=== PATIENT | female | born 1940 | race Caucasian/White ===

== ENCOUNTER → 2023-11-17 10:14 | Outpatient (REF) | payer OTHER, SELFPAY | LOC: RCS 10:14 | PROVIDERS: ATTENDING PHYSICIAN Specialist; FAMILY PHYSICIAN Family Medicine; REFERRING PHYSICIAN Internal Medicine | DX: Z01.818 Encounter for other preprocedural examination (principal) | CPT/HCPCS: 93005 ==

== ENCOUNTER 2023-12-28 22:15 | Inpatient (IN) | payer OTHER, SELFPAY ==
[2023-12-28 18:45] VITALS: BP 117/53
[2023-12-28 19:34] LABS: ALT (SGPT) 22 U/L (0-35); AST (SGOT) 26 U/L (14-36); Albumin 4.4 g/dl (3.5-5.0); Alkaline Phosphatase 119 U/L (38-126); Blood Urea Nitrogen 39 mg/dl (7-17); Carbon Dioxide 36 mmol/L (22-30); Chloride 81 mmol/L (98-107); Glucose 145 mg/dl (70-99); Lipase 72 U/L (23-300); Potassium 2.8 mmol/L (3.5-5.1); Sodium 128 mmol/L (135-145); Total Bilirubin 0.9 mg/dl (0.2-1.3)
[2023-12-28 20:09] VITALS: BP 113/64
[2023-12-28 20:30] VITALS: BMI 26.1
[2023-12-28 20:33] LABS: % Basophils 0.4 % (0-2); % Eosinophils 1.1 % (0-6); % Immature Granulocytes 0.5 % (0-0.5); % Lymphocytes 13.1 % (20.5-51.1); % Monocytes 7.8 % (1.7-9.3); % Neutrophils 77.1 % (42.2-75.2); Absolute Basophils 0.1 10^3/uL (0-0.2); Absolute Eosinophils 0.2 10^3/uL (0-0.7); Absolute Immature Granulocytes 0.1 10^3/uL (0-0.05); Absolute Lymphocytes 2.2 10^3/uL (1.2-3.4); Absolute Monocytes 1.3 10^3/uL (0.1-0.6); Absolute Neutrophils 12.8 10^3/uL (1.4-6.5); Hematocrit 38.6 % (37.0-47.0); Hemoglobin 13.9 g/dL (12.0-16.0); Mean Corpuscular Hgb 33.4 pg (27.0-31.0); Mean Corpuscular Volume 92.8 fL (81.0-99.0); Mean Platelet Volume 9.4 fL (7.4-10.4); Nucleated Red Blood Cells % 0 %; Platelet Count 406 10^3/uL (130-400); Red Blood Cell Count 4.16 10^6/uL (4.20-5.40); Red Cell Dist. Width 12.6 % (11.5-14.5); White Blood Cell Count 16.6 10^3/uL (4.8-10.8)
[2023-12-28 20:42] LABS: Magnesium 2.3 mg/dl (1.6-2.3)
--- NOTE | 2023-12-28 20:43 | ED.GENMED ---
History of Present Illness
General
Chief Complaint: Abdominal Symptoms
Source: patient and family
Exam Limitations: none
Time Seen by Provider: 12/28/23 20:06
Nursing documentation reviewed up to this point in time: agreed with
Travel History
Have you had any contact with someone who has COVID-19?: No
Do you have any symptoms of coronavirus? Fever > 100 degrees, chills, cough, shortness of breath, sore throat, loss of taste or smell, muscle aches, or headache?: No
History of Present Illness
History of Present Illness:
83-year-old female presents with fatigue dizziness nausea subacute onset, seen by her PCP recently started on Macrobid for UTI
She has a known spot on her biliary tract based on a CAT scan or an MRI scheduled for an MRI next week no abdominal pain no jaundice
Symptoms worse in the past day or so, she is having trouble getting up out of bed as her symptoms are so severe did have some diarrhea yesterday,
Has chronic leg edema
Has had some burning in her upper chest--no history of CAD but does have A-fib on flecainide and potassium
For GI issues to be worked up by GI group at 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
Past History
Past History
ED Past Medical History: Arrthythmia, GERD (Hiatal hernia), HTN, Hypercholesterolemia, Valvular disease and Other (Kidney stones)
ED Past Surgical History: Gynecological (Tubal ligation), Tonsilectomy, Urological (Kidney stone removal) and Other (Hiatal hernia repair)
Social History
Tobacco: Non-smoker
Alcohol: None
Drug: None
Personal:
Living: with family
Employment: Retired
Family History
Family History: Other (Noncontributory)
Review of Systems
Review of Systems
All Other Systems: Not applicable
Constitutional: Reports fatigue; Denies chills
EENT: Reports no symptoms
Respiratory: Denies cough
Cardiac: Reports chest pain
ABD/GI: Reports nausea and diarrhea
: Reports no symptoms
Musculoskeletal: Reports no symptoms
Neurological: Reports dizzy, headache and weakness
Endocrine: Reports no symptoms
Hematologic/Lymphatic: Reports no symptoms
Psychiatric: Reports no symptoms
Phy Exam
Physical Exam
Physical Exam:
Physical Exam
General: 83-year-old female dry lips looks uncomfortable normal
Neck: Lips are dry no jaundice
Heart: Your
Lungs: no acute respiratory distress. clear bilaterally
Abdomen: Nontender
Neuro: alert and oriented. no focal neurological deficits
Skin: no rash
Psychiatric: cooperative
Extremities: Lymphedema lower
Course
Orders/Labs/Results
Orders:
Orders
12/28/23 Breakfast
Cholesterol Lowering
Cholesterol Lowering: Sodium, 2 Gram
12/28/23 18:49
IV Insert/Care/Rem.- Treatment PRN
12/28/23 18:57
Comprehensive Metabolic Panel Urgent
Cortisol, Random Urgent
Comment: ADD ON
Lipase Urgent
Magnesium Urgent
Comment: ADD ON
Serum Osmolality Urgent
Comment: AD ON
TSH Urgent
Comment: ADD ON
12/28/23 20:06
Add On- LAB Urgent
Tests Added?: Magnesium, serum osmolality, TSH, random cortisol
Electrocardiogram (*1) Urgent
Reason for Study: Vertigo / Dizzy
EKG- Treatment ONCE
12/28/23 20:23
Complete Blood Count/With Diff Urgent
12/28/23 20:27
Osmolality, Random Urine Urgent
Date Specimen was Collected: 12/28/23
Time Specimen was Collected: 20:26
Urinalysis Reflex To Culture Urgent
Date Specimen was Collected: 12/28/23
Time Specimen was Collected: 20:
Urine Microscopic Reflex Cult Urgent
Urine Sodium Urgent
Date Specimen was Collected: 12/28/23
Time Specimen was Collected: 20:
Urine Culture Urgent
GUNJAN Source: U
Specimen Description:
Date Specimen was Collected: 12/28/23
Time Specimen was Collected: 20:
12/28/23 20:40
Potassium Chloride [KCl] 20 meq PO NOW STA
12/28/23 20:46
CT Head W/o Iv Contrast Urgent
Comment:
Reason For Exam: Dizziness headache unable to ambulate
12/28/23 21:00
KCl 40 Meq/0.9%Sodchl 1000 ml [NSS with KCL 40 MEQ] 40 meq in 1,000 ml IV 125 mls/hr
12/28/23 21:52
Admit/Transfer Patient As Directed
Co-Sign Provider:
Level of Care: Inpatient admission
Assign to:: Telemetry
Physician / Group: Hospitalist
Diagnosis: Weakness and dizziness
Reason for Telemetry: Arrhythmia
Date to Stop Telemetry: 12/31/23
Time to Stop Telemetry: 11:00
Reason for Hospitalization: Weakness and dizziness
Expected length of stay greater than two midnights?: Yes
ELOS- Estimated Length of Stay in days: 3
I certify the patient meets the requirements for IP care: Yes
12/28/23 21:54
Code Status As Directed
Resuscitation Status: Full Code
12/28/23 22:40
Electrocardiogram (*1) Q6H
Reason for Study: Chest Pain
Comment: at admission and Q3H for total of 3, to be done with each troponin
0.9% Sodium Chloride 1000 ml [Nss] 1,000 ml IV 100 mls/hr
12/28/23 22:40
Activity As Directed
Activity Level: As Tolerated
INT (Intravenous Needle Therapy) As Directed
Comment: maintain peripheral IV access
Intake/ Output As Directed
Frequency: Per unit guidelines
Pneumatic Compression Sleeves As Directed
Type: Knee high
Vital Signs As Directed
Frequency: q4h
Weight As Directed
Frequency: Daily
DX Deep Vein Thrombosis Video Routine
12/28/23 23:00
CefTRIAXone [Rocephin] 1,000 mg IV Q24H
12/28/23 23:05
Free T4 Routine
Magnesium Routine
Troponin I Urgent
12/28/23 23:06
Glycohemoglobin (HgbA1c) Routine
12/29/23 01:40
Troponin I Q3H
Comment: at admit & Q3H for 3 total including ED draws, obtain ECG with each level
12/29/23 04:40
Electrocardiogram (*1) Q6H
Reason for Study: Chest Pain
Comment: at admission and Q3H for total of 3, to be done with each troponin
Troponin I Q3H
Comment: at admit & Q3H for 3 total including ED draws, obtain ECG with each level
12/29/23 06:00
Basic Metabolic Panel IN AM
Complete Blood Count/No Diff IN AM
Magnesium IN AM
12/29/23 08:00
Aspirin Low Dose EC [Aspir Low (Enteric Coated)] 81 mg PO DAILY
Diltiazem Extended Release [Cardizem Cd] 180 mg PO DAILY
Flecainide [Tambocor] 50 mg PO BID
Potassium Chloride Powder [Klor-Con] 20 meq PO DAILY
12/29/23 10:40
Electrocardiogram (*1) Q6H
Reason for Study: Chest Pain
Comment: at admission and Q3H for total of 3, to be done with each troponin
12/31/23 11:00
DC Protocol for Telemetry ONCE
Abnormal Lab Results
12/28/23 12/28/23 12/28/23
18:57 20:23 20:27
WBC 16.6 H 10^3/uL
(4.8-10.8)
RBC 4.16 L 10^6/uL
(4.20-5.40)
MCH 33.4 H pg
(27.0-31.0)
Plt Count 406 H 10^3/uL
(130-400)
Abs Immat Gran (auto) 0.1 H 10^3/uL
(0-0.05)
Absolute Neuts (auto) 12.8 H 10^3/uL
(1.4-6.5)
Absolute Monos (auto) 1.3 H 10^3/uL
(0.1-0.6)
Neutrophils % 77.1 H %
(42.2-75.2)
Lymphocytes % 13.1 L %
(20.5-51.1)
Sodium 128 L mmol/L
(135-145)
Potassium 2.8 L mmol/L
(3.5-5.1)
Chloride 81 L mmol/L
(98-107)
Carbon Dioxide 36 H mmol/L
(22-30)
BUN 39 H mg/dl
(7-17)
Glucose 145 H mg/dl
(70-99)
TSH 0.09 L uIU/ml
(0.47-4.68)
Urine Ketones 1+ A
(Negative)
Leukocyte Esterase Rfl 2+ A
(Negative)
Urine WBC (Reflex) 26-30 A /HPF
(0-5)
Urine Bacteria (Reflex) Few A
(Negative)
Urine Osmolality 284 L mOsm/kg
(300-900)
12/28/23 20:23
12/28/23 18:57
Vital Signs
Initial and Last Documented VS:
Initial Vital Signs
Temp Pulse Resp BP Pulse Ox
97.3 F 50 18 117/53 99
12/28/23 18:45 12/28/23 18:45 12/28/23 18:45 12/28/23 18:45 12/28/23 18:45
Last Documented Vital Signs
Temp Pulse Resp BP Pulse Ox
97.3 F 85 17 106/54 96
12/28/23 18:45 12/28/23 23:00 12/28/23 23:00 12/28/23 23:00 12/28/23 23:00
MDM/Problems Addressed
Differential Diagnosis Includes:
Electrolyte abnormality dehydration UTI malignancy brain tumor
MDM/Problems Addressed:
Dizziness nausea
Chronic conditions affecting care:
Lymphedema spot on biliary tract
Chronic conditions affecting care: Arrhythmia
Acute Exacerbation and/or Progression of Chronic Illness:
Lymphedema spot on biliary tract
Acute Exacerbation and/or Progression of Chronic Illness: Arrhythmia
*Critical Care Note
Total Time (30-74mins, 75-104mins- exclusive of procedures): Not Applicable
Update Note
Update Note:
Update labs are noted we will replete her electrolytes start on gentle hydration symptoms are acute on chronic, LFTs look normal will check CT of the head will require admission due to severity of illness potential for decompensation
ED Attending Note
-
Portions of this chart may have been created with voice recognition software.� Occasional wrong word or��sound alike� substitutions may have occurred due to the inherent limitations of voice recognition software.
Discharge Plan
Departure
Patient Disposition: Admit
Date of Disposition: 12/28/23
Time of Disposition: 20:58
Admit to: Telemetry
Presentation/result/management discussed w/ accepting MD/DO: Hospitalist
Patient with high blood pressure during this ER visit?: No
Condition: Fair
Discharge Problem:
Intractable dizziness, Dehydration with hyponatremia
Interventions
Interventions:
*Risk Screen - Suicide Last Done: 12/28/23 18:45
*General Assessment Last Done: 12/28/23 18:45
*Neglect/Abuse Screening Last Done: 12/28/23 18:45
ED- Fall Risk Assessment Last Done: 12/28/23 20:30
*ED COVID-19 Vaccine History Last Done: 12/28/23 20:30
SM-Qwfaft-Qpckuzggeg Assessment Last Done: 12/28/23 20:33
[2023-12-28] MEDS: KCL 20 MEQ PO (20:59)
[2023-12-28] MEDS: NSS with KCL 40 MEQ 1000 IV (20:59)
[2023-12-28 21:00] VITALS: BP 120/55
[2023-12-28 21:13] LABS: Cortisol, Random 44.1 ug/dl; TSH 0.09 uIU/ml (0.47-4.68)
--- NOTE | 2023-12-28 21:36 | HPS.HSE ---
Family Physician
-
Family Physician:
Chief Complaint
-
Weakness and dizziness
History of Present Illness
83-year-old woman comes in with fatigue, dizziness, nausea, which has been going on for about a month but is worse recently. She was seen by her PCP and was started onMacrobid for UTI. She has a known 'spot' on her biliary tract taht was seen on a
CT scan. She is scheduled for an MRI next week, but has no abdominal pain or jaundice. Her Symptoms have been particularly worse in the past day and she is now having trouble getting up out of bed. She had some diarrhea yesterday, she Has chronic
leg edema. She Has had some burning in her upper chest--no history of CAD but does have A-fib on flecainide and potassium. Not anticoagulated. She takes tramadol BID, as well as lasix. At the time of my exam, she was sleepy but was able to
answer questions.
Medical History
Past Medical History
Past Medical History: Reports Other
Additional Past Medical History:
Arrthythmia, paroxysmal afib
GERD (Hiatal hernia),
essential HTN,
Hypercholesterolemia,
Valvular disease
Kidney stones
Tubal ligation),
Tonsilectomy,
Kidney stone removal
Hiatal hernia repair
Past Surgical History: Reports Other
Additional Past Surgical History:
See above
Social History
Tobacco: Non-smoker
Alcohol: None
Drug: None
Personal:
Living: With Family
Family History
Family History: Not pertinent
Allergies / Home Medications
Allergies reflects when Allergies were last updated in [facility].
Home Medications with original date entered in [facility]
Allergy/Medication List:
Allergies
Allergy/AdvReac Type Severity Reaction Status Date / Time
No Known Allergies Allergy Verified 12/28/23 18:45
Home Medications
Ca 600 mg-D3 20 mcg-mag oxide 50 cj-Rv-gmkjnb-manganese-boron tablet (Calcium 600-D3 Plus (mag-zinc)) 1 ea PO DAILY 01/27/21
L.acidoph, paracasei,B. lactis 10 billion cell capsule 1 ea PO DAILY 01/27/21
ascorbic acid (vitamin C) 1,000 mg tablet (Vitamin C) 1,000 mg PO DAILY 01/27/21
aspirin 81 mg tablet,delayed release (Lo-Dose Aspirin) 81 mg PO DAILY 01/27/21
cetirizine 10 mg tablet (Zyrtec) 10 mg PO DAILY 01/27/21
diclofenac sodium 1 % topical gel 1 g topical DAILY 01/27/21
diltiazem HCl 180 mg capsule,extended release 24 hr 180 mg PO DAILY 01/27/21
famotidine 40 mg tablet (Pepcid) 40 mg PO PRN PRN indigestion 01/27/21
flecainide 50 mg tablet 50 mg PO BID 01/27/21
furosemide 40 mg tablet 40 mg PO DAILY 01/27/21
omeprazole 40 mg capsule,delayed release 40 mg PO DAILY 01/27/21
psyllium husk (bulk) 100 % powder 750 mg PO DAILY 01/27/21
sertraline 25 mg tablet 25 mg PO DAILY 01/27/21
sucralfate 100 mg/mL oral suspension (Carafate) 1 gm PO QIDPRN PRN Chest pain/acid reflux ##560 01/27/21
tramadol 50 mg tablet 50 mg PO BID 01/27/21
fukeywkt-eynser-zlz-pab-lfc-dsui-horse 100 mg-100 mg-100 mg-125 mg tab (Tumersaid) 1 ea PO BID 01/27/21
vitamin B complex (Ultra B-100 Complex tablet) 1 ea PO DAILY 01/27/21
amoxicillin 875 mg-potassium clavulanate 125 mg tablet 1 tab PO BID 7 days #14 tabs 04/25/23
Review of Systems
-
History Source: Patient
A 12 point ROS was completed and negative except as noted: Yes
Physical Exam
Vital Signs
Vital Signs
Temp Pulse Resp BP Pulse Ox
97.3 F 74 17 120/55 97
12/28/23 18:45 12/28/23 21:00 12/28/23 21:00 12/28/23 21:00 12/28/23 21:16
Physical Exam
General: Well Developed, Well Nourished, No Apparent Distress, Comfortable and Conversant
HEENT: NormoCephalic, No Ptosis, Nose Appears Normal and Ears Appear Normal
Respiratory: Clear
Cardiac: S1/S2 and Irregular Rhythm
GI: Soft, Non Tender and Non Distended
Musculoskeletal: No Clubbing, No Cyanosis, Edema, Left Lower Extremity and Edema, Right Lower Extremity
Skin: Warm and Dry; No Rash or Jaundice
Neuro: Awake and Alert
Psych: Calm
Laboratory Results
-
12/28/23 20:23
12/28/23 18:57
Laboratory Results
Total Bilirubin 0.9 mg/dl (0.2-1.3) 12/28/23 18:57
AST 26 U/L (14-36) 12/28/23 18:57
ALT 22 U/L (0-35) 12/28/23 18:57
Alkaline Phosphatase 119 U/L (38-126) 12/28/23 18:57
Lipase 72 U/L (23-300) 12/28/23 18:57
Data Reviewed
-
Lab Data: Labs Reviewed by me
Impression/Plan
-
IMPRESSION:
83 woman with dizziness and weakness, worsening over a month, diagnosed with outpt UTI. Significant findings:
WBC 16.6
Na 128
K 2.8
BUN 39
Creat 1.0
TSH 0.09
PLAN:
1. Dehydration with electrolyte abnormalities
Low K
Replete K
Recheck in am
Check mag
Low Na
Saline
Recheck in AM
2. WBC of 16, likely from UTI
IV abx - ceftriaxone
3. TSH of 0.09 - could also explain her weakness
Get thyroid labs in am
4. Daily tramadol - may cause weakness and sleepiness
Consider reducing this med
5. Afib, not on anticoagulation, rate wnet in 140s, with ECG changes when going fast
Outpatient review with her civil preparedness officer
MICHELLE
Telemetry
Full code
VCD for DVTp
[2023-12-28 22:00] VITALS: BP 107/62
[2023-12-28 22:27] LABS: Osmolality Serum 282 mOsm/kg (275-300)
[2023-12-28] MEDS: MELATONIN 3 MG PO (22:33)
[2023-12-28 23:00] VITALS: BP 106/54
[2023-12-28 23:14] VITALS: BP 117/54
[2023-12-28 23:36] LABS: Magnesium 2.2 mg/dl (1.6-2.3)
[2023-12-28 23:49] LABS: Troponin I < 0.012 ng/ml
[2023-12-29] VITALS (19 sets, daily range): BP systolic 99–140; BP diastolic 39–81; BMI 26.1
[2023-12-29 00:08] LABS: Free T4 1.82 ng/dl (0.78-2.19)
[2023-12-29 00:45] LABS: Urine Albumin Negative (Neg - Trace); Urine Bilirubin Negative (Negative); Urine Character Clear (Clear); Urine Color Yellow; Urine Glucose Negative (Negative); Urine Ketone 1+ (Negative); Urine Leukocyte 2+ (Negative); Urine Nitrite Negative (Negative); Urine Occult Blood Negative (Negative); Urine Specific Gravity 1.005 (<1.030); Urine Urobilinogen Negative (Neg - 1+)
[2023-12-29 01:02] LABS: Osmolality Urine 284 mOsm/kg (300-900); Urine Squamous Cell >30 /LPF (Few)
[2023-12-29 01:03] LABS: Urine Bacteria Few (Negative); Urine Red Blood Cell None Seen /HPF (0-2); Urine White Cell 26-30 /HPF (0-5)
[2023-12-29 01:07] LABS: Urine Sodium 80 mmol/L (30-90)
[2023-12-29 02:18] LABS: Troponin I < 0.012 ng/ml
[2023-12-29] MEDS: NSS 1000 IV (03:41)
[2023-12-29] MEDS: ROCEPHIN 1000 MG IV ×2 (03:49→22:13)
[2023-12-29] MEDS: STERILE WATER FOR INJECTION 10 ML IV ×2 (03:49→22:13)
[2023-12-29] MEDS: NSS with KCL 40 MEQ 1000 IV ×3 (04:17→22:13)
[2023-12-29 06:52] LABS: Hematocrit 33.9 % (37.0-47.0); Hemoglobin 11.5 g/dL (12.0-16.0); Mean Corp Hgb Conc. 33.9 g/dL (33.0-37.0); Mean Corpuscular Hgb 33.2 pg (27.0-31.0); Red Blood Cell Count 3.46 10^6/uL (4.20-5.40); Red Cell Dist. Width 12.8 % (11.5-14.5); White Blood Cell Count 11.8 10^3/uL (4.8-10.8)
[2023-12-29 07:30] LABS: Blood Urea Nitrogen 35 mg/dl (7-17); Calcium 8.9 mg/dl (8.4-10.2); Carbon Dioxide 30 mmol/L (22-30); Chloride 93 mmol/L (98-107); Estimated Creatinine Clearance 45 ml/min; Glucose 85 mg/dl (70-99); Magnesium 2.2 mg/dl (1.6-2.3); Potassium 3.1 mmol/L (3.5-5.1); Sodium 132 mmol/L (135-145); eGFR > 60.00
[2023-12-29 08:12] LABS: Platelet Count 281 10^3/uL (130-400)
[2023-12-29 08:13] LABS: Mean Platelet Volume 11.1 fL (7.4-10.4)
[2023-12-29 08:46] LABS: Glycohemoglobin (HgbA1c) 5.8 % (4.0-5.6)
[2023-12-29 09:10] LABS: Troponin I < 0.012 ng/ml
[2023-12-29] MEDS: TAMBOCOR 50 MG PO ×2 (09:12→21:23)
[2023-12-29] MEDS: ASPIR LOW (ENTERIC COATED) 81 MG PO (09:12)
[2023-12-29] MEDS: CARDIZEM CD 180 MG PO (09:13)
[2023-12-29] MEDS: KLOR-CON 40 MEQ PO ×2 (09:18→20:09)
--- NOTE | 2023-12-29 10:34 | W.PN.HOSP.TC ---
Today's Communication/Plan
-
see plan
Assessment / Plan
Assessment / Plan
IMPRESSION:
83 woman with dizziness and weakness, worsening over a month, diagnosed with outpt UTI.
PLAN:
1. Dehydration with electrolyte abnormalities
replete hypokalemia
Replete K
Recheck in am
mag normal
hyponatremia
Saline-> improving with IVF
Recheck in AM
2. WBC of 16, likely from UTI
IV abx - ceftriaxone
await urine cultures
3. TSH of 0.09 - could also explain her weakness
Get thyroid labs in am
4. Daily tramadol - may cause weakness and sleepiness
Consider reducing this med
5. Afib, not on anticoagulation, rate wnet in 140s, with ECG changes when going fast
Outpatient review with her box toe stitcher
MICHELLE
Telemetry
Full code
VCD for DVTp
Anticipated Discharge: 24 - 48 hours
Subjective/Interval History
-
Date of Service: December 29, 2023
pt still not at baseline
endorses generalized weakness
Objective Data
-
Labs:
Laboratory Results
12/29/23
05:59
WBC 11.8 H
Hgb 11.5 L
Hct 33.9 L
Plt Count 281 D
Sodium 132 L
Potassium 3.1 L
Chloride 93 L
Carbon Dioxide 30
BUN 35 H
Creatinine 0.8
Glucose 85
Calcium 8.9
Vital Signs:
Vital Signs
Temp Pulse Resp BP Pulse Ox
98.0 F 61 14 115/63 95
12/29/23 07:00 12/29/23 09:13 12/29/23 06:45 12/29/23 09:13 04/01/24 06:45
I&O
12/28/23 12/29/23 12/30/23
06:59 06:59 06:59
Output Total 300 / 300
Balance -300 / -300
Review of Systems
-
History Source: Patient
All other systems: Reviewed and negative
Constitutional: Reports Weakness (generalized)
Physical Exam
-
General: Well Developed and No Apparent Distress
HEENT: Normocephalic, Atraumatic and Moist Mucous Membranes
Respiratory: Clear to Auscultation
Cardiac: S1/S2 and Tachycardic; Negative Murmur, Rub or Gallop
GI: Soft, Nontender, Nondistended and Normal Bowel Sounds; Negative Organomegaly
Rectal: Deferred by Provider
Musculoskeletal: No Clubbing, No Cyanosis and No Edema
Skin: Negative Rash
Neuro: Nonfocal/Grossly Intact
Data Reviewed
-
Diagnostic Radiology: Report Reviewed by me
[2023-12-29] MEDS: TYLENOL 1000 MG PO (20:08)
[2023-12-30] VITALS (9 sets, daily range): BP systolic 108–165; BP diastolic 46–73
[2023-12-30] MEDS: MELATONIN 3 MG PO ×2 (00:28→20:12)
[2023-12-30] MEDS: NSS with KCL 40 MEQ 1000 IV (06:30)
[2023-12-30 07:40] LABS: % Basophils 0.7 % (0-2); % Eosinophils 4.1 % (0-6); % Immature Granulocytes 0.5 % (0-0.5); % Lymphocytes 19.1 % (20.5-51.1); % Monocytes 10.9 % (1.7-9.3); % Neutrophils 64.7 % (42.2-75.2); Absolute Basophils 0.1 10^3/uL (0-0.2); Absolute Eosinophils 0.4 10^3/uL (0-0.7); Absolute Immature Granulocytes 0.1 10^3/uL (0-0.05); Absolute Lymphocytes 1.9 10^3/uL (1.2-3.4); Absolute Monocytes 1.1 10^3/uL (0.1-0.6); Absolute Neutrophils 6.3 10^3/uL (1.4-6.5); Hematocrit 34.6 % (37.0-47.0); Hemoglobin 11.4 g/dL (12.0-16.0); Mean Corp Hgb Conc. 32.9 g/dL (33.0-37.0); Mean Corpuscular Hgb 33.4 pg (27.0-31.0); Mean Corpuscular Volume 101.5 fL (81.0-99.0); Nucleated Red Blood Cells % 0 %; Platelet Count 324 10^3/uL (130-400); Red Blood Cell Count 3.41 10^6/uL (4.20-5.40); Red Cell Dist. Width 13.2 % (11.5-14.5); White Blood Cell Count 9.8 10^3/uL (4.8-10.8)
[2023-12-30 07:56] LABS: ALT (SGPT) 17 U/L (0-35); AST (SGOT) 25 U/L (14-36); Albumin 3.3 g/dl (3.5-5.0); Alkaline Phosphatase 86 U/L (38-126); Blood Urea Nitrogen 18 mg/dl (7-17); Calcium 8.9 mg/dl (8.4-10.2); Carbon Dioxide 25 mmol/L (22-30); Chloride 105 mmol/L (98-107); Estimated Creatinine Clearance 59 ml/min; Glucose 81 mg/dl (70-99); Potassium 4.7 mmol/L (3.5-5.1); Sodium 133 mmol/L (135-145); Total Bilirubin 0.6 mg/dl (0.2-1.3); Total Protein 5.6 g/dl (6.3-8.2); eGFR > 60.00
--- NOTE | 2023-12-30 09:26 | CM ---
CM reviewed medical records. CM met with patient in room. Patient's in room. Patient confirmed demographics. [place] home is [place] level. Patient denies history of VN, SNF. Patient uses a case for
ambulation. Patient is active with her PCP. Patient uses [facility] for medication services.
Patient is agreeable to [facility] and is looking forward to home discharge. [facility] access liaison made aware of new referral.
PLAN: Home with VN
[2023-12-30] MEDS: TAMBOCOR 50 MG PO ×2 (09:42→20:10)
[2023-12-30] MEDS: CARDIZEM CD 120 MG PO (09:42)
--- NOTE | 2023-12-30 09:56 | PN.CDI ---
CDI
- -
CDI:
Physician Documentation Request
Admit Date: 12/28/23 22:15
Dear Doctor Darwin,
Clinical Indicators:
Patient admitted with dizziness and weakness; diagnosed with outpatient UTI.
12/27 H & P, -'At the time of my exam, she was sleepy but was able to answer questions.'
- 'Daily tramadol - may cause weakness and sleepiness...'
12/[address]: No evidence of acute intracranial abnormality.
12/28 PN, 'pt still not at baseline...endorses generalized weakness'
Sodium levels:
12/28/23 12/29/23
18:57 05:59
Sodium 128 L 132 L
Based on the above, could you clarify in the progress notes, the appropriate diagnosis, if significant, that supports the above abnormalities and additional evaluation, monitoring and/or treatment rendered:
Acute Metabolic Encephalopathy
Toxic Metabolic Encephalopathy
Weakness only
Other, please specify
Use of terms such as suspected, likely, concern for, or probable (associated with a specific diagnosis that is being evaluated, monitored, or treated as if it exists) are acceptable and can be coded in the inpatient setting, when documented at the
time of discharge.
Thank you,
SALAS Campoverde RN
CDI Specialist
available via tiger text
Please use your independent medical judgment in providing your response.
[2023-12-30] MEDS: KLOR-CON PO (10:31)
--- NOTE | 2023-12-30 10:55 | W.PN.HOSP.TC ---
Addendum entered and electronically signed by Marleny Granados MD 12/30/23 12:19:
Acute Metabolic Encephalopathy in setting of hyponatremia, possible UTI
Original Note:
Today's Communication/Plan
-
orthopedics cs
pt/ot
meclizine
mri brain.
Assessment / Plan
Assessment / Plan
IMPRESSION:
83 woman with dizziness and weakness, worsening over a month, diagnosed with outpt UTI.
PLAN:
1. Dehydration with electrolyte abnormalities
replete hypokalemia
Replete as required
IMPROVING.
mag normal
hyponatremia
hold torsemide.
Saline-> improving with IVF
Cap IVF. Consider resume torsemide 12/30
Status post L shoulder replacement
Pt now with increasing swelling in the L shoulder
Ortho consult
Pt had recent aspiration of joint due to similar swelling recently.
Dizziness
Was initially presumed to dehydration, hyponatremia but persists
Pt with hx of vertigo
Check MRI brain
standing meclizine
PT/OT
Biliary duct abnormality
MRI repeated here: Stable MRI appearance of a small periampullary projection that again could reflect papillary hypertrophy or a small neoplasm. No significant change compared to the MRI abdomen from 07/15/2023. No increased bile duct dilatation. No
MRCP evidence for choledocholithiasis or bile duct stricture.
Recommend pt to follow up with Dr. Wilson at [facility]. No acute intervention.
2. WBC of 16, likely from UTI
IV abx - ceftriaxone
ucx with contaminant but cont rocephin for now due to leukocytosis that improved with IV abx.
3. TSH of 0.09 - could also explain her weakness
free t4 normal. recommend close outpt follow up
4. Daily tramadol - may cause weakness and sleepiness
Consider reducing this med
5. Afib, not on anticoagulation, rate wnet in 140s, with ECG changes when going fast
Outpatient review with her airplane mechanic
cont flecanide.
Telemetry
Full code
VCD for DVTp
relayed plan at length with .
Anticipated Discharge: 24 - 48 hours
Subjective/Interval History
-
Date of Service: December 30, 2023
pt reports ongoing dizziness but does feel a bit better
L shoulder painful
Objective Data
-
Labs:
Laboratory Results
12/30/23
06:32
WBC 9.8
Hgb 11.4 L
Hct 34.6 L
Plt Count 324
Sodium 133 L
Potassium 4.7 D
Chloride 105
Carbon Dioxide 25
BUN 18 H
Creatinine 0.6
Glucose 81
Calcium 8.9
Total Bilirubin 0.6
AST 25
ALT 17
Alkaline Phosphatase 86
Vital Signs:
Vital Signs
Temp Pulse Resp BP Pulse Ox
98.2 F 69 15 165/54 98
12/30/23 09:41 12/30/23 09:38 12/30/23 09:38 12/30/23 09:38 12/30/23 09:38
I&O
12/29/23 12/30/23 12/31/23
06:59 06:59 06:59
Output Total 300 / 300
Balance -300 / -300
Review of Systems
-
History Source: Patient
All other systems: Reviewed and negative
Musculoskeletal: Reports Joint Pain
Neuro: Reports Dizzy
Physical Exam
-
General: Well Developed and No Apparent Distress
HEENT: Normocephalic, Atraumatic and Moist Mucous Membranes
Respiratory: Clear to Auscultation
Cardiac: Regular Rhythm and S1/S2; Negative Murmur, Rub or Gallop
GI: Soft, Nontender, Nondistended and Normal Bowel Sounds; Negative Organomegaly
Rectal: Deferred by Provider
Musculoskeletal: No Clubbing, No Cyanosis and Other (L shoulder edema)
Skin: Negative Rash
Neuro: Nonfocal/Grossly Intact
Data Reviewed
-
Diagnostic Radiology: Report Reviewed by me and Discussed with Family
Labs: Labs Reviewed by me and Discussed with Patient
[2023-12-30] MEDS: TYLENOL #3 1 TABLET PO ×2 (12:40→20:10)
[2023-12-30] MEDS: ANTIVERT 25 MG PO ×2 (12:41→20:12)
--- NOTE | 2023-12-30 12:54 | VNURNOTE ---
Home Health Liaison spoke with patient's spouse by phone at 1030 to discuss [facility] nurse/therapy, visits, schedule and homebound status. Patient was on speaker and is agreeable and understands that visits at home will be 2-3 x per week to assess and
teach medical management.
Patient is aware that [facility] will contact them for start of care in 1-2 days after discharge from .
[facility] referral completed in [facility].
--- NOTE | 2023-12-30 12:56 | CON.ORTHO ---
Consultation
-
Date/Time Consultation Requested: January 20/1029
Date/Time Consultation Performed: January 20/1230
Requesting Provider: Darwin
Performing Provider: Amarilis for [place]
Reason for Consultation: Right shoulder swelling
Consultation - Orthopedics
History
Dictation#[id number]
Was asked to see this very pleasant 83-year-old white female with PMH of Arrthythmia, GERD (Hiatal hernia), HTN, Hypercholesterolemia, Valvular disease and Kidney stones, well-known to our orthopedic practice, specifically Dr. Jones for arthroscopic
balloon spacer placement and extensive debridement of the shoulder back on 10 December 2023. Postoperatively she presented to our office on 23 December 2023 with increased swelling. Aspiration and steroid injection was provided and fluid was sent to the
lab. Analysis was negative. she has now been readmitted due to dehydration and hyponatremia. Consult was requested for increased swelling of the right shoulder.
Allergies / Home Medications
Allergy/AdvReac Type Severity Reaction Status Date / Time
No Known Allergies Allergy Verified 12/28/23 18:45
�Medication �Instructions �Recorded
Ca 600 mg-D3 20 mcg-mag oxide 50 1 tab PO BID Supplement 01/27/21
lg-Ph-vwwwlc-manganese-boron
tablet (Calcium 600-D3 Plus
(mag-zinc))
ascorbic acid (vitamin C) 1,000 mg 1,000 mg PO DAILY Supplement 01/27/21
tablet (Vitamin C)
flecainide 50 mg tablet 50 mg PO BID Arrhythmia 01/27/21
omeprazole 40 mg capsule,delayed 40 mg PO BID Gastrointestinal Issue 01/27/21
release
tramadol 50 mg tablet 50 mg PO BID PRN severe pain 01/27/21
lbmpsmsk-ajpfaq-bjt-det-imq-nczd-horse 1 tab PO BID Supplement 01/27/21
100 mg-100 mg-100 mg-125 mg tab
(Tumersaid)
atorvastatin 10 mg tablet 10 mg PO HS High Cholesterol 12/28/23
cyanocobalamin (vitamin B-12) 500 500 mcg PO DAILY Supplement 12/28/23
mcg tablet (Vitamin B-12)
diltiazem HCl 120 mg capsule,24 120 mg PO HS Arrhythmia 12/28/23
hr,extended release
multivitamin 1 tab PO NOON Supplement 12/28/23
polyethylene glycol 3350 17 gram 17 g PO DAILY Constipation 12/28/23
oral powder packet (Miralax)
potassium chloride 20 mEq 20 meq PO NOON Electrolyte 12/28/23
tablet,extended Repletion
release(part/cryst) (Klor-Con M)
torsemide 20 mg tablet 40 mg PO BID Fluid 12/28/23
Retention/Swelling
vitamin A-vitamin C-vit E-min 1 tab PO HS Supplement 12/28/23
tablet
zinc 50 mg tablet 50 mg PO DAILY Supplement 12/28/23
acetaminophen 300 mg-codeine 15 mg 1 tab PO Q6H PRN severe pain 12/29/23
tablet
acetaminophen 500 mg tablet 1,000 mg PO BIDPRN PRN mild pain 12/29/23
(Tylenol Extra Strength)
biotin 1 tab PO DAILY Supplement 12/29/23
carboxymethylcellulose sodium 1 % 1 drp BOTH EYES BID Eye Condition 12/29/23
eye liquid gel drops
metolazone 2.5 mg tablet 2.5 mg PO DAILY PRN edema 12/29/23
ondansetron 8 mg disintegrating 8 mg PO Q8H PRN nausea/vomiting 12/29/23
tablet
oxycodone 5 mg tablet 5 mg PO Q6H PRN severe pain 12/29/23
sertraline 50 mg tablet 50 mg PO HS Mental Health 12/29/23
vitamin B complex 1 tab PO NOON Supplement 12/29/23
melatonin 10 mg tablet 10 mg PO HS PRN sleep 12/30/23
Vital Signs / Lab Results
Temp Pulse Resp BP Pulse Ox
98.2 F 80 20 128/56 98
12/30/23 09:41 12/30/23 11:00 12/30/23 11:00 12/30/23 10:42 12/30/23 09:38
12/30/23 06:32
12/30/23 06:32
Assessment / Plan
PE: Afeb. ED18. 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 large effusion of the shoulder without erythema and mild warmth. Some generalized discomfort to palpation. Range of motion limited
secondary to swelling and discomfort. Neurovascularly intact in her right upper extremity
Diagnostics: no radiographs of the shoulder available for my review during this admission, and I do not feel as though they are necessary
Impression: right shoulder effusion s/p shoulder arthroscopy with balloon spacer placement and extensive debridement on 10 December 2023
Plan: Zoraida does have a recurrent effusion of her right shoulder. Based on how swollen she is I do feel a shoulder aspiration during this admission would be therapeutic. I discussed with attending hospitalist, Dr. Granados. After obtaining her verbal
consent to 115 cc of blood-tinged fluid was sterilely aspirated from the right shoulder without complication. based on the appearance of the fluid and recent negative lab and since I did not feel it necessary to send to the lab. ice to the
shoulder. oral steroids could be beneficial if not contraindicated. Inpatient PT could be beneficial, but not absolutely necessary. When medically optimized and discharged we will follow-up as scheduled outpatient. orthopedics to sign off for
now. please reengage with any pertinent related issues to the right shoulder if necessary.
[2023-12-30] MEDS: LIPITOR 10 MG PO (20:11)
[2023-12-30] MEDS: PROTONIX 40 MG PO (20:12)
[2023-12-30] MEDS: ROCEPHIN 1000 MG IV (23:29)
[2023-12-30] MEDS: STERILE WATER FOR INJECTION 10 ML IV (23:29)
[2023-12-31] VITALS (7 sets, daily range): BP systolic 139–163; BP diastolic 63–74; PULSE 60; O2SAT 99; BMI 25.4
[2023-12-31] MEDS: ANTIVERT PO (03:19)
[2023-12-31 05:35] LABS: % Basophils 0.6 % (0-2); % Eosinophils 4.6 % (0-6); % Immature Granulocytes 0.6 % (0-0.5); % Lymphocytes 20.2 % (20.5-51.1); % Monocytes 9.8 % (1.7-9.3); % Neutrophils 64.2 % (42.2-75.2); Absolute Basophils 0.1 10^3/uL (0-0.2); Absolute Eosinophils 0.5 10^3/uL (0-0.7); Absolute Immature Granulocytes 0.1 10^3/uL (0-0.05); Absolute Lymphocytes 2.2 10^3/uL (1.2-3.4); Absolute Monocytes 1.1 10^3/uL (0.1-0.6); Absolute Neutrophils 6.9 10^3/uL (1.4-6.5); Hemoglobin 10.5 g/dL (12.0-16.0); Mean Corp Hgb Conc. 32.8 g/dL (33.0-37.0); Mean Corpuscular Hgb 33.3 pg (27.0-31.0); Mean Corpuscular Volume 101.6 fL (81.0-99.0); Mean Platelet Volume 9.6 fL (7.4-10.4); Nucleated Red Blood Cells % 0 %; Platelet Count 282 10^3/uL (130-400); Red Blood Cell Count 3.15 10^6/uL (4.20-5.40); Red Cell Dist. Width 13.1 % (11.5-14.5); White Blood Cell Count 10.8 10^3/uL (4.8-10.8)
[2023-12-31 05:58] LABS: ALT (SGPT) 17 U/L (0-35); AST (SGOT) 23 U/L (14-36); Alkaline Phosphatase 77 U/L (38-126); Blood Urea Nitrogen 12 mg/dl (7-17); Carbon Dioxide 22 mmol/L (22-30); Chloride 108 mmol/L (98-107); Estimated Creatinine Clearance 59 ml/min; Glucose 85 mg/dl (70-99); Sodium 133 mmol/L (135-145); Total Bilirubin 0.3 mg/dl (0.2-1.3); Total Protein 5.3 g/dl (6.3-8.2); eGFR > 60.00
[2023-12-31] MEDS: TYLENOL #3 1 TABLET PO ×2 (09:05→18:43)
[2023-12-31] MEDS: TAMBOCOR 50 MG PO ×2 (09:06→21:05)
[2023-12-31] MEDS: PROTONIX 40 MG PO ×2 (09:07→21:05)
[2023-12-31] MEDS: VITAMIN B-12 500 MCG PO (09:07)
[2023-12-31] MEDS: CARDIZEM CD 120 MG PO (09:08)
[2023-12-31] MEDS: KLOR-CON 20 MEQ PO (09:08)
[2023-12-31] MEDS: MIRALAX 17 GRAMS PO (09:09)
[2023-12-31] MEDS: ANTIVERT 25 MG PO ×2 (11:54→21:05)
--- NOTE | 2023-12-31 14:14 | W.PN.HOSP.TC ---
Today's Communication/Plan
-
See plan
Assessment / Plan
Assessment / Plan
Impression:
Right shoulder arthritis with recurrent effusion.
� Status post arthroscopic balloon spacer placement and extensive debridement of the shoulder 12/10/2023.
Hyponatremia secondary to hypovolemia
Hypokalemia
Dizziness
Bacteriuria without evidence of UTI
Conditions prior to admission:
Paroxysmal atrial fibrillation
Essential hypertension
Chronic biliary duct abnormality.
Plan:
Right shoulder arthritis with recurrent effusion.
� Status post arthroscopic balloon spacer placement and extensive debridement of the shoulder 12/10/2023.
Status post arthrocentesis as outpatient with fluid tested negative for infection. 12/23/2023. Steroid injection was provided after aspiration.
Status post arthrocentesis on 215 cc blood-tinged fluid aspirated. Based on appearance of the fluid and recent negative lab results for infection fluid felt not to be necessary to test.
Today on 12/30 with rapidly reaccumulating fluid and worsening of right shoulder pain and inability to use right upper extremity.
Will ask orthopedic to reevaluate.
Check inflammatory markers: Sed rate/CRP.
Patient has been on antibiotics for presumed UTI/ceftriaxone, will observe off antibiotics for now.
Presumed UTI
Patient presents with generalized fatigue and weakness, although with no urinary symptoms
Noted elevated white count at 16,000 on admission.
Urine culture with contaminants only.
Hold further antibiotics and monitor closely.
Hypovolemic hyponatremia.
Improving with IV fluids and while off torsemide and metolazone.
Follow BMP.
Dizziness without vertigo.
Exam with no focal findings.
CT scan of the head and MRI with no acute abnormalities.
Paroxysmal atrial fibrillation.
Rate control with diltiazem and flecainide
Patient is not on anticoagulation prior to admission.
Chronic lower extremity edema
Patient reports no history of heart failure
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
Monitor volume status closely
Chronic biliary lesion
Unchanged on repeated MRI.
Deconditioning with generalized weakness and fatigue likely old due to above.
Continue physical/Occupational Therapy assessment.
Anticipated Discharge: 24 - 48 hours
Subjective/Interval History
-
Date of Service: December 31, 2023
Objective Data
-
Labs:
Laboratory Results
12/31/23
05:23
WBC 10.8
Hgb 10.5 L
Hct 32.0 L
Plt Count 282
Sodium 133 L
Potassium 4.0
Chloride 108 H
Carbon Dioxide 22
BUN 12
Creatinine 0.5 L
Glucose 85
Calcium 9.0
Total Bilirubin 0.3
AST 23
ALT 17
Alkaline Phosphatase 77
Vital Signs:
Vital Signs
Temp Pulse Resp BP Pulse Ox
97.8 F 57 16 158/68 99
12/31/23 11:00 12/31/23 11:00 12/31/23 11:00 12/31/23 11:00 12/31/23 11:00
I&O
12/30/23 12/31/23 01/01/24
06:59 06:59 06:59
Intake Total 180 / 180
Output Total 300 / 300
Balance -300 / -300 180 / 180
Physical Exam
-
General: Well Developed and No Apparent Distress
HEENT: Normocephalic, Atraumatic and Moist Mucous Membranes
Respiratory: Clear to Auscultation
Cardiac: Regular Rhythm and S1/S2; Negative Murmur, Rub or Gallop
GI: Soft, Nontender, Nondistended and Normal Bowel Sounds; Negative Organomegaly
Rectal: Deferred by Provider
Musculoskeletal: No Clubbing, No Cyanosis and No Edema
Skin: Negative Rash
Neuro: Awake, Alert, Oriented, AO x 3 and Nonfocal/Grossly Intact
[2023-12-31 15:03] LABS: Erythrocyte Sed Rate 23 mm/hour (0-20)
--- NOTE | 2023-12-31 15:13 | W.PN.UPDATE ---
Update Note
Progress Note Update
Zoraida well known to me. Has right shoulder has diagnosis of arthritis and massive rotator cuff tear. Has had an aspiration and cultures sent last week that was negative. She reports feeling much better since yesterday's aspiration.
Right shoulder with visible and palpable effusion. Minimal tenderness. limited ROM and strength at baseline.
Procedure: Aspirated 85ml slightly cloudy synovial fluid. Sent for cultures and cell count, crystals.
Will Follow.
[2023-12-31 16:00] LABS: Body Fluid Mononuclear 47.2 %; Body Fluid Polymorphonuclear 52.8 %; Body Fluid WBC 313 /CUMM
[2023-12-31 16:19] LABS: Body Fluid Second Tech EYM
[2023-12-31] MEDS: MELATONIN 3 MG PO (21:05)
[2023-12-31] MEDS: ZOLOFT 50 MG PO (21:05)
[2023-12-31] MEDS: LIPITOR 10 MG PO (21:05)
[2024-01-01 03:26] VITALS: BP 140/56
[2024-01-01] MEDS: ANTIVERT PO (03:41)
[2024-01-01 05:46] LABS: % Basophils 0.7 % (0-2); % Eosinophils 3.5 % (0-6); % Immature Granulocytes 0.5 % (0-0.5); % Lymphocytes 19.6 % (20.5-51.1); % Monocytes 9.9 % (1.7-9.3); % Neutrophils 65.8 % (42.2-75.2); Absolute Basophils 0.1 10^3/uL (0-0.2); Absolute Eosinophils 0.4 10^3/uL (0-0.7); Absolute Immature Granulocytes 0.1 10^3/uL (0-0.05); Absolute Lymphocytes 1.9 10^3/uL (1.2-3.4); Absolute Neutrophils 6.5 10^3/uL (1.4-6.5); Hematocrit 31.8 % (37.0-47.0); Hemoglobin 10.7 g/dL (12.0-16.0); Mean Corp Hgb Conc. 33.6 g/dL (33.0-37.0); Mean Corpuscular Hgb 33.1 pg (27.0-31.0); Mean Corpuscular Volume 98.5 fL (81.0-99.0); Mean Platelet Volume 9.6 fL (7.4-10.4); Nucleated Red Blood Cells % 0 %; Platelet Count 294 10^3/uL (130-400); Red Blood Cell Count 3.23 10^6/uL (4.20-5.40); Red Cell Dist. Width 12.7 % (11.5-14.5); White Blood Cell Count 9.9 10^3/uL (4.8-10.8)
[2024-01-01 06:00] VITALS: BMI 25.2
[2024-01-01 06:20] LABS: ALT (SGPT) 17 U/L (0-35); AST (SGOT) 21 U/L (14-36); Albumin 3.1 g/dl (3.5-5.0); Alkaline Phosphatase 77 U/L (38-126); Blood Urea Nitrogen 13 mg/dl (7-17); Calcium 9.3 mg/dl (8.4-10.2); Carbon Dioxide 24 mmol/L (22-30); Chloride 102 mmol/L (98-107); Estimated Creatinine Clearance 59 ml/min; Glucose 90 mg/dl (70-99); Potassium 4.3 mmol/L (3.5-5.1); Sodium 133 mmol/L (135-145); Total Bilirubin 0.5 mg/dl (0.2-1.3); Total Protein 5.3 g/dl (6.3-8.2); eGFR > 60.00
[2024-01-01 07:00] VITALS: BP 154/68
--- NOTE | 2024-01-01 07:48 | W.PN.UPDATE ---
Update Note
Progress Note Update
Patient seems to be doing better this morning. She still has swelling in her shoulder joint with some discomfort. She has been afebrile overnight and cultures have been negative thus far. Moderate effusion right shoulder with minimal warmth and
no erythema. Band-Aid in place over anterior aspect of the shoulder. Passive range of motion minimally discomfort. Distal neurovascular was intact. Suggest observation for now along with conservative treatment modalities for pain. Follow-up with
Dr. Jones next week to check her progress.
[2024-01-01] MEDS: PROTONIX 40 MG PO ×2 (07:57→21:16)
[2024-01-01] MEDS: CARDIZEM CD 120 MG PO (07:57)
[2024-01-01] MEDS: TAMBOCOR 50 MG PO ×2 (07:57→21:16)
[2024-01-01] MEDS: TYLENOL #3 1 TABLET PO ×3 (07:57→21:35)
[2024-01-01] MEDS: VITAMIN B-12 500 MCG PO (07:57)
[2024-01-01] MEDS: KLOR-CON 20 MEQ PO (07:58)
[2024-01-01] MEDS: MIRALAX 17 GRAMS PO (07:58)
[2024-01-01 11:00] VITALS: BP 144/62
[2024-01-01] MEDS: ANTIVERT 25 MG PO (11:22)
--- NOTE | 2024-01-01 14:07 | W.PN.HOSP.TC ---
Today's Communication/Plan
-
Continue physical Occupational Therapy
Monitor right shoulder for fluid reaccumulation.
Observe off antibiotics.
Disposition, given general deconditioning, right shoulder arthritis, will require placement to snf facility.
Discussed with patient's at the bedside.
Assessment / Plan
Assessment / Plan
Impression:
Right shoulder arthritis with recurrent effusion.
� Status post arthroscopic balloon spacer placement and extensive debridement of the shoulder 12/10/2023.
Hyponatremia secondary to hypovolemia
Hypokalemia
Dizziness
Bacteriuria without evidence of UTI
Conditions prior to admission:
Paroxysmal atrial fibrillation
Essential hypertension
Chronic biliary duct abnormality.
Plan:
Right shoulder arthritis with recurrent effusion.
� Status post arthroscopic balloon spacer placement and extensive debridement of the shoulder 12/10/2023.
Status post arthrocentesis as outpatient with fluid tested negative for infection. 12/23/2023. Steroid injection was provided after aspiration.
Status post arthrocentesis on 215 cc blood-tinged fluid aspirated. Based on appearance of the fluid and recent negative lab results for infection fluid felt not to be necessary to test.
Today on 12/30 with rapidly reaccumulating fluid and worsening of right shoulder pain and inability to use right upper extremity.
Repeated arthrocentesis on 12/31 with fluid analysis not suggestive of infectious process
Appreciate orthopedic input
Monitor closely for fluid reaccumulation
Continue physical therapy
Presumed UTI
Patient presents with generalized fatigue and weakness, although with no urinary symptoms
Noted elevated white count at 16,000 on admission.
Urine culture with contaminants only.
Hold further antibiotics and monitor closely.
Hypovolemic hyponatremia.
Improving with IV fluids and while off torsemide and metolazone.
Follow BMP.
Dizziness without vertigo.
Exam with no focal findings.
CT scan of the head and MRI with no acute abnormalities.
Paroxysmal atrial fibrillation.
Rate control with diltiazem and flecainide
Patient is not on anticoagulation prior to admission.
Chronic lower extremity edema
Patient reports no history of heart failure
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
Monitor volume status closely
Chronic biliary lesion
Unchanged on repeated MRI.
Deconditioning with generalized weakness and fatigue likely old due to above.
Continue physical/Occupational Therapy assessment.
Anticipated Discharge: 24 - 48 hours
Subjective/Interval History
-
Date of Service: January 01, 2024
Objective Data
-
Labs:
Laboratory Results
01/01/24
05:27
WBC 9.9
Hgb 10.7 L
Hct 31.8 L
Plt Count 294
Sodium 133 L
Potassium 4.3
Chloride 102
Carbon Dioxide 24
BUN 13
Creatinine 0.5 L
Glucose 90
Calcium 9.3
Total Bilirubin 0.5
AST 21
ALT 17
Alkaline Phosphatase 77
Vital Signs:
Vital Signs
Temp Pulse Resp BP Pulse Ox
97.9 F 56 18 144/62 97
01/01/24 11:00 01/01/24 11:00 01/01/24 11:00 01/01/24 11:00 01/01/24 11:00
I&O
12/31/23 01/01/24 01/02/24
06:59 06:59 06:59
Intake Total 180 / 180 960 / 960
Balance 180 / 180 960 / 960
Physical Exam
-
General: Well Developed and No Apparent Distress
HEENT: Normocephalic, Atraumatic and Moist Mucous Membranes
Respiratory: Clear to Auscultation
Cardiac: Regular Rhythm and S1/S2; Negative Murmur, Rub or Gallop
GI: Soft, Nontender, Nondistended and Normal Bowel Sounds; Negative Organomegaly
Rectal: Deferred by Provider
Musculoskeletal: No Clubbing, No Cyanosis and No Edema
Skin: Negative Rash
Neuro: Nonfocal/Grossly Intact
[2024-01-01 14:30] VITALS: BP 131/68; PULSE 71; O2SAT 99
[2024-01-01 15:00] VITALS: BP 134/65
--- NOTE | 2024-01-01 15:11 | CM ---
Addendum entered by Beba Dash 01/01/24 16:54:
Pt seen bt PT today - recommending SNF
Spoke with pts to obtain choices
[facility] - referrals sent in [facility]
Plan - snf -tbd
Original Note:
Case management following for d/c planning
PT recommending HH - referral made to [facility]
Spoke with pt and at bedside. Aware [facility] willow foloow at d/c
Plan - home with [facility]
[2024-01-01] MEDS: MELATONIN 3 MG PO (21:16)
[2024-01-01] MEDS: ZOLOFT 50 MG PO (21:17)
[2024-01-01] MEDS: LIPITOR 10 MG PO (21:17)
[2024-01-01 23:20] VITALS: BP 152/65
[2024-01-02 06:01] VITALS: BMI 25.2
[2024-01-02 07:00] VITALS: BP 152/61
[2024-01-02] MEDS: CARDIZEM CD 120 MG PO (08:18)
[2024-01-02] MEDS: PROTONIX 40 MG PO (08:18)
[2024-01-02] MEDS: TAMBOCOR 50 MG PO (08:18)
[2024-01-02] MEDS: VITAMIN B-12 500 MCG PO (08:18)
[2024-01-02] MEDS: MIRALAX 17 GRAMS PO (08:18)
[2024-01-02] MEDS: KLOR-CON 20 MEQ PO (08:19)
[2024-01-02] MEDS: TYLENOL #3 1 TABLET PO (08:40)
--- NOTE | 2024-01-02 10:16 | CM ---
Spoke with pt, and daughter at bedside
Pt prefers to go home with services - reporting he will be home thru the weekend and has family support.
Dr Orozco made aware
Updates to [facility] sent via [facility]
Plan - home with [facility]
[2024-01-02 11:20] VITALS: BP 152/61; PULSE 57
--- NOTE | 2024-01-02 12:25 | W.DS.TRANS ---
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
-
Discharge Instructions:
Discharge Diagnosis/Procedures Impression:
Right shoulder arthritis with recurrent effusion
.
� Status post arthroscopic balloon spacer
placement and extensive debridement of the
shoulder 12/10/2023.
Hyponatremia secondary to hypovolemia
Hypokalemia
Dizziness
Bacteriuria without evidence of UTI
Conditions prior to admission:
Paroxysmal atrial fibrillation
Essential hypertension
Chronic biliary duct abnormality.
Diet Regular
Instructions:
Stand-Alone Forms:
Changes to Home Medications: Yes
Discharge Medications:
DC Medications w/original date entered in [employer]
Ca 600 mg-D3 20 mcg-mag oxide 50 wg-Mb-lvztyq-manganese-boron tablet (Calcium 600-D3 Plus (mag-zinc)) 1 tab PO BID Supplement 01/27/21
ascorbic acid (vitamin C) 1,000 mg tablet (Vitamin C) 1,000 mg PO DAILY Supplement 01/27/21
flecainide 50 mg tablet 50 mg PO BID Arrhythmia 01/27/21
omeprazole 40 mg capsule,delayed release 40 mg PO BID Gastrointestinal Issue 01/27/21
tramadol 50 mg tablet 50 mg PO BID PRN severe pain 01/27/21
dlhqzfig-aiwets-nbo-iok-mvl-kuge-horse 100 mg-100 mg-100 mg-125 mg tab (Tumersaid) 1 tab PO BID Supplement 01/27/21
atorvastatin 10 mg tablet 10 mg PO HS High Cholesterol 12/28/23
cyanocobalamin (vitamin B-12) 500 mcg tablet (Vitamin B-12) 500 mcg PO DAILY Supplement 12/28/23
diltiazem HCl 120 mg capsule,24 hr,extended release 120 mg PO HS Arrhythmia 12/28/23
multivitamin 1 tab PO NOON Supplement 12/28/23
polyethylene glycol 3350 17 gram oral powder packet (Miralax) 17 g PO DAILY Constipation 12/28/23
potassium chloride 20 mEq tablet,extended release(part/cryst) (Klor-Con M) 20 meq PO NOON Electrolyte Repletion 12/28/23
torsemide 20 mg tablet 40 mg PO BID Fluid Retention/Swelling 12/28/23
vitamin A-vitamin C-vit E-min tablet 1 tab PO HS Supplement 12/28/23
zinc 50 mg tablet 50 mg PO DAILY Supplement 12/28/23
acetaminophen 300 mg-codeine 15 mg tablet 1 tab PO Q6H PRN severe pain 12/29/23
acetaminophen 500 mg tablet (Tylenol Extra Strength) 1,000 mg PO BIDPRN PRN mild pain 12/29/23
biotin 1 tab PO DAILY Supplement 12/29/23
carboxymethylcellulose sodium 1 % eye liquid gel drops 1 drp BOTH EYES BID Eye Condition 12/29/23
metolazone 2.5 mg tablet 2.5 mg PO DAILY PRN edema 12/29/23
ondansetron 8 mg disintegrating tablet 8 mg PO Q8H PRN nausea/vomiting 12/29/23
oxycodone 5 mg tablet 5 mg PO Q6H PRN severe pain 12/29/23
sertraline 50 mg tablet 50 mg PO HS Mental Health 12/29/23
vitamin B complex 1 tab PO NOON Supplement 12/29/23
melatonin 10 mg tablet 10 mg PO HS PRN sleep 12/30/23
Home Medication Changes
Diuretics and KCL on hold pending cardilogy follow up
Pending Results: No
[2024-01-02 12:44] VITALS: BP 135/56
== END 2024-01-02 14:51 | disposition home health service (06) | DRG 640 ==
LOC: 3 WEST ACU 22:15
PROVIDERS: Emergency Medicine; Internal Medicine; Specialist; ADMITTING PHYSICIAN Internal Medicine; ATTENDING PHYSICIAN Internal Medicine; CONSULT PHYSICIAN Specialist; EMERGENCY PHYSICIAN Emergency Medicine; FAMILY PHYSICIAN Family Medicine
DX: E87.1 Hypo-osmolality and hyponatremia (principal); G93.41 Metabolic encephalopathy; I48.0 Paroxysmal atrial fibrillation; E78.00 Pure hypercholesterolemia, unspecified; E87.6 Hypokalemia; I10 Essential (primary) hypertension; M19.011 Primary osteoarthritis, right shoulder; M75.101 Unspecified rotator cuff tear or rupture of right shoulder, not specified as traumatic; E86.0 Dehydration; E86.1 Hypovolemia; R82.71 Bacteriuria; K21.9 Gastro-esophageal reflux disease without esophagitis; K44.9 Diaphragmatic hernia without obstruction or gangrene; Z87.442 Personal history of urinary calculi; Z79.82 Long term (current) use of aspirin
CPT/HCPCS: 70450; 70551; 74183; 80048; 80053; 81003; 81015; 82533; 83036; 83690; 83735; 83930; 83935; 84300; 84439; 84443; 84484; 85025; 85027; 85652; 86140; 87015; 87070; 87086; 87205; 89051; 89060; 93005; 97116; 97163; 97166; 97530; 99285; A9575

== ENCOUNTER 2024-01-16 06:17 | Day surgery (SDC) | payer OTHER, SELFPAY ==
--- NOTE | 2024-01-09 14:53 | PTCARENOTE ---
Abn EKG reported to Dr. Arias, no actions requested.
[2024-01-16] VITALS (8 sets, daily range): BP systolic 118–149; BP diastolic 40–61; BMI 28.4
[2024-01-16] MEDS: NORMOSOL-R 1000 IV (09:44)
[2024-01-16] MEDS: TYLENOL 1000 MG PO (09:45)
[2024-01-16 11:23] LABS: Body Fluid WBC 214 /CUMM
[2024-01-16 11:33] LABS: Body Fluid Second Tech CMB
== END 2024-01-16 13:48 | disposition home or self-care (01) ==
LOC: SDS 06:17
PROVIDERS: ATTENDING PHYSICIAN Specialist
DX: T85.848A Pain due to other internal prosthetic devices, implants and grafts, initial encounter (principal); Y79.8 Miscellaneous orthopedic devices associated with adverse incidents, not elsewhere classified; M25.511 Pain in right shoulder; Z98.890 Other specified postprocedural states
CPT/HCPCS: 29822; 20680; 87015; 87070; 87075; 87205; 89051; 89060

== ENCOUNTER 2024-01-17 20:41 | Inpatient (IN) | payer OTHER, SELFPAY ==
[2024-01-17] VITALS (9 sets, daily range): BP systolic 110–144; BP diastolic 47–63; BMI 29.0; BMI 28.9
--- NOTE | 2024-01-17 16:40 | ED.GENMED ---
History of Present Illness
General
Chief Complaint: Change in Mental Status
Source: patient and family
Exam Limitations: clinical condition
Time Seen by Provider: 01/17/24 15:36
Nursing documentation reviewed up to this point in time: agreed with
Travel History
Have you had any contact with someone who has COVID-19?: No
Do you have any symptoms of coronavirus? Fever > 100 degrees, chills, cough, shortness of breath, sore throat, loss of taste or smell, muscle aches, or headache?: No
History of Present Illness
History of Present Illness:
Patient is a 83-year-old female with a history of paroxysmal A-fib no on anticoagulants
chronic periph edema was on lasix --> torsemide and was on metolazone recently but then was having issues with her sodium and potassium so it was held
pt had rotator cuff surgery [address] faith
was having uissues with recurrent hematoma so yesterday dr. faith took her back for wash out/arthroplasty
put her on doxy just in case
then on pain medication regimen:
pain meds, t#2 q6, naproxen bid and oxy 5 mg q6 - was also given NEW med for if pain severe, OXY 20 MG IR. bid;
pt took t#2 at 3pm yesterday, 9 pm yesterday, 3 am today and 9 am today
naproxen 12 mdnight and 8 am
oxycodone 5 mg at 3 am
and oxycodone 20 mg at 1145 am
after 12 noon, pt was much more sleepy, not waking easily, unsteady, weak, sob
family also felt that her edema looks worse, large in legs with some erythema
no chest pain
she has not had fever, chills, cough, vomiting, abdominal pain, diarrhea
she is now more awake but feels sob.
THEY ALSO SWITCHED HER BP MED FROM DILTIAZEM TO MEOPROLOL LAST WEEK AFTER SEEING CARDS FOR HER EDEMA
Past History
Past History
ED Past Medical History: Arrthythmia, GERD (Hiatal hernia), HTN, Hypercholesterolemia, Valvular disease and Other (Kidney stones)
ED Past Surgical History: Gynecological (Tubal ligation), Tonsilectomy, Urological (Kidney stone removal) and Other (Hiatal hernia repair)
Social History
Tobacco: Non-smoker
Alcohol: None
Drug: None
Personal:
Living: with family
Employment: Retired
Family History
Family History: Other (Noncontributory)
Review of Systems
Review of Systems
Allergies reviewed?: Yes
All Other Systems: Not applicable
Phy Exam
Physical Exam
Physical Exam:
GENERAL: Alert , AWAKE, answers questions, appears wiped out, tachypneic
EYE: pupils equal and reactive
NECK: Supple
ENT: o/p clr, mmm.
CARDIAC: Regular rate and rhythm . +murmur
MODERATE-SEVERE EDEMA B/L LE
eryuthematous skin changes b/l LE
LUNGS: tachypneic
? crackles b/l LL
no rhonchi
ABDOMEN: Soft, without focal tenderness, no r/g, no cvat, normal bowel sounds
NEUROLOGICAL: Alert and oriented, no focal neuro deficits
SKIN: Warm and dry, skin intact.
eryhthema to b/l LE
right shoulder dressing in place
normal pulse righ radial
MUSCULOSKELETAL: mod to severe edema
nontender
right shoulder sling
PSYCH: Normal and appropriate interaction.
Course
Orders/Labs/Results
Orders:
Orders
01/17/24 Breakfast
Cholesterol Lowering
At Your Request: Full Participation
Cholesterol Lowering: Sodium, 2 Gram
01/17/24 16:39
CR Chest - 2 Views Urgent
Comment:
Reason For Exam: sob, leg edema
01/17/24 16:59
Complete Blood Count/With Diff Urgent
01/17/24 17:00
CMP [Comprehensive Metabolic Panel] Urgent
Magnesium Urgent
NT-proBNP Urgent
Troponin I Urgent
01/17/24 17:45
Electrocardiogram (*1) Urgent
Reason for Study: Shortness of Breath
EKG- Treatment ONCE
Furosemide [Lasix] 40 mg IV NOW STA
Potassium Chloride Powder [Klor-Con] 20 meq PO NOW STA
01/17/24 18:28
Oxycodone [Roxicodone] 5 mg PO NOW STA
01/17/24 19:52
Admit/Transfer Patient As Directed
Co-Sign Provider:
Level of Care: Inpatient admission
Assign to:: Telemetry
Physician / Group: Hospitalist
Diagnosis: Change in EKG, confusion, drowsiness
Reason for Telemetry: Arrhythmia
Date to Stop Telemetry: 01/20/24
Time to Stop Telemetry: 11:00
Reason for Hospitalization: Change in EKG, confusion, drowsiness
Expected length of stay greater than two midnights?: Yes
ELOS- Estimated Length of Stay in days: 3
I certify the patient meets the requirements for IP care: Yes
01/17/24 20:07
Code Status As Directed
Resuscitation Status: Full Code
01/17/24 21:10
Electrocardiogram (*1) Q6H
Reason for Study: Chest Pain
Comment: at admission and Q3H for total of 3, to be done with each troponin
01/17/24 21:10
Echo 2D MMode Color/Doppler Routine
Reason for Study: chest pain
Activity As Directed
Activity Level: With Assistance
INT (Intravenous Needle Therapy) As Directed
Comment: maintain peripheral IV access
Intake/ Output As Directed
Frequency: Per unit guidelines
Pneumatic Compression Sleeves As Directed
Type: Knee high
Vital Signs As Directed
Frequency: q4h
Weight As Directed
Frequency: Daily
DX Deep Vein Thrombosis Video Routine
01/17/24 21:15
Flecainide [Tambocor] 50 mg PO Q12
Oxycodone [Roxicodone] 10 mg PO Q6HPRN PRN
Potassium Chloride [KCl] 20 meq PO BID
01/17/24 21:19
Ondansetron Orally Disint [Zofran Odt (Orally Disintegrating)] 8 mg PO Q8HPRN PRN
01/17/24 21:26
Troponin I Q3H
Comment: at admit & Q3H for 3 total including ED draws, obtain ECG with each level
01/17/24 22:00
CeFAZolin 1 GRAM [Ancef] 1 gram in 5 ml IV Q8H
Sertraline HCl [Zoloft] 50 mg PO HS
01/18/24 00:46
Troponin I Q3H
Comment: at admit & Q3H for 3 total including ED draws, obtain ECG with each level
01/18/24 03:10
Electrocardiogram (*1) Q6H
Reason for Study: Chest Pain
Comment: at admission and Q3H for total of 3, to be done with each troponin
01/18/24 03:52
Troponin I Q3H
Comment: at admit & Q3H for 3 total including ED draws, obtain ECG with each level
01/18/24 05:20
Basic Metabolic Panel IN AM
Complete Blood Count/No Diff IN AM
01/18/24 08:00
Acetaminophen [Tylenol] 650 mg PO QID
Ascorbic Acid [Vitamin C] 1,000 mg PO DAILY
Atorvastatin [Lipitor] 10 mg PO DAILY
Calcium Carbonate/Vitamin D3 [Oscal 500 + D] 500 mg PO BID
Carboxymethylcellulose [Refresh Celluvisc Gel] 1 drops OPHTH BID
Cyanocobalamin [Vitamin B-12] 1,000 mcg PO DAILY
Furosemide [Lasix] 20 mg IV BID AT 0800,1600
Metoprolol Xl [Toprol Xl] 12.5 mg PO BID
Pantoprazole [Protonix] 40 mg PO BID
Polyethylene Glycol Powder [Miralax] 17 grams PO DAILY
biotin 1 tablet PO DAILY
plecanatide [Trulance] 3 mg PO DAILY
01/18/24 09:10
Electrocardiogram (*1) Q6H
Reason for Study: Chest Pain
Comment: at admission and Q3H for total of 3, to be done with each troponin
01/18/24 12:00
Multivitamin [Theragran] 1 tablet PO NOON
01/20/24 11:00
DC Protocol for Telemetry ONCE
Abnormal Lab Results
01/17/24 01/17/24
16:59 17:00
RBC 2.85 L 10^6/uL
(4.20-5.40)
Hgb 9.6 L g/dL
(12.0-16.0)
Hct 27.1 L %
(37.0-47.0)
MCH 33.7 H pg
(27.0-31.0)
Absolute Monos (auto) 0.9 H 10^3/uL
(0.1-0.6)
Sodium 133 L mmol/L
(135-145)
Potassium 3.4 L mmol/L
(3.5-5.1)
Total Protein 5.3 L g/dl
(6.3-8.2)
Albumin 3.0 L g/dl
(3.5-5.0)
01/17/24 16:59
01/17/24 17:00
Vital Signs
Initial and Last Documented VS:
Initial Vital Signs
Temp Pulse Resp Pulse Ox
97.8 F 67 20 97
01/17/24 14:48 01/17/24 14:48 01/17/24 14:48 01/17/24 14:48
Last Documented Vital Signs
Temp Pulse Resp BP Pulse Ox
97.8 F 57 17 135/55 96
01/18/24 03:25 01/18/24 03:25 01/18/24 03:25 01/18/24 03:25 01/18/24 03:25
MDM/Problems Addressed
MDM/Problems Addressed:
83 y/o F with h/o PAFno on AC, lymphedema on lasix switched to torsemide, had rotator cuff repair a month ago and then had issues with recurrent hematoma so yesterday dr. faith did a wash out and drain of the hematoma; post procedure pt sleepy and
didn't eat but was discharged home on pain meds, t#2 q6, naproxen bid and oxy 5 mg q6 - was also given NEW med for if pain severe, OXY 20 MG IR. bid;
pt has never taken that much oxy before
took it at 1145 this morning and was subsequently drowsy and flushed in her face and looked wiped out and SOB; lasted a few hours before family called 911
pt is not hypoxic but she is wiped out, mildly dyspneic with minimal activiy, pretty large LE edema and some erythema to the skin:
labs show BNP 1700, cardiomegaly but no pulm edema on cxr
mildly anemic
normal wbc
trop fine
i think sh ewas overmedicated (probably was supposed to be ER oxy and not IR?) and also is a little fluid overloaded; gave her some lasix and want to watch overnight]
she also is bradycardic, was on dilt previously and now metoprplol
contributory?
admit for tele
pt has toelrated oxycodone 5 mg previously without difficulty
i believe the 20 mg was a lot for her and could have been overmedicating
she took it at 1145 and now it is 1830 and she is having some pain
will give oxycodone [address] faith made aware of patient being admitted.
he said we can d/c the doxy if we think she was having reaction, but it does not sound likely
alos the doxy would cover cellulitis of the edema
*Critical Care Note
Total Time (30-74mins, 75-104mins- exclusive of procedures): Not Applicable
ED Attending Note
-
Portions of this chart may have been created with voice recognition software.� Occasional wrong word or��sound alike� substitutions may have occurred due to the inherent limitations of voice recognition software.
Discharge Plan
Departure
Patient Disposition: Admit
Date of Disposition: 01/17/24
Time of Disposition: 18:30
Admit to: Telemetry
Presentation/result/management discussed w/ accepting MD/DO: Hospitalist
Condition: Fair
Covid-19: Not Applicable
Discharge Problem:
Edema, Medication side effect, oversedation
Interventions
Interventions:
*Risk Screen - Suicide Last Done: 01/17/24 14:48
*General Assessment Last Done: 01/17/24 14:48
*Neglect/Abuse Screening Last Done: 01/17/24 14:48
ED- Fall Risk Assessment Last Done: 01/17/24 14:50
*ED COVID-19 Vaccine History Last Done: 01/17/24 14:48
*Nursing Disposition Last Done: 01/17/24 21:05
ED- Pulmonary Assessment Last Done: 01/17/24 14:50
ED-Psychological Assessment Last Done: 01/17/24 21:05
ED- Neurological Assessment Last Done: 01/17/24 14:50
ED- Cardiac Assessment Last Done: 01/17/24 14:50
ED Swallowing Screen Last Done: 01/17/24 17:50
Discharge Date and Time
Discharge Date/Time: 01/17/24 21:05
[2024-01-17 17:05] LABS: % Basophils 0.4 % (0-2); % Eosinophils 0.5 % (0-6); % Immature Granulocytes 0.4 % (0-0.5); % Monocytes 9.2 % (1.7-9.3); % Neutrophils 62.5 % (42.2-75.2); Absolute Eosinophils 0.1 10^3/uL (0-0.7); Absolute Lymphocytes 2.6 10^3/uL (1.2-3.4); Absolute Monocytes 0.9 10^3/uL (0.1-0.6); Hematocrit 27.1 % (37.0-47.0); Hemoglobin 9.6 g/dL (12.0-16.0); Mean Corp Hgb Conc. 35.4 g/dL (33.0-37.0); Mean Corpuscular Hgb 33.7 pg (27.0-31.0); Mean Corpuscular Volume 95.1 fL (81.0-99.0); Mean Platelet Volume 9.5 fL (7.4-10.4); Nucleated Red Blood Cells % 0 %; Platelet Count 359 10^3/uL (130-400); Red Blood Cell Count 2.85 10^6/uL (4.20-5.40); Red Cell Dist. Width 13.5 % (11.5-14.5); White Blood Cell Count 9.6 10^3/uL (4.8-10.8)
[2024-01-17 17:28] LABS: ALT (SGPT) 15 U/L (0-35); AST (SGOT) 25 U/L (14-36); Alkaline Phosphatase 88 U/L (38-126); Blood Urea Nitrogen 17 mg/dl (7-17); Calcium 9.3 mg/dl (8.4-10.2); Carbon Dioxide 28 mmol/L (22-30); Chloride 101 mmol/L (98-107); Estimated Creatinine Clearance 68 ml/min; Glucose 84 mg/dl (70-99); Magnesium 2.3 mg/dl (1.6-2.3); Potassium 3.4 mmol/L (3.5-5.1); Sodium 133 mmol/L (135-145); Total Bilirubin 0.3 mg/dl (0.2-1.3); Total Protein 5.3 g/dl (6.3-8.2); eGFR > 60.00
[2024-01-17 17:40] LABS: NT-proBNP 1720 pg/ml; Troponin I < 0.012 ng/ml
[2024-01-17] MEDS: KLOR-CON 20 MEQ PO (17:55)
[2024-01-17] MEDS: LASIX 40 MG IV (17:55)
[2024-01-17] MEDS: ROXICODONE 5 MG PO (18:49)
--- NOTE | 2024-01-17 19:34 | HPS.HSE ---
Family Physician
-
Family Physician: Angelo Snyder
Chief Complaint
-
Weakness and confusion
History of Present Illness
83-year-old woman with a history of:
paroxysmal A-fib (not on anticoagulants)
chronic peripheral edema (was on lasix --> torsemide and was on metolazone recently but then was having issues with her sodium and potassium so it was held)
rotator cuff surgery 1 mo ago (dr Faith)
She was having a recurrent hematoma and yesterday dr. faith took her back for wash out/arthroplasty. She was placed on doxy abx. and this pain medication regimen:
tylenol 1000 q6,
naproxen bid
oxy 5 mg q6
OXY 20 MG IR. bid;
She took the larger dose oxy and after 12 noon today she was much more sleepy, not waking easily, unsteady, weak, sob. Her family also felt that her edema looks worse, large in legs with new erythema, L>R. No chest pain, no fever, chills, cough,
vomiting, abdominal pain, diarrhea. she is now more awake in ED, but feels sob.
Medical History
Past Medical History
Past Medical History: Reports Other
Additional Past Medical History:
Arrthythmia- PAF,
GERD (Hiatal hernia),
essential HTN,
Hypercholesterolemia,
Valvular disease
Kidney stones
Tubal ligation
Tonsilectomy
Kidney stone removal
Hiatal hernia repair
Lymphedema
Heart murmur
Arthritis
History of skin cancer
Anxiety
Electrolyte abnormality
Osteopenia
Moderate episode of recurrent major depressive disorder
Vaginal prolapse
Duodenal mass
Incomplete tear of right rotator cuff,
Venous insufficiency
Insomnia
Glenohumeral arthritis, right
Lumbar stenosis
Hypertension
Impingement syndrome, shoulder, left
Tendinitis of left rotator cuff
Pancolitis
Rotator cuff arthropathy, right
Past Surgical History: Reports Other
Additional Past Surgical History:
See above
Social History
Tobacco: Non-smoker
Alcohol: None
Drug: None
Family History
Family History: Not pertinent
Allergies / Home Medications
Allergies reflects when Allergies were last updated in [facility].
Home Medications with original date entered in [facility]
Allergy/Medication List:
Allergies
Allergy/AdvReac Type Severity Reaction Status Date / Time
No Known Allergies Allergy Verified 01/16/24 08:49
Home Medications
omeprazole 40 mg capsule,delayed release 40 mg PO BID Gastrointestinal Issue 01/27/21
multivitamin 1 tab PO NOON Supplement 12/28/23
polyethylene glycol 3350 17 gram oral powder packet (Miralax) 17 g PO DAILY Constipation 12/28/23
torsemide 20 mg tablet 40 mg PO BID Fluid Retention/Swelling 12/28/23
ondansetron 8 mg disintegrating tablet 8 mg PO Q8H PRN nausea/vomiting 12/29/23
sertraline 50 mg tablet 50 mg PO Mental Health 12/29/23
vitamin B complex 1 tab PO NOON Supplement 12/29/23
B12 1 tab PO DAILY 01/09/24
atorvastatin 10 mg tablet 10 mg PO DAILY 01/09/24
calcium carbonate 600 mg-vitamin D3 10 mcg (400 unit) tablet (Calcium 600 + D(3)) 1 tab PO BID 01/09/24
carboxymethylcellulose sodium 1 % eye liquid gel drops 1 drp ophthalmic (eye) BID 01/09/24
flecainide 50 mg tablet 50 mg PO Q12H 01/09/24
multivitamin 1 tab PO DAILY 01/09/24
potassium chloride 20 mEq tablet,extended release(part/cryst) (Klor-Con M) 20 meq PO DAILY 01/09/24
turmeric 400 mg capsule 400 mg PO DAILY 01/09/24
Fiber Supplement 01/16/24
acetaminophen 650 mg tablet,extended release 1,300 mg PO BID 01/16/24
ascorbic acid (vitamin C) 1,000 mg tablet (Vitamin C) 1 PO DAILY 01/16/24
biotin 1 tab PO DAILY 01/16/24
melatonin 10 mg tablet 10 mg PO DAILY 01/16/24
metoprolol succinate 12.5 mg PO BID 01/16/24
oxycodone 5 mg tablet 10 mg PO Q6H PRN pain 01/16/24
plecanatide 3 mg tablet (Trulance) 3 mg PO DAILY 01/16/24
tramadol 50 mg tablet 100 mg PO BID 01/16/24
vitamin A-vitamin C-vit E-min tablet 1 tab PO DAILY 01/16/24
zinc 50 mg capsule 50 mg PO DAILY 01/16/24
Review of Systems
-
History Source: Patient
A 12 point ROS was completed and negative except as noted: Yes
Physical Exam
Vital Signs
Vital Signs
Temp Pulse Resp BP Pulse Ox
97.8 F 59 21 129/58 98
01/17/24 14:48 01/17/24 15:15 01/17/24 15:15 01/17/24 15:00 01/17/24 15:15
Physical Exam
General: Well Developed, Well Nourished, Appears in Distress and Pain
HEENT: NormoCephalic, Moist mucous membranes, No Ptosis, Nose Appears Normal and Ears Appear Normal
Respiratory: Clear
Cardiac: S1/S2 and Irregular Rhythm
GI: Soft, Non Tender and Non Distended
Musculoskeletal: No Clubbing, No Cyanosis, Edema, Left Lower Extremity and Edema, Right Lower Extremity
Skin: Warm, Dry and Rash (red, warm rash on left LE)
Neuro: Awake and Alert
Psych: Calm
Laboratory Results
-
01/17/24 16:59
01/17/24 17:00
Laboratory Results
Total Bilirubin 0.3 mg/dl (0.2-1.3) 01/17/24 17:00
AST 25 U/L (14-36) 01/17/24 17:00
ALT 15 U/L (0-35) 01/17/24 17:00
Alkaline Phosphatase 88 U/L (38-126) 01/17/24 17:00
Troponin I < 0.012 ng/ml 01/17/24 17:00
Data Reviewed
-
Lab Data: Labs Reviewed by me
Impression/Plan
-
IMPRESSION:
83 woman with increased drowsiness after taking oxycontin after surgery. Notable findings
EKG changes
H/H .03/25.
Na 133
K 3.4
CXR Cardiomegally, no other findings
PLAN:
1. Drowsiness - new since surgery
Hold 20 mg dose of oxycontin
Continue other pain meds
Review discharge med closely to avoid polypharmacy
2. Red, warm rash on leg - looks like cellulitis
IV antibiotics
3. Anemia, H/H . - Likely acute blood loss after surgery
Re-check H/H in am
4. Na 0f 133 - recurrent problem according to family
Re-check in am
5. K of 3.4
Replete with PO
Re-check in am
6. Changed ECG, and h/o arrythmia
MICHELLE
Telemetry
Full code
VCD for DVTp
--- NOTE | 2024-01-17 21:10 | PTCARENOTE ---
Patient arrived to 319-2 from ED via stretcher, ambulated from stretcher to bed with standby assist. Patient is wearing sling/immobilizer to right arm for right shoulder surgery done on 01/15 per patient. Family states patient had rotator cuff
surgery approx 1 month ago with multiple hematomas, patient went to OR for washout and arthroplasty of right shoulder yesterday. Patient is currently c/o 6-04/07 pain to right shoulder upon arrival from ED -- will have med orders verified. Patient
awake and alert, no drowsiness noted at this time. Patient states she does not have an appetite -- family members at bedside are worried that she has not had anything to eat in a couple of days. Bulky dressing to right shoulder CDI with no drainage
noted. Initiated on hall monitor #6 upon arrival - NSR with prol QT noted. Call marcano within reach, patient verbalizes correct use of call marcano. Will continue to monitor.
[2024-01-17] MEDS: ZOLOFT 50 MG PO (21:53)
[2024-01-17] MEDS: ANCEF 5 IV (21:53)
[2024-01-17] MEDS: KCL 20 MEQ PO (21:53)
[2024-01-17] MEDS: TAMBOCOR 50 MG PO (21:53)
[2024-01-17] MEDS: ROXICODONE 10 MG PO (22:05)
[2024-01-17 22:14] LABS: Troponin I < 0.012 ng/ml
[2024-01-18] MEDS: TYLENOL 1000 MG PO (00:51)
[2024-01-18 01:18] LABS: Troponin I < 0.012 ng/ml
[2024-01-18 03:25] VITALS: BP 135/55
[2024-01-18 04:33] LABS: Troponin I < 0.012 ng/ml
[2024-01-18 05:10] VITALS: BMI 28.8
[2024-01-18] MEDS: ROXICODONE 10 MG PO ×4 (05:38→23:13)
[2024-01-18] MEDS: ANCEF 5 IV ×3 (05:38→22:19)
[2024-01-18 06:21] LABS: Hematocrit 27.9 % (37.0-47.0); Hemoglobin 9.5 g/dL (12.0-16.0); Mean Corp Hgb Conc. 34.1 g/dL (33.0-37.0); Mean Corpuscular Hgb 33.8 pg (27.0-31.0); Mean Corpuscular Volume 99.3 fL (81.0-99.0); Platelet Count 335 10^3/uL (130-400); Red Blood Cell Count 2.81 10^6/uL (4.20-5.40); Red Cell Dist. Width 13.8 % (11.5-14.5); White Blood Cell Count 9.7 10^3/uL (4.8-10.8)
[2024-01-18 06:45] LABS: Blood Urea Nitrogen 16 mg/dl (7-17); Calcium 9.1 mg/dl (8.4-10.2); Carbon Dioxide 26 mmol/L (22-30); Chloride 104 mmol/L (98-107); Estimated Creatinine Clearance 68 ml/min; Glucose 66 mg/dl (70-99); Potassium 3.6 mmol/L (3.5-5.1); Sodium 135 mmol/L (135-145); eGFR > 60.00
[2024-01-18 07:53] VITALS: BP 144/69
[2024-01-18] MEDS: TAMBOCOR 50 MG PO ×2 (08:13→21:04)
[2024-01-18] MEDS: KCL 20 MEQ PO ×2 (08:14→21:04)
[2024-01-18] MEDS: MIRALAX 17 GRAMS PO (08:14)
[2024-01-18] MEDS: TOPROL XL 12.5 MG PO ×2 (08:14→21:07)
[2024-01-18] MEDS: REFRESH CELLUVISC GEL 1 DROPS OPHTH ×2 (08:14→21:05)
[2024-01-18] MEDS: NAPROSYN 250 MG PO ×2 (08:14→21:05)
[2024-01-18] MEDS: VITAMIN B-12 1000 MCG PO (08:14)
[2024-01-18] MEDS: PROTONIX 40 MG PO ×2 (08:14→21:05)
[2024-01-18] MEDS: LIPITOR 10 MG PO (08:14)
[2024-01-18] MEDS: VITAMIN C 1000 MG PO (08:14)
[2024-01-18] MEDS: OSCAL 500 + D 500 MG PO ×2 (08:14→21:04)
[2024-01-18] MEDS: LASIX 20 MG IV ×2 (08:15→16:00)
[2024-01-18] MEDS: FLUSH (NSS) 2 FLUSH IV (08:17)
[2024-01-18 09:04] LABS: Glucose - Point of Care 109 mg/dl (70-99)
--- NOTE | 2024-01-18 10:16 | PTCARENOTE ---
pt reported around 9 AM that she was feeling lightheaded/dizzy while laying in bed after finishing breakfast. Morning meds given to pt at 8:15 this AM. Pt reports that this happens often at home lasting anywhere from 40 minutes to half the day. VS
taken... bp 158/68 hr 60, pulse ox 100% RA RR 24. blood sugar 109. pt AAOx3. pt laid flat in bed, Dr. Miller notified via tt.
--- NOTE | 2024-01-18 10:54 | W.PN.HOSP.TC ---
Addendum entered and electronically signed by Eduardo Miller DO 01/18/24 17:31:
ACTH stimulation test resulted, baseline cortisol 0.8, 30 minutes 3.7, 60 minutes 5.7. She is not on chronic steroids at home.
Suspect primary adrenal insufficiency. Start hydrocortisone 15 mg in the morning, 5 mg in the afternoon.
Recommend outpatient follow-up with endocrinology. Information added to discharge instructions.
Updated patient's daughter Alysha on the phone. [phone].
Original Note:
Today's Communication/Plan
-
Orthostatics
Antibiotics
Echo in the morning
TSH, cortisol
Assessment / Plan
Assessment / Plan
Gen-AAOx3, NAD
HEENT-NC, AT, anicteric, clear oral mm
Neck-supple
CV-reg, no M, +S1/S2
Lungs-clear B/L
Abd-soft, NT, ND
Ext-bilateral lower extremity lymphedema
Musculoskeletal-no cyanosis, clubbing
Skin-warm and dry, left lower extremity erythema
Neuro-grossly non-focal
Psych-calm, cooperative
Opioid-induced sedation -improved.
Left lower extremity cellulitis -patient believes it is improving, less erythema today. Continue cefazolin.
Lightheadedness -unclear etiology. Check orthostatics. Along with unexplained dyspnea will check echocardiogram tomorrow. I question whether or not this is a adverse drug reaction. Patient is a very poor historian and cannot tell me details of
any recent medication changes but she believes that the diltiazem was recently stopped. A new medication was started but she does not remember the name.
Hypokalemia -improving.
Hyponatremia -improving.
Hypoglycemia -glucose 66 on BMP this morning. Unclear etiology. Check a.m. cortisol.
Subacute anemia -hemoglobin relatively stable. Suspect operative blood loss anemia from recent shoulder surgery.
Hyperlipidemia -on atorvastatin.
Paroxysmal atrial fibrillation -not on anticoagulation.
Chronic lower extremity lymphedema
Recent right rotator cuff surgery -underwent hardware removal on January 15 with extensive debridement.
Essential hypertension -stable.
GERD
Full code
Updated daughter at the bedside.
Anticipated Discharge: > 48 hours
Subjective/Interval History
-
Date of Service: January 18, 2024
Patient seen and examined. Complaining of lightheadedness. Shortness of breath at rest.
Objective Data
-
Labs:
Laboratory Results
01/18/24
05:20
WBC 9.7
Hgb 9.5 L
Hct 27.9 L
Plt Count 335
Sodium 135
Potassium 3.6
Chloride 104
Carbon Dioxide 26
BUN 16
Creatinine 0.6
Glucose 66 L
Calcium 9.1
Vital Signs:
Vital Signs
Temp Pulse Resp BP Pulse Ox
97.8 F 57 16 144/69 100
01/18/24 07:53 01/18/24 08:15 01/18/24 07:53 01/18/24 08:15 01/18/24 07:53
I&O
01/17/24 01/18/24 01/19/24
06:59 06:59 06:59
Intake Total 100 / 100
Balance 100 / 100
Review of Systems
-
History Source: Patient
All other systems: Reviewed and negative
[2024-01-18 11:57] VITALS: BP 171/70; BP 171/84; BP 176/72; PULSE 57; PULSE 60; PULSE 71
[2024-01-18] MEDS: THERAGRAN 1 TABLET PO (12:19)
[2024-01-18 12:26] LABS: Cortisol, Random 0.6 ug/dl; TSH 1.49 uIU/ml (0.47-4.68)
[2024-01-18] MEDS: CORTROSYN 0.25 MG IV (14:13)
[2024-01-18] MEDS: NSS (PRESERVATIVE FREE) 1 ML IV (14:13)
[2024-01-18 14:18] VITALS: BMI 28.8
[2024-01-18 14:57] LABS: ACTH Stim Cortisol 0 Min 0.8 ug/dl
[2024-01-18 15:39] LABS: ACTH Stim Cortisol 30 Min 3.7 ug/dl
[2024-01-18 15:45] VITALS: BP 158/62
[2024-01-18 17:00] LABS: ACTH Stim Cortisol 60 Min 5.7 ug/dl
[2024-01-18] MEDS: CORTEF 5 MG PO (18:04)
[2024-01-18 19:10] VITALS: BP 129/47
[2024-01-18] MEDS: MELATONIN 5 MG PO (21:05)
[2024-01-18] MEDS: ZOLOFT 50 MG PO (22:19)
[2024-01-18 23:06] VITALS: BP 122/63
[2024-01-19 03:20] VITALS: BP 130/61
[2024-01-19] MEDS: ANCEF 5 IV ×3 (05:40→21:01)
[2024-01-19] MEDS: TYLENOL 1000 MG PO (05:45)
[2024-01-19 06:00] VITALS: BMI 27.5
[2024-01-19] MEDS: CORTEF 15 MG PO (09:00)
[2024-01-19] MEDS: TAMBOCOR 50 MG PO ×2 (09:00→20:53)
[2024-01-19] MEDS: REFRESH CELLUVISC GEL 1 DROPS OPHTH ×2 (09:00→20:54)
[2024-01-19] MEDS: NAPROSYN 250 MG PO (09:01)
[2024-01-19] MEDS: MIRALAX 17 GRAMS PO (09:01)
[2024-01-19] MEDS: VITAMIN C 1000 MG PO (09:02)
[2024-01-19] MEDS: TOPROL XL 12.5 MG PO ×2 (09:02→20:55)
[2024-01-19] MEDS: LASIX 20 MG IV (09:02)
[2024-01-19] MEDS: VITAMIN B-12 1000 MCG PO (09:03)
[2024-01-19] MEDS: LIPITOR 10 MG PO (09:03)
[2024-01-19] MEDS: KCL 20 MEQ PO ×2 (09:03→20:51)
[2024-01-19] MEDS: OSCAL 500 + D 500 MG PO ×2 (09:03→20:53)
[2024-01-19] MEDS: PROTONIX 40 MG PO ×2 (09:14→20:53)
[2024-01-19 09:55] VITALS: BP 142/65; PULSE 56; O2SAT 96
[2024-01-19 11:00] VITALS: BP 135/55
--- NOTE | 2024-01-19 11:11 | W.PN.HOSP.TC ---
Addendum entered and electronically signed by Magdy Lewis MD 01/20/24 13:48:
Correction - Pt doesn't have Afib- Has AT
She doesn't have DAE
Addendum entered and electronically signed by Magdy Lewis MD 01/19/24 14:14:
According to medications list patient is not on diltiazem anymore and on metoprolol 12.5 twice daily-changed
According to the list patient is on torsemide total of 80 mg a day-stopped IV Lasix and changed to torsemide 40 twice daily.
Original Note:
Today's Communication/Plan
-
Compression therapy
AB
Bowel regimen.
Assessment / Plan
Assessment / Plan
CVS: S1-S2 normal
Chest: CTA B/L
Abdomen: Soft, NT , Bowel sounds present
Extremities: mild edema LE, mild redness LLE, right upper extremity on a sling
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
# Opioid-induced sedation -improved.
# Left lower extremity cellulitis -patient believes it is improving, less erythema today. Continue cefazolin.
# Lightheadedness -unclear etiology. Check orthostatics. Along with unexplained dyspnea will check echocardiogram
(Patient is a very poor historian and cannot tell me details of any recent medication changes but she believes that the diltiazem was recently stopped. A new medication was started but she does not remember the name.)
Chest x-ray unremarkable
# Adrenal insufficiency-started on hydrocortisone-outpatient Endocrinology follow-up discussed with the patient and .
# Constipation-no bowel movements for 4 to 5 days. Will add mag citrate. Patient uses Trulance at home advised to bring
She is also on on MiraLAX
She has IBS
says she has irregularity in BM
Needs GI F/U as OP
# Hypokalemia -improving.
# Hyponatremia -improving.
# Hypoglycemia -Likely from adrenal insufficiency. Resolved
# Subacute anemia -hemoglobin relatively stable. Suspect operative blood loss anemia from recent shoulder surgery.
# Hyperlipidemia -on atorvastatin.
# Paroxysmal atrial fibrillation -not on anticoagulation. On flecainide
The medication list we have from 01/04/2024 states that the patient still on diltiazem which I will start.
Start beta-blockers
# Chronic lower extremity lymphedema-medicines list say for patient to stop metolazone, torsemide, potassium supplements until seen by cardiology.
# Recent right rotator cuff surgery -underwent hardware removal on January 15 with extensive debridement.
Stop Naprosyn with patient's history of peptic ulcer disease GERD and hiatal hernia
Did make Ortho cost reduction engineer aware.
# History of chronic back pain with spinal implant
# Depression-on sertraline
# Essential hypertension -stable.
# DAE
# GERD/PUD/Hiatal Hernia-on PPI twice daily
# Ex-smoker
# DVT prophylaxis-Add Lovenox
# Full code
D/W RN
Called and spoke to , he started reading the medications list and spelling automotive parts interpreter was confusing therefore requested to bring med list.
med list on the chart reviewed.
PT OT recommendations reviewed-discussed with case management concerning discharge planning
time spent 54 min
Anticipated Discharge: Within 24 hours
Subjective/Interval History
-
Date of Service: January 19, 2024
Objective Data
-
Vital Signs:
Vital Signs
Temp Pulse Resp BP Pulse Ox
98.2 F 58 16 130/61 95
01/19/24 03:20 01/19/24 03:20 01/19/24 03:20 01/19/24 03:20 01/19/24 03:20
I&O
01/18/24 01/19/24 01/20/24
06:59 06:59 06:59
Intake Total 100 / 100 960 / 960
Balance 100 / 100 960 / 960
[2024-01-19] MEDS: THERAGRAN 1 TABLET PO (11:51)
[2024-01-19] MEDS: CITROMA 300 ML PO (11:51)
[2024-01-19 14:19] LABS: Blood Urea Nitrogen 12 mg/dl (7-17); Calcium 9.3 mg/dl (8.4-10.2); Carbon Dioxide 26 mmol/L (22-30); Chloride 99 mmol/L (98-107); Estimated Creatinine Clearance 66 ml/min; Glucose 173 mg/dl (70-99); Iron 71 ug/dl (37-170); Potassium 4.3 mmol/L (3.5-5.1); Sodium 132 mmol/L (135-145); eGFR > 60.00
[2024-01-19 14:29] LABS: Percent Saturation 27 % (20-50); Total Iron Binding Capacity 260 ug/dl (265-497)
[2024-01-19 15:00] VITALS: BP 130/53
[2024-01-19 15:05] LABS: Ferritin 49.7 ng/ml (11.1-264.0)
[2024-01-19 15:19] LABS: Vitamin B12 > 1000 pg/ml (239-931)
[2024-01-19] MEDS: NON-FORMULARY ITEM 3 MG PO (16:00)
[2024-01-19] MEDS: CORTEF 5 MG PO (16:00)
[2024-01-19] MEDS: LOVENOX 40 MG SC (17:39)
[2024-01-19] MEDS: ROXICODONE 10 MG PO (18:38)
--- NOTE | 2024-01-19 20:17 | PTCARENOTE ---
Patient's daughter at nurses station as this nurse was coming out of another patient's room. Daughter aggressively asking 'who is my mother's nurse'. This RN had already discussed a concern a different daughter had r/t patient care from previous
shift. Introduced myself and immediately daughter said 'well are you ever going to come see my mom?' and 'I have been waiting here for 2 hours'. This RN explained that I would be in and that I have only been here for 1 hour and already spoke to her
sister. Patient then stated she did not want to leave her mom here because 'she felt uncomfortable leaving her here since no one helped her in the
bathroom'. This RN explained that unless she needed something emergently that required immediate attention this RN would be in shortly. Daughter continuing to be verbally abusive to this RN. This RN discussed with studio operations engineer in charge and a different RN was
assigned to patient. Transfer of care given to receiving RN.
[2024-01-19 20:48] VITALS: BP 122/54
[2024-01-19] MEDS: DEMADEX 40 MG PO (20:52)
[2024-01-19] MEDS: ZOLOFT 50 MG PO (21:01)
[2024-01-19 23:45] VITALS: BP 124/53
[2024-01-20] VITALS (8 sets, daily range): BP systolic 123–154; BP diastolic 43–55; PULSE 55; O2SAT 97; BMI 26.9
[2024-01-20] MEDS: ANCEF 5 IV ×3 (05:00→22:41)
[2024-01-20 06:06] LABS: Blood Urea Nitrogen 12 mg/dl (7-17); Carbon Dioxide 31 mmol/L (22-30); Chloride 100 mmol/L (98-107); Estimated Creatinine Clearance 66 ml/min; Glucose 86 mg/dl (70-99); Potassium 3.9 mmol/L (3.5-5.1); Sodium 135 mmol/L (135-145); eGFR > 60.00
[2024-01-20] MEDS: PROTONIX 40 MG PO ×2 (09:23→20:41)
[2024-01-20] MEDS: LIPITOR 10 MG PO (09:23)
[2024-01-20] MEDS: TAMBOCOR 50 MG PO ×2 (09:24→20:41)
[2024-01-20] MEDS: KCL 20 MEQ PO ×2 (09:24→20:41)
[2024-01-20] MEDS: OSCAL 500 + D 500 MG PO ×2 (09:24→20:41)
[2024-01-20] MEDS: TOPROL XL 12.5 MG PO ×2 (09:24→20:41)
[2024-01-20] MEDS: CORTEF 15 MG PO (09:25)
[2024-01-20] MEDS: FIBERCON 625 MG PO (09:25)
[2024-01-20] MEDS: VITAMIN B-12 1000 MCG PO (09:25)
[2024-01-20] MEDS: REFRESH CELLUVISC GEL 1 DROPS OPHTH ×2 (09:26→20:41)
[2024-01-20] MEDS: NON-FORMULARY ITEM 3 MG PO (09:26)
[2024-01-20] MEDS: MIRALAX PO (09:27)
[2024-01-20] MEDS: ROXICODONE 10 MG PO ×2 (09:31→20:59)
[2024-01-20] MEDS: DEMADEX 40 MG PO ×2 (09:31→20:52)
[2024-01-20] MEDS: VITAMIN C 1000 MG PO (09:32)
[2024-01-20] MEDS: THERAGRAN 1 TABLET PO (11:34)
--- NOTE | 2024-01-20 12:19 | W.PN.HOSP.TC ---
Addendum entered and electronically signed by Magdy Lewis MD 01/20/24 13:48:
Pt doesnt have DAE
Addendum entered and electronically signed by Magdy Lewis MD 01/20/24 13:37:
Spoke to from [facility].
Patient always have lower extremity edema-chronic
Also has a history of AI and MR from before
Patient does not have atrial fibrillation she has atrial tachycardia with difficult to control rates therefore was started on flecainide.
Discussed the plan and discussed the echo findings here.
Daughter aware about above.
Original Note:
Today's Communication/Plan
-
Venous Dopplers
Ortho to evaluate in the morning
Await callback from cardiology
Start compression therapy after ultrasound today
Zaroxolyn
Assessment / Plan
Assessment / Plan
CVS: S1-S2 normal, sm at apex
Chest: CTA B/L
Abdomen: Soft, NT , Bowel sounds present
Extremities: Right shoulder- no edema or redness,
Legs edema, mild redness left.
No pain.
CASINO ACCOUNTANT: Non focal exam,AAO
# Opioid-induced sedation -Back to normal
# Left lower extremity cellulitis -patient believes it is improving, less erythema today. Continue cefazolin.
# Lightheadedness -unclear etiology.
likely from adrenal insufficiency
# Adrenal insufficiency-started on hydrocortisone-outpatient Endocrinology follow-up discussed with the patient , daughter and .
# Constipation-Resolved.
Needs GI F/U as OP
# Hypokalemia -improved
# Hyponatremia -improved.
# Hypoglycemia -Likely from adrenal insufficiency. Resolved
# Subacute anemia -hemoglobin relatively stable. Suspect operative blood loss anemia from recent shoulder surgery.
# Hyperlipidemia -on atorvastatin.
# Paroxysmal atrial fibrillation -not on anticoagulation. On flecainide
Per daughter Cardizem was stopped a week ago by Dr.Mallavarapu and started on a low dose BB due to dizziness.
# Chronic lower extremity lymphedema-She was restarted on Torsemide last week.
Will add Zaroxolyn today
Will get USS LE and Compression after that.
# Mitral regurgitation and aortic regurgitation. Family aware. Patient to follow-up with outpatient cardiovascular operating room nurse.
# Recent right rotator cuff surgery -underwent hardware removal on January 15 with extensive debridement.
Stop Naprosyn with patient's history of peptic ulcer disease GERD and hiatal hernia
Did make Ortho electronics engineer aware.
will see pt tomorrow
She is on Ancef , so Doxy on Hold.
# History of chronic back pain with spinal implant
# Depression-on sertraline
# Essential hypertension -stable.
# DAE
# GERD/PUD/Hiatal Hernia-on PPI twice daily
# Insomnia- Melatonin
# Ex-smoker
# DVT prophylaxis-Lovenox
# Full code
D/W RN
D/W Ortho PA
Discussed with the patient, , daughter in detail regarding her medical condition and plan of care. Discussed about compression therapy for lower extremities. I have also left a message for patient's outpatient cardiovascular operating room nurse. Discussed about
findings on echo
Daughter stated that patient was on Zaroxolyn at 1 point but was stopped secondary to her dizziness.
Time 55 min
Anticipated Discharge: Within 24 hours
Subjective/Interval History
-
Date of Service: January 20, 2024
Objective Data
-
Labs:
Laboratory Results
01/20/24
05:10
Sodium 135
Potassium 3.9
Chloride 100
Carbon Dioxide 31 H
BUN 12
Creatinine 0.6
Glucose 86
Calcium 9.0
Vital Signs:
Vital Signs
Temp Pulse Resp BP Pulse Ox
98.6 F 53 16 139/55 97
01/20/24 11:00 01/20/24 11:00 01/20/24 11:00 01/20/24 11:00 01/20/24 11:00
I&O
01/19/24 01/20/24 01/21/24
06:59 06:59 06:59
Intake Total 960 / 960 1020 / 1020
Output Total 700 / 700
Balance 960 / 960 320 / 320
[2024-01-20] MEDS: ZAROXOLYN 2.5 MG PO (12:37)
--- NOTE | 2024-01-20 15:58 | CM ---
Alert awake oriented patient who lives with her Saurav and in a 1 story home with 6 step to enter. She is independent in all activities of daily living.Offered VN she is not sure . Her dgt Jocelyne [phone] here and said she may do out pt
PT instead.She uses a cane.
No SNF HX/ [facility] hx
Pharmacy [facility]
PCP Dr Snyder
PLAN Home with out pt PT vs VN
[2024-01-20] MEDS: CORTEF 5 MG PO (16:53)
[2024-01-20] MEDS: LOVENOX 40 MG SC (17:22)
[2024-01-20] MEDS: ZOLOFT 50 MG PO (22:40)
[2024-01-20] MEDS: MELATONIN 10 MG PO (22:41)
[2024-01-21 03:40] VITALS: BP 119/59
[2024-01-21] MEDS: ANCEF 5 IV ×2 (05:35→14:57)
[2024-01-21 06:00] VITALS: BMI 25.4
[2024-01-21 07:00] VITALS: BP 119/50
[2024-01-21 07:03] LABS: Blood Urea Nitrogen 16 mg/dl (7-17); Calcium 9.7 mg/dl (8.4-10.2); Carbon Dioxide 33 mmol/L (22-30); Chloride 93 mmol/L (98-107); Estimated Creatinine Clearance 58 ml/min; Glucose 87 mg/dl (70-99); Magnesium 1.9 mg/dl (1.6-2.3); Potassium 3.2 mmol/L (3.5-5.1); Sodium 132 mmol/L (135-145); eGFR > 60.00
[2024-01-21] MEDS: OSCAL 500 + D 500 MG PO (08:45)
[2024-01-21] MEDS: KCL 20 MEQ PO (08:46)
[2024-01-21] MEDS: CORTEF 15 MG PO (08:46)
[2024-01-21] MEDS: VITAMIN B-12 1000 MCG PO (08:46)
[2024-01-21] MEDS: LIPITOR 10 MG PO (08:46)
[2024-01-21] MEDS: DEMADEX 40 MG PO (08:46)
[2024-01-21] MEDS: FIBERCON 625 MG PO (08:46)
[2024-01-21] MEDS: TAMBOCOR 50 MG PO (08:46)
[2024-01-21] MEDS: TOPROL XL 12.5 MG PO (08:46)
[2024-01-21] MEDS: VITAMIN C 1000 MG PO (08:46)
[2024-01-21] MEDS: PROTONIX 40 MG PO (08:46)
[2024-01-21] MEDS: MIRALAX PO (08:47)
[2024-01-21] MEDS: NON-FORMULARY ITEM PO (08:48)
[2024-01-21] MEDS: REFRESH CELLUVISC GEL 1 DROPS OPHTH (08:48)
[2024-01-21] MEDS: TYLENOL 1000 MG PO (09:01)
[2024-01-21] MEDS: KCL 270 MEQ IV (10:03)
[2024-01-21] MEDS: ROXICODONE 10 MG PO (10:15)
--- NOTE | 2024-01-21 10:48 | W.PN.UPDATE ---
Update Note
Progress Note Update
Ms. He is s/p right shoulder removal of symptomatic hardware and extensive debridement performed by Dr. Jones on 01/16/2024. She is resting comfortably in bed this morning. She reports her should pain has gotten progressively better over the
last several days. She has no questions or concerns at this time.
Directed exam of the right upper extremity reveals surgical incisions clean, dry and intact. Well approximated with sutures. Mild erythema about the anterior shoulder, but patient reports this is much improved. PROM slightly limited secondary to
patient discomfort. Full ROM of elbow wrist, and hand. NVID.
Intraoperative shoulder cultures negative to date.
Patient progressing as expected at this point following her right shoulder arthroscopy. I will have her follow up in the office for suture removal and repeat evaluation. Could consider physical therapy for gentle shoulder ROM while patient is
in-house. Continue treatment per primary.
--- NOTE | 2024-01-21 10:59 | W.PN.HOSP.TC ---
Addendum entered and electronically signed by Magdy Lewis MD 01/21/24 17:46:
Patient's family called back that she only has 20 mg of oxycodone tablets. Therefore 5 mg tablets 14 tablets given as a prescription.
PDMP reviewed
Addendum entered and electronically signed by Magdy Lewis MD 01/21/24 12:47:
Correction
Patient does not have atrial fibrillation she has atrial tachycardia with difficult to control rates therefore was started on flecainide.
She does not have DAE
Original Note:
Today's Communication/Plan
-
Repeat potassium later this afternoon
If stable will discharge home
Assessment / Plan
Assessment / Plan
CVS: S1-S2 normal, sm at apex
Chest: CTA B/L
Abdomen: Soft, NT , Bowel sounds present
Extremities: Right shoulder- no redness
Lower extremity edema markedly improved mild redness only on the left leg
No pain.
CORE SHAPER SIDES: Non focal exam,AAO
# Opioid-induced sedation -Back to normal
# Left lower extremity cellulitis -patient believes it is improving, less erythema today. Continue cefazolin.
Patient has a doxycycline left at home-she can finish taking it
# Lightheadedness -unclear etiology.
likely from adrenal insufficiency
# Adrenal insufficiency-started on hydrocortisone-outpatient Endocrinology follow-up discussed with the patient , daughter and patient's .
# Constipation-Resolved.
Needs GI F/U as OP
# Hypokalemia -secondary to Zaroxolyn
Additional IV potassium given today. Patient got torsemide prior to my rounding,
Will advised to hold tonight's dose of torsemide and just take potassium.
# Hyponatremia -improved.
# Hypoglycemia -Likely from adrenal insufficiency. Resolved
# Subacute anemia -hemoglobin relatively stable. Suspect operative blood loss anemia from recent shoulder surgery.
# Hyperlipidemia -on atorvastatin.
# Paroxysmal atrial fibrillation -not on anticoagulation. On flecainide
Per daughter Cardizem was stopped a week ago by and started on a low dose BB due to dizziness.
# Chronic lower extremity lymphedema-She was restarted on Torsemide last week.
Doppler with no DVT
Markedly improved weight and edema with Zaroxolyn yesterday
# Mitral regurgitation and aortic regurgitation. Family aware. Patient to follow-up with outpatient pile driver engineer.
# Recent right rotator cuff surgery -underwent hardware removal on January 15 with extensive debridement.
Stop Naprosyn with patient's history of peptic ulcer disease GERD and hiatal hernia
Did make Ortho citrix consultant aware.
Orthopedics evaluated. Aware that she is being released today
They will take out the sutures as outpatient she has an appointment on January 28.
Doxycycline to be completed at home
# History of chronic back pain with spinal implant
# Depression-on sertraline
# Essential hypertension -stable.
# DAE
# GERD/PUD/Hiatal Hernia-on PPI twice daily
# Insomnia- Melatonin
# Ex-smoker
# DVT prophylaxis-Lovenox
# Full code
D/W RN
D/W Ortho PA
Detail discussion the patient's and patient's daughter at bedside. Reviewed about labs, plan moving forward. She has compression stockings at home which she will use. They are aware about the potassium.
Total discharge time 40 minutes
Anticipated Discharge: Today
Subjective/Interval History
-
Date of Service: January 21, 2024
Objective Data
-
Labs:
Laboratory Results
01/21/24 01/21/24
06: 14:00
Sodium 132 L
Potassium 3.2 L Pending
Chloride 93 L
Carbon Dioxide 33 H
BUN 16
Creatinine 0.6
Glucose 87
Calcium 9.7
Vital Signs:
Vital Signs
Temp Pulse Resp BP Pulse Ox
97.4 F 52 16 119/50 97
01/21/24 07:00 01/21/24 07:00 01/21/24 07:00 01/21/24 07:00 01/21/24 07:00
I&O
01/20/24 01/21/24 01/22/24
06:59 06:59 06:59
Intake Total 1020 / 1020 240 / 240
Output Total 700 / 700
Balance 320 / 320 240 / 240
[2024-01-21 11:00] VITALS: BP 105/40
[2024-01-21] MEDS: THERAGRAN 1 TABLET PO (12:13)
--- NOTE | 2024-01-21 14:09 | CM ---
Addendum entered by Beba Dash 01/21/24 15:44:
Pt for d/c
Discussed IMM
Has ride home
Plan - Home with [facility]
Original Note:
Case management following for d/c planning
PT/OT recommending HH -
Spoke with pt, daughter and at bedside
Requesting [facility] - TT sent to [facility] liaison
Plan - home with [facility]
--- NOTE | 2024-01-21 14:53 | VNURNOTE ---
Home Health Liaison spoke with patient at 1445 to discuss [facility] nurse/therapy, visits, schedule and homebound status. Patient is agreeable and understands that visits at home will be 2-3 x per week to assess and teach medical management.
Patient is aware that [facility] will contact her for start of care in 1-2 days after discharge from .
[facility] referral completed in [facility].
[2024-01-21 15:00] VITALS: BP 114/45
[2024-01-21 15:00] LABS: Potassium 4.1 mmol/L (3.5-5.1)
[2024-01-21] MEDS: CORTEF 5 MG PO (15:03)
--- NOTE | 2024-01-21 15:15 | W.DS.TRANS ---
Addendum entered and electronically signed by Magdy Lewis MD 01/21/24 16:45:
Dictation- [id number]
Original Note:
DC Summary - Director Of Restaurant Operations
-
Discharge Instructions:
Discharge Diagnosis/Procedures Opioid-induced sedation, Edema legs, LOw
Potassium, Mitral and Aortic Regurgitation,
Adrenal Insufficiency, Constipation, anemia,
hyperlipidemia, atrial tachycardia, right
rotator cuff surgery recently chronic back pain,
depression, hypertension, insomnia, peptic
ulcer disease
Diet 2 Gram Sodium,Restrict fluids to 64 oz
Activity As tolerated
Driving Restrictions As prior to admission
Blood Work bmp 1 week
Other Services VN
Specialty Instructions Weigh Daily
Instructions:
Stand-Alone Forms:
Changes to Home Medications: Yes
Discharge Medications:
DC Medications w/original date entered in [facility]
omeprazole 40 mg capsule,delayed release 40 mg PO BID Gastrointestinal Issue 01/27/21
multivitamin 1 tab PO NOON Supplement 12/28/23
polyethylene glycol 3350 17 gram oral powder packet (Miralax) 17 g PO DAILY Constipation 12/28/23
torsemide 20 mg tablet 40 mg PO BID Fluid Retention/Swelling 12/28/23
sertraline 50 mg tablet 50 mg PO Mental Health 12/29/23
B12 1 tab PO DAILY Supplement 01/09/24
atorvastatin 10 mg tablet 10 mg PO DAILY High Cholesterol 01/09/24
calcium carbonate 600 mg-vitamin D3 10 mcg (400 unit) tablet (Calcium 600 + D(3)) 1 tab PO BID Supplement 01/09/24
carboxymethylcellulose sodium 1 % eye liquid gel drops 1 drp ophthalmic (eye) BID Eye Condition 01/09/24
flecainide 50 mg tablet 50 mg PO Q12H Heart Disease/Condition 01/09/24
turmeric 400 mg capsule 500 mg PO BID Supplement 01/09/24
biotin 1 tab PO DAILY Supplement 01/16/24
doxycycline hyclate 100 mg capsule 100 mg PO BID Infection 01/18/24
methylcellulose (laxative) 500 mg tablet (Citrucel) 500 mg PO DAILY Supplement 01/18/24
acetaminophen 500 mg tablet (Tylenol Extra Strength) 1,000 mg (2 x 500 mg) PO Q6HPRN PRN moderate pain #30 tabs 01/21/24
hydrocortisone 10 mg tablet 5 mg (1/2 x 10 mg) PO DAILY@1500 adrenal insuff #60 tabs 01/21/24
hydrocortisone 10 mg tablet 15 mg (1.5 x 10 mg) PO DAILY adrenal insuff #30 tabs 01/21/24
melatonin 10 mg tablet 10 mg PO HS Sleep #0 tabs 01/21/24
metoprolol succinate 25 mg tablet,extended release 24 hr 12.5 mg (1/2 x 25 mg) PO BID Arrhythmia #0 tabs 01/21/24
oxycodone 5 mg tablet 5 mg PO Q6H PRN painmoderate pain #0 tabs 01/21/24
plecanatide 3 mg tablet (Trulance) 3 mg PO DAILY constipation #0 tabs 01/21/24
potassium chloride 20 mEq tablet,extended release(part/cryst) 20 meq PO BID Electrolyte Repletion #60 tabs 01/21/24
vitamin A-vitamin C-vit E-min tablet 1 tab PO DAILY Supplement #0 tabs 01/21/24
Home Medication Changes
new
hydrocortisone 10 mg tablet 5 mg (1/2 x 10 mg) PO DAILY@1500 adrenal insuff #60 tabs 01/21/24
hydrocortisone 10 mg tablet 15 mg (1.5 x 10 mg) PO DAILY adrenal insuff #30 tabs 01/21/24
Pending Results: No
== END 2024-01-21 16:58 | disposition home health service (06) | DRG 603 ==
LOC: 3 WEST ACU 20:41
PROVIDERS: Hospitalist; Physician Assistant; ADMITTING PHYSICIAN Internal Medicine; ATTENDING PHYSICIAN Hospitalist; EMERGENCY PHYSICIAN Emergency Medicine; FAMILY PHYSICIAN Family Medicine
DX: L03.116 Cellulitis of left lower limb (principal); E87.1 Hypo-osmolality and hyponatremia; D62 Acute posthemorrhagic anemia; I47.19 Other supraventricular tachycardia; F33.1 Major depressive disorder, recurrent, moderate; F11.988 Opioid use, unspecified with other opioid-induced disorder; E07.1 Dyshormogenetic goiter; E87.6 Hypokalemia; I08.0 Rheumatic disorders of both mitral and aortic valves; K59.00 Constipation, unspecified; G89.29 Other chronic pain; I10 Essential (primary) hypertension; R60.0 Localized edema
CPT/HCPCS: 71046; 80048; 80053; 82533; 82607; 82728; 82962; 83540; 83550; 83735; 83880; 84132; 84443; 84484; 85025; 85027; 87070; 93005; 93306; 93970; 96374; 97116; 97162; 97166; 97535; 99285

== ENCOUNTER → 2024-03-12 16:51 | Outpatient (REF) | payer OTHER, SELFPAY | LOC: RAD 16:51 | PROVIDERS: ATTENDING PHYSICIAN Otolaryngology Otolaryngology/Facial Plastic Surgery; FAMILY PHYSICIAN Family Medicine | DX: R05.1 Acute cough (principal); J20.8 Acute bronchitis due to other specified organisms | CPT/HCPCS: 71046 ==

== ENCOUNTER → 2024-04-13 11:11 | Outpatient (REF) | payer OTHER, SELFPAY | LOC: RAD 11:11 | PROVIDERS: ATTENDING PHYSICIAN Specialist; FAMILY PHYSICIAN Family Medicine | DX: M19.011 Primary osteoarthritis, right shoulder (principal); R93.89 Abnormal findings on diagnostic imaging of other specified body structures | CPT/HCPCS: 71046; 73200 ==

== ENCOUNTER → 2024-04-29 08:44 | Outpatient (REF) | payer OTHER, SELFPAY | LOC: RAD 08:44 | PROVIDERS: ATTENDING PHYSICIAN Physician Assistant Medical; REFERRING PHYSICIAN Internal Medicine Endocrinology, Diabetes & Metabolism | DX: E04.1 Nontoxic single thyroid nodule (principal) | CPT/HCPCS: 76536 ==

== ENCOUNTER → 2024-04-30 10:20 | Outpatient (REF) | payer OTHER, SELFPAY | LOC: RAD 10:20 | PROVIDERS: ATTENDING PHYSICIAN Physician Assistant Medical; FAMILY PHYSICIAN Family Medicine; OTHER PHYSICIAN Otolaryngology Otolaryngology/Facial Plastic Surgery | DX: R91.1 Solitary pulmonary nodule (principal) | CPT/HCPCS: 71260; Q9967 ==

== ENCOUNTER 2024-05-18 05:52 | Day surgery (SDC) | payer OTHER, SELFPAY ==
--- NOTE | 2024-04-21 09:16 | CM ---
Patient is scheduled for an elective R Reverse TSA on 05/18/24- she is a same day patient. Spoke with patient prior to surgery. Introduced role of Orthopedic Navigator. Patient reports that she lives with her in a one story home. There are
six steps to enter. Currently she functions independently. She uses a cane when she goes out. She has no DME. She has had VN services through VN. PCP is Angelo Snyder.
Discussed orthopedic program and post surgical plans. Patient will return home when directed by surgeon. Reviewed MD follow up and transition to outpatient therapy. Patient is in agreement with tentative plan and states that her or daughter
will be home with her and can assist if needed.
Patient will complete online education.
[2024-04-27 13:15] VITALS: BMI 26.9
[2024-04-27 13:49] LABS: Hematocrit 32.8 % (37.0-47.0); Mean Corp Hgb Conc. 33.5 g/dL (33.0-37.0); Mean Corpuscular Hgb 33.4 pg (27.0-31.0); Mean Corpuscular Volume 99.7 fL (81.0-99.0); Mean Platelet Volume 10.1 fL (7.4-10.4); Platelet Count 390 10^3/uL (130-400); Red Blood Cell Count 3.29 10^6/uL (4.20-5.40); Red Cell Dist. Width 12.6 % (11.5-14.5); White Blood Cell Count 12.2 10^3/uL (4.8-10.8)
[2024-04-27 14:02] LABS: ALT (SGPT) 17 U/L (0-35); AST (SGOT) 26 U/L (14-36); Albumin 3.8 g/dl (3.5-5.0); Alkaline Phosphatase 83 U/L (38-126); Blood Urea Nitrogen 44 mg/dl (7-17); Calcium 9.5 mg/dl (8.4-10.2); Carbon Dioxide 36 mmol/L (22-30); Chloride 88 mmol/L (98-107); Estimated Creatinine Clearance 34 ml/min; Glucose 152 mg/dl (70-99); Potassium 3.8 mmol/L (3.5-5.1); Sodium 130 mmol/L (135-145); Total Bilirubin 0.4 mg/dl (0.2-1.3); Total Protein 5.9 g/dl (6.3-8.2); eGFR 45.19
[2024-04-28 09:00] LABS: Glycohemoglobin (HgbA1c) 5.3 % (4.0-5.6)
--- NOTE | 2024-05-11 13:11 | PTCARENOTE ---
Pia @ Dr. Jimenez office notified of patient 04/27 Creat- 1.2, GFR-45.19; BUN-44.
[2024-05-14 12:01] VITALS: BMI 26.9
[2024-05-18] VITALS (11 sets, daily range): BP systolic 113–164; BP diastolic 61–74
[2024-05-18] MEDS: CELEBREX 200 MG PO (06:29)
[2024-05-18] MEDS: TYLENOL 1000 MG PO (06:29)
[2024-05-18] MEDS: NORMOSOL-R 1000 IV (06:50)
[2024-05-18] MEDS: ANCEF 5 IV (11:27)
== END 2024-05-18 11:44 | disposition home or self-care (01) ==
LOC: SDS 05:52
PROVIDERS: ATTENDING PHYSICIAN Specialist; FAMILY PHYSICIAN Family Medicine; OTHER PHYSICIAN Internal Medicine
DX: M19.011 Primary osteoarthritis, right shoulder (principal); S43.011A Anterior subluxation of right humerus, initial encounter; X58.XXXA Exposure to other specified factors, initial encounter
CPT/HCPCS: 23472; 36415; 73020; 80053; 83036; 85027; 86850; 86900; 86901; 87070; C1713; C1776

== ENCOUNTER → 2024-05-26 14:08 | Outpatient (REF) | payer OTHER, SELFPAY | LOC: RAD 14:08 | PROVIDERS: ATTENDING PHYSICIAN Physician Assistant; FAMILY PHYSICIAN Family Medicine | DX: E27.40 Unspecified adrenocortical insufficiency (principal) | CPT/HCPCS: 74170; Q9967 ==

== ENCOUNTER 2024-06-24 11:42 | Outpatient (RCR) | payer OTHER, SELFPAY | END 2024-06-24 23:59 | disposition home or self-care (01) | LOC: RPT 11:42 | PROVIDERS: ATTENDING PHYSICIAN Specialist; FAMILY PHYSICIAN Family Medicine | DX: M19.011 Primary osteoarthritis, right shoulder (principal); Z73.6 Limitation of activities due to disability | CPT/HCPCS: 97010; 97110; 97140; 97161; 97530 ==

== ENCOUNTER 2024-07-29 11:55 | Outpatient (RCR) | payer OTHER, SELFPAY | END 2024-07-29 23:59 | disposition home or self-care (01) | LOC: RPT 11:55 | PROVIDERS: ATTENDING PHYSICIAN Specialist; FAMILY PHYSICIAN Family Medicine | DX: M19.011 Primary osteoarthritis, right shoulder (principal); Z73.6 Limitation of activities due to disability | CPT/HCPCS: 97010; 97110; 97140 ==

== ENCOUNTER 2024-08-06 10:02 | Outpatient (RCR) | payer OTHER, SELFPAY | END 2024-08-06 23:59 | disposition home or self-care (01) | LOC: RPT 10:02 | PROVIDERS: ATTENDING PHYSICIAN Specialist; FAMILY PHYSICIAN Family Medicine | DX: M19.011 Primary osteoarthritis, right shoulder (principal); Z73.6 Limitation of activities due to disability | CPT/HCPCS: 97010; 97110; 97530 ==

== ENCOUNTER → 2024-08-11 16:10 | Outpatient (REF) | payer OTHER, SELFPAY | LOC: MRI 3T 16:10 | PROVIDERS: ATTENDING PHYSICIAN Orthopaedic Surgery; FAMILY PHYSICIAN Family Medicine | DX: M54.16 Radiculopathy, lumbar region (principal) | CPT/HCPCS: 72148 ==

== ENCOUNTER 2024-08-16 12:24 | Inpatient (IN) | payer OTHER, SELFPAY ==
[2024-08-14 21:19] VITALS: BP 183/80
--- NOTE | 2024-08-14 22:10 | ED.GENMED ---
History of Present Illness
General
Chief Complaint: Flank Pain
Source: patient and spouse
Exam Limitations: none
Time Seen by Provider: 08/14/24 21:44
History of Present Illness
History of Present Illness:
This is a 84 year old female that comes in with c/o right rib/flank lump. States that she has been getting this sharp pain under the right breast. State that she felt a lump. States that she started with this pain and felt the lump yesterday.
states that he also felt a lump but when asked to feel area here he said it was gone. Denies any falls or injury. Denies any fever, chills, chest pain, SOB, abd pain, nausea, vomiting, diarrhea, headache, dizziness, urinary burning.
Past History
Past History
ED Past Medical History: Arrthythmia (Atrial fib), GERD (Hiatal hernia), HTN, Hypercholesterolemia, Valvular disease and Other (Kidney stones, Back pain, Hiatal hernia. IBS, Ulcers Adrenocortical insufficiency, )
ED Past Surgical History: Gynecological (Tubal ligation), Orthopedic (Spinal implant, right shoulder surgery X 3 last with replacement), Tonsilectomy, Urological (Kidney stone removal) and Other (Hiatal hernia repair)
Social History
Tobacco: Non-smoker
Alcohol: None
Drug: None
Personal:
Living: with family
Employment: Retired
Family History
Family History: Other (Noncontributory)
Review of Systems
Review of Systems
All Other Systems: ROS reviewed and negative except as documented in HPI and ROS
Constitutional: Reports no symptoms; Denies fever or chills
EENT: Reports no symptoms
Respiratory: Reports no symptoms; Denies cough or trouble breathing
Cardiac: Reports no symptoms; Denies chest pain
ABD/GI: Reports no symptoms; Denies abdominal pain, nausea, vomiting or diarrhea
: Reports no symptoms; Denies dysuria, frequency or urgency
Musculoskeletal: Reports other (Sharp pain under ribs and felt a lump)
Skin: Reports no symptoms
Neurological: Reports no symptoms; Denies dizzy or headache
Psychiatric: Reports no symptoms
Phy Exam
General Physical Exam
General Presentation: well appearing and no apparent distress
General age: appears stated age
General Skin: warm and dry
General Habitus: elderly
General Mental: alert
General Hydration: appears well hydrated
ENT Exam
ENT Exam: TM's normal, pharynx normal and neck supple
Eye Exam
Eye Exam: EOMI
Cardiovascular Exam
Cardiovascular Exam: regular rate/rhythm, normal peripheral pulses and other (Chronic lower leg lymph edema)
Pulmonary Exam
Pulmonary Exam: lungs clear, no respiratory distress, no rales, chest non tender, no crackles, no rhonchi, no wheezing and no cough
Gastrointestinal Exam
Gastrointestinal Exam: normal bowel sounds, non tender, soft, no organomegaly, no pulsatile mass and non distended
Musculoskeletal Exam
Musculoskeletal Exam: full ROM
Skin Exam
Skin Exam: normal color, warm/dry, no rash and no petechia
Psychiatric Exam
Psychiatric Exam: normal mood/affect
Course
Orders/Labs/Results
Orders:
Orders
08/14/24 22:35
Complete Blood Count/With Diff Urgent
Comprehensive Metabolic Panel Urgent
08/14/24 23:22
Urinalysis Reflex To Culture Urgent
08/15/24 00:00
CT Chest W/o Iv Contrast Urgent
Comment: Patient states that there is a lump
Reason For Exam: Right sided pain, Rib area.
Abnormal Lab Results
08/14/24
22:35
WBC 17.3 H 10^3/uL
(4.8-10.8)
RBC 3.95 L 10^6/uL
(4.20-5.40)
MCV 99.7 H fL
(81.0-99.0)
MCH 32.4 H pg
(27.0-31.0)
MCHC 32.5 L g/dL
(33.0-37.0)
Abs Immat Gran (auto) 0.1 H 10^3/uL
(0-0.05)
Absolute Neuts (auto) 13.9 H 10^3/uL
(1.4-6.5)
Absolute Monos (auto) 1.3 H 10^3/uL
(0.1-0.6)
Neutrophils % 80.3 H %
(42.2-75.2)
Lymphocytes % 10.2 L %
(20.5-51.1)
Chloride 97 L mmol/L
(98-107)
Carbon Dioxide 31 H mmol/L
(22-30)
BUN 36 H mg/dl
(7-17)
Glucose 119 H mg/dl
(70-99)
AST 38 H U/L
(14-36)
08/14/24 22:35
08/14/24 22:35
Leukocytosis, Anemia, Chloride slightly low. carbon dioxide slightly elevated. Dehydration. hyperglycemia. AST slightly elevated.
Vital Signs
Initial and Last Documented VS:
Initial Vital Signs
Temp Pulse Resp BP Pulse Ox
97.6 F 57 18 183/80 100
08/14/24 21:19 08/14/24 21:19 08/14/24 21:19 08/14/24 21:19 08/14/24 21:19
Last Documented Vital Signs
Temp Pulse Resp BP Pulse Ox
97.6 F 57 18 183/80 100
08/14/24 21:19 08/14/24 21:19 08/14/24 21:19 08/14/24 21:19 08/14/24 21:19
MDM/Problems Addressed
Differential Diagnosis Includes:
Possible rib fracture,
MDM/Problems Addressed:
This is a 84 year old female that comes in with c/o pain under her right breast. States that she also felt a lump there.
Will check labs and get CT of chest.
Back into see patient and family. Explained that she has 5th and 6th rib fractures. Patient has not fallen or had any injury. Patient is also to have an MRI tomorrow morning or the pelvis for possible pelvic fracture. Will need further work up and
pain control. Patient has been taking Oxycodone with out relief. Will admit
Chronic conditions affecting care:
NA
Acute Exacerbation and/or Progression of Chronic Illness:
NA
*Radiology
Radiology exam reviewed: radiology read reviewed (CT night hawk- Acute nondisplaced fracture of right lateral rib 5and acute minimally displaced fracture of right lateral rib 6. No consolidation or effusion. Coronary artery calcifications.
Additional findings: vascular calcifications. Mitral annular calcification. Aortic annular calcification. ) and other (CT cont- small hiatal hernia. DJD. Right reverse shoulder arthroplasty. )
*Pulse Oximetry
Patient hypoxic: no
*Food Service Driver Interpretation
Rate: Food Service Driver- N/A
*Critical Care Note
Total Time (30-74mins, 75-104mins- exclusive of procedures): Not Applicable
ED Attending Note
-
Portions of this chart may have been created with voice recognition software.� Occasional wrong word or��sound alike� substitutions may have occurred due to the inherent limitations of voice recognition software.
Discharge Plan
Departure
Patient Disposition: Admit
Date of Disposition: 08/15/24
Time of Disposition: 00:51
Admit to: Med/Surg
Presentation/result/management discussed w/ accepting MD/DO: Hospitalist
Patient with high blood pressure during this ER visit?: Yes
Condition: Good
Covid-19: Not Applicable
Discharge Problem:
Fracture of rib of right side, Pain management
Prescriptions:
No Action
omeprazole 40 MG capsule,delayed release(DR/EC)
40 mg PO BID
torsemide 20 mg Tablet
40 mg PO BID
Patient Comments:
stopped until seen by school lunch manager
polyethylene glycol 3350 [Miralax] 17 gram Powder In Packet
17 g PO DAILY
multivitamin Tablet
1 tab PO NOON
sertraline 50 mg Tablet
50 mg PO HS
B12
1 tab PO DAILY
atorvastatin 10 mg Tablet
10 mg PO DAILY
flecainide 50 mg Tablet
50 mg PO Q12H
calcium carbonate-vitamin D3 [Calcium 600 + D(3)] 600 mg-10 mcg (400 unit) Tablet
1 tab PO BID
turmeric 400 mg Capsule
500 mg PO BID
Rx Instructions:
1 at noon and 1 at bedtime
biotin
1 tab PO DAILY
acetaminophen [Tylenol Extra Strength] 500 mg Tablet
1,000 mg PO Q6HPRN PRN (Reason: moderate pain) Qty: 30 0RF
potassium chloride 20 mEq Tablet,Er Particles/Crystals
20 meq PO BID Qty: 60 0RF
hydrocortisone 10 mg Tablet
15 mg PO DAILY Qty: 30 0RF
hydrocortisone 10 mg Tablet
5 mg PO DAILY@1500 Qty: 60 0RF
vitamin A-vitamin C-vit E-min Tablet
1 tab PO DAILY Qty: 0 0RF
melatonin 10 mg Tablet
10 mg PO HS Qty: 0 0RF
Trulance 3 mg Tablet
3 mg PO DAILY Qty: 0 0RF
Saccharomyces boulardii 50 mg Capsule
1 mg PO DAILY
tramadol 50 mg Tablet
50 mg PO Q6H PRN (Reason: pain)
zinc 50 mg Capsule
50 mg PO DAILY
Occuvite
1 dose PO DAILY
mupirocin 2 % Ointment Kit
1 applic TOPICAL BID
aspirin,buffd-calcium carb-mag [Bufferin] 325 mg tablet
1 tab PO DAILY Qty: 30 0RF
ondansetron HCl 4 mg tablet
4 mg PO Q8H PRN (Reason: nausea and vomiting) Qty: 30 0RF
oxycodone 5 mg tablet
5 mg PO Q4H PRN (Reason: Pain) Qty: 30 0RF
cefadroxil 500 mg capsule
500 mg PO BID Qty: 14 0RF
dexamethasone 4 mg tablet
4 mg PO BID Qty: 7 0RF
Referrals:
Angelo Snyder MD [Family Provider] -
Interventions
Interventions:
*Risk Screen - Suicide Last Done: 08/14/24 21:19
*General Assessment Last Done: 08/14/24 21:58
*Neglect/Abuse Screening Last Done: 08/14/24 21:19
*ED COVID-19 Vaccine History Last Done: 08/14/24 21:58
ZF-Fbgfni-Wevbxqzwrx Assessment Last Done: 08/14/24 21:58
ED-Female Genitourinary Assessment Last Done: 08/14/24 21:58
Discharge Date and Time
Print Language: GAMBIAN
[2024-08-14 22:46] LABS: % Basophils 0.3 % (0-2); % Eosinophils 1.4 % (0-6); % Immature Granulocytes 0.5 % (0-0.5); % Lymphocytes 10.2 % (20.5-51.1); % Monocytes 7.3 % (1.7-9.3); % Neutrophils 80.3 % (42.2-75.2); Absolute Basophils 0.1 10^3/uL (0-0.2); Absolute Eosinophils 0.2 10^3/uL (0-0.7); Absolute Immature Granulocytes 0.1 10^3/uL (0-0.05); Absolute Lymphocytes 1.8 10^3/uL (1.2-3.4); Absolute Monocytes 1.3 10^3/uL (0.1-0.6); Absolute Neutrophils 13.9 10^3/uL (1.4-6.5); Hematocrit 39.4 % (37.0-47.0); Hemoglobin 12.8 g/dL (12.0-16.0); Mean Corp Hgb Conc. 32.5 g/dL (33.0-37.0); Mean Corpuscular Hgb 32.4 pg (27.0-31.0); Mean Corpuscular Volume 99.7 fL (81.0-99.0); Mean Platelet Volume 9.8 fL (7.4-10.4); Nucleated Red Blood Cells % 0 %; Platelet Count 355 10^3/uL (130-400); Red Blood Cell Count 3.95 10^6/uL (4.20-5.40); Red Cell Dist. Width 14.5 % (11.5-14.5); White Blood Cell Count 17.3 10^3/uL (4.8-10.8)
[2024-08-14 23:07] LABS: ALT (SGPT) 25 U/L (0-35); AST (SGOT) 38 U/L (14-36); Albumin 4.4 g/dl (3.5-5.0); Alkaline Phosphatase 68 U/L (38-126); Blood Urea Nitrogen 36 mg/dl (7-17); Carbon Dioxide 31 mmol/L (22-30); Chloride 97 mmol/L (98-107); Glucose 119 mg/dl (70-99); Potassium 3.9 mmol/L (3.5-5.1); Sodium 139 mmol/L (135-145); Total Bilirubin 0.6 mg/dl (0.2-1.3); Total Protein 6.7 g/dl (6.3-8.2); eGFR 56.25
[2024-08-15] VITALS (10 sets, daily range): BP systolic 131–173; BP diastolic 56–74; PULSE 64–90; O2SAT 98–99; BMI 28.6; BMI 24.5
[2024-08-15] MEDS: ZOFRAN 4 MG IV (01:25)
[2024-08-15] MEDS: DILAUDID 0.5 MG IV ×3 (01:25→11:13)
--- NOTE | 2024-08-15 01:46 | HPS.HSE ---
Family Physician
-
Family Physician: Angelo Snyder
Chief Complaint
-
R Chest Pain / L Hip Pain
History of Present Illness
Patient is an 84y F with PMH significant for SVT, hypertension, adrenal insufficiency and CHFpEF who presents to ED complaining of right sided chest pain that she has noted over the past 24 hours or so. Patient has recent history significant for
L buttock / hip pain that has been ongoing x several weeks. Patient has been evaluated by her PCP, Orthopedics and Physiatry for these complaints. She denies any preceding fall, injury or trauma. She was doing physical therapy for her R shoulder
(s/p recent reverse shoulder arthroplasty) when the discomfort began. Patient describes pain in the L buttocks and in the posterior L thigh. Pain does not extend below the knee.
Patient has been limited to wheelchair in the home for mobility as she is unable to stand / bear weight on the LLE due to the pain.
Evaluation thus far has reportedly revealed no clear etiology for her symptoms. Physiatry recommended MRI pelvis to evaluate for possible occult hip fracture.
Yesterday however, patient noted new discomfort in the R chest / beneath the R breast. She again denies any noted injury, trauma, etc. She appreciated a 'lump' in this area.
Her pain was quite significant over the past 24 hours and greatly limited her mobility. She presented to the ED today for further evaluation.
Patient denies any anterior chest pain, cough, SOB, fevers / chills, etc.
Medical History
Past Medical History
Past Medical History: Reports Other
Additional Past Medical History:
Atrial Tachycardia / SVT
Hypertension
Adrenal Insufficiency
Rheumatic Fever
Nephrolithiasis
DDD / Chronic Back Pain
GERD / Hiatal Hernia
Chronic HFpEF
Chronic Constipation
Anxiety / Depression / Insomnia
Past Surgical History: Reports Other
Additional Past Surgical History:
Right Reverse Shoulder Arthroplasty (05/18/24)
Hiatal Hernia Repair
Lithotripsy
Appendectomy
Tubal Ligation
Spinal Cord Stimulator (Replaced / Removed)
Social History
Tobacco: Non-smoker
Alcohol: None
Drug: None
Family History
Family History: Not pertinent
Allergies / Home Medications
Allergies reflects when Allergies were last updated in [facility].
Home Medications with original date entered in [facility]
Allergy/Medication List:
Allergies
Allergy/AdvReac Type Severity Reaction Status Date / Time
No Known Allergies Allergy Verified 08/14/24 21:22
Home Medications
omeprazole 40 mg capsule,delayed release 40 mg PO BID Gastrointestinal Issue 01/27/21
multivitamin 1 tab PO NOON Supplement 12/28/23
polyethylene glycol 3350 17 gram oral powder packet (Miralax) 17 g PO DAILY Constipation 12/28/23
torsemide 20 mg tablet 40 mg PO BID Fluid Retention/Swelling 12/28/23
sertraline 50 mg tablet 50 mg PO HS Mental Health 12/29/23
atorvastatin 10 mg tablet 10 mg PO DAILY High Cholesterol 01/09/24
calcium 600 mg (as carbonate)-vitamin D3 10 mcg (400 unit) tablet (Calcium 600 + D(3)) 1 tab PO BID Supplement 01/09/24
flecainide 50 mg tablet 50 mg PO Q12H Heart Disease/Condition 01/09/24
turmeric 400 mg capsule 500 mg PO BID Supplement 01/09/24
melatonin 10 mg tablet 10 mg PO HS Sleep #0 tabs 01/21/24
potassium chloride 20 mEq tablet,extended release(part/cryst) 20 meq PO BID Electrolyte Repletion #60 tabs 01/21/24
tramadol 50 mg tablet 50 mg PO Q6H PRN pain 05/11/24
zinc 50 mg capsule 50 mg PO DAILY 05/11/24
oxycodone 5 mg tablet 5 mg PO Q4H PRN Pain #30 tabs 05/18/24
Saccharomyces boulardii 250 mg capsule (Florastor) 250 mg PO BID 08/15/24
acetaminophen 325 mg tablet 650 mg PO Q6H PRN Pain 08/15/24
ascorbic acid (vitamin C) 1,000 mg tablet (Vitamin C) 1 g PO DAILY 08/15/24
biotin 5 mg tablet 5 mg PO DAILY 08/15/24
eszopiclone 2 mg tablet 2 mg PO HS 08/15/24
hydrocortisone 10 mg tablet 5 mg PO NOON adrenal insuff 08/15/24
hydrocortisone 10 mg tablet 20 mg PO DAILY adrenal insuff 08/15/24
linaclotide 145 mcg capsule (Linzess) 145 mcg PO DAILY 08/15/24
metolazone 2.5 mg tablet 2.5 mg PO DAILY PRN Weight Gain 08/15/24
naproxen 500 mg tablet 500 mg PO BID 08/15/24
vitamin A-vitamin C-vit E-min tablet 1 tab PO DAILY 08/15/24
Review of Systems
-
History Source: Patient
A 12 point ROS was completed and negative except as noted: Yes
Constitutional: Reports Fatigue; Denies Fever or Chills
Respiratory: Denies Cough or Trouble Breathing
Cardiac: Reports Chest Pain; Denies Diaphoresis, Palpitations or Syncope
Abdomen/GI: Denies Abdominal Pain, Nausea, Vomiting or Diarrhea
: Denies Dysuria, Frequency or Flank Pain
Musculoskeletal: Reports Joint Pain (L Buttock / Posterior Thigh); Denies Edema
Neurological: Denies Dizzy, Headache, Weakness or Numbness
Psych: Denies Depression or Anxiety
Physical Exam
Vital Signs
Vital Signs
Temp Pulse Resp BP Pulse Ox
97.6 F 57 18 183/80 100
08/14/24 21:19 08/14/24 21:19 08/14/24 21:19 08/14/24 21:19 08/14/24 21:19
Physical Exam
General: Other (84y F in mild distress due to pain.)
HEENT: Moist mucous membranes and PERRLA
Respiratory: Clear and Other (Tenderness R lateral chest wall over ribs 4-6.); No Wheezes, Rales or Rhonchi
Cardiac: S1/S2, Regular Rhythm and Murmur (II/ WEN)
GI: Soft, Non Tender, Non Distended and Normal Bowel Sounds
Musculoskeletal: No Clubbing, No Cyanosis, No Edema and Other (SLR limited to 30 degrees on the L. )
Neuro: AO x 3 and Nonfocal/grossly intact
Laboratory Results
-
08/14/24 22:35
08/14/24 22:35
Laboratory Results
Total Bilirubin 0.6 mg/dl (0.2-1.3) 08/14/24 22:35
AST 38 U/L (14-36) H 08/14/24 22:35
ALT 25 U/L (0-35) 08/14/24 22:35
Alkaline Phosphatase 68 U/L (38-126) 08/14/24 22:35
Impression/Plan
-
A/P: Patient is an 84y F with PMH significant for adrenal insufficiency, chronic steroid use, CHF and SVT who presents to ED complaining of R chest pain and L hip pain.
Right Rib Fractures
- Observe overnight for pain control / PT eval / etc.
- Patient with noted fractures to lateral ribs 5 and 6.
- No known injury, trauma, etc.
- Follow for any new pain, dyspnea, etc.
- Outpatient DEXA scan after discharge.
Left Hip Pain
Ambulatory Dysfunction secondary to the above
- Patient has been wheelchair confined at home x weeks due to this discomfort.
- Again, no noted injury or trauma preceded this.
- MRI spine reviewed. Pain seems mostly in S2 distribution. There is severe L foraminal stenosis at L5-S1 which does not quite correlate with her symptoms.
- Will check CT to rule out occult fracture as planned.
- ? AVN given chronic steroid use.
- Consider Ortho eval depending on results.
- PT / OT evaluations.
- Pain control. Add gabapentin and follow for any effect.
- Patient may benefit from SNF / rehab prior to return home for pain control / continued PT.
SVT / Atrial Tachycardia
- Stable. Continue flecainide and monitor on tele per policy.
- Note that this is not referred to as 'A-Fib' in outpatient record and patient is not on chronic OAC.
Chronic HFpEF
- Stable. No evidence of volume overload at present.
- Continue current diuretic regimen.
- Follow I/Os, daily weights, etc.
Adrenal Insufficiency
- Stable. No evidence of acute decompensation.
- Continue current hydrocortisone dosing without changes.
- As noted above - ? if recent fractures, pain issues, etc are related to chronic steroid use.
GERD / Hiatal Hernia
- Stable. Continue PPI.
Anxiety / Depression / Insomnia
- Stable. Continue current med regimen.
DVT Prophylaxis: SCDs
Code Status: Full
--- NOTE | 2024-08-15 03:20 | PTCARENOTE ---
Received pt from ED via stretcher. Pulled pt over onto bed. AAOx3. Oriented pt to floor, call marcano within reach
[2024-08-15] MEDS: ROXICODONE 5 MG PO ×5 (03:42→22:09)
[2024-08-15 05:13] LABS: Urine Albumin Negative (Neg - Trace); Urine Bilirubin Negative (Negative); Urine Character Clear (Clear); Urine Color Straw; Urine Glucose Negative (Negative); Urine Ketone Negative (Negative); Urine Leukocyte 1+ (Negative); Urine Nitrite Negative (Negative); Urine Occult Blood Negative (Negative); Urine Specific Gravity 1.005 (<1.030); Urine Urobilinogen Negative (Neg - 1+)
[2024-08-15 05:24] LABS: Urine Bacteria Few (Negative); Urine Red Blood Cell 0-2 /HPF (0-2)
[2024-08-15 06:51] LABS: Hematocrit 33.6 % (37.0-47.0); Hemoglobin 11.1 g/dL (12.0-16.0); Mean Corpuscular Hgb 32.6 pg (27.0-31.0); Mean Corpuscular Volume 98.8 fL (81.0-99.0); Mean Platelet Volume 9.7 fL (7.4-10.4); Platelet Count 322 10^3/uL (130-400); Red Cell Dist. Width 14.5 % (11.5-14.5); White Blood Cell Count 13.9 10^3/uL (4.8-10.8)
[2024-08-15 07:29] LABS: Blood Urea Nitrogen 33 mg/dl (7-17); Carbon Dioxide 28 mmol/L (22-30); Chloride 101 mmol/L (98-107); Estimated Creatinine Clearance 53 ml/min; Glucose 91 mg/dl (70-99); Potassium 3.9 mmol/L (3.5-5.1); Sodium 141 mmol/L (135-145); eGFR > 60.00
[2024-08-15] MEDS: FLORASTOR 250 MG PO ×2 (08:11→21:59)
[2024-08-15] MEDS: KCL 20 MEQ PO ×2 (08:11→21:58)
[2024-08-15] MEDS: CORTEF 20 MG PO (08:11)
[2024-08-15] MEDS: PROTONIX 40 MG PO (08:11)
[2024-08-15] MEDS: COLACE 100 MG PO ×2 (08:12→21:59)
[2024-08-15] MEDS: NEURONTIN 100 MG PO ×3 (08:12→21:58)
[2024-08-15] MEDS: LIPITOR 10 MG PO (08:12)
[2024-08-15] MEDS: TYLENOL 1000 MG PO ×3 (08:14→21:58)
[2024-08-15] MEDS: LINZESS 145 MCG PO (08:15)
[2024-08-15] MEDS: TAMBOCOR 50 MG PO ×2 (08:15→21:58)
[2024-08-15] MEDS: DEMADEX 40 MG PO ×2 (08:15→21:59)
[2024-08-15] MEDS: MIRALAX PO (09:12)
[2024-08-15] MEDS: CORTEF 5 MG PO (11:08)
--- NOTE | 2024-08-15 13:27 | W.PN.HOSP.TC ---
Today's Communication/Plan
-
pain control
Assessment / Plan
Assessment / Plan
84 female presented with right-sided chest pain she noted over the past 24 hours. She has also had left hip pain for the past several weeks evaluated by orthopedics no injury or trauma patient has been mostly limited to wheelchair because of the
pain she also had some right chest discomfort yesterday
MRI lumbar spine 08/11/2024-L1-L2 broad-based right paracentral disc protrusion measuring 5 mm causing flattening of the thecal sac and posterior displacement of the right L2 nerve root. Superimposed degenerative findings caused severe right
stenosis. 3 mm right posterolateral disc extrusion L3-L4 track superiorly into the right L3 neural foramina and contains right L3 nerve root. Bilateral L5 pars defects causing no consolidation mm anterolisthesis of L5 upon S1. This causes severe
left foraminal stenosis. Moderate right foraminal stenosis at T12-L1 and L2-L3 secondary to degenerative findings
CT of the chest-acute nondisplaced fracture of the right lateral rib 5 and acutely minimally displaced fracture of the right lateral rib 6. No consolidation vascular calcifications and coronary calcifications
CT of the pelvis-no fracture. Degenerative changes along the left greater tuberosity with associated mild atrophy of the left gluteal medius and minimus. Grade 1 anterolisthesis of L5 on S1 secondary to bilateral pars defects with endplate
degenerative sclerosis and moderate DJD. Colonic stool
CVS: S1-S2 normal
Chest: CTA B/L
Abdomen: Soft, NT / Bowel sounds present
Extremities: No edema
Tenderness to touch underneath the right breast on the right
Tenderness to touch in the sacral area towards the left side
# Right-sided rib fractures-laterally 5 and 6 without any injury
Pain control, incentive spirometry
Outpatient DEXA scan recommended to pt and discussed with
# Left sacral area pain in the back just lateral to the midline. Patient also states that the pain shoots down her posterior left leg.
Patient has been mostly wheelchair confined because of the pain MRI of the spine with severe left foraminal stenosis L5-S1
CT of the pelvis ordered
Started on Neurontin, also on oxycodone
Add lidocaine patch
Try one dose of Celebrex
# History of SVT/atrial tachycardia-continue flecainide
# Hyperlipidemia-continue statin
# Chronic HFpEF-stable. Continue metolazone daily as needed for weight gain. Also on torsemide 40 twice daily
# Adrenal insufficiency-continue hydrocortisone 20 mg in the morning and 5 mg at noon
# GERD/hiatal hernia-continue PPI
# Anxiety/depression/insomnia-continue sertraline, Eszopiclone
# DVT prophylaxis-add Lovenox
# CODE STATUS
Discussed with
Discussed with nursing
PT OT
Anticipated Discharge: Within 24 hours
Subjective/Interval History
-
Date of Service: August 15, 2024
Objective Data
-
Labs:
Laboratory Results
08/15/24
06:33
WBC 13.9 H
Hgb 11.1 L
Hct 33.6 L
Plt Count 322
Sodium 141
Potassium 3.9
Chloride 101
Carbon Dioxide 28
BUN 33 H
Creatinine 0.8
Glucose 91
Calcium 9.0
Vital Signs:
Vital Signs
Temp Pulse Resp BP Pulse Ox
98.2 F 65 16 143/66 98
08/15/24 11:00 08/15/24 11:00 08/15/24 11:00 08/15/24 11:00 08/15/24 11:00
I&O
08/14/24 08/15/24 08/16/24
06:59 06:59 06:59
Intake Total 1100 / 1100
Output Total 900 / 900
Balance -900 / -900 1100 / 1100
[2024-08-15] MEDS: LIDOCAINE 4% PATCH 1 PATCH TOPICAL (13:33)
[2024-08-15] MEDS: CELEBREX 100 MG PO (13:34)
[2024-08-15] MEDS: LOVENOX 40 MG SC (17:10)
[2024-08-15] MEDS: ZOLOFT 50 MG PO (21:58)
[2024-08-15] MEDS: MELATONIN 10 MG PO (21:58)
[2024-08-15] MEDS: SENOKOT 17.2 MG PO (21:59)
[2024-08-16] MEDS: ROXICODONE 5 MG PO ×2 (03:28→09:24)
[2024-08-16 03:38] VITALS: BP 142/80
[2024-08-16 05:39] VITALS: BMI 23.6
[2024-08-16 07:12] VITALS: BP 149/57
[2024-08-16] MEDS: CORTEF 20 MG PO (09:16)
[2024-08-16] MEDS: TYLENOL 1000 MG PO ×3 (09:16→22:49)
[2024-08-16] MEDS: LINZESS 145 MCG PO (09:16)
[2024-08-16] MEDS: PROTONIX 40 MG PO (09:16)
[2024-08-16] MEDS: NEURONTIN 100 MG PO ×3 (09:17→22:49)
[2024-08-16] MEDS: KCL 20 MEQ PO ×2 (09:17→19:55)
[2024-08-16] MEDS: DEMADEX 40 MG PO ×2 (09:17→19:53)
[2024-08-16] MEDS: TAMBOCOR 50 MG PO ×2 (09:17→19:55)
[2024-08-16] MEDS: LIPITOR 10 MG PO (09:18)
[2024-08-16] MEDS: FLORASTOR 250 MG PO ×2 (09:18→19:53)
[2024-08-16] MEDS: LIDOCAINE 4% PATCH 1 PATCH TOPICAL (09:18)
[2024-08-16] MEDS: COLACE 100 MG PO ×2 (09:18→19:55)
[2024-08-16] MEDS: MIRALAX 17 GRAMS PO (09:18)
--- NOTE | 2024-08-16 11:20 | CM ---
Pt seen bedside w/ spouse. Pt lives w/ spouse in a 1ST[facility]- 6 steps to enter
Pt uses a cane, walker and recently a wheelchair that pt is renting for a month
Pt has a shower chair, grab bars and raised toilet seat for additional support in the home
Denies SNF in the past
Had [facility] in the past
Address, point of contact and insurance verified
PCP: Dr. Angelo Snyder
Pharmacy: [facility]
Denies financial insecurities
NULL form reviewed, pt provided copy. Copy placed into chart
CM discussed current PT/OT recommendation of skilled rehab. Discussed that since pt is currently obs status, rehab would be private pay.
Pt and spouse had concerns re status as pt is agreeable to rehab but cannot afford to private pay. CM stated that the doctor determines status and unsure if/when it will be changed.
Per request by pt and spouse, CM TT hospitalist informing that pt and spouse would like to speak w/ her and has a few questions re hospital stay
CM did inform that PT/OT will cont to follow and evaluate any progress.
Plan: Home w/ needs vs SNF
[2024-08-16 11:32] VITALS: BP 164/71
[2024-08-16] MEDS: CORTEF 5 MG PO (12:10)
[2024-08-16] MEDS: DILAUDID 0.5 MG IV (12:10)
--- NOTE | 2024-08-16 12:32 | W.PN.HOSP.TC ---
Addendum entered and electronically signed by Magdy Lewis MD 08/16/24 14:14:
Neurosurgery reviewed CT and MRI of the spine no reason for pain noted.
Because of her severe pain I will proceed with MRI of the pelvis to look for any soft tissue abnormality causing pain
Original Note:
Today's Communication/Plan
-
Pain control
Add celebrex
Assessment / Plan
Assessment / Plan
84 female presented with right-sided chest pain she noted over the past 24 hours. She has also had left hip pain for the past several weeks evaluated by orthopedics no injury or trauma patient has been mostly limited to wheelchair because of the
pain she also had some right chest discomfort yesterday
MRI lumbar spine 08/11/2024-L1-L2 broad-based right paracentral disc protrusion measuring 5 mm causing flattening of the thecal sac and posterior displacement of the right L2 nerve root. Superimposed degenerative findings caused severe right
stenosis. 3 mm right posterolateral disc extrusion L3-L4 track superiorly into the right L3 neural foramina and contains right L3 nerve root. Bilateral L5 pars defects causing no consolidation mm anterolisthesis of L5 upon S1. This causes severe
left foraminal stenosis. Moderate right foraminal stenosis at T12-L1 and L2-L3 secondary to degenerative findings
CT of the chest-acute nondisplaced fracture of the right lateral rib 5 and acutely minimally displaced fracture of the right lateral rib 6. No consolidation vascular calcifications and coronary calcifications
CT of the pelvis-no fracture. Degenerative changes along the left greater tuberosity with associated mild atrophy of the left gluteal medius and minimus. Grade 1 anterolisthesis of L5 on S1 secondary to bilateral pars defects with endplate
degenerative sclerosis and moderate DJD. Colonic stool
CVS: S1-S2 normal
Chest: CTA B/L
Abdomen: Soft, NT / Bowel sounds present
Extremities: No edema
Tenderness to touch underneath the right breast on the right
Tenderness to touch in the gluteal sacral area towards the left side
# Right-sided rib fractures-laterally 5 and 6 without any injury
Pain control, incentive spirometry
Outpatient DEXA scan recommended to pt and discussed with
# Left sacral area pain in the back just lateral to the midline. Patient also states that the pain shoots down her posterior left leg.
Patient has been mostly wheelchair confined because of the pain MRI of the spine with severe left foraminal stenosis L5-S1
CT of the pelvis noted
Started on Neurontin, also on oxycodone
Added Celebrex as this helped yesterday
Continue lidocaine patch
# History of SVT/atrial tachycardia-continue flecainide
# Hyperlipidemia-continue statin
# Chronic HFpEF-stable. Continue metolazone daily as needed for weight gain. Also on torsemide 40 twice daily
# Adrenal insufficiency-continue hydrocortisone 20 mg in the morning and 5 mg at noon
# GERD/hiatal hernia-continue PPI
# Anxiety/depression/insomnia-continue sertraline, Eszopiclone
# DVT prophylaxis-add Lovenox
# CODE STATUS
Discussed with and daughter at bed side
Discussed with nursing
Discussed with physician advisor-changed to inpatient
Messaged neuro surgery to take a look at the MRI and CT and let me know this could be the reason for the pain(no official consult placed)
Spoke to patient's outpatient [facility] orthopedic doctor Dr. Alexys Amaro [phone] -MRI of the pelvis was recommended to look for any sacral insufficiency fractures. Reviewed CT scan results.
We will obtain MRI if pain is not controlled or better.
PT OT
time spent over 50 min
Anticipated Discharge: 24 - 48 hours
Subjective/Interval History
-
Date of Service: August 16, 2024
Objective Data
-
Labs:
Laboratory Results
08/16/24
12:31
WBC Pending
Hgb Pending
Hct Pending
Plt Count Pending
Sodium Pending
Potassium Pending
Chloride Pending
Carbon Dioxide Pending
BUN Pending
Creatinine Pending
Glucose Pending
Calcium Pending
Vital Signs:
Vital Signs
Temp Pulse Resp BP Pulse Ox
98.8 F 72 18 148/57 99
08/16/24 07:12 08/16/24 09:17 08/16/24 07:12 08/16/24 09:17 08/16/24 09:12
I&O
08/15/24 08/16/24 08/17/24
06:59 06:59 06:59
Intake Total 1100 / 1100
Output Total 900 / 900 2100 / 2100
Balance -900 / -900 -1000 / -1000
[2024-08-16] MEDS: CELEBREX 100 MG PO ×2 (13:03→19:52)
[2024-08-16 13:44] LABS: Hematocrit 36.8 % (37.0-47.0); Hemoglobin 12.5 g/dL (12.0-16.0); Mean Corpuscular Hgb 33.8 pg (27.0-31.0); Mean Corpuscular Volume 99.5 fL (81.0-99.0); Mean Platelet Volume 9.8 fL (7.4-10.4); Platelet Count 342 10^3/uL (130-400); Red Cell Dist. Width 14.4 % (11.5-14.5)
[2024-08-16 13:55] VITALS: BMI 23.6
[2024-08-16 14:26] LABS: Blood Urea Nitrogen 33 mg/dl (7-17); Calcium 9.2 mg/dl (8.4-10.2); Carbon Dioxide 30 mmol/L (22-30); Chloride 95 mmol/L (98-107); Estimated Creatinine Clearance 47 ml/min; Glucose 161 mg/dl (70-99); Potassium 4.4 mmol/L (3.5-5.1); Sodium 137 mmol/L (135-145); eGFR > 60.00
[2024-08-16 15:11] VITALS: BMI 23.6
[2024-08-16 15:40] VITALS: BP 147/63
--- NOTE | 2024-08-16 16:37 | PTCARENOTE ---
Pt AAO x3, GUZMAN; OOB to BSC/BR with assist x1; pt unsteady w/OOB activity d/t Lt sacral/buttock discomfort. VSS. On room air- pulse ox 95%, no c/o SOB. Abd large, soft, ivonne PO well. Voids on BSC/in BR without difficulty. Pt currently off unit
for pelvic MRI. Will continue to monitor.
[2024-08-16] MEDS: LOVENOX 40 MG SC (17:06)
[2024-08-16] MEDS: SENOKOT 17.2 MG PO (22:49)
[2024-08-16] MEDS: ZOLOFT 50 MG PO (22:49)
[2024-08-16] MEDS: MELATONIN 10 MG PO (22:49)
[2024-08-16 23:21] VITALS: BP 158/73
[2024-08-17] MEDS: ROXICODONE 5 MG PO (01:15)
[2024-08-17] MEDS: DILAUDID 0.5 MG IV ×2 (02:16→10:38)
[2024-08-17] MEDS: LIDOCAINE 4% PATCH 1 PATCH TOPICAL (03:42)
--- NOTE | 2024-08-17 03:45 | PTCARENOTE ---
Patient c/o right hip/ back pain asking for Tylenol/ Celebrex which not due until 0800am. PAWAN Bingham notified. Administered 0800am dose of Lidocaine patch as per advise.
[2024-08-17 08:17] VITALS: BP 181/70
[2024-08-17] MEDS: CORTEF 20 MG PO (08:58)
[2024-08-17] MEDS: PROTONIX 40 MG PO (08:59)
[2024-08-17] MEDS: TAMBOCOR 50 MG PO ×2 (08:59→20:45)
[2024-08-17] MEDS: FLORASTOR 250 MG PO ×2 (08:59→20:45)
[2024-08-17] MEDS: NEURONTIN 100 MG PO (09:00)
[2024-08-17] MEDS: KCL 20 MEQ PO ×2 (09:00→20:44)
[2024-08-17] MEDS: TYLENOL 1000 MG PO ×3 (09:01→22:12)
[2024-08-17] MEDS: DEMADEX 40 MG PO ×2 (09:01→20:46)
[2024-08-17] MEDS: CELEBREX 100 MG PO ×2 (09:03→20:45)
[2024-08-17] MEDS: LIPITOR 10 MG PO (09:03)
[2024-08-17] MEDS: COLACE 100 MG PO ×2 (09:04→20:45)
[2024-08-17] MEDS: LINZESS 145 MCG PO (09:05)
[2024-08-17] MEDS: MIRALAX 17 GRAMS PO (09:06)
[2024-08-17 10:50] VITALS: BP 136/70; BP 146/66; PULSE 67; O2SAT 96
[2024-08-17] MEDS: CORTEF 5 MG PO (12:06)
[2024-08-17 13:52] LABS: Hematocrit 36.8 % (37.0-47.0); Mean Corp Hgb Conc. 32.6 g/dL (33.0-37.0); Mean Corpuscular Hgb 32.5 pg (27.0-31.0); Mean Corpuscular Volume 99.7 fL (81.0-99.0); Mean Platelet Volume 9.7 fL (7.4-10.4); Platelet Count 342 10^3/uL (130-400); Red Blood Cell Count 3.69 10^6/uL (4.20-5.40); Red Cell Dist. Width 14.4 % (11.5-14.5); White Blood Cell Count 15.1 10^3/uL (4.8-10.8)
--- NOTE | 2024-08-17 14:10 | W.PN.HOSP.TC ---
Today's Communication/Plan
-
pain control
Increase Neurontin
Assessment / Plan
Assessment / Plan
84 female presented with right-sided chest pain she noted over the past 24 hours. She has also had left hip pain for the past several weeks evaluated by orthopedics no injury or trauma patient has been mostly limited to wheelchair because of the
pain she also had some right chest discomfort yesterday
MRI lumbar spine 08/11/2024-L1-L2 broad-based right paracentral disc protrusion measuring 5 mm causing flattening of the thecal sac and posterior displacement of the right L2 nerve root. Superimposed degenerative findings caused severe right
stenosis. 3 mm right posterolateral disc extrusion L3-L4 track superiorly into the right L3 neural foramina and contains right L3 nerve root. Bilateral L5 pars defects causing no consolidation mm anterolisthesis of L5 upon S1. This causes severe
left foraminal stenosis. Moderate right foraminal stenosis at T12-L1 and L2-L3 secondary to degenerative findings
CT of the chest-acute nondisplaced fracture of the right lateral rib 5 and acutely minimally displaced fracture of the right lateral rib 6. No consolidation vascular calcifications and coronary calcifications
CT of the pelvis-no fracture. Degenerative changes along the left greater tuberosity with associated mild atrophy of the left gluteal medius and minimus. Grade 1 anterolisthesis of L5 on S1 secondary to bilateral pars defects with endplate
degenerative sclerosis and moderate DJD. Colonic stool
CVS: S1-S2 normal
Chest: CTA B/L
Abdomen: Soft, NT / Bowel sounds present
Extremities: No edema
Tenderness to touch underneath the right breast on the right
Tenderness to touch in the gluteal sacral area towards the left side
# Right-sided rib fractures-laterally 5 and 6 without any injury
Pain control, incentive spirometry
Outpatient DEXA scan recommended to pt and discussed with
# Left sacral area pain in the back just lateral to the midline. Patient also states that the pain shoots down her posterior left leg.
Patient has been mostly wheelchair confined because of the pain MRI of the spine with severe left foraminal stenosis L5-S1
CT of the pelvis , MRI of the lumbar spine, MRI of the pelvis without any source of pain.
I reviewed imaging yesterday with neurosurgery after review this would not account for patient's pain.
Started on Neurontin, also on oxycodone, continue Celebrex
Continue lidocaine patch
No infectious etiology. I will still request an ID evaluation because of leukocytosis prior to initiating higher dose of steroids.
# History of SVT/atrial tachycardia-continue flecainide
# Hyperlipidemia-continue statin
# Chronic HFpEF-stable. Continue metolazone daily as needed for weight gain. Also on torsemide 40 twice daily
# Adrenal insufficiency-continue hydrocortisone 20 mg in the morning and 5 mg at noon
# GERD/hiatal hernia-continue PPI
# Anxiety/depression/insomnia-continue sertraline, Eszopiclone
# DVT prophylaxis-add Lovenox
# CODE STATUS
08/16/2024-spoke to patient's outpatient [facility] orthopedic doctor Dr. Alexys Amaro [phone]
PT OT
Anticipated Discharge: 24 - 48 hours
Subjective/Interval History
-
Date of Service: August 17, 2024
Objective Data
-
Labs:
Laboratory Results
08/17/24
13:27
WBC 15.1 H
Hgb 12.0
Hct 36.8 L
Plt Count 342
Vital Signs:
Vital Signs
Temp Pulse Resp BP Pulse Ox
97.7 F 54 18 181/70 96
08/17/24 08:17 08/17/24 08:17 08/17/24 08:17 08/17/24 08:17 08/17/24 08:17
I&O
08/16/24 08/17/24 08/18/24
06:59 06:59 06:59
Intake Total 1100 / 1100 960 / 960
Output Total 2100 / 2100 3900 / 3900
Balance -1000 / -1000 -2940 / -2940
--- NOTE | 2024-08-17 14:24 | CON.ID ---
Consultation
-
Date/Time Consultation Requested: August 17, 2024 1405
Date/Time Consultation Performed: August 17, 2024 1430
Requesting Provider: Dr. Magdy Lewis
Performing Provider: Dr. Elisha Pond
Reason for Consultation: Sacral pain, leukocytosis
Chief Complaint / Past History
Chief Complaint
Left hip and Buttock pain
History of Present Illness
84-year-old female with history of adrenal insufficiency diagnosed in June 2024 and placed on on chronic steroid, chronic back pain, recent right shoulder replacement April 2024 and has been doing physical therapy who developed left buttock to
posterior thigh pain 3 weeks ago. She has seen [facility] orthopedic and had steroid injection to the left hip without improvement. She had difficulty ambulating and had to use her right upper body to get herself up. She then developed acute right
lower chest pain and therefore came to the ER on August 14. Chest CT shows lateral fifth and sixth rib fracture. Pelvis MRI shows mild DJD, mild to moderate subcutaneous edema within the pelvis extending to the proximal thighs laterally,
moderate atrophy of the anterior fibers of the left gluteus medius muscle, moderate atrophy of the left gluteus minimus muscle. She reports that the buttock and posterior thigh pain is muscular squeezing pain and sometimes spasms. Denies injury or
trauma. No fevers or chills.
Past History
Additional Past Medical History:
Hypertension
Adrenal insufficiency on steroid since 06/2024
Chronic heart failure with preserved EF
Nephrolithiasis
Atrial tachycardia
Constipation
Anxiety/depression
Hiatal hernia repair
Chronic back pain
BLE lymphedema
Appendectomy
Right shoulder reverse total arthroplasty (05/18/24)
History of spinal cord stimulator placement with subsequent removal
Allergy History:
No Known Allergies Allergy (Verified 08/14/24 21:22)
Medications Reviewed: Yes
Current Antibiotics:
None
Social History
Tobacco: Non-Smoker
Alcohol: None
Drug: None
Personal:
Family History
Family History: Not Pertinent
Review of Systems
Review of Systems
General: Negative Fever, Chills or Change in Appetite
HEENT: Negative Sinus Problems, Headache or Pharyngitis
Cardiovascular: Negative Chest Pain or Edema
Respiratory: Negative Dyspnea or Cough
Gasteroenterology: Other (chronic constipation); Negative Nausea, Vomiting or Diarrhea
Genital / Urological: Negative Dysuria or Flank Pain
Endocrine: Weakness
Neurological: Negative Dizziness
All systems: All other systems were reviewed and were negative
Vital Signs
Temp Pulse Resp BP Pulse Ox
97.7 F 54 18 181/70 96
08/17/24 08:17 08/17/24 08:17 08/17/24 08:17 08/17/24 08:17 08/17/24 08:17
Physical Exam
Physical Exam
Constitutional: No Acute Distress
Eyes: No Conjunctival Hemorrhage and Sclera Anicteric
Cardiovascular: Regular Rate and S1/S2
Pulmonary: Clear
Gastrointestinal: Soft, Non Tender, Non Distended and Normal Bowel Sounds
Extremities: Edema (BLE lymphedema); Negative Erythema
Musculoskeletal: Other (Left buttock and thigh without erythema/warmth/wounds. Left straight leg raising negative pain.)
Neurological: AO x 3
Lab / Diagnostic Study Results
08/17/24 13:27
08/16/24 13:28
Abs Immat Gran (auto) 0.1 10^3/uL (0-0.05) H 08/14/24 22:35
Absolute Neuts (auto) 13.9 10^3/uL (1.4-6.5) H 08/14/24 22:35
Absolute Lymphs (auto) 1.8 10^3/uL (1.2-3.4) 08/14/24 22:35
Absolute Monos (auto) 1.3 10^3/uL (0.1-0.6) H 08/14/24 22:35
Absolute Basos (auto) 0.1 10^3/uL (0-0.2) 08/14/24 22:35
Immature Gran % 0.5 % (0-0.5) 08/14/24 22:35
Neutrophils % 80.3 % (42.2-75.2) H 08/14/24 22:35
Lymphocytes % 10.2 % (20.5-51.1) L 08/14/24 22:35
Monocytes % 7.3 % (1.7-9.3) 08/14/24 22:35
Eosinophils % 1.4 % (0-6) 08/14/24 22:35
Basophils % 0.3 % (0-2) 08/14/24 22:35
Ur Squamous Epith Cells 6-10 /LPF (Few) 08/15/24 04:52
Microbiology Results
Micro:
08/15/24 04:52 Urine Culture - Final
Urine No Significant Growth
08/16/24 Pelvis MRI wo and w: Degenerative changes as described. Moderate distention of the rectum with stool and air, transverse dimension of 7.9 cm. No gross evidence for stercoral colitis. Mild to moderate subcutaneous edema within the pelvis and
extending into the proximal thighs, mainly laterally.
08/15/[address]: There is a nondisplaced fracture of the lateral right fifth rib and a minimally displaced fracture of the lateral right sixth rib. No evidence of pneumothorax or pleural effusion. There is no focal airspace disease.
Assessment / Plan
# Left buttock/posterior thigh pain
- MRI pelvis: no infection; + left gluteus eleazar/minimus atrophy
- No objection to steroid for musculo-skeletal pain
-?consider muscle relaxant
# Leukocytosis
- partially due to steroid (started 06/2024 for adrenal insufficiency)
- can be reactive from pain/muscular inflammation
- No suspicion for infectious etiology.
ID will sign off.
# Conditions DIRECTOR LEARNING
Hypertension
Adrenal insufficiency on steroid since 06/2024
Chronic heart failure with preserved EF
Nephrolithiasis
Atrial tachycardia
Constipation
Anxiety/depression
Hiatal hernia repair
Chronic back pain
BLE lymphedema
Appendectomy
Right shoulder reverse total arthroplasty (05/18/24)
History of spinal cord stimulator placement with subsequent removal
Care Review
Plan reviewed with: Physician (Dr. Lewis)
[2024-08-17 14:52] LABS: Erythrocyte Sed Rate 20 mm/hour (0-20)
[2024-08-17] MEDS: DELTASONE 50 MG PO (15:35)
[2024-08-17] MEDS: FLEXERIL 5 MG PO (15:36)
[2024-08-17] MEDS: NEURONTIN 200 MG PO ×2 (15:37→22:11)
[2024-08-17 15:53] VITALS: BP 147/66
--- NOTE | 2024-08-17 15:59 | CM ---
RK met with Zoraida to discuss transfer to SNF. Her preferred facilities are [facility] (cannot go there due to only people living at [facility] are eligible for admission), [facility], [facility] and [facility]).
Zoraida is a [employer] eligible patient, so does not require a 3 day hospitalization for admission to a [employer] eligible SNF. [facility] participates with [facility] and can offer a bed for tomorrow. Dr. Lewis notified of same.
CM to follow up in AM with [facility] for SNF authorization.
Plan: Possible transfer to [facility] tomorrow pending medical clearance and [employer] authorization.
[2024-08-17] MEDS: LOVENOX 40 MG SC (17:42)
[2024-08-17] MEDS: ZOLOFT 50 MG PO (22:11)
[2024-08-17] MEDS: SENOKOT 17.2 MG PO (22:12)
[2024-08-17] MEDS: MELATONIN 10 MG PO (22:12)
[2024-08-17 23:29] VITALS: BP 155/84
[2024-08-18] MEDS: DILAUDID 0.5 MG IV (03:57)
[2024-08-18 06:00] VITALS: BMI 23.9
[2024-08-18 07:17] VITALS: BP 158/67
[2024-08-18] MEDS: MIRALAX 17 GRAMS PO (09:02)
[2024-08-18] MEDS: LINZESS 145 MCG PO (09:03)
[2024-08-18] MEDS: LIDOCAINE 4% PATCH 1 PATCH TOPICAL (09:04)
[2024-08-18] MEDS: DEMADEX 40 MG PO (09:04)
[2024-08-18] MEDS: PROTONIX 40 MG PO (09:04)
[2024-08-18] MEDS: NEURONTIN 200 MG PO (09:05)
[2024-08-18] MEDS: FLORASTOR 250 MG PO (09:05)
[2024-08-18] MEDS: TYLENOL 1000 MG PO (09:05)
[2024-08-18] MEDS: CELEBREX 100 MG PO (09:06)
[2024-08-18] MEDS: KCL 20 MEQ PO (09:07)
[2024-08-18] MEDS: COLACE 100 MG PO (09:07)
[2024-08-18] MEDS: LIPITOR 10 MG PO (09:08)
[2024-08-18] MEDS: TAMBOCOR 50 MG PO (09:08)
[2024-08-18] MEDS: FLEXERIL 5 MG PO (09:12)
--- NOTE | 2024-08-18 10:36 | CM ---
Addendum entered by Apoorva Blair 08/18/24 15:41:
COVID negative. Results faxed to [facility]
Ambulance transport at 3:30 pm
Addendum entered by Apoorva Blair 08/18/24 11:38:
Auth approved beginning 08/18-08/23
Reference # [id number]
[facility] given auth info
Pending COVID test
IMM reviewed, pt given copy. Copy placed in chart
Original Note:
Pt seen bedside re d/c plan to SNF
Discussed SNF acceptances. Pt agreeable to [facility] SNF.
Spoke w/ [facility], can offer bed today. Pt will require COVID test prior to d/c per [facility] hospitalist re d/c status and needed COVID test. Agreeable to d/c, acknowledged needed COVID test order.
Will need auth. Michelle Jansen, will obtain auth. Pt will not require 3 night Medicare stay
Will need ambulance transport at d/c. Transport forms on chart
Need updated OT eval, made OT aware.
[facility]
Report: [phone]

Plan: [facility]; pending auth approval
[2024-08-18 11:44] VITALS: BP 144/58
[2024-08-18] MEDS: DELTASONE 50 MG PO (13:00)
--- NOTE | 2024-08-18 13:13 | W.PN.HOSP.TC ---
Today's Communication/Plan
-
Discharge
Assessment / Plan
Assessment / Plan
84 female presented with right-sided chest pain she noted over the past 24 hours. She has also had left hip pain for the past several weeks evaluated by orthopedics no injury or trauma patient has been mostly limited to wheelchair because of the
pain she also had some right chest discomfort yesterday
MRI lumbar spine 08/11/2024-L1-L2 broad-based right paracentral disc protrusion measuring 5 mm causing flattening of the thecal sac and posterior displacement of the right L2 nerve root. Superimposed degenerative findings caused severe right
stenosis. 3 mm right posterolateral disc extrusion L3-L4 track superiorly into the right L3 neural foramina and contains right L3 nerve root. Bilateral L5 pars defects causing no consolidation mm anterolisthesis of L5 upon S1. This causes severe
left foraminal stenosis. Moderate right foraminal stenosis at T12-L1 and L2-L3 secondary to degenerative findings
CT of the chest-acute nondisplaced fracture of the right lateral rib 5 and acutely minimally displaced fracture of the right lateral rib 6. No consolidation vascular calcifications and coronary calcifications
CT of the pelvis-no fracture. Degenerative changes along the left greater tuberosity with associated mild atrophy of the left gluteal medius and minimus. Grade 1 anterolisthesis of L5 on S1 secondary to bilateral pars defects with endplate
degenerative sclerosis and moderate DJD. Colonic stool
CVS: S1-S2 normal
Chest: CTA B/L
Abdomen: Soft, NT / Bowel sounds present
Extremities: No edema
Pain better today after steroids
Had a BM yesterday and today
# Right-sided rib fractures-laterally 5 and 6 without any injury
Pain control, incentive spirometry
Outpatient DEXA scan recommended to pt and discussed with
# Left sacral area pain in the back just lateral to the midline. Patient also states that the pain shoots down her posterior left leg.
Patient has been mostly wheelchair confined because of the pain MRI of the spine with severe left foraminal stenosis L5-S1
CT of the pelvis , MRI of the lumbar spine, MRI of the pelvis without any source of pain.
I reviewed imaging with neurosurgery after review this would not account for patient's pain.
Started on Neurontin, also on oxycodone, continue Celebrex
Continue lidocaine patch
No infectious etiology. ID eval appreciated
Started steroids with pt feeling better
# History of SVT/atrial tachycardia-continue flecainide
# Hyperlipidemia-continue statin
# Chronic HFpEF-stable. Continue metolazone daily as needed for weight gain. Also on torsemide 40 twice daily
# Adrenal insufficiency-continue hydrocortisone 20 mg in the morning and 5 mg at noon
# GERD/hiatal hernia-continue PPI
# Anxiety/depression/insomnia-continue sertraline, Eszopiclone
# DVT prophylaxis- Lovenox
# CODE STATUS
08/16/2024-spoke to patient's outpatient [facility] orthopedic doctor Dr. Alexys Amaro [phone]
D/W RN
D/W Case management
Spoke to patient's in detail. Reviewed all the new medicines that she is on. He is aware that she needs to come off of oxycodone Celebrex and additional dose of steroids as soon as she can as this should not be taken long-term. She has
made an appointment with Dr. Naranjo as outpatient. I did mention to the patient and her that if she is in rehab this may need to be postponed but I will defer this to rehab to decide. She can continue to take Neurontin. Also reviewed that
once steroid taper is done she should go back to the hydrocortisone OP dose.
More than 30 minutes spent in discharge including
Final examination of the patient
Summarizing hospital stay
Instructions for continuing care to all relevant caregivers
Preparation of discharge records, prescriptions, and referral forms
Total time spent (in minutes): 33 min
Anticipated Discharge: Today
Subjective/Interval History
-
Date of Service: August 18, 2024
Objective Data
-
Vital Signs:
Vital Signs
Temp Pulse Resp BP Pulse Ox
98.6 F 62 20 144/58 97
08/18/24 11:44 08/18/24 11:44 08/18/24 11:44 08/18/24 11:44 08/18/24 11:44
I&O
08/17/24 08/18/24 08/19/24
06:59 06:59 06:59
Intake Total 960 / 960
Output Total 3900 / 3900
Balance -2940 / -2940
[2024-08-18 13:35] VITALS: BP 147/64; PULSE 69
[2024-08-18 14:03] LABS: COVID-19 Antigen Negative (Negative)
--- NOTE | 2024-08-18 14:59 | W.DS.TRANS ---
Addendum entered and electronically signed by Magdy Lewis MD 08/18/24 15:02:
Dictation- [id number]
Original Note:
DC Summary - Costume Director
-
Discharge Instructions:
Sleep Apnea Risk Low
Discharge Diagnosis/Procedures Right-sided 5 6 rib fractures
Left sacral pain
History of SVT/atrial tachycardia
Hyperlipidemia
Chronic HFpEF
Adrenal insufficiency
GERD/hiatal hernia
Anxiety depression insomnia
Diet Restrict fluids to 64 oz,2 Gram Sodium
Driving Restrictions No driving
Other Services PT,OT
Specialty Instructions Weigh Daily
Instructions:
Stand-Alone Forms:
Changes to Home Medications: Yes
Discharge Medications:
DC Medications w/original date entered in [employer]
omeprazole 40 mg capsule,delayed release 40 mg PO BID Gastrointestinal Issue 01/27/21
multivitamin 1 tab PO NOON Supplement 12/28/23
polyethylene glycol 3350 17 gram oral powder packet (Miralax) 17 g PO DAILY Constipation 12/28/23
torsemide 20 mg tablet 40 mg PO BID Fluid Retention/Swelling 12/28/23
sertraline 50 mg tablet 50 mg PO HS Mental Health 12/29/23
atorvastatin 10 mg tablet 10 mg PO DAILY High Cholesterol 01/09/24
calcium 600 mg (as carbonate)-vitamin D3 10 mcg (400 unit) tablet (Calcium 600 + D(3)) 1 tab PO BID Supplement 01/09/24
flecainide 50 mg tablet 50 mg PO Q12H Heart Disease/Condition 01/09/24
melatonin 10 mg tablet 10 mg PO HS Sleep #0 tabs 01/21/24
potassium chloride 20 mEq tablet,extended release(part/cryst) 20 meq PO BID Electrolyte Repletion #60 tabs 01/21/24
zinc 50 mg capsule 50 mg PO DAILY Supplement 05/11/24
Saccharomyces boulardii 250 mg capsule (Florastor) 250 mg PO BID Supplement 08/15/24
ascorbic acid (vitamin C) 1,000 mg tablet (Vitamin C) 1 g PO DAILY Supplement 08/15/24
eszopiclone 2 mg tablet 2 mg PO HS Sleep 08/15/24
hydrocortisone 10 mg tablet 5 mg PO NOON adrenal insuff 08/15/24
hydrocortisone 10 mg tablet 20 mg PO DAILY adrenal insuff 08/15/24
linaclotide 145 mcg capsule (Linzess) 145 mcg PO DAILY Constipation 08/15/24
metolazone 2.5 mg tablet 2.5 mg PO DAILY PRN Weight Gain 08/15/24
vitamin A-vitamin C-vit E-min tablet 1 tab PO DAILY Supplement 08/15/24
acetaminophen 500 mg tablet (Tylenol Extra Strength) 1,000 mg (2 x 500 mg) PO TID PRN mild pain #0 tabs 08/18/24
biotin 5 mg tablet 5 mg PO DAILY Supplement #0 tabs 08/18/24
celecoxib 100 mg capsule 100 mg PO BID pain #0 caps 08/18/24
cyclobenzaprine 10 mg tablet 5 mg (1/2 x 10 mg) PO TIDPRN PRN muscle spasm #0 tabs 08/18/24
docusate sodium 100 mg capsule 100 mg PO BID Constipation #0 caps 08/18/24
gabapentin 100 mg capsule 200 mg (2 x 100 mg) PO TID Pain #0 caps 08/18/24
lidocaine 4 % topical patch 1 patch topical DAILY Pain #0 ea 08/18/24
oxycodone 5 mg tablet 5 mg PO Q4H PRN Moderate Pain #12 tabs 08/18/24
prednisone 10 mg tablet See Rx Instructions .Route .COMPLEX Pain #30 tabs 08/18/24
Home Medication Changes
new
celecoxib 100 mg capsule 100 mg PO BID pain #0 caps 08/18/24
cyclobenzaprine 10 mg tablet 5 mg (1/2 x 10 mg) PO TIDPRN PRN muscle spasm #0 tabs 08/18/24
docusate sodium 100 mg capsule 100 mg PO BID Constipation #0 caps 08/18/24
gabapentin 100 mg capsule 200 mg (2 x 100 mg) PO TID Pain #0 caps 08/18/24
lidocaine 4 % topical patch 1 patch topical DAILY Pain #0 ea 08/18/24
oxycodone 5 mg tablet 5 mg PO Q4H PRN Moderate Pain #12 tabs 08/18/24
prednisone 10 mg tablet See Rx Instructions .Route .COMPLEX Pain #30 tabs 08/18/24
Stopped Ultram
Pending Results: No
[2024-08-18 15:22] VITALS: BP 143/66
== END 2024-08-18 16:10 | DRG 184 ==
LOC: 4 EAST ACU 12:24
PROVIDERS: Clinical Nurse Specialist Family Health; ADMITTING PHYSICIAN Hospitalist; ATTENDING PHYSICIAN Hospitalist; CONSULT PHYSICIAN Internal Medicine Infectious Disease; EMERGENCY PHYSICIAN Emergency Medicine; FAMILY PHYSICIAN Family Medicine
DX: S22.41XA Multiple fractures of ribs, right side, initial encounter for closed fracture (principal); E27.40 Unspecified adrenocortical insufficiency; I50.32 Chronic diastolic (congestive) heart failure; E78.00 Pure hypercholesterolemia, unspecified; I11.0 Hypertensive heart disease with heart failure; K21.9 Gastro-esophageal reflux disease without esophagitis; K44.9 Diaphragmatic hernia without obstruction or gangrene; K58.1 Irritable bowel syndrome with constipation; M54.9 Dorsalgia, unspecified; D64.9 Anemia, unspecified; D72.829 Elevated white blood cell count, unspecified; E86.0 Dehydration; R73.9 Hyperglycemia, unspecified; G89.29 Other chronic pain; F32.A Depression, unspecified; F41.9 Anxiety disorder, unspecified; G47.00 Insomnia, unspecified; R26.2 Difficulty in walking, not elsewhere classified; M48.07 Spinal stenosis, lumbosacral region; X58.XXXA Exposure to other specified factors, initial encounter; M53.3 Sacrococcygeal disorders, not elsewhere classified; I89.0 Lymphedema, not elsewhere classified; M48.05 Spinal stenosis, thoracolumbar region; Z96.611 Presence of right artificial shoulder joint; Z87.442 Personal history of urinary calculi; Z98.51 Tubal ligation status; Z79.52 Long term (current) use of systemic steroids; Z99.3 Dependence on wheelchair
CPT/HCPCS: 71250; 72192; 72197; 80048; 80053; 81003; 81015; 85025; 85027; 85652; 86140; 87086; 87811; 96374; 96375; 97163; 97166; 97530; 97535; 99285; A9575

== ENCOUNTER 2024-10-19 07:00 | Inpatient (IN) | payer OTHER, SELFPAY ==
[2024-10-17] VITALS (11 sets, daily range): BP systolic 117–150; BP diastolic 52–66; PULSE 63; O2SAT 95; BMI 27.0; BMI 25.9
[2024-10-17 06:02] LABS: % Basophils 0.6 % (0-2); % Eosinophils 1.3 % (0-6); % Immature Granulocytes 0.4 % (0-0.5); % Monocytes 11.6 % (1.7-9.3); % Neutrophils 75.1 % (42.2-75.2); Absolute Eosinophils 0.1 10^3/uL (0-0.7); Absolute Lymphocytes 0.8 10^3/uL (1.2-3.4); Absolute Monocytes 0.8 10^3/uL (0.1-0.6); Absolute Neutrophils 5.1 10^3/uL (1.4-6.5); Hematocrit 33.4 % (37.0-47.0); Hemoglobin 11.1 g/dL (12.0-16.0); Mean Corp Hgb Conc. 33.2 g/dL (33.0-37.0); Mean Corpuscular Hgb 32.1 pg (27.0-31.0); Mean Corpuscular Volume 96.5 fL (81.0-99.0); Mean Platelet Volume 9.5 fL (7.4-10.4); Nucleated Red Blood Cells % 0 %; Platelet Count 241 10^3/uL (130-400); Red Blood Cell Count 3.46 10^6/uL (4.20-5.40); Red Cell Dist. Width 13.2 % (11.5-14.5); White Blood Cell Count 6.8 10^3/uL (4.8-10.8)
[2024-10-17 06:18] LABS: Lactic Acid 0.9 mmol/L (0.7-2.0)
[2024-10-17 06:25] LABS: COVID-19 Antigen Negative (Negative)
[2024-10-17 06:34] LABS: ALT (SGPT) 21 U/L (0-35); AST (SGOT) 38 U/L (14-36); Albumin 3.3 g/dl (3.5-5.0); Alkaline Phosphatase 75 U/L (38-126); Blood Urea Nitrogen 27 mg/dl (7-17); Calcium 8.4 mg/dl (8.4-10.2); Carbon Dioxide 37 mmol/L (22-30); Chloride 87 mmol/L (98-107); Estimated Creatinine Clearance 58 ml/min; Glucose 77 mg/dl (70-99); Potassium 2.8 mmol/L (3.5-5.1); Sodium 132 mmol/L (135-145); Total Bilirubin 0.4 mg/dl (0.2-1.3); Total Protein 5.3 g/dl (6.3-8.2); eGFR > 60.00
[2024-10-17] MEDS: KCL 40 MEQ PO (06:43)
--- NOTE | 2024-10-17 06:54 | ED.GENMED ---
History of Present Illness
General
Chief Complaint: Fever
Time Seen by Provider: 10/17/24 06:11
History of Present Illness
History of Present Illness:
84-year-old female with history of A-fib on Eliquis presenting to the emergency department for fatigue, weakness, fever. Patient reports symptoms for the past 3 days. Also notes cough and congestion. Has been at home with similar symptoms.
notes that patient had difficulty getting out of bed this morning to ambulate to the bathroom, was unsteady. He has been checking her pulse at home, has been normal. Patient denying any abdominal pain or GI associated symptoms. Denies
additional acute medical complaints.
Past History
Past History
ED Past Medical History: Arrthythmia (Atrial fib), GERD (Hiatal hernia), HTN, Hypercholesterolemia, Valvular disease and Other (Kidney stones, Back pain, Hiatal hernia. IBS, Ulcers Adrenocortical insufficiency, )
ED Past Surgical History: Gynecological (Tubal ligation), Orthopedic (Spinal implant, right shoulder surgery X 3 last with replacement), Tonsilectomy, Urological (Kidney stone removal) and Other (Hiatal hernia repair)
Social History
Tobacco: Non-smoker
Alcohol: None
Drug: None
Personal:
Living: with family
Employment: Retired
Family History
Family History: Other (Noncontributory)
Phy Exam
Physical Exam
Physical Exam:
General: Well-appearing, no clinical signs of dehydration, nontoxic and in no acute distress
HEENT: protecting airway
Neck: appears supple
CV: Irregular irregular rhythm, regular rate, no evidence of cyanosis
Resp: No accessory muscle use, no increased work of breathing, lungs clear to auscultation bilaterally
Abd: Soft and non-distended, no tenderness to palpation
Extremities: No deformities, no swelling
Neuro: alert, no focal neurologic deficit
: deferred
Rectal: deferred
Psych: Normal affect
Skin: Intact
Course
Orders/Labs/Results
Orders:
Orders
10/17/24 05:42
Cardiac Monitoring- Treatment ONCE
IV Insert/Care/Rem.- Treatment PRN
O2 Therapy [RESP] Urgent
Titrate/Wean O2 to maintain O2 sat greater than (%): 93
Special Instructions: TO MAINTAIN CONTINUOUS O2 SATS > OR = 93%
Pulse Ox/cont/shift [RESP] Urgent
Quantity: 1
Special Instructions: CONTINUOUS
10/17/24 05:43
CR Chest - 2 Views Urgent
Comment:
Reason For Exam: suspected infection
10/17/24 05:51
COVID-19 Antigen Urgent
Source: Nasal Swab
Complete Blood Count/With Diff Urgent
Comprehensive Metabolic Panel Urgent
Lactic Acid Q4H
Comment: ON ICE, CANCEL 2ND ORDER IF FIRST LACTIC ACID LEVEL <2
INF RAPID [Influenza A+B Rapid Molecular] Urgent
GUNJAN Source: Nasal Swab
Specimen Description:
10/17/24 06:38
Potassium Chloride [KCl] 40 meq PO NOW STA
10/17/24 06:44
Potassium Chloride [KCl] 40 meq 0.9% Sodium Chloride 250 ml [Nss] 250 ml IV NOW
Abnormal Lab Results
10/17/24
05:51
RBC 3.46 L 10^6/uL
(4.20-5.40)
Hgb 11.1 L g/dL
(12.0-16.0)
Hct 33.4 L %
(37.0-47.0)
MCH 32.1 H pg
(27.0-31.0)
Absolute Lymphs (auto) 0.8 L 10^3/uL
(1.2-3.4)
Absolute Monos (auto) 0.8 H 10^3/uL
(0.1-0.6)
Lymphocytes % 11.0 L %
(20.5-51.1)
Monocytes % 11.6 H %
(1.7-9.3)
Sodium 132 L mmol/L
(135-145)
Potassium 2.8 L mmol/L
(3.5-5.1)
Chloride 87 L mmol/L
(98-107)
Carbon Dioxide 37 H mmol/L
(22-30)
BUN 27 H mg/dl
(7-17)
AST 38 H U/L
(14-36)
Total Protein 5.3 L g/dl
(6.3-8.2)
Albumin 3.3 L g/dl
(3.5-5.0)
10/17/24 05:51
10/17/24 05:51
Vital Signs
Initial and Last Documented VS:
Initial Vital Signs
Temp Pulse Resp BP Pulse Ox
99.2 F 72 18 124/64 100
10/17/24 05:45 10/17/24 05:45 10/17/24 05:45 10/17/24 05:45 10/17/24 05:45
Last Documented Vital Signs
Temp Pulse Resp BP Pulse Ox
99.2 F 82 16 121/57 99
10/17/24 05:45 10/17/24 07:00 10/17/24 07:05 10/17/24 07:00 10/17/24 07:00
MDM/Problems Addressed
MDM/Problems Addressed:
84-year-old female with history of A-fib on Eliquis presenting for cough, congestion, fever, weakness, fatigue. Vital signs on arrival significant for low-grade fever.
On exam, patient is in no acute distress, does appear fatigued. Unremarkable cardiac and pulmonary exam, known A-fib. No acute respiratory distress. Lungs clear to auscultation. Patient had screening laboratory analysis prior to my assessment as
well as chest x-ray and viral swab. Patient is positive for influenza. Chest x-ray clear for additional pulmonary process. Labs show hypokalemia, likely secondary to dehydration, poor p.o. intake. Will replete. Patient appears hemodynamically
stable for possible discharge home, however notes difficulty ambulating getting around the house given her present state, fall risk. Will do trial of ambulation
07:50 -patient unable to ambulate due to her fatigue and weakness. Unsafe disposition home. Plan for admission
*Critical Care Note
Total Time (30-74mins, 75-104mins- exclusive of procedures): Not Applicable
ED Attending Note
-
Portions of this chart may have been created with voice recognition software.� Occasional wrong word or��sound alike� substitutions may have occurred due to the inherent limitations of voice recognition software.
Discharge Plan
Departure
Prescriptions:
No Action
omeprazole 40 MG capsule,delayed release(DR/EC)
40 mg PO BID
torsemide 20 mg Tablet
40 mg PO BID
Patient Comments:
stopped until seen by criminal intelligence specialist
polyethylene glycol 3350 [Miralax] 17 gram Powder In Packet
17 g PO DAILY
multivitamin Tablet
1 tab PO NOON
sertraline 50 mg Tablet
50 mg PO HS
atorvastatin 10 mg Tablet
10 mg PO DAILY
flecainide 50 mg Tablet
50 mg PO Q12H
calcium carbonate-vitamin D3 [Calcium 600 + D(3)] 600 mg-10 mcg (400 unit) Tablet
1 tab PO BID
potassium chloride 20 mEq Tablet,Er Particles/Crystals
20 meq PO BID Qty: 60 0RF
melatonin 10 mg Tablet
10 mg PO HS Qty: 0 0RF
zinc 50 mg Capsule
50 mg PO DAILY
metolazone 2.5 mg Tablet
2.5 mg PO DAILY PRN (Reason: Weight Gain)
ascorbic acid (vitamin C) [Vitamin C] 1,000 mg Tablet
1 g PO DAILY
vitamin A-vitamin C-vit E-min Tablet
1 tab PO DAILY
Saccharomyces boulardii [Florastor] 250 mg Capsule
250 mg PO BID
eszopiclone 2 mg Tablet
2 mg PO HS
Linzess 145 mcg Capsule
145 mcg PO DAILY
hydrocortisone 10 mg tablet
20 mg PO DAILY
hydrocortisone 10 mg tablet
5 mg PO NOON
cyclobenzaprine 10 mg Tablet
5 mg PO TIDPRN PRN (Reason: muscle spasm) Qty: 0 0RF
lidocaine 4 % Adhesive Patch,Medicated
1 patch topical DAILY Qty: 0 0RF
acetaminophen [Tylenol Extra Strength] 500 mg Tablet
1,000 mg PO TID PRN (Reason: mild pain) Qty: 0 0RF
docusate sodium 100 mg Capsule
100 mg PO BID Qty: 0 0RF
gabapentin 100 mg Capsule
200 mg PO TID Qty: 0 0RF
celecoxib 100 mg Capsule
100 mg PO BID Qty: 0 0RF
oxycodone 5 mg Tablet
5 mg PO Q4H PRN (Reason: Moderate Pain) Qty: 12 0RF
prednisone 10 mg Tablet
See Rx Instructions .ROUTE .COMPLEX Qty: 30 0RF
Rx Instructions:
Take By Mouth:
40 mg daily x3 days, 30 mg daily x3 days,
20 mg daily x3 days, 10 mg daily x3 days.
biotin 5 mg Tablet
5 mg PO DAILY Qty: 0 0RF
Referrals:
Angelo Snyder MD [Family Provider] -
Interventions
Interventions:
*Risk Screen - Suicide Last Done: 10/17/24 05:45
*General Assessment Last Done: 10/17/24 05:45
*Neglect/Abuse Screening Last Done: 10/17/24 05:45
ED- Fall Risk Assessment Last Done: 10/17/24 06:17
*ED COVID-19 Vaccine History Last Done: 10/17/24 05:45
ED- Neurological Assessment Last Done: 10/17/24 06:17
ED-Skin Assessment Last Done: 10/17/24 06:17
Discharge Date and Time
Print Language: TAJIK
[2024-10-17] MEDS: KCL 270 MEQ IV (06:59)
[2024-10-17] MEDS: CORTEF 5 MG PO (12:50)
[2024-10-17] MEDS: ELIQUIS 5 MG PO ×2 (12:55→19:30)
[2024-10-17] MEDS: TAMIFLU 75 MG PO ×2 (12:55→19:30)
--- NOTE | 2024-10-17 13:16 | PTCARENOTE ---
Pt was received from ED at 1100. Pt was pulled over to the unit bed. VSS, pt feels tired, occasional cough noted, 93% on RA on arrival. Home meds confirmed with . Pt is slightly forgetful, when asked about the year pt keeps responding with
her year. Bed alarm in place.
--- NOTE | 2024-10-17 13:57 | HPS.HSE ---
Family Physician
-
Family Physician: Angelo Snyder
Chief Complaint
-
Lethargy, fever
History of Present Illness
84-year-old female with past medical history of atrial fibrillation on Eliquis, GERD, adrenal insufficiency although hydrocortisone is on hold as per med rec, GERD, hypertension, hyperlipidemia now presents for fatigue, weakness, fever for the last
3 days. Also associate symptoms include cough and congestion. Patient's symptoms became worse, difficult to get out of bed this morning and was unsteady prompting hospital evaluation. Otherwise no other associated symptoms including dysuria,
hematuria, chest pain. Afebrile, blood pressure 126/66, 93% on room air. Pulse 85. Respiratory rate 20., Sodium 132 although appears to be chronic, potassium 2.8. SARS-CoV-2 negative and influenza A+. Chest imaging with no acute
cardiopulmonary process.
Medical History
Past Medical History
Past Medical History: Reports Other
Additional Past Medical History:
Atrial Tachycardia / SVT
Hypertension
Adrenal Insufficiency
Rheumatic Fever
Nephrolithiasis
DDD / Chronic Back Pain
GERD / Hiatal Hernia
Chronic HFpEF
Chronic Constipation
Anxiety / Depression / Insomnia
Past Surgical History: Reports Other
Additional Past Surgical History:
Right Reverse Shoulder Arthroplasty (05/18/24)
Hiatal Hernia Repair
Lithotripsy
Appendectomy
Tubal Ligation
Spinal Cord Stimulator (Replaced / Removed)
Social History
Tobacco: Non-smoker
Alcohol: None
Drug: None
Family History
Family History: Not pertinent
Allergies / Home Medications
Allergies reflects when Allergies were last updated in [facility].
Home Medications with original date entered in [facility]
Allergy/Medication List:
Allergies
Allergy/AdvReac Type Severity Reaction Status Date / Time
No Known Allergies Allergy Verified 08/14/24 21:22
Home Medications
omeprazole 40 mg capsule,delayed release 40 mg PO BID Gastrointestinal Issue 01/27/21
multivitamin 1 tab PO NOON Supplement 12/28/23
polyethylene glycol 3350 17 gram oral powder packet (Miralax) 17 g PO DAILY Constipation 12/28/23
torsemide 20 mg tablet 40 mg PO BID Fluid Retention/Swelling 12/28/23
sertraline 50 mg tablet 50 mg PO HS Mental Health 12/29/23
atorvastatin 10 mg tablet 10 mg PO DAILY High Cholesterol 01/09/24
calcium 600 mg (as carbonate)-vitamin D3 10 mcg (400 unit) tablet (Calcium 600 + D(3)) 1 tab PO BID Supplement 01/09/24
flecainide 50 mg tablet 50 mg PO Q12H Heart Disease/Condition 01/09/24
turmeric 400 mg capsule 500 mg PO BID Supplement 01/09/24
melatonin 10 mg tablet 10 mg PO HS Sleep #0 tabs 01/21/24
potassium chloride 20 mEq tablet,extended release(part/cryst) 20 meq PO BID Electrolyte Repletion #60 tabs 01/21/24
tramadol 50 mg tablet 50 mg PO Q6H PRN pain 05/11/24
zinc 50 mg capsule 50 mg PO DAILY 05/11/24
oxycodone 5 mg tablet 5 mg PO Q4H PRN Pain #30 tabs 05/18/24
Saccharomyces boulardii 250 mg capsule (Florastor) 250 mg PO BID 08/15/24
acetaminophen 325 mg tablet 650 mg PO Q6H PRN Pain 08/15/24
ascorbic acid (vitamin C) 1,000 mg tablet (Vitamin C) 1 g PO DAILY 08/15/24
biotin 5 mg tablet 5 mg PO DAILY 08/15/24
eszopiclone 2 mg tablet 2 mg PO HS 08/15/24
hydrocortisone 10 mg tablet 5 mg PO NOON adrenal insuff 08/15/24
hydrocortisone 10 mg tablet 20 mg PO DAILY adrenal insuff 08/15/24
linaclotide 145 mcg capsule (Linzess) 145 mcg PO DAILY 08/15/24
metolazone 2.5 mg tablet 2.5 mg PO DAILY PRN Weight Gain 08/15/24
naproxen 500 mg tablet 500 mg PO BID 08/15/24
vitamin A-vitamin C-vit E-min tablet 1 tab PO DAILY 08/15/24
Review of Systems
-
A 12 point ROS was completed and negative except as noted: Yes
Constitutional: Reports No Symptoms
Physical Exam
Vital Signs
Vital Signs
Temp Pulse Resp BP Pulse Ox
98.6 F 85 20 126/66 93
10/17/24 11:03 10/17/24 11:03 10/17/24 11:03 10/17/24 11:03 10/17/24 13:20
Physical Exam
General: Well Developed, Well Nourished and Other (Lethargic)
HEENT: NormoCephalic
Respiratory: Clear
Cardiac: S1/S2
GI: Soft and Non Tender
Musculoskeletal: No Clubbing
Skin: Warm
Neuro: Awake, Alert, Oriented and AO x 3
Hematologic/Lymphatic: No Lymphadenopathy
Psych: Calm
Laboratory Results
-
10/17/24 05:51
10/17/24 05:51
Laboratory Results
Lactic Acid Cancelled 10/17/24 09:45
Total Bilirubin 0.4 mg/dl (0.2-1.3) 10/17/24 05:51
AST 38 U/L (14-36) H 10/17/24 05:51
ALT 21 U/L (0-35) 10/17/24 05:51
Alkaline Phosphatase 75 U/L (38-126) 10/17/24 05:51
Data Reviewed
-
Diagnostic Radiology: Report Reviewed by me
Lab Data: Labs Reviewed by me
Impression/Plan
-
IMPRESSION:
84-year-old female presents for fatigue, weakness, fever for the last 3 days, found to be flu positive.
PLAN:
#Influenza A
� Tamiflu
� IVF as needed
� Supportive care
� PT/OT
� Incentive spirometer, Acapella
#Weakness, lethargy
� PT/OT
#Hypokalemia
� On chronic potassium although much lower than usual
� K repletion and closely monitor
#Atrial fibrillation
� Not on any AV latasha blockade or antiarrhythmic at this time
� Continue Eliquis
# Hyperlipidemia-continue statin
# Chronic HFpEF-stable. Holding diuretics/metolazone daily for today, can restart tomorrow depending on K levels and volume status.
# Adrenal insufficiency- as per Med rec - hydrocortisone 20 mg in the morning and 5 mg at noon as been held
# GERD/hiatal hernia-continue PPI
# Anxiety/depression/insomnia-continue sertraline, Eszopiclone
# DVT prophylaxis- Eliquis
# CODE STATUS
[2024-10-17] MEDS: NEURONTIN 400 MG PO ×2 (15:07→21:14)
[2024-10-17] MEDS: CLARITIN 10 MG PO (15:08)
[2024-10-17 18:37] LABS: Blood Urea Nitrogen 21 mg/dl (7-17); Calcium 8.7 mg/dl (8.4-10.2); Carbon Dioxide 31 mmol/L (22-30); Chloride 93 mmol/L (98-107); Estimated Creatinine Clearance 60 ml/min; Glucose 90 mg/dl (70-99); Potassium 3.2 mmol/L (3.5-5.1); Sodium 133 mmol/L (135-145); eGFR > 60.00
[2024-10-17] MEDS: PROTONIX 40 MG PO (19:29)
[2024-10-17] MEDS: COLACE PO (19:29)
[2024-10-17] MEDS: OSCAL 500 + D 500 MG PO (19:30)
[2024-10-17] MEDS: FLORASTOR 250 MG PO (19:30)
[2024-10-17] MEDS: KCL 20 MEQ PO (19:30)
[2024-10-17] MEDS: TYLENOL 1000 MG PO (19:34)
[2024-10-17] MEDS: MELATONIN 10 MG PO (21:14)
[2024-10-17] MEDS: ZOLOFT 50 MG PO (21:14)
[2024-10-17] MEDS: AMBIEN PO (23:18)
[2024-10-18] VITALS (7 sets, daily range): BP systolic 117–135; BP diastolic 52–66; PULSE 57; O2SAT 98; BMI 26.1
[2024-10-18 07:39] LABS: Hematocrit 32.3 % (37.0-47.0); Mean Corp Hgb Conc. 34.1 g/dL (33.0-37.0); Mean Corpuscular Hgb 32.8 pg (27.0-31.0); Mean Corpuscular Volume 96.4 fL (81.0-99.0); Platelet Count 222 10^3/uL (130-400); Red Blood Cell Count 3.35 10^6/uL (4.20-5.40); Red Cell Dist. Width 13.4 % (11.5-14.5); White Blood Cell Count 4.9 10^3/uL (4.8-10.8)
[2024-10-18] MEDS: PROTONIX 40 MG PO ×2 (08:07→20:04)
[2024-10-18] MEDS: ZINC 50 MG PO (08:07)
[2024-10-18] MEDS: NEURONTIN 400 MG PO ×3 (08:08→22:09)
[2024-10-18] MEDS: LIPITOR 10 MG PO (08:08)
[2024-10-18] MEDS: OSCAL 500 + D 500 MG PO ×2 (08:08→20:05)
[2024-10-18] MEDS: TAMIFLU 75 MG PO ×2 (08:08→20:05)
[2024-10-18] MEDS: KCL 20 MEQ PO (08:08)
[2024-10-18] MEDS: ELIQUIS 5 MG PO ×2 (08:08→20:05)
[2024-10-18] MEDS: FLORASTOR 250 MG PO ×2 (08:08→20:05)
[2024-10-18] MEDS: CLARITIN 10 MG PO (08:09)
[2024-10-18] MEDS: LIDOCAINE 4% PATCH 1 PATCH TOPICAL (08:09)
[2024-10-18] MEDS: COLACE PO ×2 (08:09→20:05)
[2024-10-18 08:12] LABS: ALT (SGPT) 21 U/L (0-35); AST (SGOT) 41 U/L (14-36); Alkaline Phosphatase 71 U/L (38-126); Blood Urea Nitrogen 15 mg/dl (7-17); Calcium 8.5 mg/dl (8.4-10.2); Carbon Dioxide 33 mmol/L (22-30); Chloride 95 mmol/L (98-107); Estimated Creatinine Clearance 60 ml/min; Glucose 68 mg/dl (70-99); Magnesium 2.1 mg/dl (1.6-2.3); Potassium 3.4 mmol/L (3.5-5.1); Sodium 135 mmol/L (135-145); Total Bilirubin 0.2 mg/dl (0.2-1.3); eGFR > 60.00
--- NOTE | 2024-10-18 09:56 | VNURNOTE ---
Chart reviewed. Patient is current with [facility] nursing, PT, OT. Will continue to follow hospital course and DC plans.
--- NOTE | 2024-10-18 13:26 | W.PN.HOSP.TC ---
Today's Communication/Plan
-
Continue Tamiflu
Replete potassium as needed
Resume diuretics
Repeat BMP tomorrow
Assessment / Plan
Assessment / Plan
#Influenza A
#weakness
-Presented with weakness and lethargy; flu A per ED test
-Was started on Tamiflu with plan for 5-day course
-Has not required any supplemental oxygen, remains HD stable
-Day 2/5 of Tamiflu
-Monitor vitals
#Acute on chronic hypokalemia
#Adrenal insufficiency on chronic hydrocortisone (20 mg AM, 5 mg NOON)
-Suspect chronic hypokalemia from hydrocortisone and diuretic
-Has been repleted here, potassium up from 2.8-3.4
-Ordered another 40 mill equivalents of KCl today
-Trend BMP and replete as needed
-Resumed torsemide at home dose
#Paroxysmal AF
-Home medications include Eliquis; not on AV node blockade
-Heart rate remains WNL here
#Chronic HFpEF
-Not on GDMT; Home meds include torsemide twice daily and metolazone PRN
-Home diuretics were held due to hypokalemia on arrival
-Hypokalemia improved, will resume home diuretics
#GERD/hiatal hernia
-Home medications include PPI
-No history of Kat's or erosive esophagitis
#Anxiety/depression
-Home medications include sertraline and eszopiclone
DVT prophylaxis: Home Eliquis
Diet: Regular
CODE STATUS: Full code
Anticipated Discharge: Within 24 hours
Subjective/Interval History
-
Date of Service: October 18, 2024
Seen and examined at the bedside. No acute events reported overnight. AFVSS on room air this morning
Labs stable with potassium up to 3.4. Another 40 mill equivalent of KCl ordered
Complains of a dry cough no otherwise no acute complaints
Objective Data
-
Labs:
Laboratory Results
10/18/24
06:01
WBC 4.9
Hgb 11.0 L
Hct 32.3 L
Plt Count 222
Sodium 135
Potassium 3.4 L
Chloride 95 L
Carbon Dioxide 33 H
BUN 15
Creatinine 0.6
Glucose 68 L
Calcium 8.5
Total Bilirubin 0.2
AST 41 H
ALT 21
Alkaline Phosphatase 71
Vital Signs:
Vital Signs
Temp Pulse Resp BP Pulse Ox
98.6 F 71 18 127/52 97
10/18/24 11:52 10/18/24 11:52 10/18/24 11:52 10/18/24 11:52 10/18/24 11:52
I&O
10/17/24 10/18/24 10/19/24
06:59 06:59 06:59
Intake Total 1200 / 1200
Balance 1200 / 1200
Review of Systems
-
History Source: Patient
All other systems: Reviewed and negative
Physical Exam
-
General: Well Developed, Well Nourished, No Apparent Distress and Comfortable
HEENT: Normocephalic, Atraumatic and Moist Mucous Membranes
Respiratory: Clear to Auscultation and Non Labored Respirations; Negative Wheezes, Rales or Rhonchi
Cardiac: Regular Rhythm and S1/S2; Negative Murmur, Rub or Gallop
GI: Soft, Nontender, Nondistended and Normal Bowel Sounds
Musculoskeletal: No Clubbing, No Cyanosis and No Edema
Skin: Warm, Dry and Normal Turgor; Negative Rash
Neuro: AO x 3 and Nonfocal/Grossly Intact
Psych: Calm
Data Reviewed
-
Labs: Labs Reviewed by me and Discussed with Patient
[2024-10-18] MEDS: KCL 40 MEQ PO ×2 (15:50→20:03)
[2024-10-18] MEDS: TYLENOL 1000 MG PO ×2 (15:51→22:10)
[2024-10-18] MEDS: DEMADEX 40 MG PO (15:51)
[2024-10-18] MEDS: HYDROCORTONE/CORTEF 20 MG PO (17:01)
[2024-10-18] MEDS: ZOLOFT 50 MG PO (22:09)
[2024-10-18] MEDS: MELATONIN 10 MG PO (22:09)
[2024-10-18] MEDS: ULTRAM 50 MG PO (22:13)
[2024-10-19] MEDS: AMBIEN 10 MG PO (00:06)
[2024-10-19 03:29] VITALS: BP 126/55
[2024-10-19 05:48] VITALS: BMI 25.9
[2024-10-19 08:21] VITALS: BP 120/54
[2024-10-19] MEDS: CORTEF 5 MG PO (08:23)
[2024-10-19] MEDS: PROTONIX 40 MG PO (08:23)
[2024-10-19] MEDS: NEURONTIN 400 MG PO ×2 (08:23→15:38)
[2024-10-19] MEDS: LIPITOR 10 MG PO (08:24)
[2024-10-19] MEDS: KCL 20 MEQ PO (08:24)
[2024-10-19] MEDS: COLACE 100 MG PO (08:24)
[2024-10-19] MEDS: DEMADEX 40 MG PO ×2 (08:24→15:38)
[2024-10-19] MEDS: TAMIFLU 75 MG PO (08:24)
[2024-10-19] MEDS: OSCAL 500 + D 500 MG PO (08:24)
[2024-10-19] MEDS: FLORASTOR 250 MG PO (08:24)
[2024-10-19] MEDS: ELIQUIS 5 MG PO (08:24)
[2024-10-19] MEDS: CLARITIN 10 MG PO (08:25)
[2024-10-19] MEDS: LIDOCAINE 4% PATCH 1 PATCH TOPICAL (08:25)
[2024-10-19] MEDS: ZINC PO (08:26)
[2024-10-19 08:55] LABS: % Basophils 0.5 % (0-2); % Eosinophils 1.2 % (0-6); % Immature Granulocytes 0.5 % (0-0.5); % Lymphocytes 36.7 % (20.5-51.1); % Monocytes 10.8 % (1.7-9.3); % Neutrophils 50.3 % (42.2-75.2); Absolute Eosinophils 0.1 10^3/uL (0-0.7); Absolute Lymphocytes 1.6 10^3/uL (1.2-3.4); Absolute Monocytes 0.5 10^3/uL (0.1-0.6); Absolute Neutrophils 2.1 10^3/uL (1.4-6.5); Hematocrit 34.1 % (37.0-47.0); Hemoglobin 11.6 g/dL (12.0-16.0); Mean Corpuscular Hgb 32.9 pg (27.0-31.0); Mean Corpuscular Volume 96.6 fL (81.0-99.0); Mean Platelet Volume 9.7 fL (7.4-10.4); Nucleated Red Blood Cells % 0 %; Platelet Count 218 10^3/uL (130-400); Red Blood Cell Count 3.53 10^6/uL (4.20-5.40); Red Cell Dist. Width 13.2 % (11.5-14.5); White Blood Cell Count 4.3 10^3/uL (4.8-10.8)
[2024-10-19 09:14] LABS: Blood Urea Nitrogen 17 mg/dl (7-17); Calcium 8.4 mg/dl (8.4-10.2); Carbon Dioxide 32 mmol/L (22-30); Chloride 95 mmol/L (98-107); Estimated Creatinine Clearance 51 ml/min; Glucose 107 mg/dl (70-99); Potassium 4.3 mmol/L (3.5-5.1); Sodium 132 mmol/L (135-145); eGFR > 60.00
--- NOTE | 2024-10-19 11:01 | CM ---
Addendum entered by Apoorva Blair 10/19/24 13:53:
LOC changed to IP
Addendum entered by Apoorva Blair 10/19/24 11:14:
Per Berta/[facility] liaison, [facility] referral is not needed. [facility] will resume care of services and will petition more time if needed
Original Note:
Pt seen bedside w/ spouse. Initial assessment completed. Admitted for lethargy, fever.
Pt lives w/ spouse in a single story home- 6 steps to enter.
Pt is independent w/ walker, has a WC if needed. Pt has additional shower chair, grab bars and a raised toilet seat for additional support
Pt was at [facility] in the past for about 2 weeks. Pt is current w/ VN. Per spouse, episode is ending and only have one more nurse visit. Will require a new referral, referral completed in [facility]. [facility] nurse liaison made aware via TT.
Address, point of contact and insurance verified
PCP: Dr. Snyder
Pharmacy: [facility]
Pt currently admitted as OBS. NULL form reviewed, copy in chart. Pt's spouse stated pt should have been admitted IP. CM explained there is a criteria for IP admission and the physician advisor will have to determine that. Pt had the flu so IP
admission did not meet IP criteria. CM advised Dr. Lomeli of spouse's concerns.
Per Dr. Lomeli, pt is stable for d/c today
Plan: Home w/ VN
--- NOTE | 2024-10-19 11:43 | W.PN.HOSP.TC ---
Today's Communication/Plan
-
Discharge home
Continue with Tamiflu for 2 more days
Increase a.m. KCl to 40 mEq
BMP in 1 week
Assessment / Plan
Assessment / Plan
#Influenza A
#weakness
-Presented with weakness and lethargy; flu A per ED test
-Was started on Tamiflu with plan for 5-day course
-Has not required any supplemental oxygen, remains HD stable
-Day 3/5 of Tamiflu
-Monitor vitals
#Acute on chronic hypokalemia
#Adrenal insufficiency on chronic hydrocortisone (20 mg AM, 5 mg NOON)
-Suspect chronic hypokalemia from hydrocortisone and diuretic
-Has been repleted here, potassium up from 2.8-3.4
-Trend BMP and replete as needed
-Resumed torsemide at home dose
-Increase morning dose of KCl to 40, resume 20 evening
#Paroxysmal AF
-Home medications include Eliquis; not on AV node blockade
-Heart rate remains WNL here
#Chronic HFpEF
-Not on GDMT; Home meds include torsemide twice daily and metolazone PRN
-Home diuretics were held due to hypokalemia on arrival
-Hypokalemia improved, will resume home diuretics
#GERD/hiatal hernia
-Home medications include PPI
-No history of Kat's or erosive esophagitis
#Anxiety/depression
-Home medications include sertraline and eszopiclone
DVT prophylaxis: Home Eliquis
Diet: Regular
CODE STATUS: Full code
Anticipated Discharge: Today
Subjective/Interval History
-
Date of Service: October 19, 2024
Seen and examined at the bedside. in the room and was updated on plan. No events overnight. AFVSS this morning
Potassium stable at 4.3 this morning. Patient resumed on home medications including diuretics
Denies any new complaint
Objective Data
-
Labs:
Laboratory Results
10/19/24 10/19/24
08:34 08:40
WBC 4.3 L
Hgb 11.6 L
Hct 34.1 L
Plt Count 218
Sodium 132 L
Potassium 4.3 D
Chloride 95 L
Carbon Dioxide 32 H
BUN 17
Creatinine 0.7
Glucose 107 H
Calcium 8.4
Vital Signs:
Vital Signs
Temp Pulse Resp BP Pulse Ox
97.5 F 55 18 120/54 95
10/19/24 08:21 10/19/24 08:21 10/19/24 08:21 10/19/24 08:21 10/19/24 08:21
I&O
10/18/24 10/19/24 10/20/24
06:59 06:59 06:59
Intake Total 1200 / 1200 480 / 480
Balance 1200 / 1200 480 / 480
Review of Systems
-
History Source: Patient
All other systems: Reviewed and negative
Physical Exam
-
General: Well Developed, Well Nourished, No Apparent Distress and Comfortable
HEENT: Normocephalic, Atraumatic, Moist Mucous Membranes and Anicteric
Respiratory: Rhonchi (Right-sided, lower)
Cardiac: Regular Rhythm and S1/S2; Negative Murmur, Rub or Gallop
GI: Soft, Nontender, Nondistended and Normal Bowel Sounds
Musculoskeletal: No Clubbing, No Cyanosis and No Edema
Skin: Warm, Dry and Normal Turgor; Negative Rash
Neuro: AO x 3 and Nonfocal/Grossly Intact
Psych: Calm
Data Reviewed
-
Labs: Labs Reviewed by me, Discussed with Patient and Discussed with Family
[2024-10-19 11:52] VITALS: BP 129/59
[2024-10-19] MEDS: HYDROCORTONE/CORTEF 20 MG PO (12:00)
--- NOTE | 2024-10-19 13:56 | VNURNOTE ---
Chart reviewed. Patient's status changed to Inpt. Resumption referral placed in [facility]. Patient agreeable to resumption w/[facility].
--- NOTE | 2024-10-19 15:38 | W.DCSUMMARY ---
Discharge Summary
Discharge Data
Date of Admission: 10/19/24
Date of Discharge: 10/19/24
-
Pending Results: No
Hospital Course
84-year-old female with atrial fibrillation on Eliquis, adrenal insufficiency on hydrocortisone, GERD, HTN, HLD, HFpEF on SNV, H/O rheumatic fever that presented to the hospital with weakness. In the ED was found to be positive for influenza A and
she was started on Tamiflu. Planned for 5 days total of Tamiflu which will be complete on 10/21/2024. Was also found to have hypokalemia with initial potassium 2.8. Was supplemented with KCl and potassium was 4.3 on day of discharge. Suspect that
potassium low in the context of standing torsemide twice daily, metolazone as needed, and hydrocortisone for her adrenal insufficiency. Increased her standing KCl supplement to 40 mEq in the morning and 20 in the evening. Provided prescription for
BMP 5 days after discharge. Encouraged her to follow-up with her family doctor within 1 to 2 weeks of discharge from the last
Discharge Plan
-
Patient Disposition: Home (Routine Discharge)
Discharge Diagnosis/Procedures: Flu A
Hypokalemia
Weakness
Condition: Good
Diet: Low Sodium
Activity: As tolerated
Driving Restrictions: Not until seen by your Dr
Bathing Restrictions: None
Blood Work: BMP 5-7 days after discharge
Other Services: PT and OT
Specialty Instructions: Weigh Daily- Call MD for wt gain/loss 3 lbs overnight/5 lbs in 1 week
Activity Restrictions/Additional Instructions:
Schedule follow up with family doctor, should be seen within 1-2 weeks of discharge from the hospital
Instructions: Flu, Flu in adults - Discharge instructions
Referrals:
Angelo Snyder MD [Family Provider] -
Additional Discharge Medication Instructions: Increase Potassium Chloride to 40 mEq in AM and 20 mEq in PM
Tamiflu 75 mg twice daily for 2 more days after discharge
Prescriptions:
New
cyclobenzaprine 10 mg Tablet
5 mg PO TIDPRN PRN (Reason: muscle spasm) 30 Days Qty: 30 0RF
oseltamivir 75 mg Capsule
75 mg PO BID 3 Days Qty: 6 0RF
potassium chloride 20 mEq tablet extended release
40 meq PO DAILY 30 Days Qty: 60 0RF
potassium chloride 20 mEq tablet extended release
20 meq PO HS 30 Days Qty: 30 0RF
Continued
omeprazole 40 MG capsule,delayed release(DR/EC)
40 mg PO BID
Rx Instructions:
8am and 5pm
torsemide 20 mg Tablet
40 mg PO BID
Patient Comments:
8am and 12pm
polyethylene glycol 3350 [Miralax] 17 gram Powder In Packet
17 g PO DAILY
multivitamin Tablet
1 tab PO HS
sertraline 50 mg Tablet
50 mg PO HS
atorvastatin 10 mg Tablet
10 mg PO DAILY
calcium carbonate-vitamin D3 [Calcium 600 + D(3)] 600 mg-10 mcg (400 unit) Tablet
1 tab PO BID
melatonin 10 mg Tablet
10 mg PO HS Qty: 0 0RF
zinc 50 mg Capsule
50 mg PO DAILY
metolazone 2.5 mg Tablet
2.5 mg PO DAILY PRN (Reason: Weight Gain)
Saccharomyces boulardii [Florastor] 250 mg Capsule
250 mg PO BID
hydrocortisone 10 mg tablet
20 mg PO DAILY
hydrocortisone 10 mg tablet
5 mg PO NOON
docusate sodium 100 mg Capsule
100 mg PO BID Qty: 0 0RF
biotin 5 mg Tablet
5 mg PO DAILY Qty: 0 0RF
acetaminophen 325 mg Tablet
650 mg PO Q6H PRN (Reason: back pain)
gabapentin 100 mg Tablet
400 mg PO TID
loratadine [Claritin] 10 mg Tablet
10 mg PO DAILY
tramadol 50 mg Tablet
50 mg PO BID PRN (Reason: back pain)
eszopiclone 2 mg Tablet
2 mg PO HS
Eliquis 5 mg Tablet
5 mg PO BID
Discontinued
potassium chloride 20 mEq Tablet,Er Particles/Crystals
20 meq PO BID Qty: 60 0RF
eszopiclone 2 mg Tablet
2 mg PO HS
Discharge Orders:
Discharge Patient (As Directed); Ordered 10/19/24
Ordered By: Iftikhar Lomeli
Discharge Date and Time
Print Language: [id number]
[2024-10-19 16:13] VITALS: BP 139/62
== END 2024-10-19 16:48 | disposition home health service (06) | DRG 194 ==
LOC: 4 EAST ACU 07:00
PROVIDERS: Student in an Organized Health Care Education/Training Program; ADMITTING PHYSICIAN Internal Medicine; ATTENDING PHYSICIAN Internal Medicine; EMERGENCY PHYSICIAN Student in an Organized Health Care Education/Training Program; FAMILY PHYSICIAN Family Medicine
DX: J10.1 Influenza due to other identified influenza virus with other respiratory manifestations (principal); E27.40 Unspecified adrenocortical insufficiency; I50.32 Chronic diastolic (congestive) heart failure; I47.19 Other supraventricular tachycardia; I11.0 Hypertensive heart disease with heart failure; K21.9 Gastro-esophageal reflux disease without esophagitis; E78.00 Pure hypercholesterolemia, unspecified; K59.09 Other constipation; E87.6 Hypokalemia; G47.00 Insomnia, unspecified; F41.9 Anxiety disorder, unspecified; F32.A Depression, unspecified; G89.29 Other chronic pain; K44.9 Diaphragmatic hernia without obstruction or gangrene; I48.0 Paroxysmal atrial fibrillation; Z79.52 Long term (current) use of systemic steroids; Z20.822 Contact with and (suspected) exposure to COVID-19
CPT/HCPCS: 71046; 80048; 80053; 83605; 83735; 85025; 85027; 87502; 87811; 96365; 96366; 97163; 97167; 99285

== ENCOUNTER → 2024-11-01 11:21 | Outpatient (REF) | payer OTHER, SELFPAY | LOC: HWRAD 11:21 | PROVIDERS: ATTENDING PHYSICIAN Otolaryngology Otolaryngology/Facial Plastic Surgery; FAMILY PHYSICIAN Family Medicine | DX: J32.2 Chronic ethmoidal sinusitis (principal) | CPT/HCPCS: 70486 ==

== ENCOUNTER → 2024-11-22 10:42 | Outpatient (REF) | payer OTHER, SELFPAY | LOC: HWRAD 10:42 | PROVIDERS: ATTENDING PHYSICIAN Family Medicine | DX: M81.0 Age-related osteoporosis without current pathological fracture (principal) | CPT/HCPCS: 77080 ==

== ENCOUNTER 2025-04-15 11:39 | Outpatient (RCR) | payer OTHER, SELFPAY | END 2025-04-15 23:59 | disposition home or self-care (01) | LOC: RPT 11:39 | PROVIDERS: FAMILY PHYSICIAN Family Medicine | DX: I89.0 Lymphedema, not elsewhere classified (principal); I87.2 Venous insufficiency (chronic) (peripheral); Z73.6 Limitation of activities due to disability | CPT/HCPCS: 97162; 97530; 97760; 97763 ==

== ENCOUNTER → 2025-04-19 09:50 | Outpatient (REF) | payer OTHER, SELFPAY | LOC: RAD 09:50 | PROVIDERS: ATTENDING PHYSICIAN Internal Medicine; FAMILY PHYSICIAN Family Medicine | DX: R19.7 Diarrhea, unspecified (principal); K59.04 Chronic idiopathic constipation | CPT/HCPCS: 74022 ==

== ENCOUNTER 2025-05-07 06:22 | Inpatient (IN) | payer OTHER, SELFPAY ==
[2025-05-07] VITALS (11 sets, daily range): BP systolic 93–159; BP diastolic 41–79; PULSE 55; O2SAT 93; BMI 28.2
[2025-05-07 03:14] LABS: Glucose - Point of Care 157 mg/dl (70-99)
--- NOTE | 2025-05-07 03:22 | ED.GENMED ---
History of Present Illness
General
Chief Complaint: Weakness
Source: patient and spouse
Exam Limitations: none
Time Seen by Provider: 05/07/25 03:01
Nursing documentation reviewed up to this point in time: agreed with
History of Present Illness
History of Present Illness:
Patient with complex medical history, including hypertension, hypercholesterolemia, atrial fibrillation, and congestive heart failure on torsemide, and hypokalemia on potassium supplements, presents to ED secondary to 3-day history of progressively
worsening generalized weakness with decreased appetite. Patient unfortunately has had numerous similar symptoms in the past, usually secondary to low potassium level. Denies fever or chills. Denies nausea, vomiting, or diarrhea. Denies abdominal
pain. Denies coughing. Denies headache. Denies dizziness. Of note, patient recently completed a course of Macrobid, as prescribed by her primary care physician secondary to UTI.
Past History
Past History
ED Past Medical History: Arrthythmia (Atrial fib), GERD (Hiatal hernia), HTN, Hypercholesterolemia, Valvular disease and Other (Kidney stones, Back pain, Hiatal hernia. IBS, Ulcers Adrenocortical insufficiency, )
ED Past Surgical History: Gynecological (Tubal ligation), Orthopedic (Spinal implant, right shoulder surgery X 3 last with replacement), Tonsilectomy, Urological (Kidney stone removal) and Other (Hiatal hernia repair)
Social History
Tobacco: Non-smoker
Alcohol: None
Drug: None
Personal:
Living: with family
Employment: Retired
Family History
Family History: Other (Noncontributory)
Review of Systems
Review of Systems
Allergies reviewed?: Yes
All Other Systems: ROS reviewed and negative except as documented in HPI and ROS
Constitutional: Reports no symptoms; Denies fever
Respiratory: Reports no symptoms
Cardiac: Reports no symptoms
ABD/GI: Reports no symptoms
: Reports no symptoms
Musculoskeletal: Reports no symptoms
Skin: Reports no symptoms
Neurological: Reports weakness
Phy Exam
Physical Exam
Physical Exam:
Physical Exam
General: mild distress, not acutely ill. afebrile. weak appearing
Head: nc/at. eomi
Neck: supple. no meningeal signs.
Heart: s1/s2 regular rate and rhythm
Lungs: no acute respiratory distress. clear bilaterally
Abdomen: normal bowel sounds. not tender.
Neuro: alert and oriented x 3. no focal neurological deficits
Skin: no rash
Psychiatric: well kept. interactive and cooperative
Extremities: LE b/l edema. no calf tenderness.
Course
Orders/Labs/Results
Orders:
Orders
05/07/25 03:09
Straight cath- Treatment ONCE
05/07/25 03:14
Electrocardiogram (*1) Urgent
Reason for Study: QTc Monitoring
EKG- Treatment ONCE
05/07/25 03:30
Basic Metabolic Panel Urgent
Comment: NO K
Complete Blood Count/With Diff Urgent
Free T4 Urgent
Comment: ADD ON
Lactic Acid Q4H
Comment: CANCEL 2nd LACTIC ACID IF 1st LACTIC ACID IS LESS THAN 2
Magnesium Urgent
Serum Osmolality Urgent
Comment: ADD ON
TSH Urgent
05/07/25 03:51
Osmolality, Random Urine Urgent
Date Specimen was Collected: 05/07/25
Time Specimen was Collected: 03:34
Comment: ADD ON
Urinalysis Reflex To Culture Urgent
Date Specimen was Collected: 05/07/25
Time Specimen was Collected: 03:34
Urine Sodium Urgent
Date Specimen was Collected: 05/07/25
Time Specimen was Collected: 03:34
05/07/25 04:00
Troponin I Urgent
05/07/25 04:29
Add On- LAB Urgent
Tests Added?: serum osm, urine osm, urine sodium
05/07/25 04:35
Hep Liver [Irolr-Ekwb-Weffpwa] Urgent
Potassium Urgent
05/07/25 04:42
Add On- LAB Stat
Tests Added?: Free T4
05/07/25 05:18
Potassium Chloride [KCl] 20 meq PO NOW STA
05/07/25 05:22
Potassium Chloride [KCl] 40 meq 0.9% Sodium Chloride 250 ml [Nss] 250 ml IV NOW
05/07/25 Breakfast
Regular
At Your Request: Full Participation
Does patient need a safe tray?: No
Fluid Restriction: 1200 mL/day (40 oz)
05/07/25 06:02
Admit/Transfer Patient As Directed
Co-Sign Provider:
Level of Care: Inpatient admission
Assign to:: Telemetry
Physician / Group: Noah
Diagnosis: Hypokalemia, Hyponatremia
Reason for Telemetry: Arrhythmia
Date to Stop Telemetry: 05/10/25
Time to Stop Telemetry: 11:00
Reason for Hospitalization: Hypokalemia, Hyponatremia
Expected length of stay greater than two midnights?: Yes
ELOS- Estimated Length of Stay in days: 3
I certify the patient meets the requirements for IP care: Yes
PRN Pain Medication Management As Directed
May give lesser potent ordered pain med per pt: Yes
preference::
Protocol:: Medication orders for pain may be administered in a
manner that supports deferring to patient preference
when the pt is:
- Requesting an ordered lesser potent pain medication.
Least to most potent pain medications are defined
as: acetaminophen < NSAID < tramadol < opioids
(morphine, oxycodone, hydromorphone).
- Requesting a lesser dose of the same medication IF
ORDERED.
- Requesting a less intrusive route of administration
if both routes are prescribed by the provider (PO <
IV).
05/07/25 06:07
Code Status As Directed
Resuscitation Status: Full Code
05/07/25 08:23
Apixaban [Eliquis] 5 mg PO BID
Atorvastatin [Lipitor] 10 mg PO DAILY
Hydrocortisone [Cortef] 20 mg PO DAILY
Oxycodone [Roxicodone] 5 mg PO Q4HPRN PRN
Potassium Chloride [KCl] 40 meq PO BID
05/07/25 08:23
Activity As Directed
Activity Level: Ambulate
With Assistance
EKG with chest pain [ECG as needed] As Directed
ECG as needed for:: Chest Pain
I/O [Intake/ Output] As Directed
Frequency: Per unit guidelines
Pneumatic Compression Sleeves As Directed
Type: Knee high
Teds [Anti-embolism (MANUEL) Hose] As Directed
Type: Knee high
Vital Signs As Directed
Frequency: Per unit guidelines
Weight As Directed
Frequency: Daily
Oxygen Therapy [O2 Therapy] [RESP] Routine
Titrate/Wean O2 to maintain O2 sat greater than (%): 94
Ot Eval And Treat Routine
PT Consult [Pt Eval And Treat] Routine
Activity Level: Ambulate
With Assistance
DX Deep Vein Thrombosis Video Routine
05/07/25 12:00
Hydrocortisone [Cortef] 5 mg PO NOON
05/07/25 16:00
Acetaminophen [Tylenol] 1,000 mg PO TID
Gabapentin [Neurontin] 400 mg PO TID
05/07/25 22:00
Amiodarone [Pacerone] 200 mg PO HS
05/08/25 06:00
EKG [Electrocardiogram (*1)] IN AM
Reason for Study: Chest Pain
Basic Metabolic Panel IN AM
Complete Blood Count/No Diff IN AM
LFT [Aocua-Fzzm-Vnpdqaj] IN AM
05/10/25 11:00
DC Protocol for Telemetry ONCE
Abnormal Lab Results
05/07/25 05/07/25 05/07/25
03:12 03:30 04:35
WBC 11.6 H 10^3/uL
(4.8-10.8)
RBC 3.80 L 10^6/uL
(4.20-5.40)
MCH 34.7 H pg
(27.0-31.0)
Abs Immat Gran (auto) 0.2 H 10^3/uL
(0-0.05)
Absolute Neuts (auto) 8.9 H 10^3/uL
(1.4-6.5)
Absolute Monos (auto) 0.9 H 10^3/uL
(0.1-0.6)
Immature Gran % 1.5 H %
(0-0.5)
Neutrophils % 77.2 H %
(42.2-75.2)
Lymphocytes % 11.8 L %
(20.5-51.1)
Sodium 125 L mmol/L
(135-145)
Potassium 2.7 L* mmol/L
(3.5-5.1)
Chloride 83 L mmol/L
(98-107)
Carbon Dioxide 37 H mmol/L
(22-30)
BUN 54 H mg/dl
(7-17)
Glucose 121 H mg/dl
(70-99)
Direct Bilirubin 0.5 H mg/dl
(0.0-0.4)
Total Protein 5.7 L g/dl
(6.3-8.2)
TSH < 0.02 L uIU/ml
(0.47-4.68)
POC Glucose 157 H mg/dl
(70-99)
05/07/25 03:30
05/07/25 04:35
Vital Signs
Initial and Last Documented VS:
Initial Vital Signs
Temp Pulse Resp BP Pulse Ox
97.7 F 79 16 119/62 96
05/07/25 02:56 05/07/25 02:56 05/07/25 02:56 05/07/25 02:56 05/07/25 02:56
Last Documented Vital Signs
Temp Pulse Resp BP Pulse Ox
97.7 F 108 16 130/62 98
05/07/25 11:00 05/07/25 11:00 05/07/25 11:00 05/07/25 11:00 05/07/25 11:00
MDM/Problems Addressed
MDM/Problems Addressed:
History and exam consistent with symptoms likely secondary to recurrent hypokalemia with hyponatremia. Patient will be admitted for further evaluation and treatment, including repletion of aforementioned electrolytes, as well as likely PT/OT
evaluation, due to significant generalized weakness.
*Pulse Oximetry
SaO2: 96
Oxygen Mode of Delivery: Room air
Patient hypoxic: no
*Critical Care Note
Total Time (30-74mins, 75-104mins- exclusive of procedures): Not Applicable
ED Attending Note
-
Portions of this chart may have been created with voice recognition software.� Occasional wrong word or��sound alike� substitutions may have occurred due to the inherent limitations of voice recognition software.
Discharge Plan
Departure
Patient Disposition: Admit
Date of Disposition: 05/07/25
Time of Disposition: 05:25
Admit to: Telemetry
Presentation/result/management discussed w/ accepting MD/DO: Hospitalist
Discharge Problem:
Weakness, Hypokalemia, Hyponatremia
Interventions
Interventions:
*Risk Screen - Suicide Last Done: 05/07/25 02:56
*General Assessment Last Done: 05/07/25 02:56
*Neglect/Abuse Screening Last Done: 05/07/25 02:56
*ED- Fall Risk Assessment Last Done: 05/07/25 04:37
*ED COVID-19 Vaccine History Last Done: 05/07/25 09:11
*Nursing Disposition Last Done: 05/07/25 08:10
ED- Cardiac Assessment Last Done: 05/07/25 04:05
ED- Neurological Assessment Last Done: 05/07/25 04:05
ED- Pulmonary Assessment Last Done: 05/07/25 04:05
Discharge Date and Time
Discharge Date/Time: 05/07/25 08:15
[2025-05-07 03:49] LABS: Hematocrit 37.1 % (37.0-47.0); Hemoglobin 13.2 g/dL (12.0-16.0); Mean Corp Hgb Conc. 35.6 g/dL (33.0-37.0); Mean Corpuscular Volume 97.6 fL (81.0-99.0); Nucleated Red Blood Cells % 0 %; Platelet Count 372 10^3/uL (130-400); Red Cell Dist. Width 12.1 % (11.5-14.5)
[2025-05-07 04:00] LABS: Urine Character Clear (Clear)
--- NOTE | 2025-05-07 04:09 | EDRN ---
Addendum entered by Lary Flores RN 05/07/25 04:39:
Pt's says pt was on macrobid 100mg BID but current symptoms started and they attributed it to the macrobid so pt stopped taking it yesterday.
Original Note:
Pt says she has been feeling fatigued, light headed, nauseous and dizzy. at bedside reports pt had difficulty getting to the bathroom this morning and knew it was time to get pt to the ED. Pt with symptoms x 3 days getting worse. Pt is on
macrobid 100mg BID for uti. Pt uses a rollator when walking. No fever/chills/cough, cp, sob, abd pain, vomiting, diarrhea/constipation, urinary symptoms. adds pt's weight is monitored closely for fluctuations - last weight 155lbs. He
says pt always has swelling in her lower extremities and this morning, the swelling is no worse than usual.
[2025-05-07 04:14] LABS: Blood Urea Nitrogen 54 mg/dl (7-17); Calcium 9.3 mg/dl (8.4-10.2); Carbon Dioxide 37 mmol/L (22-30); Chloride 83 mmol/L (98-107); Estimated Creatinine Clearance 50 ml/min; Glucose 121 mg/dl (70-99); Magnesium 1.9 mg/dl (1.6-2.3); Sodium 125 mmol/L (135-145); eGFR > 60.00
[2025-05-07 04:40] LABS: TSH < 0.02 uIU/ml (0.47-4.68)
[2025-05-07 04:46] LABS: Troponin I < 0.012 ng/ml
[2025-05-07 05:15] LABS: ALT (SGPT) 32 U/L (0-35); AST (SGOT) 30 U/L (14-36); Albumin 3.7 g/dl (3.5-5.0); Alkaline Phosphatase 64 U/L (38-126); Potassium 2.7 mmol/L (3.5-5.1); Total Protein 5.7 g/dl (6.3-8.2)
--- NOTE | 2025-05-07 05:21 | EDRN ---
Called pharmacy for IV KCL
[2025-05-07] MEDS: KCL 20 MEQ PO (05:29)
[2025-05-07] MEDS: KCL 270 MEQ IV (05:49)
--- NOTE | 2025-05-07 06:03 | EDRN ---
Pt complained of burning with KCL infusion. Rate decreased to 50ml/hr
--- NOTE | 2025-05-07 06:10 | HPS.HSE ---
Family Physician
-
Family Physician: Angelo Snyder
Chief Complaint
-
Generalized Weakness
History of Present Illness
Patient is an 85y F with PMH significant for adrenal insufficiency, lymphedema, SVT / A-Fib and chronic back pain who presents to ED complaining of generalized weakness and fatigue. History obtained from patient and her at the bedside.
Patient notes that she was feeling fairly well until about 3-4 days ago when she began to feel weak and tired. Her appetite has significantly declined in that time and her symptoms have steadily progressed. This evening she woke with the need to
urinate and was unable to even get OOB. called 911 and they presented to the ED for evaluation.
reports prior history of many similar episodes - all attributed to hypokalemia.
Patient was recently treated with Macrobid for a UTI. No other medication changes.
Medical History
Past Medical History
Past Medical History: Reports Other
Additional Past Medical History:
Paroxysmal A-Fib / Atrial Tachycardia / SVT
Hypertension
Adrenal Insufficiency
Rheumatic Fever
Nephrolithiasis
DDD / Chronic Back Pain
GERD / Hiatal Hernia
Chronic HFpEF
Chronic Lymphedema
Chronic Constipation
Anxiety / Depression / Insomnia
Past Surgical History: Reports Other
Additional Past Surgical History:
Right Reverse Shoulder Arthroplasty (05/18/24)
Hiatal Hernia Repair
Lithotripsy
Appendectomy
Tubal Ligation
Spinal Cord Stimulator (Replaced / Removed)
Social History
Tobacco: Non-smoker
Alcohol: None
Drug: None
Family History
Family History: Not pertinent
Allergies / Home Medications
Allergies reflects when Allergies were last updated in [employer].
Home Medications with original date entered in [employer]
Allergy/Medication List:
Allergies
Allergy/AdvReac Type Severity Reaction Status Date / Time
No Known Allergies Allergy Verified 05/07/25 04:12
Home Medications
omeprazole 40 mg capsule,delayed release 40 mg PO BID Gastrointestinal Issue 01/27/21
multivitamin 1 tab PO HS Supplement 12/28/23
polyethylene glycol 3350 17 gram oral powder packet (Miralax) 17 g PO DAILY Constipation 12/28/23
torsemide 20 mg tablet 40 mg PO BID Fluid Retention/Swelling 12/28/23
sertraline 50 mg tablet 50 mg PO HS Mental Health 12/29/23
atorvastatin 10 mg tablet 10 mg PO DAILY High Cholesterol 01/09/24
calcium 600 mg (as carbonate)-vitamin D3 10 mcg (400 unit) tablet (Calcium 600 + D(3)) 1 tab PO BID Supplement 01/09/24
melatonin 10 mg tablet 10 mg PO HS Sleep #0 tabs 01/21/24
zinc 50 mg capsule 50 mg PO HS Supplement 05/11/24
Saccharomyces boulardii 250 mg capsule (Florastor) 250 mg PO BID Supplement 08/15/24
hydrocortisone 10 mg tablet 5 mg PO NOON adrenal insuff 08/15/24
hydrocortisone 10 mg tablet 20 mg PO DAILY adrenal insuff 08/15/24
apixaban 5 mg tablet (Eliquis) 5 mg PO BID Blood Clot Prevention/Tx 10/17/24
eszopiclone 2 mg tablet 2 mg PO HS 10/17/24
loratadine 10 mg tablet (Claritin) 10 mg PO DAILY Allergies 10/17/24
tramadol 50 mg tablet 100 mg PO DAILYPRN PRN back pain 10/17/24
potassium chloride 20 mEq tablet,extended release 40 meq (2 x 20 mEq) PO DAILY Supplement 1 month #60 tabs 10/18/24
Slow Fe 1 tab PO HS 05/07/25
Stool Softener 1 cap PO HS 05/07/25
acetaminophen 650 mg tablet,extended release 1,300 mg PO Q6H PRN pain/fever 05/07/25
amiodarone 200 mg tablet 200 mg PO HS 05/07/25
ascorbic acid (vitamin C) 1,000 mg tablet (Vitamin C) 1,000 mg PO DAILY 05/07/25
biotin 5 mg tablet 5 mg PO QPM Supplement 05/07/25
carboxymethylcellulose sodium 1 % eye liquid gel drops 1 drp ophthalmic (eye) TID 05/07/25
cetirizine 10 mg tablet (Zyrtec) 10 mg PO HS 05/07/25
fiber 1 cap PO DAILY 05/07/25
gabapentin 400 mg tablet 400 mg PO TID 05/07/25
potassium chloride 20 mEq tablet,extended release 20 meq PO NOON 05/07/25
spironolactone 25 mg tablet 25 mg PO DAILY 05/07/25
turmeric 2,400 mg PO BID 05/07/25
vitamin A-vitamin C-vit E-min tablet 1 tab PO HS 05/07/25
Review of Systems
-
History Source: Patient and Family
A 12 point ROS was completed and negative except as noted: Yes
Constitutional: Reports Fatigue; Denies Fever, Weight Gain, Weight Loss or Chills
Respiratory: Denies Cough or Trouble Breathing
Cardiac: Denies Chest Pain or Palpitations
Abdomen/GI: Denies Abdominal Pain, Nausea, Vomiting or Diarrhea
: Reports Frequency; Denies Dysuria
Musculoskeletal: Reports Edema and Other (Back pain); Denies Joint Pain
Neurological: Reports Weakness; Denies Dizzy or Headache
Physical Exam
Vital Signs
Vital Signs
Temp Pulse Resp BP Pulse Ox
97.7 F 62 13 101/65 96
05/07/25 02:56 05/07/25 06:00 05/07/25 06:00 05/07/25 06:00 05/07/25 05:07
Physical Exam
General: Other (85y F in no acute distress. Somewhat restless in bed. )
HEENT: Other (Dry MM. Neck supple.)
Respiratory: Clear; No Wheezes, Rales or Rhonchi
Cardiac: S1/S2 and Irregular Rhythm; No Murmur
GI: Soft, Non Tender, Non Distended and Normal Bowel Sounds
Musculoskeletal: No Clubbing, No Cyanosis and Other (2+ pitting edema b/l LEs.)
Skin: Other (Large area of ecchymosis over the mid-thoracic spine. No focal tenderness / fluctuance / etc.)
Neuro: AO x 3 and Nonfocal/grossly intact
Laboratory Results
-
05/07/25 03:30
05/07/25 04:35
Laboratory Results
Lactic Acid Cancelled 05/07/25 07:15
Total Bilirubin 0.7 mg/dl (0.2-1.3) 05/07/25 04:35
AST 30 U/L (14-36) 05/07/25 04:35
ALT 32 U/L (0-35) 05/07/25 04:35
Alkaline Phosphatase 64 U/L (38-126) 05/07/25 04:35
Troponin I < 0.012 ng/ml 05/07/25 04:00
Impression/Plan
-
A/P: Patient is an 85y F with PMH significant for adrenal insufficiency, chronic lymphedema and paroxysmal A-Fib who presents to ED complaining of generalized weakness and fatigue.
Hypokalemia
Azotemia
Metabolic Alkalosis
Generalized Weakness secondary to the above
- Admit for further evaluation and treatment.
- Prior h/o similar episodes.
- Hold diuretic regimen completely (see below).
- Potassium replacement PO and IV.
- Hold PPI acutely.
- PT / OT evaluations.
- Follow for clinical improvement coincident with increase in serum potassium levels.
Hyponatremia
- Acute on chronic. Poor PO intake x several days + loop diuretics.
- Hold diuretics acutely as noted above.
- Fluid restriction.
- Continue usual steroid dose, etc.
- TFTs in the ED show suppressed TSH but with normal T4.
- Follow for improvement in Na levels.
Chronic Adrenal Insufficiency
- BP borderline in the ED - but with very low potassium as noted above.
- Hydrocortisone can also contribute to hypokalemic alkalosis, but am hesitant to stop or decrease this at present.
- Continue usual hydrocortisone dosing for now.
- Follow BP, labs, lytes, etc.
- Follow-up with Endocrinology as planned (sees Dr. Rincon).
Chronic Lymphedema
Chronic HFpEF
- Hold diuretics as noted above.
- Compression stockings, LE elevation and other non-pharmacologic measures to manage edema.
- Patient is seeing lymphedema therapy as an outpatient.
- Given recurrent issues, would be ideal if loop diuretics could be avoided entirely.
- She does not appear to have history of pulmonary edema. Prior echo has been unremarkable.
Paroxysmal A-Fib, SVT
- EKG shows sinus arrhythmia. s/p prior ablation and previously on flecainide - now on amiodarone.
- Continue usual amiodarone and Eliquis dosing.
- Monitor on telemetry for arrhythmias given electrolyte disturbances.
GERD
- Stable. Hold PPI for now to improve absorption.
Chronic Back Pain
- Followed by Pain Management as an outpatient.
- Pain control measures. PT / OT evaluations.
- Has large ecchymosis over the mid thoracic spine - apparently due to fall several days ago.
DVT Prophylaxis: On Eliquis
Code Status: Full
[2025-05-07] MEDS: TYLENOL 1000 MG PO ×3 (10:36→21:08)
--- NOTE | 2025-05-07 10:36 | W.PN.HOSP.TC ---
Today's Communication/Plan
-
see plan
Assessment / Plan
Assessment / Plan
A/P: Patient is an 85y F with PMH significant for adrenal insufficiency, chronic lymphedema and paroxysmal A-Fib who presents to ED complaining of generalized weakness and fatigue.
Hypokalemia
Azotemia
Metabolic Alkalosis
Generalized Weakness secondary to the above
- Prior h/o similar episodes.
- Hold [employer] Torsemide - she is on 40mg PO BID
- Potassium replacement PO and IV --> repeat levels at 2PM
- PT / OT evaluations.
Hyponatremia
- Acute on chronic. Poor PO intake x several days
- fluid restriction
- Continue usual steroid dose, etc.
- TFTs in the ED show suppressed TSH but with normal T4.
- repeat Na this afternoon
Chronic Adrenal Insufficiency
- Continue usual hydrocortisone
- Follow-up with Endocrinology as planned (sees Dr. Rincon).
Chronic Lymphedema
Chronic HFpEF
- Hold diuretics as noted above. Patient is on Torsemide 40mg PO BID at home
- Compression stockings, LE elevation and other non-pharmacologic measures to manage edema.
- Patient is seeing lymphedema therapy as an outpatient.
- consider decreasing Torsemide dose
- TTE 01/18 with LV
Paroxysmal A-Fib, SVT
- EKG shows sinus arrhythmia. s/p prior ablation and previously on flecainide - now on amiodarone.
- Continue usual amiodarone and Eliquis dosing.
- Monitor on telemetry for arrhythmias given electrolyte disturbances.
GERD
- Stable. Hold PPI for now to improve absorption.
Chronic Back Pain
- Followed by Pain Management as an outpatient.
- Pain control measures. PT / OT evaluations.
- Has large ecchymosis over the mid thoracic spine - apparently due to fall several days ago.
DVT Prophylaxis: On Eliquis
Code Status: Full
Anticipated Discharge: 24 - 48 hours
Subjective/Interval History
-
Date of Service: May 07, 2025
still feels weak and fatigued
denies shortness of breath
Objective Data
-
Labs:
Laboratory Results
05/07/25 05/07/25
03:30 04:35
WBC 11.6 H
Hgb 13.2
Hct 37.1
Plt Count 372
Sodium 125 L
Potassium 2.7 L*
Chloride 83 L
Carbon Dioxide 37 H
BUN 54 H
Creatinine 0.8
Glucose 121 H
Calcium 9.3
Total Bilirubin Cancelled 0.7
AST Cancelled 30
ALT Cancelled 32
Alkaline Phosphatase Cancelled 64
Vital Signs:
Vital Signs
Temp Pulse Resp BP Pulse Ox
97.7 F 76 15 101/79 96
05/07/25 02:56 05/07/25 08:00 05/07/25 08:00 05/07/25 08:00 05/07/25 05:07
Review of Systems
-
History Source: Patient
All other systems: Reviewed and negative
Physical Exam
-
General: Well Developed, Well Nourished, No Apparent Distress and Comfortable
HEENT: Normocephalic, Atraumatic, Moist Mucous Membranes and Anicteric
Respiratory: Clear to Auscultation
Cardiac: Regular Rhythm and S1/S2; Negative Murmur, Rub or Gallop
GI: Soft, Nontender, Nondistended and Normal Bowel Sounds
Musculoskeletal: No Clubbing, No Cyanosis and Other (edema b/l LE )
Skin: Warm, Dry and Normal Turgor; Negative Rash
Neuro: AO x 3 and Nonfocal/Grossly Intact
Psych: Calm
Data Reviewed
-
Diagnostic Radiology: Report Reviewed by me
Labs: Labs Reviewed by me
[2025-05-07] MEDS: CORTEF 20 MG PO (10:37)
[2025-05-07] MEDS: ELIQUIS 5 MG PO ×2 (10:38→21:08)
[2025-05-07] MEDS: KCL 40 MEQ PO ×2 (10:38→16:11)
[2025-05-07] MEDS: LIPITOR 10 MG PO (10:39)
[2025-05-07] MEDS: CORTEF 5 MG PO (14:18)
[2025-05-07 14:36] LABS: Potassium 3.7 mmol/L (3.5-5.1); Sodium 124 mmol/L (135-145)
[2025-05-07] MEDS: NEURONTIN 400 MG PO ×2 (16:11→21:08)
[2025-05-07] MEDS: DEMADEX 40 MG PO (16:11)
[2025-05-07] MEDS: ALDACTONE 25 MG PO (16:12)
--- NOTE | 2025-05-07 16:22 | W.CON.NEPH ---
Consultation
-
Date/Time Consultation Requested: 05/07/2025 4 PM
Date/Time Consultation Performed: 05/07/2025 4 PM
Requesting Provider: Dr. Álvarez
Performing Provider: Dr. Gregory
Reason for Consultation: Hyponatremia
Medical History
-
Chief Complaint: Hyponatremia
History of Present Illness:
This is an 85-year-old female who has atrial fibrillation status post ablation on amiodarone therapy as well as Eliquis anticoagulation. She also has chronic lymphedema as well as heart failure with preserved ejection fraction on diuretic therapy.
In the spring of last year she was diagnosed with adrenal insufficiency with a confirmatory cosyntropin stimulation test. She was placed on hydrocortisone at that time. She requires high-dose potassium therapy as a result of the steroids as well
as daily diuretics. About a week ago she had developed symptoms of a urinary tract infection including urgency as well as dysuria. The urologist had prescribed a 5-day course of Macrobid. Beginning last Friday she began to notice weakness as
well as lightheadedness which would occur even at rest. Her appetite had also decreased and she began eating only half as much but still drinking approximately 70 ounces of fluid per day. Ultimately she was unable to get out of bed and her
brought her to the emergency room. She was noted to be hypokalemic at 2.7 and with hyponatremia though this has been present in the last several months. The sodium was lower than usual at 125.
She has seen Dr. Barnett in the office last spring after the diagnosis of adrenal insufficiency in the hospital.
Past Medical History
Paroxysmal A-Fib / Atrial Tachycardia / SVT
Hypertension
Adrenal Insufficiency
Rheumatic Fever
Nephrolithiasis
DDD / Chronic Back Pain
GERD / Hiatal Hernia
Chronic HFpEF
Chronic Lymphedema
Chronic Constipation
Anxiety / Depression / Insomnia
Right Reverse Shoulder Arthroplasty (05/18/24)
Hiatal Hernia Repair
Lithotripsy
Appendectomy
Tubal Ligation
Spinal Cord Stimulator (Replaced / Removed)
Social History
Tobacco: Non-Smoker
Alcohol: None
Family History
Family History: Not Pertinent
Allergies / Home Medications
Allergy/AdvReac Type Severity Reaction Status Date / Time
No Known Allergies Allergy Verified 05/07/25 04:12
�Medication �Instructions �Recorded �Confirmed �Type
omeprazole 40 mg capsule,delayed 40 mg PO BID Gastrointestinal Issue 01/27/21 05/07/25 History
release
multivitamin 1 tab PO HS Supplement 12/28/23 05/07/25 History
polyethylene glycol 3350 17 gram 17 g PO DAILY Constipation 12/28/23 05/07/25 History
oral powder packet (Miralax)
torsemide 20 mg tablet 40 mg PO BID Fluid 12/28/23 05/07/25 History
Retention/Swelling
sertraline 50 mg tablet 50 mg PO HS Mental Health 12/29/23 05/07/25 History
atorvastatin 10 mg tablet 10 mg PO DAILY High Cholesterol 01/09/24 05/07/25 History
calcium 600 mg (as 1 tab PO BID Supplement 01/09/24 05/07/25 History
carbonate)-vitamin D3 10 mcg (400
unit) tablet (Calcium 600 + D(3))
melatonin 10 mg tablet 10 mg PO HS Sleep #0 tabs 01/21/24 05/07/25 Rx
zinc 50 mg capsule 50 mg PO HS Supplement 05/11/24 05/07/25 History
Saccharomyces boulardii 250 mg 250 mg PO BID Supplement 08/15/24 05/07/25 History
capsule (Florastor)
hydrocortisone 10 mg tablet 5 mg PO NOON adrenal insuff 08/15/24 05/07/25 History
hydrocortisone 10 mg tablet 20 mg PO DAILY adrenal insuff 08/15/24 05/07/25 History
apixaban 5 mg tablet (Eliquis) 5 mg PO BID Blood Clot 10/17/24 05/07/25 History
Prevention/Tx
eszopiclone 2 mg tablet 2 mg PO HS Sleep 10/17/24 05/07/25 History
loratadine 10 mg tablet (Claritin) 10 mg PO DAILY Allergies 10/17/24 05/07/25 History
tramadol 50 mg tablet 100 mg PO DAILYPRN PRN back pain 10/17/24 05/07/25 History
potassium chloride 20 mEq 40 meq (2 x 20 mEq) PO DAILY 10/18/24 05/07/25 Rx
tablet,extended release Supplement 1 month #60 tabs
Slow Fe 1 tab PO HS Supplement 05/07/25 05/07/25 History
Stool Softener 1 cap PO HS Constipation 05/07/25 05/07/25 History
acetaminophen 650 mg 1,300 mg PO Q6H PRN pain/fever 05/07/25 05/07/25 History
tablet,extended release
amiodarone 200 mg tablet 200 mg PO HS Heart 05/07/25 05/07/25 History
Disease/Condition
ascorbic acid (vitamin C) 1,000 mg 1,000 mg PO DAILY Supplement 05/07/25 05/07/25 History
tablet (Vitamin C)
biotin 5 mg tablet 5 mg PO QPM Supplement 05/07/25 05/07/25 History
carboxymethylcellulose sodium 1 % 1 drp ophthalmic (eye) TID Eye 05/07/25 05/07/25 History
eye liquid gel drops Condition
cetirizine 10 mg tablet (Zyrtec) 10 mg PO HS Allergies 05/07/25 05/07/25 History
fiber 1 cap PO DAILY Supplement 05/07/25 05/07/25 History
gabapentin 400 mg tablet 400 mg PO TID Pain 05/07/25 05/07/25 History
potassium chloride 20 mEq 20 meq PO NOON Supplement 05/07/25 05/07/25 History
tablet,extended release
spironolactone 25 mg tablet 25 mg PO DAILY Blood Pressure 05/07/25 05/07/25 History
turmeric 2,400 mg PO BID Supplement 05/07/25 05/07/25 History
vitamin A-vitamin C-vit E-min 1 tab PO HS Supplement 05/07/25 05/07/25 History
tablet
Review of Systems
-
No chest pain or shortness of breath
Mild lightheadedness
Appetite remains poor
Lower extremity of edema better than usual
All other systems: Negative unless noted
Physical Exam
Vital Signs
Vital Signs
Temp Pulse Resp BP Pulse Ox
97.7 F 108 16 130/62 98
05/07/25 11:00 05/07/25 11:00 05/07/25 11:00 05/07/25 11:00 05/07/25 11:00
Lab Results
WBC 11.6 10^3/uL (4.8-10.8) H 05/07/25 03:30
RBC 3.80 10^6/uL (4.20-5.40) L 05/07/25 03:30
Hgb 13.2 g/dL (12.0-16.0) 05/07/25 03:30
Hct 37.1 % (37.0-47.0) 05/07/25 03:30
Plt Count 372 10^3/uL (130-400) 05/07/25 03:30
Chloride 83 mmol/L (98-107) L 05/07/25 03:30
Carbon Dioxide 37 mmol/L (22-30) H 05/07/25 03:30
BUN 54 mg/dl (7-17) H 05/07/25 03:30
Creatinine 0.8 mg/dL (0.6-1.0) 05/07/25 03:30
eGFR > 60.00 05/07/25 03:30
Glucose 121 mg/dl (70-99) H 05/07/25 03:30
Calcium 9.3 mg/dl (8.4-10.2) 05/07/25 03:30
Albumin 3.7 g/dl (3.5-5.0) 05/07/25 04:35
Laboratory Tests
10/19/24 05/07/25
08:34 03:51
Sodium 132 L
Potassium 4.3 D
BUN 17
Creatinine 0.7
Urine Osmolality 308
Urine Sodium 36
on 03/15/2025 sodium 131, potassium 3.2
On 03/25/2025 sodium 133, potassium 4.3, creatinine 1.11, urine protein creatinine 221
On 04/05/2025 sodium 132, potassium 3.6, creatinine 1.2
Physical Exam
Patient is awake alert oriented and in no distress. Mood and affect were pleasant, insight and judgment were good. Pupils are equal round and reactive to light, extraocular movements are intact, sclera were anicteric. Hearing was normal, ears and
nose are intact. Oropharynx was clear. Neck was supple with trachea midline and no thyromegaly. Heart was regular rate and rhythm without rubs. Lower extremities with 2+ edema. Lungs were clear to auscultation bilaterally and with normal
excursion. Abdomen was soft, nontender, with normal active bowel sounds, and no hepatosplenomegaly. Skin was without rash and with normal turgor.
Data Reviewed
-
Radiology: Image Personally Visualized and interpreted (Chest x-ray 04/19/2025 by my reading old right rib fractures)
Medical Tests (Nuc Med, Echo etc): Image Personally Visualized and interpreted (EKG 05/07/2025 by my reading first-degree AV block inferior Q, prolonged QT)
Labs: Labs Reviewed by me
Old Records: Reviewed
Assessment/Plan
-
Assessment
Hyponatremia acute on chronic
Hypokalemia
Adrenal insufficiency
Metabolic alkalosis
Paroxysmal atrial fibrillation
Lower extremity edema
Heart failure preserved ejection fraction
Chronic back pain
Reflux
Weakness
Plan
Replace potassium oral and IV
Hypertonic saline today
I suspect that she may require a higher dose of hydrocortisone in the short-term given recent urinary tract infection
Hypokalemia likely easily exacerbated by decreased oral intake with continued diuretic therapy as well as relative steroid insufficiency with UTI
Hyponatremia also mediated by relative serum insufficiency with imbalance of solute solvent.
Follow BMP serially
Discussed with family at length
[2025-05-07] MEDS: SODIUM CHLORIDE 3% 250 IV (17:19)
[2025-05-07] MEDS: PACERONE 200 MG PO (21:09)
[2025-05-07 22:47] LABS: Blood Urea Nitrogen 42 mg/dl (7-17); Calcium 9.2 mg/dl (8.4-10.2); Carbon Dioxide 36 mmol/L (22-30); Chloride 90 mmol/L (98-107); Estimated Creatinine Clearance 50 ml/min; Glucose 136 mg/dl (70-99); Potassium 4.1 mmol/L (3.5-5.1); Sodium 128 mmol/L (135-145); eGFR > 60.00
[2025-05-08] VITALS (7 sets, daily range): BP systolic 113–161; BP diastolic 49–75; PULSE 61; BMI 27.5
[2025-05-08 07:08] LABS: Hematocrit 32.7 % (37.0-47.0); Hemoglobin 11.3 g/dL (12.0-16.0); Mean Corp Hgb Conc. 34.6 g/dL (33.0-37.0); Mean Corpuscular Volume 99.7 fL (81.0-99.0); Platelet Count 307 10^3/uL (130-400); Red Cell Dist. Width 12.4 % (11.5-14.5)
[2025-05-08 07:34] LABS: ALT (SGPT) 30 U/L (0-35); AST (SGOT) 24 U/L (14-36); Albumin 3.7 g/dl (3.5-5.0); Alkaline Phosphatase 62 U/L (38-126); Blood Urea Nitrogen 39 mg/dl (7-17); Calcium 9.4 mg/dl (8.4-10.2); Carbon Dioxide 35 mmol/L (22-30); Chloride 92 mmol/L (98-107); Estimated Creatinine Clearance 50 ml/min; Glucose 115 mg/dl (70-99); Magnesium 2.0 mg/dl (1.6-2.3); Potassium 3.6 mmol/L (3.5-5.1); Sodium 131 mmol/L (135-145); Total Protein 5.8 g/dl (6.3-8.2); eGFR > 60.00
[2025-05-08] MEDS: ELIQUIS 5 MG PO ×2 (08:33→20:15)
[2025-05-08] MEDS: CORTEF 20 MG PO (08:33)
[2025-05-08] MEDS: TYLENOL 1000 MG PO ×3 (08:34→21:02)
[2025-05-08] MEDS: NEURONTIN 400 MG PO ×3 (08:35→21:03)
[2025-05-08] MEDS: DEMADEX 40 MG PO (08:35)
[2025-05-08] MEDS: LIPITOR 10 MG PO (08:35)
[2025-05-08] MEDS: ALDACTONE 25 MG PO (08:36)
[2025-05-08] MEDS: KCL 40 MEQ PO (11:57)
[2025-05-08] MEDS: CORTEF 5 MG PO (11:57)
--- NOTE | 2025-05-08 12:25 | W.PN.NEPH.PH ---
Today's Communication / Plan
-
K
Assessment/Plan
-
Assessment
Hyponatremia acute on chronic
Hypokalemia
Adrenal insufficiency
Metabolic alkalosis
Paroxysmal atrial fibrillation
Lower extremity edema
Heart failure preserved ejection fraction
Chronic back pain
Reflux
Weakness
Plan
K 40meq today
restart half torsemide today
she should be able to return to outpatient regimen again on DC
follow BMP
Discussed with family at length
-
-
Date of Service: May 08, 2025
CC / HPI / ROS
-
Chief Complaint:
hypokalemia
History of Present Illness:
K stable 3.6
Na up to 131 with 3%
Bp stable
eating better
mild alkalosis persists
Review of Systems:
no CP/SOB
Labs
-
Labs:
WBC 12.4 10^3/uL (4.8-10.8) H 05/08/25 06:39
RBC 3.28 10^6/uL (4.20-5.40) L 05/08/25 06:39
Hgb 11.3 g/dL (12.0-16.0) L 05/08/25 06:39
Hct 32.7 % (37.0-47.0) L 05/08/25 06:39
Plt Count 307 10^3/uL (130-400) 05/08/25 06:39
Sodium 131 mmol/L (135-145) L 05/08/25 06:39
Potassium 3.6 mmol/L (3.5-5.1) 05/08/25 06:39
Chloride 92 mmol/L (98-107) L 05/08/25 06:39
Carbon Dioxide 35 mmol/L (22-30) H 05/08/25 06:39
BUN 39 mg/dl (7-17) H 05/08/25 06:39
Creatinine 0.8 mg/dL (0.6-1.0) 05/08/25 06:39
eGFR > 60.00 05/08/25 06:39
Glucose 115 mg/dl (70-99) H 05/08/25 06:39
Calcium 9.4 mg/dl (8.4-10.2) 05/08/25 06:39
Albumin 3.7 g/dl (3.5-5.0) 05/08/25 06:39
Physical Exam
-
Vital Signs:
Vital Signs
Temp Pulse Resp BP Pulse Ox
97.7 F 59 18 135/59 97
05/08/25 11:44 05/08/25 11:44 05/08/25 11:44 05/08/25 11:44 05/08/25 11:44
Cardiovascular:: Regular rate and rhythm
Respiratory:: Bilateral: Coarse
Lung Excursion:: Normal
Abdomen:: Nontender and Soft
Bowel Sounds:: Normal
Extremity Edema:: +2: Bilateral:
--- NOTE | 2025-05-08 12:34 | W.PN.HOSP.TC ---
Today's Communication/Plan
-
repeat labs tomorrow AM
PT to reevaluate patient in AM, possible DC HH versus SNF
Assessment / Plan
Assessment / Plan
A/P: Patient is an 85y F with PMH significant for adrenal insufficiency, chronic lymphedema and paroxysmal A-Fib who presents to ED complaining of generalized weakness and fatigue.
Hypokalemia
Azotemia
Metabolic Alkalosis
Generalized Weakness secondary to the above
- s/p repletion with improvement in K
- resume home potassium 40mEq qD; 20mEq qPM
- Mag 2.0
- PT / OT evaluations - HH versus SNF
Hyponatremia
- Acute on chronic. Poor PO intake x several days
- Continue usual steroid dose
- TFTs in the ED show suppressed TSH but with normal T4.
- decrease in Na level 05/07, consulted renal and now s/p 3% with improvement in Na this morning
- appreciate renal consult
- fluid restriction
- repeat BMP tomorrow AM
Chronic Adrenal Insufficiency
- Continue usual hydrocortisone
- Follow-up with Endocrinology as planned (sees Dr. Rincon).
Chronic Lymphedema
Chronic HFpEF
- resume Torsemide 40mg PO QD (takes BID at home)
- Compression stockings, LE elevation and other non-pharmacologic measures to manage edema.
- Patient is seeing lymphedema therapy as an outpatient.
- TTE 01/18 with nl EF
Paroxysmal A-Fib, SVT
- EKG shows sinus arrhythmia. s/p prior ablation and previously on flecainide - now on amiodarone.
- Continue usual amiodarone and Eliquis dosing.
- Monitor on telemetry for arrhythmias given electrolyte disturbances.
GERD
- Stable.
- resume PPI
Chronic Back Pain
- Followed by Pain Management as an outpatient.
- Pain control measures. PT / OT evaluations.
- Has large ecchymosis over the mid thoracic spine - apparently due to fall several days ago.
DVT Prophylaxis: On Eliquis
Code Status: Full
Anticipated Discharge: 24 - 48 hours
Subjective/Interval History
-
Date of Service: May 08, 2025
feeling better this morning
eating and drinking better
legs not significantly swollen, wearing Nickolas hose
Objective Data
-
Labs:
Laboratory Results
05/08/25
06:39
WBC 12.4 H
Hgb 11.3 L
Hct 32.7 L
Plt Count 307
Sodium 131 L
Potassium 3.6
Chloride 92 L
Carbon Dioxide 35 H
BUN 39 H
Creatinine 0.8
Glucose 115 H
Calcium 9.4
Total Bilirubin 0.7
AST 24
ALT 30
Alkaline Phosphatase 62
Vital Signs:
Vital Signs
Temp Pulse Resp BP Pulse Ox
97.7 F 59 18 135/59 97
05/08/25 11:44 05/08/25 11:44 05/08/25 11:44 05/08/25 11:44 05/08/25 11:44
I&O
05/07/25 05/08/25 05/09/25
06:59 06:59 06:59
Intake Total 1570 / 1570
Output Total 800 / 800
Balance 770 / 770
Review of Systems
-
History Source: Patient
All other systems: Reviewed and negative
Physical Exam
-
General: Well Developed, Well Nourished, No Apparent Distress and Comfortable
HEENT: Normocephalic, Atraumatic, Moist Mucous Membranes and Anicteric
Respiratory: Clear to Auscultation
Cardiac: Regular Rhythm and S1/S2; Negative Murmur, Rub or Gallop
GI: Soft, Nontender, Nondistended and Normal Bowel Sounds
Musculoskeletal: No Clubbing, No Cyanosis and Other (edema b/l LE )
Skin: Warm, Dry and Normal Turgor; Negative Rash
Neuro: AO x 3 and Nonfocal/Grossly Intact
Psych: Calm
Data Reviewed
-
Diagnostic Radiology: Report Reviewed by me
Labs: Labs Reviewed by me
[2025-05-08] MEDS: PROTONIX 40 MG PO ×2 (15:08→20:15)
[2025-05-08] MEDS: METAMUCIL, KONSYL 1 PACKET PO (18:30)
[2025-05-08] MEDS: KCL 20 MEQ PO (21:03)
[2025-05-08] MEDS: MELATONIN 10 MG PO (21:03)
[2025-05-08] MEDS: ZYRTEC 10 MG PO (21:04)
[2025-05-08] MEDS: PACERONE 200 MG PO (21:04)
[2025-05-09] VITALS (7 sets, daily range): BP systolic 117–138; BP diastolic 49–67; BMI 27.4
[2025-05-09] MEDS: DEMADEX 40 MG PO ×2 (08:48→21:40)
[2025-05-09] MEDS: CORTEF 20 MG PO (08:48)
[2025-05-09] MEDS: PROTONIX 40 MG PO ×2 (08:49→21:39)
[2025-05-09] MEDS: NEURONTIN 400 MG PO ×3 (08:49→21:39)
[2025-05-09] MEDS: TYLENOL 1000 MG PO ×3 (08:49→21:39)
[2025-05-09] MEDS: KCL 40 MEQ PO ×2 (08:50→21:40)
[2025-05-09] MEDS: ELIQUIS 5 MG PO ×2 (08:50→21:39)
[2025-05-09] MEDS: ALDACTONE 25 MG PO (08:50)
[2025-05-09] MEDS: LIPITOR 10 MG PO (08:51)
[2025-05-09] MEDS: METAMUCIL, KONSYL PO (08:51)
[2025-05-09 08:58] LABS: Hematocrit 35.3 % (37.0-47.0); Hemoglobin 12.4 g/dL (12.0-16.0); Mean Corp Hgb Conc. 35.1 g/dL (33.0-37.0); Mean Corpuscular Volume 98.6 fL (81.0-99.0); Platelet Count 273 10^3/uL (130-400); Red Cell Dist. Width 12.5 % (11.5-14.5)
[2025-05-09 09:22] LABS: Blood Urea Nitrogen 34 mg/dl (7-17); Calcium 9.1 mg/dl (8.4-10.2); Carbon Dioxide 29 mmol/L (22-30); Chloride 92 mmol/L (98-107); Estimated Creatinine Clearance 56 ml/min; Glucose 81 mg/dl (70-99); Potassium 3.5 mmol/L (3.5-5.1); Sodium 127 mmol/L (135-145); eGFR > 60.00
--- NOTE | 2025-05-09 11:09 | CM ---
Addendum entered by Liliane Youngblood 05/09/25 11:16:
Pt lives in 1 story home with 2 BR on the 1st floor. Lives with Has had [facility] in the past and has been to a SNF in the past. Has rolling and a rollator. Confirmed PCP, RX and insurance with drug coverage
PCP: Lorenzo Snyder
Rx: [facility]
Original Note:
Met with pt and at bedside. IMM given an placed on chart. PT rec HH. Pt wants to have HH post hospitalization and chose [facility]. She is know to [facility].
Plan: Home with HH
[2025-05-09] MEDS: CORTEF 5 MG PO (11:27)
--- NOTE | 2025-05-09 11:42 | VNURNOTE ---
Conveyor Belt Installer met with patient to discuss [facility] nurse/therapy, visits, schedule and homebound status. Patient is agreeable and understands that visits at home will be 2-3 x per week to assess and teach medical management.
[facility]. Patient is aware that [facility] will contact them for start of care in 1-2 days after discharge from .
[facility] referral completed in [facility].
--- NOTE | 2025-05-09 14:15 | W.PN.HOSP.TC ---
Today's Communication/Plan
-
Monitor vitals
see plan
Sodium 127 today, nephrology to see today
Continue with current management
Monitor electrolytes
Assessment / Plan
Assessment / Plan
A/P: Patient is an 85y F with PMH significant for adrenal insufficiency, chronic lymphedema and paroxysmal A-Fib who presents to ED complaining of generalized weakness and fatigue.
Hypokalemia
Azotemia
Metabolic Alkalosis
Generalized Weakness secondary to the above
- s/p repletion with improvement in K
- resume home potassium 40mEq qD; 20mEq qPM
- PT now recommending home health
Hyponatremia
- Acute on chronic. Poor PO intake x several days
- Continue usual steroid dose
- TFTs in the ED show suppressed TSH but with normal T4.
- decrease in Na level 05/07, consulted renal and now s/p 3% with improvement in Na this morning
- appreciate renal consult
- fluid restriction
- BMP today 127, nephrology to see today
Chronic Adrenal Insufficiency
- Continue usual hydrocortisone
- Follow-up with Endocrinology as planned (sees Dr. Rincon).
Chronic Lymphedema
Chronic HFpEF
- resume Torsemide 40mg PO QD (takes BID at home)
- Compression stockings, LE elevation and other non-pharmacologic measures to manage edema.
- Patient is seeing lymphedema therapy as an outpatient.
- TTE 01/18 with nl EF
Paroxysmal A-Fib, SVT
- EKG shows sinus arrhythmia. s/p prior ablation and previously on flecainide - now on amiodarone.
- Continue usual amiodarone and Eliquis dosing.
- Monitor on telemetry for arrhythmias given electrolyte disturbances.
GERD
- Stable.
- resume PPI
Chronic Back Pain
- Followed by Pain Management as an outpatient.
- Pain control measures. PT / OT evaluations.
- Has large ecchymosis over the mid thoracic spine - apparently due to fall several days ago.
DVT Prophylaxis: On Eliquis
Code Status: Full
General: Well Developed, Well Nourished, No Apparent Distress and Comfortable
HEENT: Normocephalic, Atraumatic, Moist Mucous Membranes and Anicteric
Respiratory: Clear to Auscultation
Cardiac: Regular Rhythm and S1/S2
GI: Soft, Nontender, Nondistended and Normal Bowel Sounds
Musculoskeletal: No Clubbing, No Cyanosis and Other (edema b/l LE )
Neuro: AO x 3 and Nonfocal/Grossly Intact
Psych: Calm
Anticipated Discharge: Within 24 hours
Subjective/Interval History
-
Date of Service: May 09, 2025
Denies pain
Objective Data
-
Labs:
Laboratory Results
05/09/25
08:40
WBC 13.3 H
Hgb 12.4
Hct 35.3 L
Plt Count 273
Sodium 127 L
Potassium 3.5
Chloride 92 L
Carbon Dioxide 29
BUN 34 H
Creatinine 0.7
Glucose 81
Calcium 9.1
Vital Signs:
Vital Signs
Temp Pulse Resp BP Pulse Ox
98.4 F 67 16 134/58 97
05/09/25 11:06 05/09/25 11:06 05/09/25 11:06 05/09/25 11:06 05/09/25 11:06
I&O
05/08/25 05/09/25 05/10/25
06:59 06:59 06:59
Intake Total 1570 / 1570 780 / 780
Output Total 800 / 800
Balance 770 / 770 780 / 780
--- NOTE | 2025-05-09 15:36 | W.PN.NEPH.PH ---
Today's Communication / Plan
-
Escalate torsemide to 40mg twice daily
Assessment/Plan
-
Assessment
Hyponatremia acute on chronic
Hypokalemia
Adrenal insufficiency
Metabolic alkalosis
Paroxysmal atrial fibrillation
Lower extremity edema
Heart failure preserved ejection fraction
Chronic back pain
Reflux
Weakness
Plan
Escalate torsemide to 40 mg twice daily given persistent hyponatremia now down to 127
If serum sodium drops tomorrow morning I will provide Samsca
she should be able to return to outpatient regimen again on DC
follow BMP
Discussed with family at length
-
-
Date of Service: May 09, 2025
CC / HPI / ROS
-
Chief Complaint:
hypokalemia
History of Present Illness:
K stable 3.5
Na down to 127
Bp stable
eating better
mild alkalosis persists
Review of Systems:
no CP/SOB
Labs
-
Labs:
WBC 13.3 10^3/uL (4.8-10.8) H 05/09/25 08:40
RBC 3.58 10^6/uL (4.20-5.40) L 05/09/25 08:40
Hgb 12.4 g/dL (12.0-16.0) 05/09/25 08:40
Hct 35.3 % (37.0-47.0) L 05/09/25 08:40
Plt Count 273 10^3/uL (130-400) 05/09/25 08:40
Sodium 127 mmol/L (135-145) L 05/09/25 08:40
Potassium 3.5 mmol/L (3.5-5.1) 05/09/25 08:40
Chloride 92 mmol/L (98-107) L 05/09/25 08:40
Carbon Dioxide 29 mmol/L (22-30) 05/09/25 08:40
BUN 34 mg/dl (7-17) H 05/09/25 08:40
Creatinine 0.7 mg/dL (0.6-1.0) 05/09/25 08:40
eGFR > 60.00 05/09/25 08:40
Glucose 81 mg/dl (70-99) 05/09/25 08:40
Calcium 9.1 mg/dl (8.4-10.2) 05/09/25 08:40
Albumin 3.7 g/dl (3.5-5.0) 05/08/25 06:39
Physical Exam
-
Vital Signs:
Vital Signs
Temp Pulse Resp BP Pulse Ox
98.4 F 67 16 134/58 97
05/09/25 11:06 05/09/25 11:06 05/09/25 11:06 05/09/25 11:06 05/09/25 11:06
Cardiovascular:: Regular rate and rhythm
Respiratory:: Bilateral: Coarse
Lung Excursion:: Normal
Abdomen:: Nontender and Soft
Bowel Sounds:: Normal
Extremity Edema:: +2: Bilateral:
[2025-05-09] MEDS: MELATONIN 10 MG PO (21:39)
[2025-05-09] MEDS: PACERONE 200 MG PO (21:39)
[2025-05-09] MEDS: ZYRTEC 10 MG PO (21:40)
[2025-05-10] VITALS (7 sets, daily range): BP systolic 113–128; BP diastolic 52–71; BMI 27.7
[2025-05-10] MEDS: METAMUCIL, KONSYL 1 PACKET PO (07:50)
[2025-05-10] MEDS: PROTONIX 40 MG PO ×2 (07:52→21:51)
[2025-05-10] MEDS: CORTEF 20 MG PO (07:52)
[2025-05-10] MEDS: KCL 40 MEQ PO ×2 (07:52→21:51)
[2025-05-10] MEDS: TYLENOL 1000 MG PO ×3 (07:53→21:51)
[2025-05-10] MEDS: ALDACTONE 25 MG PO (07:53)
[2025-05-10] MEDS: DEMADEX 40 MG PO ×2 (07:53→21:51)
[2025-05-10] MEDS: NEURONTIN 400 MG PO (07:54)
[2025-05-10] MEDS: ELIQUIS 5 MG PO ×2 (07:54→21:51)
[2025-05-10] MEDS: LIPITOR 10 MG PO (07:54)
[2025-05-10 08:08] LABS: Hematocrit 36.4 % (37.0-47.0); Hemoglobin 12.3 g/dL (12.0-16.0); Mean Corp Hgb Conc. 33.8 g/dL (33.0-37.0); Mean Corpuscular Volume 99.7 fL (81.0-99.0); Nucleated Red Blood Cells % 0 %; Platelet Count 326 10^3/uL (130-400); Red Cell Dist. Width 12.5 % (11.5-14.5)
--- NOTE | 2025-05-10 08:24 | PN.CDI ---
CDI
- -
CDI:
Physician Documentation Request
Admit Date: 05/07/25 06:22
Dear Doctor Demetris,
Patient admitted with hypokalemia.
05/07 Nursing skin assessment, 'Stage 1 right buttock pressure injury, POA.'
Physician documentation of the type and location of wounds is required for compliant documentation. Based on the above clinical findings and your assessment, please provide the following in your progress note:
Type (etiology) of ulcer/wound:
- Pressure (decubitus) ulcer
- Other
- Unable to determine
For a pressure ulcer, please also include the stage* of the ulcer:
- Stage 1 - Skin intact, non-blanchable redness
- Stage 2 - Partial thickness loss of dermis, includes intact or open blister
- Stage 3 - Full thickness tissue not including bone, tendon or muscle
- Stage 4 - Full thickness tissue loss, including exposed bone, tendon or muscle
- Unstageable - Full thickness loss in which the base of the ulcer is covered by slough (yellow, quiroz, collins, green or brown) and/or eschar (quiroz, brown or black) in the wound bed.
- Unable to determine
Use of terms such as suspected, likely, concern for, or probable (associated with a specific diagnosis that is being evaluated, monitored, or treated as if it exists) are acceptable and can be coded in the inpatient setting, when documented at the
time of discharge.
Thank you,
Berta MARINA,RN,CCDS
CDI Specialist
Available via tiger text
Please use your independent medical judgment in providing your response.
*Source: National Pressure Ulcer Advisory Panel (NPUAP)
[2025-05-10 08:49] LABS: Blood Urea Nitrogen 37 mg/dl (7-17); Calcium 9.1 mg/dl (8.4-10.2); Carbon Dioxide 30 mmol/L (22-30); Chloride 89 mmol/L (98-107); Estimated Creatinine Clearance 44 ml/min; Glucose 81 mg/dl (70-99); Potassium 4.6 mmol/L (3.5-5.1); Sodium 125 mmol/L (135-145); eGFR > 60.00
--- NOTE | 2025-05-10 12:46 | W.PN.NEPH.PH ---
Today's Communication / Plan
-
Follow BMP
Samsca 15 mg p.o. x 1 provide
Assessment/Plan
-
Assessment
Hyponatremia acute on chronic (urine osm 308)/urine sodium 36
Hypokalemia
Adrenal insufficiency
Metabolic alkalosis
Paroxysmal atrial fibrillation
Lower extremity edema
Heart failure preserved ejection fraction
Chronic back pain
Reflux
Weakness
Plan
Escalated torsemide to 40 mg twice daily given persistent hyponatremia on 05/09 but sodium now down to 125
Will provide Samsca 15 mg p.o. x 1
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
Patient has adrenal insufficiency but patient has been hemodynamically stable current hydrocortisone administration
Potassium level stable, Aldactone currently held
follow BMP
Discussed with family at length
-
-
Date of Service: May 10, 2025
CC / HPI / ROS
-
Chief Complaint:
hypokalemia
History of Present Illness:
K stable 4.6
Na down to 125
Bp stable
eating better
mild alkalosis persists
Review of Systems:
no CP/SOB
Back pain with movement
Grossly nonoliguric
Labs
-
Labs:
WBC 11.6 10^3/uL (4.8-10.8) H 05/10/25 07:35
RBC 3.65 10^6/uL (4.20-5.40) L 05/10/25 07:35
Hgb 12.3 g/dL (12.0-16.0) 05/10/25 07:35
Hct 36.4 % (37.0-47.0) L 05/10/25 07:35
Plt Count 326 10^3/uL (130-400) 05/10/25 07:35
Sodium 125 mmol/L (135-145) L 05/10/25 07:35
Potassium 4.6 mmol/L (3.5-5.1) D 05/10/25 07:35
Chloride 89 mmol/L (98-107) L 05/10/25 07:35
Carbon Dioxide 30 mmol/L (22-30) 05/10/25 07:35
BUN 37 mg/dl (7-17) H 05/10/25 07:35
Creatinine 0.9 mg/dL (0.6-1.0) 05/10/25 07:35
eGFR > 60.00 05/10/25 07:35
Glucose 81 mg/dl (70-99) 05/10/25 07:35
Calcium 9.1 mg/dl (8.4-10.2) 05/10/25 07:35
Albumin 3.7 g/dl (3.5-5.0) 05/08/25 06:39
Physical Exam
-
Vital Signs:
Vital Signs
Temp Pulse Resp BP Pulse Ox
97.4 F 61 16 124/62 97
05/10/25 11:14 05/10/25 11:14 05/10/25 11:14 05/10/25 11:14 05/10/25 11:14
Cardiovascular:: Regular rate and rhythm
Respiratory:: Bilateral: Coarse
Lung Excursion:: Normal
Abdomen:: Nontender and Soft
Bowel Sounds:: Normal
Extremity Edema:: +2: Bilateral:
[2025-05-10] MEDS: CORTEF 5 MG PO (12:47)
[2025-05-10] MEDS: SAMSCA 15 MG PO (12:48)
--- NOTE | 2025-05-10 13:14 | W.PN.HOSP.TC ---
Today's Communication/Plan
-
Monitor vital signs and see plan
Nephrology following
Continue to monitor sodium
Samsca.
Discussed with nephrology
Assessment / Plan
Assessment / Plan
A/P: Patient is an 85y F with PMH significant for adrenal insufficiency, chronic lymphedema and paroxysmal A-Fib who presents to ED complaining of generalized weakness and fatigue.
Hypokalemia
Azotemia
Metabolic Alkalosis
Generalized Weakness secondary to the above
- s/p repletion with improvement in K
- now on PO K 40 BID
- PT now recommending home health
Hyponatremia
- Acute on chronic. Poor PO intake x several days
- Continue usual steroid dose
- TFTs in the ED show suppressed TSH but with normal T4.
- decrease in Na level 05/07, consulted renal and now s/p 3% with improvement in Na this morning
- appreciate renal consult
- fluid restriction
- BMP today 125, nephrology following. Status post Samsca 05/10
Chronic Adrenal Insufficiency
- Continue usual hydrocortisone
- Follow-up with Endocrinology as planned (sees Dr. Rincon).
Chronic Lymphedema
Chronic HFpEF
- Now back on torsemide twice daily
- Compression stockings, LE elevation and other non-pharmacologic measures to manage edema.
- Patient is seeing lymphedema therapy as an outpatient.
- TTE 01/18 with nl EF
Paroxysmal A-Fib, SVT
- EKG shows sinus arrhythmia. s/p prior ablation and previously on flecainide - now on amiodarone.
- Continue usual amiodarone and Eliquis dosing.
- Monitor on telemetry for arrhythmias given electrolyte disturbances.
GERD
- Stable.
- resume PPI
Chronic Back Pain
- Followed by Pain Management as an outpatient.
- Pain control measures. PT / OT evaluations.
- Has large ecchymosis over the mid thoracic spine - apparently due to fall several days ago.
Stage 1 right buttock pressure injury, POA
DVT Prophylaxis: On Eliquis
Code Status: Full
General: Well Developed, Well Nourished, No Apparent Distress and Comfortable
HEENT: Normocephalic, Atraumatic, Moist Mucous Membranes and Anicteric
Respiratory: Clear to Auscultation
Cardiac: Regular Rhythm and S1/S2
GI: Soft, Nontender, Nondistended and Normal Bowel Sounds
Musculoskeletal: No Clubbing, No Cyanosis and Other (edema b/l LE )
Neuro: AO x 3 and Nonfocal/Grossly Intact
Psych: Calm
Anticipated Discharge: Within 24 hours
Subjective/Interval History
-
Date of Service: May 10, 2025
Denies pain
Objective Data
-
Labs:
Laboratory Results
05/10/25
07:35
WBC 11.6 H
Hgb 12.3
Hct 36.4 L
Plt Count 326
Sodium 125 L
Potassium 4.6 D
Chloride 89 L
Carbon Dioxide 30
BUN 37 H
Creatinine 0.9
Glucose 81
Calcium 9.1
Vital Signs:
Vital Signs
Temp Pulse Resp BP Pulse Ox
97.4 F 61 16 124/62 97
05/10/25 11:14 05/10/25 11:14 05/10/25 11:14 05/10/25 11:14 05/10/25 11:14
I&O
05/09/25 05/10/25 05/11/25
06:59 06:59 06:59
Intake Total 780 / 780 840 / 840
Balance 780 / 780 840 / 840
--- NOTE | 2025-05-10 13:14 | CM ---
Reviewed chart. Met with pt and spouse in room. Sodium level remains low. Medication adjustments made.
Plan: d/c to home with [facility]
[2025-05-10] MEDS: NEURONTIN 300 MG PO ×2 (16:28→21:52)
[2025-05-10] MEDS: MELATONIN 10 MG PO (21:50)
[2025-05-10] MEDS: PACERONE 200 MG PO (21:51)
[2025-05-10] MEDS: ZYRTEC 10 MG PO (21:51)
[2025-05-11 03:12] VITALS: BP 132/63
[2025-05-11 06:00] VITALS: BMI 27.3
[2025-05-11 07:23] VITALS: BP 111/65
[2025-05-11 07:41] LABS: Hematocrit 35.9 % (37.0-47.0); Hemoglobin 12.4 g/dL (12.0-16.0); Mean Corp Hgb Conc. 34.5 g/dL (33.0-37.0); Mean Corpuscular Volume 99.2 fL (81.0-99.0); Nucleated Red Blood Cells % 0 %; Platelet Count 307 10^3/uL (130-400); Red Cell Dist. Width 12.5 % (11.5-14.5)
[2025-05-11 08:21] LABS: Blood Urea Nitrogen 31 mg/dl (7-17); Calcium 9.0 mg/dl (8.4-10.2); Carbon Dioxide 28 mmol/L (22-30); Chloride 95 mmol/L (98-107); Estimated Creatinine Clearance 56 ml/min; Glucose 103 mg/dl (70-99); Potassium 4.0 mmol/L (3.5-5.1); Sodium 130 mmol/L (135-145); eGFR > 60.00
[2025-05-11] MEDS: CORTEF 20 MG PO (08:33)
[2025-05-11] MEDS: METAMUCIL, KONSYL 1 PACKET PO (08:33)
[2025-05-11] MEDS: DEMADEX 40 MG PO (08:34)
[2025-05-11] MEDS: NEURONTIN 300 MG PO (08:35)
[2025-05-11] MEDS: KCL 40 MEQ PO (08:35)
[2025-05-11] MEDS: PROTONIX 40 MG PO (08:36)
[2025-05-11] MEDS: TYLENOL 1000 MG PO (08:36)
[2025-05-11] MEDS: ALDACTONE 25 MG PO (08:37)
[2025-05-11] MEDS: LIPITOR 10 MG PO (08:38)
[2025-05-11] MEDS: ELIQUIS 5 MG PO (08:38)
[2025-05-11 11:20] VITALS: BP 127/54
[2025-05-11] MEDS: CORTEF 5 MG PO (12:50)
--- NOTE | 2025-05-11 12:55 | W.PN.HOSP.TC ---
Addendum entered and electronically signed by Junaid Willson MD 05/11/25 16:02:
Time of discharge 38 minutes
Original Note:
Today's Communication/Plan
-
Monitor vital signs and see plan
Nephrology to see today
Possible discharge later today
Monitor sodium
Assessment / Plan
Assessment / Plan
A/P: Patient is an 85y F with PMH significant for adrenal insufficiency, chronic lymphedema and paroxysmal A-Fib who presents to ED complaining of generalized weakness and fatigue.
Hypokalemia
Azotemia
Metabolic Alkalosis
Generalized Weakness secondary to the above
- s/p repletion with improvement in K
- now on PO K 40 BID
- PT now recommending home health
Hyponatremia
- Acute on chronic. Poor PO intake x several days
- Continue usual steroid dose
- TFTs in the ED show suppressed TSH but with normal T4.
- Received 3% saline this admission
- appreciate renal consult
- fluid restriction
- BMP today 130, nephrology following. Status post Samsca 05/10. Awaiting nephrology decision regarding Samsca today prior to possible discharge
Chronic Adrenal Insufficiency
- Continue usual hydrocortisone
- Follow-up with Endocrinology as planned (sees Dr. Rincon).
Chronic Lymphedema
Chronic HFpEF
- Now back on torsemide twice daily
- Compression stockings, LE elevation and other non-pharmacologic measures to manage edema.
- Patient is seeing lymphedema therapy as an outpatient.
- TTE 01/18 with nl EF
Paroxysmal A-Fib, SVT
- EKG shows sinus arrhythmia. s/p prior ablation and previously on flecainide - now on amiodarone.
- Continue usual amiodarone and Eliquis dosing.
- Monitor on telemetry for arrhythmias given electrolyte disturbances.
GERD
- Stable.
- resume PPI
Chronic Back Pain
- Followed by Pain Management as an outpatient.
- Pain control measures. PT / OT evaluations.
- Has large ecchymosis over the mid thoracic spine - apparently due to fall several days ago.
Stage 1 right buttock pressure injury, POA
DVT Prophylaxis: On Eliquis
Code Status: Full
General: Well Developed, Well Nourished, No Apparent Distress and Comfortable
HEENT: Normocephalic, Atraumatic, Moist Mucous Membranes and Anicteric
Respiratory: Clear to Auscultation
Cardiac: Regular Rhythm and S1/S2
GI: Soft, Nontender, Nondistended and Normal Bowel Sounds
Musculoskeletal: No Clubbing, No Cyanosis and Other (edema b/l LE )
Neuro: AO x 3 and Nonfocal/Grossly Intact
Psych: Calm
Anticipated Discharge: Today
Subjective/Interval History
-
Date of Service: May 11, 2025
denies pain
Objective Data
-
Labs:
Laboratory Results
05/11/25
07:27
WBC 12.5 H
Hgb 12.4
Hct 35.9 L
Plt Count 307
Sodium 130 L
Potassium 4.0
Chloride 95 L
Carbon Dioxide 28
BUN 31 H
Creatinine 0.7
Glucose 103 H
Calcium 9.0
Vital Signs:
Vital Signs
Temp Pulse Resp BP Pulse Ox
97.7 F 72 16 127/54 98
05/11/25 11:20 05/11/25 11:20 05/11/25 11:20 05/11/25 11:20 05/11/25 11:20
I&O
05/10/25 05/11/25 05/12/25
06:59 06:59 06:59
Intake Total 840 / 840 780 / 780
Balance 840 / 840 780 / 780
--- NOTE | 2025-05-11 14:22 | W.PN.NEPH.PH ---
Today's Communication / Plan
-
see plan
Assessment/Plan
-
Assessment
Hyponatremia acute on chronic (urine osm 308)/urine sodium 36
Hypokalemia
Adrenal insufficiency
Metabolic alkalosis
Paroxysmal atrial fibrillation
Lower extremity edema
Heart failure preserved ejection fraction
Chronic back pain
Reflux
Weakness
Plan:
sodium better at 130 post samsca x1 05/10
provide another dose of samsca
cotn diuretics and lasix
monitor k level closely, now normal , ok to resume Aldactone
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
Patient has adrenal insufficiency but patient has been hemodynamically stable current hydrocortisone administration
follow BMP next week
f/u Dr Barnett
d/w pt and family
d/w primary
-
-
Date of Service: May 11, 2025
CC / HPI / ROS
-
Chief Complaint:
hypokalemia
History of Present Illness:
K stable 4.6
Na up at 130 post samsca 05/10
Bp stable
eating better
Review of Systems:
no reported CP/SOB
Back pain with movement
Grossly nonoliguric
Labs
-
Labs:
WBC 12.5 10^3/uL (4.8-10.8) H 05/11/25 07:27
RBC 3.62 10^6/uL (4.20-5.40) L 05/11/25 07:27
Hgb 12.4 g/dL (12.0-16.0) 05/11/25 07:27
Hct 35.9 % (37.0-47.0) L 05/11/25 07:27
Plt Count 307 10^3/uL (130-400) 05/11/25 07:27
Sodium 130 mmol/L (135-145) L 05/11/25 07:27
Potassium 4.0 mmol/L (3.5-5.1) 05/11/25 07:27
Chloride 95 mmol/L (98-107) L 05/11/25 07:27
Carbon Dioxide 28 mmol/L (22-30) 05/11/25 07:27
BUN 31 mg/dl (7-17) H 05/11/25 07:27
Creatinine 0.7 mg/dL (0.6-1.0) 05/11/25 07:27
eGFR > 60.00 05/11/25 07:27
Glucose 103 mg/dl (70-99) H 05/11/25 07:27
Calcium 9.0 mg/dl (8.4-10.2) 05/11/25 07:27
Albumin 3.7 g/dl (3.5-5.0) 05/08/25 06:39
Physical Exam
-
Vital Signs:
Vital Signs
Temp Pulse Resp BP Pulse Ox
97.7 F 72 16 127/54 98
05/11/25 11:20 05/11/25 11:20 05/11/25 11:20 05/11/25 11:20 05/11/25 11:20
Cardiovascular:: Regular rate and rhythm
Respiratory:: Bilateral: Coarse
Lung Excursion:: Normal
Abdomen:: Nontender and Soft
Bowel Sounds:: Normal
Extremity Edema:: +2: Bilateral:
Steinberg Catheter: No
--- NOTE | 2025-05-11 14:26 | W.DCSUMMARY ---
Discharge Summary
Discharge Data
Date of Admission: 05/07/25
Date of Discharge: 05/11/25
-
Pending Results: No
Hospital Course
85-year-old female with past medical history of adrenal insufficiency, chronic lymphedema, paroxysmal atrial fibrillation, CHF, GERD, chronic back pain came to the hospital with metabolic alkalosis with generalized weakness along with hypokalemia
and hyponatremia. Physical therapy initially recommended SNF however patient continued to improve and then was recommended home health. For her hyponatremia was likely thought to possibly be secondary to poor oral intake and some component of
SIADH. Patient was initially treated with 3% saline along with torsemide. She still continued to have low sodium so was giving Samsca by nephrology. Nephrology followed up with patient throughout hospitalization and instructed patient to
follow-up with them closely outpatient. Once patient's sodium was improving and she was feeling better, she was then discharged home with instructions to follow-up with all her physicians outpatient.
Discharge Plan
-
Patient Disposition: Home with Home Care
Discharge Diagnosis/Procedures: Hypokalemia
Hyponatremia
Metabolic alkalosis
Chronic adrenal insufficiency
Diet: Other diet
Additional Diets: Restrict fluids to 40 ounce
Activity: As tolerated
Driving Restrictions: As prior to admission
Bathing Restrictions: None
Blood Work: BMP in one week
Other Services: PT and OT
Referrals:
Zheng Barnett DO [Active, Nephrology]
Angleo Snyder MD [Family Provider, Family Practice] - in less than 1 week
Prescriptions:
Continued
omeprazole 40 MG capsule,delayed release(DR/EC)
40 mg PO BID
torsemide 20 mg Tablet
40 mg PO BID
Patient Comments:
8am and 12pm
polyethylene glycol 3350 [Miralax] 17 gram Powder In Packet
17 g PO DAILY
multivitamin Tablet
1 tab PO HS
sertraline 50 mg Tablet
50 mg PO HS
atorvastatin 10 mg Tablet
10 mg PO DAILY
calcium carbonate-vitamin D3 [Calcium 600 + D(3)] 600 mg-10 mcg (400 unit) Tablet
1 tab PO BID
melatonin 10 mg Tablet
10 mg PO HS Qty: 0 0RF
zinc 50 mg Capsule
50 mg PO HS
Saccharomyces boulardii [Florastor] 250 mg Capsule
250 mg PO BID
hydrocortisone 10 mg tablet
20 mg PO DAILY
hydrocortisone 10 mg tablet
5 mg PO NOON
loratadine [Claritin] 10 mg Tablet
10 mg PO DAILY
tramadol 50 mg Tablet
100 mg PO DAILYPRN PRN (Reason: back pain)
eszopiclone 2 mg Tablet
2 mg PO HS
Eliquis 5 mg Tablet
5 mg PO BID
ascorbic acid (vitamin C) [Vitamin C] 1,000 mg Tablet
1,000 mg PO DAILY
cetirizine [Zyrtec] 10 mg Tablet
10 mg PO HS
amiodarone 200 mg Tablet
200 mg PO HS
spironolactone 25 mg Tablet
25 mg PO DAILY
acetaminophen 650 mg Tablet Extended Release
1,300 mg PO Q6H PRN (Reason: pain/fever)
carboxymethylcellulose sodium 1 % Drops, Liquid Gel
1 drp OPHTHALMIC (EYE) TID
fiber Capsule
1 cap PO DAILY
vitamin A-vitamin C-vit E-min Tablet
1 tab PO HS
gabapentin 400 mg Tablet
400 mg PO TID
Stool Softener
1 cap PO HS
turmeric
2,400 mg PO BID
biotin 5 mg tablet
5 mg PO QPM
Slow Fe
1 tab PO HS
Changed
potassium chloride 20 mEq tablet extended release
40 meq PO BID 30 Days Qty: 60 0RF
Discontinued
potassium chloride 20 mEq tablet extended release
20 meq PO NOON
Discharge Orders:
Discharge Patient (As Directed); Ordered 05/11/25
Ordered By: Junaid Willson
Discharge Date and Time
Print Language: FAROESE
--- NOTE | 2025-05-11 14:37 | CM ---
Chart reviewed. Pt d/c to home with [facility]
Plan: discharge to home with [facility]
[2025-05-11 15:25] VITALS: BP 118/57
[2025-05-11] MEDS: SAMSCA 15 MG PO (15:34)
== END 2025-05-11 16:00 | disposition home health service (06) | DRG 644 ==
LOC: 4 WEST ACU 06:22
PROVIDERS: Student in an Organized Health Care Education/Training Program; ADMITTING PHYSICIAN Hospitalist; ATTENDING PHYSICIAN Internal Medicine; CONSULT PHYSICIAN Specialist; EMERGENCY PHYSICIAN Emergency Medicine; FAMILY PHYSICIAN Family Medicine
DX: E22.2 Syndrome of inappropriate secretion of antidiuretic hormone (principal); E27.40 Unspecified adrenocortical insufficiency; I50.32 Chronic diastolic (congestive) heart failure; I47.19 Other supraventricular tachycardia; E87.3 Alkalosis; E87.6 Hypokalemia; I11.0 Hypertensive heart disease with heart failure; E78.00 Pure hypercholesterolemia, unspecified; I48.0 Paroxysmal atrial fibrillation; K21.9 Gastro-esophageal reflux disease without esophagitis; K58.1 Irritable bowel syndrome with constipation; G89.29 Other chronic pain; I89.0 Lymphedema, not elsewhere classified; L89.311 Pressure ulcer of right buttock, stage 1; F32.A Depression, unspecified; F41.9 Anxiety disorder, unspecified; G47.00 Insomnia, unspecified; S20.224A Contusion of middle back wall of thorax, initial encounter; W19.XXXA Unspecified fall, initial encounter; Y93.9 Activity, unspecified; Y92.9 Unspecified place or not applicable; Z96.611 Presence of right artificial shoulder joint; Z87.440 Personal history of urinary (tract) infections; Z87.442 Personal history of urinary calculi; Z79.01 Long term (current) use of anticoagulants
CPT/HCPCS: 51701; 80048; 80053; 80076; 81003; 82248; 82962; 83605; 83735; 83930; 83935; 84132; 84295; 84300; 84439; 84443; 84484; 85025; 85027; 93005; 96365; 96366; 97163; 97166; 97530; 99285

== ENCOUNTER 2025-05-24 11:13 | Outpatient (RCR) | payer OTHER, SELFPAY | END 2025-05-24 23:59 | disposition home or self-care (01) | LOC: RPT 11:13 | PROVIDERS: FAMILY PHYSICIAN Family Medicine | DX: I89.0 Lymphedema, not elsewhere classified (principal); I87.2 Venous insufficiency (chronic) (peripheral); Z73.6 Limitation of activities due to disability; R26.2 Difficulty in walking, not elsewhere classified; R26.89 Other abnormalities of gait and mobility | CPT/HCPCS: 97140; 97164; 97530 ==

== ENCOUNTER 2025-06-07 20:55 | Inpatient (IN) | payer OTHER, SELFPAY ==
[2025-06-07] VITALS (8 sets, daily range): BP systolic 113–136; BP diastolic 52–69; BMI 30.6; BMI 28.9
[2025-06-07 15:28] LABS: Hematocrit 33.1 % (37.0-47.0); Hemoglobin 11.2 g/dL (12.0-16.0); Mean Corp Hgb Conc. 33.8 g/dL (33.0-37.0); Mean Corpuscular Volume 98.8 fL (81.0-99.0); Nucleated Red Blood Cells % 0 %; Platelet Count 321 10^3/uL (130-400); Red Cell Dist. Width 13.8 % (11.5-14.5)
[2025-06-07 16:13] LABS: ALT (SGPT) 34 U/L (0-35); AST (SGOT) 29 U/L (14-36); Albumin 4.2 g/dl (3.5-5.0); Alkaline Phosphatase 67 U/L (38-126); Blood Urea Nitrogen 47 mg/dl (7-17); Calcium 9.5 mg/dl (8.4-10.2); Carbon Dioxide 33 mmol/L (22-30); Chloride 87 mmol/L (98-107); Glucose 114 mg/dl (70-99); Potassium 3.7 mmol/L (3.5-5.1); Sodium 127 mmol/L (135-145); Total Protein 6.3 g/dl (6.3-8.2); eGFR 44.91
[2025-06-07] MEDS: KLOR-CON 40 MEQ PO (19:29)
--- NOTE | 2025-06-07 20:03 | ED.GENMED ---
History of Present Illness
General
Chief Complaint: Swelling
Source: patient
Exam Limitations: none
Time Seen by Provider: 06/07/25 17:40
History of Present Illness
History of Present Illness:
See MDM
Past History
Past History
ED Past Medical History: Arrthythmia (Atrial fib), GERD (Hiatal hernia), HTN, Hypercholesterolemia, Valvular disease and Other (Kidney stones, Back pain, Hiatal hernia. IBS, Ulcers Adrenocortical insufficiency, )
ED Past Surgical History: Gynecological (Tubal ligation), Orthopedic (Spinal implant, right shoulder surgery X 3 last with replacement), Tonsilectomy, Urological (Kidney stone removal) and Other (Hiatal hernia repair)
Social History
Tobacco: Non-smoker
Alcohol: None
Drug: None
Personal:
Living: with family
Employment: Retired
Family History
Family History: Other (Noncontributory)
Phy Exam
Physical Exam
Physical Exam:
See MDM
Scores
Heart Failure Risk
Heart Failure Risk Score: Not Applicable
Course
Orders/Labs/Results
Orders:
Orders
06/07/25 15:19
BNP [NT-proBNP] Urgent
CBC/With Diff [Complete Blood Count/With Diff] Urgent
CMP [Comprehensive Metabolic Panel] Urgent
06/07/25 19:21
Furosemide [Lasix] 40 mg IV NOW STA
Potassium Chloride Powder [Klor-Con] 40 meq PO NOW STA
Abnormal Lab Results
06/07/25
15:19
RBC 3.35 L 10^6/uL
(4.20-5.40)
Hgb 11.2 L g/dL
(12.0-16.0)
Hct 33.1 L %
(37.0-47.0)
MCH 33.4 H pg
(27.0-31.0)
Abs Immat Gran (auto) 0.1 H 10^3/uL
(0-0.05)
Absolute Neuts (auto) 8.7 H 10^3/uL
(1.4-6.5)
Absolute Lymphs (auto) 0.8 L 10^3/uL
(1.2-3.4)
Absolute Monos (auto) 0.8 H 10^3/uL
(0.1-0.6)
Immature Gran % 1.0 H %
(0-0.5)
Neutrophils % 82.8 H %
(42.2-75.2)
Lymphocytes % 7.5 L %
(20.5-51.1)
Sodium 127 L mmol/L
(135-145)
Chloride 87 L mmol/L
(98-107)
Carbon Dioxide 33 H mmol/L
(22-30)
BUN 47 H mg/dl
(7-17)
Creatinine 1.2 H mg/dL
(0.6-1.0)
Glucose 114 H mg/dl
(70-99)
06/07/25 15:19
06/07/25 15:19
Vital Signs
Initial and Last Documented VS:
Initial Vital Signs
Temp Pulse Resp BP Pulse Ox
98.5 F 66 15 136/69 97
06/07/25 15:09 06/07/25 15:09 06/07/25 15:09 06/07/25 15:09 06/07/25 15:09
Last Documented Vital Signs
Temp Pulse Resp BP Pulse Ox
98.4 F 63 14 115/52 96
06/07/25 16:48 06/07/25 19:00 06/07/25 19:10 06/07/25 19:00 06/07/25 20:07
MDM/Problems Addressed
Differential Diagnosis Includes:
Note:
CHIEF COMPLAINT(S)
Swollen legs
HISTORY OF PRESENT ILLNESS
The patient is an 85-year-old female with a history of diastolic heart failure and lymphedema, who presents with swelling of her legs, which she reported has noticeably worsened since yesterday. She observes that the swelling is often inconsistent,
with a notable increase in the mornings. The swelling extends above the knee, predominantly affecting the right leg, and is accompanied by discomfort. The discoloration noted appears consistent with venous stasis changes. The patient denies any
shortness of breath. Previously, she utilized light compressions and participated in physical therapy which she found helpful in managing the swelling.
The patient is currently on apixaban (Eliquis), which provides a measure of protection against blood clots. Her laboratory values have shown sodium levels fluctuating, with the most recent lab indicating a decrease to 127 mEq/L from a previous 129
mEq/L. Potassium has also shown variability, measured recently at 3.4 to 3.7 mEq/L.
The patient has been advised on fluid management by her refund clerk, given her history of Syndrome of Inappropriate Antidiuretic Hormone Secretion (SIADH). She is monitored regularly with sodium checks, as ordered by her kidney doctor. She has been
experiencing muscle weakness, leading to frequent falls, noted as six times recently, contributing to her current deconditioned state.
The patient additionally reports that her current fluid intake is significantly restricted to about 60 ounces per day, though recommendations were for around 40 ounces to prevent overload. There is a concern about the actual versus recommended fluid
intake consistency.
CHRONIC MEDICAL CONDITIONS SIGNIFICANTLY AFFECTING CARE
- Diastolic Heart Failure
- Syndrome of Inappropriate Antidiuretic Hormone Secretion (SIADH)
MEDICATIONS
- Apixaban (Eliquis)
- Hydrochlorothiazide
- Fludrocortisone (half tablet daily)
- Potassium supplements
- Hydrocortisone
PHYSICAL EXAM
General: Alert, no acute distress.
Skin: Warm, dry.
Head: Normocephalic, atraumatic
Neck: Appears supple, trachea midline.
Eyes, Ears, Nose, Mouth, and Throat: Oral mucosa moist.
Cardiovascular: No signs of cyanosis
Respiratory: Respirations are non-labored.
Abdomen: Non-distended
Musculoskeletal: +3 pitting edema bilateral lower extremities with distal venous stasis. Cap refill less than 2 seconds
Neurological: No focal neurological deficit observed.
Psychiatric: Cooperative, appropriate mood and affect.
PROBLEM LIST
- Acute: Leg swelling, electrolyte imbalance (hyponatremia)
- Chronic: Diastolic heart failure, SIADH
PLAN
- Administer intravenous furosemide (Lasix) to aid diuresis.
- Monitor and supplement potassium as needed to address hypokalemia.
- Consult the nephrology team for further management of fluid intake and electrolyte imbalance.
- Monitor overnight for response to diuretic therapy and reevaluate in the morning to determine if further intervention is needed.
- Consider physical therapy to improve muscle strength and reduce the risk of falls.
DIFFERENTIAL DIAGNOSIS
The Differential Diagnosis includes, in no particular order and is not limited to:
1. Congestive Heart Failure exacerbation
2. Chronic Venous Insufficiency
3. Medication side effects (Amiodarone-related edema)
4. Nephrotic Syndrome
5. Liver Cirrhosis
6. Hypoalbuminemia
7. Renal Failure
8. Venous Thrombosis
9. Lymphedema
10. Cellulitis (unlikely due to lack of infectious signs)
SUMMARY OF ENCOUNTER
The patient, an 85-year-old female with a history of diastolic heart failure and Syndrome of Inappropriate Antidiuretic Hormone Secretion (SIADH), presented with worsening swelling of her legs and a significant decline in her ability to perform
activities of daily living. The swelling and weight gain have intensified despite ongoing outpatient therapy including a loop diuretic and water restriction. Given the downtrending sodium levels and the exacerbation of her symptoms, the decision was
made to start intravenous furosemide (Lasix) and admit the patient for further workup and diuresis.
DISPOSITION
Admit
ASSESSMENT
Acute exacerbation of lymphedema with electrolyte imbalance (hyponatremia).
EMERGENCY TREATMENTS ADMINISTERED
Intravenous furosemide (Lasix) was administered to initiate diuresis.
PLAN
Admit for continued workup and diuresis. Monitor electrolytes closely, particularly sodium and potassium, given the patients history of SIADH and recent lab trends.
MEDICAL DECISION MAKING
- Number and Complexity of Problems Addressed: Chronic conditions affecting care include diastolic heart failure and SIADH. Differential diagnosis considered includes congestive heart failure exacerbation, chronic venous insufficiency, and other
potential causes of edema such as renal failure or venous thrombosis.
- Data:
Category 1: My independent review of lab tests identified downtrending sodium levels (most recent 127 mEq/L from a previous 129 mEq/L).
Category 3: Discussion of management with nephrology was considered due to electrolyte imbalances and fluid management complexities.
-Risk: Admission was considered necessary due to worsening of symptoms and failure of outpatient management to adequately control the patients condition, alongside the need for close monitoring and adjustment of treatment in a controlled setting.
DIAGNOSIS
- Exacerbation of diastolic heart failure with lymphedema (ICD-10: I50.31)
- Hyponatremia (ICD-10: E87.1)
*Pulse Oximetry
SaO2: 96
Oxygen Mode of Delivery: Room air
Patient hypoxic: no
*Critical Care Note
Total Time (30-74mins, 75-104mins- exclusive of procedures): Not Applicable
ED Attending Note
-
Portions of this chart may have been created with voice recognition software.� Occasional wrong word or��sound alike� substitutions may have occurred due to the inherent limitations of voice recognition software.
Discharge Plan
Departure
Patient Disposition: Admit
Date of Disposition: 06/07/25
Time of Disposition: 20:03
Admit to: Med/Surg and Telemetry
Presentation/result/management discussed w/ accepting MD/DO: Hospitalist
Discharge Problem:
Lymphedema, Hyponatremia
Prescriptions:
No Action
omeprazole 40 MG capsule,delayed release(DR/EC)
40 mg PO BID
torsemide 20 mg Tablet
40 mg PO BID
polyethylene glycol 3350 [Miralax] 17 gram Powder In Packet
17 g PO DAILY
multivitamin Tablet
1 tab PO HS
sertraline 50 mg Tablet
25 mg PO HS
atorvastatin 10 mg Tablet
10 mg PO QPM
calcium carbonate-vitamin D3 [Calcium 600 + D(3)] 600 mg-10 mcg (400 unit) Tablet
1 tab PO BID
melatonin 10 mg Tablet
10 mg PO HS Qty: 0 0RF
Saccharomyces boulardii [Florastor] 250 mg Capsule
250 mg PO BID
hydrocortisone 10 mg tablet
20 mg PO DAILY
hydrocortisone 10 mg tablet
5 mg PO NOON
tramadol 50 mg Tablet
100 mg PO DAILYPRN PRN (Reason: back pain)
eszopiclone 2 mg Tablet
2 mg PO HS
Eliquis 5 mg Tablet
5 mg PO BID
ascorbic acid (vitamin C) [Vitamin C] 1,000 mg Tablet
1,000 mg PO DAILY
cetirizine [Zyrtec] 10 mg Tablet
10 mg PO HS
amiodarone 200 mg Tablet
200 mg PO HS
spironolactone 25 mg Tablet
25 mg PO DAILY
acetaminophen 650 mg Tablet Extended Release
1,300 mg PO Q6HPRN PRN (Reason: mild pain/fever)
carboxymethylcellulose sodium 1 % Drops, Liquid Gel
1 drp BOTH EYES TID
Ocutabs Tablet
1 tab PO HS
gabapentin 400 mg Tablet
400 mg PO TID@0800,1400,2200
turmeric 400 mg Capsule
2,400 mg PO BID Qty: 0
biotin 5 mg tablet
5 mg PO QPM
Slow Fe 137 mg (45 mg iron) Tablet Extended Release
137 mg PO HS Qty: 0
potassium chloride 20 mEq tablet extended release
40 meq PO BID 30 Days Qty: 60 0RF
calcium polycarbophil [FiberCon] 625 mg Tablet
625 mg PO QPM
docusate sodium [Colace] 100 mg Capsule
100 mg PO HS
fludrocortisone 0.1 mg Tablet
0.05 mg PO MOWEFR
zinc sulfate 50 mg zinc (220 mg) Capsule
50 mg PO HS
mirabegron [Myrbetriq] 25 mg Tablet Extended Release 24 Hr
25 mg PO DAILY
Referrals:
Angelo Snyder MD [Family Provider, Family Practice]
Interventions
Interventions:
*Risk Screen - Suicide Last Done: 06/07/25 15:09
*General Assessment Last Done: 06/07/25 15:09
*Neglect/Abuse Screening Last Done: 06/07/25 15:09
*ED COVID-19 Vaccine History Last Done: 06/07/25 15:09
ED- Cardiac Assessment Last Done: 06/07/25 17:31
ED- Pulmonary Assessment Last Done: 06/07/25 17:31
ED-Skin Assessment Last Done: 06/07/25 17:31
Discharge Date and Time
Print Language: NEPALESE
[2025-06-07] MEDS: LASIX 40 MG IV (20:04)
--- NOTE | 2025-06-07 20:54 | HPS.HSE ---
Family Physician
-
Family Physician: Angelo Snyder
Chief Complaint
-
swelling legs
History of Present Illness
85-year-old female past medical history of paroxysmal atrial fibrillation/atrial tachycardia/SVT on Eliquis, chronic HFpEF, hypertension, adrenal insufficiency, rheumatic fever, nephrolithiasis, degenerative disease, GERD/hiatal hernia, chronic
lymphedema, chronic constipation, anxiety/depression/insomnia, presenting with swelling of the legs has worsened since yesterday. Swelling extends above the knee predominantly affecting the right leg accompanied by discomfort. Denies any fevers or
chills.
She has been taking torsemide 40 mg twice daily. She took metolazone for the past few days that usually helps with the swelling but has not helped.
Patient denies any shortness of breath. She has been using compression socks.
She has been having decreased ambulation and falls over the past several months due to ongoing chronic lower back pain. She is scheduled to have steroid injection.
She was recently admitted from 05/07 to 05/11 for generalized weakness and hypokalemia and hyponatremia. She was treated with hypertonic saline and torsemide. She was also given Samsca with improvement in symptoms. She has been following fluid
restriction to 60 ounces per day although the recommendations previously were for 40 ounces per day.
She denies smoking or alcohol use.
Medical History
Past Medical History
Past Medical History: Reports Other (paroxysmal atrial fibrillation/atrial tachycardia/SVT on Eliquis, chronic HFpEF, hypertension, adrenal insufficiency, rheumatic fever, nephrolithiasis, degenerative disease, GERD/hiatal hernia, chronic
lymphedema, chronic constipation, anxiety/depression/insomnia,)
Past Surgical History: Reports Other (Gynecological (Tubal ligation), Orthopedic (Spinal implant, right shoulder surgery X 3 last with replacement), Tonsilectomy, Urological (Kidney stone removal) and Other (Hiatal hernia repair))
Social History
Tobacco: Non-smoker
Alcohol: None
Drug: None
Family History
Family History: Not pertinent
Allergies / Home Medications
Allergies reflects when Allergies were last updated in [facility].
Home Medications with original date entered in [facility]
Allergy/Medication List:
Allergies
Allergy/AdvReac Type Severity Reaction Status Date / Time
No Known Allergies Allergy Verified 05/07/25 04:12
Home Medications
omeprazole 40 mg capsule,delayed release 40 mg PO BID Gastrointestinal Issue 01/27/21
multivitamin 1 tab PO HS Supplement 12/28/23
polyethylene glycol 3350 17 gram oral powder packet (Miralax) 17 g PO DAILY Constipation 12/28/23
torsemide 20 mg tablet 40 mg PO BID Fluid Retention/Swelling 12/28/23
sertraline 50 mg tablet 25 mg PO HS Mental Health 12/29/23
atorvastatin 10 mg tablet 10 mg PO QPM High Cholesterol 01/09/24
calcium 600 mg (as carbonate)-vitamin D3 10 mcg (400 unit) tablet (Calcium 600 + D(3)) 1 tab PO BID Supplement 01/09/24
melatonin 10 mg tablet 10 mg PO HS Sleep #0 tabs 01/21/24
Saccharomyces boulardii 250 mg capsule (Florastor) 250 mg PO BID Supplement 08/15/24
hydrocortisone 10 mg tablet 5 mg PO NOON adrenal insuff 08/15/24
hydrocortisone 10 mg tablet 20 mg PO DAILY adrenal insuff 08/15/24
apixaban 5 mg tablet (Eliquis) 5 mg PO BID Blood Clot Prevention/Tx 10/17/24
eszopiclone 2 mg tablet 2 mg PO HS Sleep 10/17/24
tramadol 50 mg tablet 100 mg PO DAILYPRN PRN back pain 10/17/24
acetaminophen 650 mg tablet,extended release 1,300 mg PO Q6HPRN PRN mild pain/fever 05/07/25
amiodarone 200 mg tablet 200 mg PO HS Heart Disease/Condition 05/07/25
ascorbic acid (vitamin C) 1,000 mg tablet (Vitamin C) 1,000 mg PO DAILY Supplement 05/07/25
biotin 5 mg tablet 5 mg PO QPM Supplement 05/07/25
carboxymethylcellulose sodium 1 % eye liquid gel drops 1 drp BOTH EYES TID Eye Condition 05/07/25
cetirizine 10 mg tablet (Zyrtec) 10 mg PO HS Allergies 05/07/25
ferrous sulfate 137 mg (45 mg iron) tablet,extended release (Slow Fe) 137 mg PO HS Supplement ##0 05/07/25
gabapentin 400 mg tablet 400 mg PO TID@0800,1400,2200 mild Pain 05/07/25
spironolactone 25 mg tablet 25 mg PO DAILY Blood Pressure 05/07/25
turmeric 400 mg capsule 2,400 mg PO BID Supplement ##0 05/07/25
vitamin A-vitamin C-vit E-min tablet (Ocutabs tablet) 1 tab PO HS Supplement 05/07/25
potassium chloride 20 mEq tablet,extended release 40 meq (2 x 20 mEq) PO BID Supplement 1 month #60 tabs 05/11/25
calcium polycarbophil 625 mg tablet (FiberCon) 625 mg PO QPM 06/07/25
docusate sodium 100 mg capsule (Colace) 100 mg PO HS 06/07/25
fludrocortisone 0.1 mg tablet 0.05 mg PO MOWEFR 06/07/25
mirabegron 25 mg tablet,extended release 24 hr (Myrbetriq) 25 mg PO DAILY 06/07/25
zinc sulfate 50 mg zinc (220 mg) capsule 50 mg PO HS 06/07/25
Review of Systems
-
History Source: Patient
A 12 point ROS was completed and negative except as noted: Yes
Constitutional: Reports No Symptoms
EENT: Reports No Symptoms
Respiratory: Reports No Symptoms
Cardiac: Reports No Symptoms
Abdomen/GI: Reports No Symptoms
: Reports No Symptoms
Musculoskeletal: Reports No Symptoms
Skin: Reports No Symptoms
Neurological: Reports No Symptoms
Endocrine: Reports No Symptoms
Hematologic/Lymphatic: Reports No Symptoms
Psych: Reports No Symptoms
Physical Exam
Vital Signs
Vital Signs
Temp Pulse Resp BP Pulse Ox
98.4 F 63 14 115/52 96
06/07/25 16:48 06/07/25 19:00 06/07/25 19:10 06/07/25 19:00 06/07/25 20:07
Physical Exam
General: Well Developed, Well Nourished and No Apparent Distress
HEENT: NormoCephalic, Moist mucous membranes and Atraumatic
Respiratory: Clear
Cardiac: S1/S2, Regular Rhythm and Peripheral Edema; No Murmur or Rub
GI: Soft, Non Tender, Non Distended and Normal Bowel Sounds; No Organomegaly
Rectal: Deferred by Provider
Musculoskeletal: No Clubbing, No Cyanosis and No Edema
Skin: No Rash
Neuro: Nonfocal/grossly intact
Laboratory Results
-
06/07/25 15:19
06/07/25 15:19
Laboratory Results
Total Bilirubin 0.5 mg/dl (0.2-1.3) 06/07/25 15:19
AST 29 U/L (14-36) 06/07/25 15:19
ALT 34 U/L (0-35) 06/07/25 15:19
Alkaline Phosphatase 67 U/L (38-126) 06/07/25 15:19
Data Reviewed
-
Lab Data: Labs Reviewed by me
Old Records: Reviewed
Impression/Plan
-
IMPRESSION:
PLAN:
# Worsening of chronic lymphedema
# Bilateral venous insufficiency
-Redness seems to be secondary to bilateral venous insufficiency rather than cellulitis, and already on Eliquis so DVT unlikely
- Given 40 IV Lasix given in addition to 40 mg torsemide twice daily normally which she takes
-Also took metolazone past few days
- Compression socks
- Monitor response to extra dose of Lasix, no other options to treat this apart from increasing torsemide, but difficult situation as patient now developing LEILA, so this would not be recommended. This is likely her new baseline of edema
- Needs to continue following up with lymphedema clinic
# Slight worsening of chronic hyponatremia secondary to noncompliance with fluid restriction/SIADH/spironolactone
-Not having any symptoms of hyponatremia
- Sodium 127 from 130 on 05/11
- Given 40 IV Lasix but already on torsemide 40 mg twice daily
-Maintain torsemide 40 mg twice daily
- Start fluid restriction 40 ounces
-Continue hydrocortisone for adrenal insufficiency
# Acute kidney injury secondary to high doses of diuretics
- Creatinine of 1.2 from 0.7
- Continue spironolactone
Paroxysmal atrial fibrillation/atrial tachycardia/SVT
- Continue amiodarone
- Continue Eliquis
Chronic HFpEF
Essential hypertension
- Continue spironolactone
History of adrenal insufficiency
- Continue fludrocortisone
- Continue hydrocortisone
History of rheumatic fever
Nephrolithiasis
Degenerative disc disease
- Continue tramadol
GERD/hiatal hernia
- Continue omeprazole
Chronic constipation
- Continue MiraLAX
Anxiety/depression/insomnia
- Continue sertraline
- continue as eszopiclone
Full code
DVT prophylaxis�Eliquis
Cardiac diet
[2025-06-07] MEDS: COLACE PO (22:21)
[2025-06-07] MEDS: FEOSOL PO (22:37)
[2025-06-07] MEDS: MELATONIN 10 MG PO (22:40)
[2025-06-07] MEDS: THERAGRAN 1 TABLET PO (22:40)
[2025-06-07] MEDS: OCUVITE SOFTGEL 1 CAP PO (22:40)
[2025-06-07] MEDS: ZOLOFT 25 MG PO (22:41)
[2025-06-07] MEDS: PACERONE 200 MG PO (22:41)
[2025-06-07] MEDS: ZYRTEC 5 MG PO (22:41)
[2025-06-07] MEDS: ZINC 50 MG PO (22:41)
[2025-06-07] MEDS: REFRESH CELLUVISC GEL 1 DROPS BOTH EYES (22:41)
[2025-06-07] MEDS: AMBIEN 10 MG PO (22:41)
[2025-06-07] MEDS: NEURONTIN 400 MG PO (22:45)
--- NOTE | 2025-06-07 23:02 | PTCARENOTE ---
Patient received from the ED via stretcher. AAOx3, VSS. Patient complains of soreness to the B/L LE. Has chronic lymphedema. Pulled over onto bed by staff. Patient says she can ambulate with a walker at baseline. Oriented to the room. Call marcano is
within reach.
[2025-06-08 06:00] VITALS: BMI 28.5
[2025-06-08 07:00] VITALS: BP 123/51
[2025-06-08 07:26] LABS: Hematocrit 32.2 % (37.0-47.0); Hemoglobin 11.2 g/dL (12.0-16.0); Mean Corp Hgb Conc. 34.8 g/dL (33.0-37.0); Mean Corpuscular Volume 101.3 fL (81.0-99.0); Nucleated Red Blood Cells % 0 %; Platelet Count 310 10^3/uL (130-400); Red Cell Dist. Width 13.9 % (11.5-14.5)
[2025-06-08 08:35] LABS: ALT (SGPT) 31 U/L (0-35); AST (SGOT) 25 U/L (14-36); Albumin 3.8 g/dl (3.5-5.0); Alkaline Phosphatase 63 U/L (38-126); Blood Urea Nitrogen 39 mg/dl (7-17); Calcium 9.3 mg/dl (8.4-10.2); Carbon Dioxide 36 mmol/L (22-30); Chloride 88 mmol/L (98-107); Estimated Creatinine Clearance 40 ml/min; Glucose 87 mg/dl (70-99); Potassium 3.0 mmol/L (3.5-5.1); Sodium 130 mmol/L (135-145); Total Protein 5.7 g/dl (6.3-8.2); eGFR 55.90
[2025-06-08] MEDS: MIRALAX 17 GRAMS PO (09:07)
[2025-06-08] MEDS: HYDROCORTONE/CORTEF 20 MG PO (09:08)
[2025-06-08] MEDS: PROTONIX 40 MG PO ×2 (09:08→20:57)
[2025-06-08] MEDS: KCL 40 MEQ PO ×2 (09:09→20:54)
[2025-06-08] MEDS: ELIQUIS 5 MG PO ×2 (09:09→20:54)
[2025-06-08] MEDS: REFRESH CELLUVISC GEL 1 DROPS BOTH EYES ×3 (09:09→21:07)
[2025-06-08] MEDS: MYRBETRIQ EXTENDED RELEASE 25 MG PO (09:09)
[2025-06-08] MEDS: DEMADEX 40 MG PO (09:09)
[2025-06-08] MEDS: OSCAL 500 + D 500 MG PO ×2 (09:09→20:54)
[2025-06-08] MEDS: ALDACTONE 25 MG PO (09:09)
[2025-06-08] MEDS: FLORASTOR 250 MG PO ×2 (09:09→23:28)
[2025-06-08] MEDS: VITAMIN C 1000 MG PO (09:09)
[2025-06-08] MEDS: FLORINEF 0.05 MG PO (09:17)
[2025-06-08] MEDS: NEURONTIN 400 MG PO ×3 (09:18→23:29)
--- NOTE | 2025-06-08 09:44 | CM ---
Patient seen bedside with physician, spouse and family member on . Patient states that she lives with her in a one story home with 6 steps. Patient uses walker, and has wheelchair, shower chair and raised toilet seat with rails.
Patient was just started with new prescription and was to start with [facility]. Patient PCP is Dr. Snyder and she uses the [facility] in [place]. Patient plan is home with [facility]. CM will continue to follow for discharge planning needs.
Plan: Home w/ [facility]
--- NOTE | 2025-06-08 09:56 | W.PN.HOSP.TC ---
Today's Communication/Plan
-
bilateral venous US
change to IV diuretics
consult renal
follow and replete K
PT/OT
kymberly wraps if US neg
Assessment / Plan
Assessment / Plan
pt is an 85 year old female
Worsening of chronic lymphedema due to Bilateral venous insufficiency--with ? superimposed cellulitis (red, warm bilateral LE)--would cont IV diuresis--check US r/o DVT and if neg, then add compression--start ancef for now--hold torsemide and cont
IV lasix-Also took metolazone past few days- Needs to continue following up with lymphedema clinic
Slight worsening of chronic hyponatremia secondary to noncompliance with fluid restriction/SIADH/spironolactone--also has adrenal insufficiency--would cont hydrocortisone but consider increasing florinef to DAILY and hydrocortisone to 10 mg in
PM--fluid restrict--diuresis
Acute kidney injury secondary to high doses of diuretics--follow and consult renal- Creatinine of 1.2 from 0.7--today 1.0- Continue spironolactone--hold torsemide and cont IV lasix
Paroxysmal atrial fibrillation/atrial tachycardia/SVT- Continue amiodarone- Continue Eliquis
Chronic HFpEF--without exacerbation--diuretics as above
Essential hypertension- Continue spironolactone
History of adrenal insufficiency- Continue fludrocortisone- Continue hydrocortisone
History of rheumatic fever
Nephrolithiasis
Degenerative disc disease- Continue tramadol
GERD/hiatal hernia- Continue omeprazole
Chronic constipation- Continue MiraLAX
Anxiety/depression/insomnia- Continue sertraline (not helping chronic hyponatremia)- continue as eszopiclone
code status--Full code
DVT prophylaxis�Eliquis
Anticipated Discharge: 24 - 48 hours
Subjective/Interval History
-
Date of Service: June 08, 2025
pt c/o swollen bilateral LE
Objective Data
-
Labs:
Laboratory Results
06/08/25
06:36
WBC 9.2
Hgb 11.2 L
Hct 32.2 L
Plt Count 310
Sodium 130 L
Potassium 3.0 L
Chloride 88 L
Carbon Dioxide 36 H
BUN 39 H
Creatinine 1.0
Glucose 87
Calcium 9.3
Total Bilirubin 0.5
AST 25
ALT 31
Alkaline Phosphatase 63
Vital Signs:
max temp for 24 hours
06/07/25
15:09
Temp 98.5 F
Vital Signs
Temp Pulse Resp BP Pulse Ox
97.9 F 55 16 123/51 95
06/08/25 07:00 06/08/25 09:09 06/08/25 07:00 06/08/25 09:09 06/08/25 07:00
Review of Systems
-
All other systems: Reviewed and negative
Musculoskeletal: Reports Edema
Skin: Reports Other (red warm from umaña to ankles bilaterally with petechiae on knees bilaterally and purple area right lower umaña above ankle)
Physical Exam
-
General: Well Developed, Well Nourished and No Apparent Distress
HEENT: Normocephalic and Atraumatic
Respiratory: Clear to Auscultation; Negative Wheezes or Rhonchi
Cardiac: Irregular Rhythm
GI: Soft, Nontender, Nondistended and Normal Bowel Sounds
Musculoskeletal: Edema, Right Lower Extrem, Edema, Left Lower Extrem and Other
Skin: Other (red warm from umaña to ankles bilaterally with petechiae on knees bilaterally and purple area right lower umaña above ankle)
Neuro: Awake and Alert
Psych: Calm
[2025-06-08] MEDS: ANCEF 5 IV ×2 (11:32→17:24)
[2025-06-08] MEDS: CORTEF PO (13:02)
[2025-06-08 15:00] VITALS: BP 125/56
[2025-06-08 15:01] VITALS: BP 128/54; PULSE 67; O2SAT 97
[2025-06-08] MEDS: LASIX 40 MG IV (15:04)
[2025-06-08] MEDS: TYLENOL 650 MG PO (15:18)
--- NOTE | 2025-06-08 15:52 | W.CON.NEPH ---
Consultation
-
Date/Time Consultation Requested: 06/08/25 1011
Date/Time Consultation Performed: 06/08/25 1640
Requesting Provider: Snow Herrera
Performing Provider: Theresa Motta
Reason for Consultation: LEILA
Medical History
-
Chief Complaint: Leg swelling
History of Present Illness:
This is an 85-year-old female who has atrial fibrillation status post ablation on amiodarone therapy as well as Eliquis anticoagulation cardiology at [facility]. She also has chronic lymphedema as well as heart failure with preserved ejection
fraction on diuretic therapy, adrenal insufficiency on hydrocortisone and florinef. rheumatic fever, nephrolithiasis, degenerative disease, GERD/hiatal hernia, chronic lymphedema, chronic constipation, anxiety/depression/insomnia, presenting with
swelling of the legs has worsened since 1day. Swelling extends above the knee predominantly affecting the right leg accompanied by discomfort. Denies any fevers or chills.
She has been taking torsemide 40 mg twice daily. She took metolazone for the past 2 days as recommended by her cardiology at [facility] but di dnot see improvement hence she came back to the hospital. Patient denies any shortness of breath at rest.
She has been using compression socks.
She has been having decreased ambulation and falls over the past several months due to ongoing chronic lower back pain. She is scheduled to have steroid injection.
She was recently admitted from 05/07 to 05/11 for generalized weakness and hypokalemia and hyponatremia. She was treated with hypertonic saline and torsemide. She was also given Samsca with improvement in symptoms. She has been following fluid
restriction to 60 ounces per day although the recommendations previously were for 40 ounces per day.
On admit cr 1.2, baseline 0.7. sodium 127, BUN 47, bicarb 33. Today cr down to 1, bicarb 36, bun 39, na 130, k low at 3. Nephrology consulted for LEILA and need of diuresis.
Past Medical History
Paroxysmal A-Fib / Atrial Tachycardia / SVT
Hypertension
Adrenal Insufficiency
Rheumatic Fever
Nephrolithiasis
DDD / Chronic Back Pain
GERD / Hiatal Hernia
Chronic HFpEF
Chronic Lymphedema
Chronic Constipation
Anxiety / Depression / Insomnia
Right Reverse Shoulder Arthroplasty (05/18/24)
Hiatal Hernia Repair
Lithotripsy
Appendectomy
Tubal Ligation
Spinal Cord Stimulator (Replaced / Removed)
Past Surgical History: Other (Gynecological (Tubal ligation), Orthopedic (Spinal implant, right shoulder surgery X 3 last with replacement), Tonsilectomy, Kidney stone removal) and Hiatal hernia repair)
Social History
Tobacco: Non-Smoker
Alcohol: None
Personal:
Living: With Family
Family History
Family History: Not Pertinent
Allergies / Home Medications
Allergy/AdvReac Type Severity Reaction Status Date / Time
No Known Allergies Allergy Verified 05/07/25 04:12
�Medication �Instructions �Recorded �Confirmed �Type
omeprazole 40 mg capsule,delayed 40 mg PO BID Gastrointestinal Issue 01/27/21 06/07/25 History
release
multivitamin 1 tab PO HS Supplement 12/28/23 06/07/25 History
polyethylene glycol 3350 17 gram 17 g PO DAILY Constipation 12/28/23 06/07/25 History
oral powder packet (Miralax)
torsemide 20 mg tablet 40 mg PO BID Fluid 12/28/23 06/07/25 History
Retention/Swelling
sertraline 50 mg tablet 25 mg PO HS Mental Health 12/29/23 06/07/25 History
atorvastatin 10 mg tablet 10 mg PO QPM High Cholesterol 01/09/24 06/07/25 History
calcium 600 mg (as 1 tab PO BID Supplement 01/09/24 06/07/25 History
carbonate)-vitamin D3 10 mcg (400
unit) tablet (Calcium 600 + D(3))
melatonin 10 mg tablet 10 mg PO HS Sleep #0 tabs 01/21/24 06/07/25 Rx
Saccharomyces boulardii 250 mg 250 mg PO BID Supplement 08/15/24 06/07/25 History
capsule (Florastor)
hydrocortisone 10 mg tablet 5 mg PO NOON adrenal insuff 08/15/24 06/07/25 History
hydrocortisone 10 mg tablet 20 mg PO DAILY adrenal insuff 08/15/24 06/07/25 History
apixaban 5 mg tablet (Eliquis) 5 mg PO BID Blood Clot 10/17/24 06/07/25 History
Prevention/Tx
eszopiclone 2 mg tablet 2 mg PO HS Sleep 10/17/24 06/07/25 History
tramadol 50 mg tablet 100 mg PO DAILYPRN PRN back pain 10/17/24 06/07/25 History
acetaminophen 650 mg 1,300 mg PO Q6HPRN PRN mild 05/07/25 06/07/25 History
tablet,extended release pain/fever
amiodarone 200 mg tablet 200 mg PO HS Heart 05/07/25 06/07/25 History
Disease/Condition
ascorbic acid (vitamin C) 1,000 mg 1,000 mg PO DAILY Supplement 05/07/25 06/07/25 History
tablet (Vitamin C)
biotin 5 mg tablet 5 mg PO QPM Supplement 05/07/25 06/07/25 History
carboxymethylcellulose sodium 1 % 1 drp BOTH EYES TID Eye Condition 05/07/25 06/07/25 History
eye liquid gel drops
cetirizine 10 mg tablet (Zyrtec) 10 mg PO HS Allergies 05/07/25 06/07/25 History
ferrous sulfate 137 mg (45 mg 137 mg PO HS Supplement ##0 05/07/25 06/07/25 History
iron) tablet,extended release
(Slow Fe)
gabapentin 400 mg tablet 400 mg PO TID@0800,1400,2200 mild 05/07/25 06/07/25 History
Pain
spironolactone 25 mg tablet 25 mg PO DAILY Blood Pressure 05/07/25 06/07/25 History
turmeric 400 mg capsule 2,400 mg PO BID Supplement ##0 05/07/25 06/07/25 History
vitamin A-vitamin C-vit E-min 1 tab PO HS Supplement 05/07/25 06/07/25 History
tablet (Ocutabs tablet)
potassium chloride 20 mEq 40 meq (2 x 20 mEq) PO BID 05/11/25 06/07/25 Rx
tablet,extended release Supplement 1 month #60 tabs
calcium polycarbophil 625 mg 625 mg PO QPM 06/07/25 06/07/25 History
tablet (FiberCon)
docusate sodium 100 mg capsule 100 mg PO HS 06/07/25 06/07/25 History
(Colace)
fludrocortisone 0.1 mg tablet 0.05 mg PO MOWEFR 06/07/25 06/07/25 History
mirabegron 25 mg tablet,extended 25 mg PO DAILY 06/07/25 06/07/25 History
release 24 hr (Myrbetriq)
zinc sulfate 50 mg zinc (220 mg) 50 mg PO HS 06/07/25 06/07/25 History
capsule
Review of Systems
-
All other systems: Negative unless noted
Physical Exam
Vital Signs
Vital Signs
Temp Pulse Resp BP Pulse Ox
97.9 F 55 16 123/51 95
06/08/25 07:00 06/08/25 15:04 06/08/25 07:00 06/08/25 15:04 06/08/25 09:10
Lab Results
WBC 9.2 10^3/uL (4.8-10.8) 06/08/25 06:36
RBC 3.18 10^6/uL (4.20-5.40) L 06/08/25 06:36
Hgb 11.2 g/dL (12.0-16.0) L 06/08/25 06:36
Hct 32.2 % (37.0-47.0) L 06/08/25 06:36
Plt Count 310 10^3/uL (130-400) 06/08/25 06:36
Sodium 130 mmol/L (135-145) L 06/08/25 06:36
Potassium 3.0 mmol/L (3.5-5.1) L 06/08/25 06:36
Chloride 88 mmol/L (98-107) L 06/08/25 06:36
Carbon Dioxide 36 mmol/L (22-30) H 06/08/25 06:36
BUN 39 mg/dl (7-17) H 06/08/25 06:36
Creatinine 1.0 mg/dL (0.6-1.0) 06/08/25 06:36
eGFR 55.90 06/08/25 06:36
Glucose 87 mg/dl (70-99) 06/08/25 06:36
Calcium 9.3 mg/dl (8.4-10.2) 06/08/25 06:36
Tdc-E-Saxhthzkalc Pept 475 pg/ml 06/07/25 15:19
Albumin 3.8 g/dl (3.5-5.0) 06/08/25 06:36
Physical Exam
General: Awake, Alert, Oriented, AOx3 and No Distress
HEENT: Anicteric, Conjunctivae Clear and Facial Symmetry
Respiratory: Crackels, Normal Excursion and Nonlabored Respirations
Cardiac: S1/S2 and Regular Rate/Rhythm
Breast: Deferred by me
Abdomen: Soft, Nontender and Nondistended
Musculoskeletal: Edema (2+)
Skin: No Rash and Other (bilat leg in MAIRA wraps)
Neuro: Nonfocal/Grossly Intact
Psych: Mood/afflect pleasant, Insight/judgement good and Appropriate
Assessment/Plan
-
Assessment:
Worsening of chronic lymphedema
Bilateral venous insufficiency
Hyponatremia acute on chronic
Acute kidney injury-mild
Paroxysmal atrial fibrillation/atrial tachycardia/SVT
Chronic HFpEF
Essential hypertension
History of adrenal insufficiency- fludrocortisone, hydrocortisone
History of rheumatic fever
Nephrolithiasis
Degenerative disc disease
GERD/hiatal hernia
Chronic constipation
Anxiety/depression/insomnia
Plan:
A/w worsening lymphedema
mild LEILA-possible from metolazone related,cr improving today
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
sodium improving ,need to follow FR 48 ounces/day
note she is on Zoloft too-if sodium hard to maintain likely need to reval this
hypokalemia-replace, cotn spironolactone, follow closely while on IV lasix
monitor met alkalosis , may consider diamox
Patient has adrenal insufficiency but patient has been hemodynamically stable current hydrocortisone, florinef administration
follow labs
d/w pt
[2025-06-08] MEDS: LIPITOR 10 MG PO (17:24)
[2025-06-08] MEDS: ZINC 50 MG PO (21:06)
[2025-06-08] MEDS: ZYRTEC 5 MG PO (21:06)
[2025-06-08] MEDS: ZOLOFT 25 MG PO (21:06)
[2025-06-08] MEDS: OCUVITE SOFTGEL 1 CAP PO (21:06)
[2025-06-08] MEDS: THERAGRAN 1 TABLET PO (21:07)
[2025-06-08] MEDS: FEOSOL 325 MG PO (21:07)
[2025-06-08] MEDS: COLACE 100 MG PO (21:07)
[2025-06-08] MEDS: PACERONE 200 MG PO (23:28)
[2025-06-08] MEDS: AMBIEN 10 MG PO (23:28)
[2025-06-08 23:33] VITALS: BP 118/51
[2025-06-08] MEDS: MELATONIN PO (23:45)
[2025-06-09] MEDS: ANCEF 5 IV ×3 (01:32→17:16)
[2025-06-09 05:57] VITALS: BMI 27.7
[2025-06-09 07:00] VITALS: BP 118/44
[2025-06-09 08:12] LABS: Hematocrit 34.2 % (37.0-47.0); Hemoglobin 11.3 g/dL (12.0-16.0); Mean Corp Hgb Conc. 33.0 g/dL (33.0-37.0); Mean Corpuscular Volume 102.1 fL (81.0-99.0); Platelet Count 328 10^3/uL (130-400); Red Cell Dist. Width 14.1 % (11.5-14.5)
[2025-06-09] MEDS: OSCAL 500 + D 500 MG PO ×2 (08:29→21:00)
[2025-06-09] MEDS: VITAMIN C 1000 MG PO (08:29)
[2025-06-09] MEDS: PROTONIX 40 MG PO ×2 (08:30→21:00)
[2025-06-09] MEDS: FLORASTOR 250 MG PO ×2 (08:30→21:01)
[2025-06-09] MEDS: ELIQUIS 5 MG PO ×2 (08:30→20:59)
[2025-06-09] MEDS: HYDROCORTONE/CORTEF 20 MG PO (08:30)
[2025-06-09] MEDS: REFRESH CELLUVISC GEL 1 DROPS BOTH EYES ×3 (08:30→21:05)
[2025-06-09] MEDS: MYRBETRIQ EXTENDED RELEASE 25 MG PO (08:30)
[2025-06-09] MEDS: MIRALAX 17 GRAMS PO (08:30)
[2025-06-09] MEDS: ALDACTONE 25 MG PO (08:30)
[2025-06-09] MEDS: KCL 40 MEQ PO ×3 (08:30→21:00)
[2025-06-09] MEDS: LASIX IV ×2 (08:31→09:37)
[2025-06-09] MEDS: ULTRAM 100 MG PO (08:33)
[2025-06-09] MEDS: NEURONTIN 400 MG PO ×3 (08:33→23:11)
[2025-06-09 08:44] LABS: ALT (SGPT) 29 U/L (0-35); AST (SGOT) 25 U/L (14-36); Albumin 3.8 g/dl (3.5-5.0); Alkaline Phosphatase 67 U/L (38-126); Blood Urea Nitrogen 35 mg/dl (7-17); Calcium 9.6 mg/dl (8.4-10.2); Carbon Dioxide 39 mmol/L (22-30); Chloride 89 mmol/L (98-107); Estimated Creatinine Clearance 44 ml/min; Glucose 96 mg/dl (70-99); Magnesium 2.1 mg/dl (1.6-2.3); Potassium 3.2 mmol/L (3.5-5.1); Sodium 133 mmol/L (135-145); Total Protein 5.8 g/dl (6.3-8.2); eGFR > 60.00
[2025-06-09 09:52] VITALS: BP 127/58
--- NOTE | 2025-06-09 11:43 | CM ---
Patient seen at bedside with physician and patient , son in law also present on . Patient plan is for discharge home when medically appropriate possibly tomorrow. Patient was starting with [facility] and CM will update Liaison about plan of
care. CM will continue to follow for discharge planning needs.
Plan; home with [facility]
--- NOTE | 2025-06-09 11:44 | W.PN.HOSP.TC ---
Today's Communication/Plan
-
holding diuresis
replete
hopeful d/c tomorrow
Assessment / Plan
Assessment / Plan
pt is an 85 year old female
Worsening of chronic lymphedema due to Bilateral venous insufficiency--with ? superimposed cellulitis (red, warm bilateral LE)-- IV diuresis now on hold with developing metabolic alkalosis--apprec renal--US neg for DVT, add compression--start ancef
for now--holding torsemide and IV lasix-Also took metolazone past few days- Needs to continue following up with lymphedema clinic
Slight worsening of chronic hyponatremia secondary to noncompliance with fluid restriction/SIADH/spironolactone--also has adrenal insufficiency--would cont hydrocortisone but consider increasing florinef to DAILY and hydrocortisone to 10 mg in
PM--fluid restrict
hypokalemia--replete
Acute kidney injury secondary to high doses of diuretics--follow and consult renal- Creatinine of 1.2 from 0.7--today 1.0- Continue spironolactone--hold torsemide and IV lasix
Paroxysmal atrial fibrillation/atrial tachycardia/SVT- Continue amiodarone- Continue Eliquis
Chronic HFpEF--without exacerbation--diuretics as above
Essential hypertension- Continue spironolactone
History of adrenal insufficiency- Continue fludrocortisone- Continue hydrocortisone
History of rheumatic fever
Nephrolithiasis
Degenerative disc disease- Continue tramadol
GERD/hiatal hernia- Continue omeprazole
Chronic constipation- Continue MiraLAX
Anxiety/depression/insomnia- Continue sertraline (not helping chronic hyponatremia)- continue as eszopiclone
code status--Full code
DVT prophylaxis�Eliquis
Anticipated Discharge: Within 24 hours
Subjective/Interval History
-
Date of Service: June 09, 2025
pt without c/o--legs down nicely
Objective Data
-
Labs:
Laboratory Results
06/09/25 06/09/25
06:44 06:45
WBC 9.5
Hgb 11.3 L
Hct 34.2 L
Plt Count 328
Sodium 133 L
Potassium 3.2 L
Chloride 89 L
Carbon Dioxide 39 H
BUN 35 H
Creatinine 0.9
Glucose 96
Calcium 9.6
Total Bilirubin 0.4
AST 25
ALT 29
Alkaline Phosphatase 67
Vital Signs:
max temp for 24 hours
06/07/25
16:47 06/08/25
07:00 06/09/25
05:57
Temp 97.9 F
Actual Weight 75.9 kg 69.655 kg
Vital Signs
Temp Pulse Resp BP Pulse Ox
97.5 F 64 12 127/58 97
06/09/25 07:00 06/09/25 07:00 06/09/25 07:00 06/09/25 09:52 06/09/25 07:00
I&O
06/08/25 06/09/25 06/10/25
06:59 06:59 06:59
Intake Total 860 / 860
Output Total 2049
Balance -1190 / -1190
Review of Systems
-
All other systems: Reviewed and negative
Physical Exam
-
General: Well Developed, Well Nourished and No Apparent Distress
HEENT: Normocephalic and Atraumatic
Respiratory: Clear to Auscultation; Negative Wheezes or Rhonchi
Cardiac: Regular Rhythm and S1/S2; Negative Murmur
GI: Soft, Nontender, Nondistended and Normal Bowel Sounds
Musculoskeletal: No Clubbing, No Cyanosis and No Edema
Skin: Other (redness improving--right LE now with deep purple spot above ankle)
Neuro: Awake
Psych: Calm
[2025-06-09] MEDS: CORTEF 5 MG PO (12:35)
--- NOTE | 2025-06-09 13:08 | VNURNOTE ---
Home Health Liaison met with patient and daughter at bedside to discuss [facility] nurse/therapy, visits, schedule and homebound status. Patient is agreeable and understands that visits at home will be 2-3 x per week to assess and teach medical
management. Patient is familiar with [facility], has had us in the past. She is aware that [facility] will contact them for start of care in 1-2 days after discharge from .
[facility] referral completed in [facility].
[2025-06-09 15:00] VITALS: BP 130/56
--- NOTE | 2025-06-09 16:19 | W.PN.NEPH.PH ---
Today's Communication / Plan
-
holding lasix
diamox for met alkalosis
replace k
Assessment/Plan
-
Assessment:
Worsening of chronic lymphedema
Bilateral venous insufficiency
Hyponatremia acute on chronic
Acute kidney injury-mild
Paroxysmal atrial fibrillation/atrial tachycardia/SVT
Chronic HFpEF
Essential hypertension
History of adrenal insufficiency- fludrocortisone, hydrocortisone
History of rheumatic fever
Nephrolithiasis
Degenerative disc disease
GERD/hiatal hernia
Chronic constipation
Anxiety/depression/insomnia
Plan:
A/w worsening lymphedema
mild LEILA-possible from metolazone related,cr stable
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
sodium improving ,need to follow FR 48 ounces/day
pt and report that she has dry mouth which is driving her to drink more-reviewed to replace with ice
note she is on Zoloft too-if sodium hard to maintain likely need to reval this
hypokalemia-replace, cotn spironolactone
worsenign met alkalosis-holding lasix, will give diamox course
resume Torsemide tomorrow
Patient has adrenal insufficiency but patient has been hemodynamically stable current hydrocortisone, florinef administration
follow labs
d/w pt
-
-
Date of Service: June 09, 2025
CC / HPI / ROS
-
Chief Complaint:
hypokalemia
History of Present Illness:
K low 3.2, cr stable 0.9, bicarb up at 39
Na up at 133
Bp stable
Review of Systems:
no reported CP/SOB
non oliguric
edema improving
Labs
-
Labs:
WBC 9.5 10^3/uL (4.8-10.8) 09/11/25 06:45
RBC 3.35 10^6/uL (4.20-5.40) L 06/09/25 06:45
Hgb 11.3 g/dL (12.0-16.0) L 06/09/25 06:45
Hct 34.2 % (37.0-47.0) L 06/09/25 06:45
Plt Count 328 10^3/uL (130-400) 06/09/25 06:45
Sodium 133 mmol/L (135-145) L 06/09/25 06:44
Potassium 3.2 mmol/L (3.5-5.1) L 06/09/25 06:44
Chloride 89 mmol/L (98-107) L 06/09/25 06:44
Carbon Dioxide 39 mmol/L (22-30) H 06/09/25 06:44
BUN 35 mg/dl (7-17) H 06/09/25 06:44
Creatinine 0.9 mg/dL (0.6-1.0) 06/09/25 06:44
eGFR > 60.00 06/09/25 06:44
Glucose 96 mg/dl (70-99) 06/09/25 06:44
Calcium 9.6 mg/dl (8.4-10.2) 06/09/25 06:44
Itf-B-Hsdbtkyeggd Pept 475 pg/ml 06/07/25 15:19
Albumin 3.8 g/dl (3.5-5.0) 06/09/25 06:44
Physical Exam
-
Vital Signs:
Vital Signs
Temp Pulse Resp BP Pulse Ox
97.5 F 63 20 130/56 97
06/09/25 15:00 06/09/25 15:00 06/09/25 15:00 06/09/25 15:00 06/09/25 15:00
Cardiovascular:: Regular rate and rhythm
Respiratory:: Bilateral: CTA
Lung Excursion:: Normal
Abdomen:: Nontender and Soft
Bowel Sounds:: Normal
Extremity Edema:: +1: Bilateral:
Steinberg Catheter: No
[2025-06-09] MEDS: LIPITOR 10 MG PO (17:16)
[2025-06-09] MEDS: DIAMOX 125 MG PO (20:55)
[2025-06-09] MEDS: ZOLOFT 25 MG PO (21:05)
[2025-06-09] MEDS: ZYRTEC 5 MG PO (21:05)
[2025-06-09] MEDS: OCUVITE SOFTGEL 1 CAP PO (21:05)
[2025-06-09] MEDS: THERAGRAN 1 TABLET PO (21:05)
[2025-06-09] MEDS: FEOSOL 325 MG PO (21:05)
[2025-06-09] MEDS: COLACE 100 MG PO (21:05)
[2025-06-09] MEDS: ZINC 50 MG PO (21:05)
[2025-06-09] MEDS: PACERONE 200 MG PO (21:06)
[2025-06-09] MEDS: AMBIEN 10 MG PO (23:11)
[2025-06-09] MEDS: MELATONIN PO (23:28)
[2025-06-09 23:50] VITALS: BP 138/61
[2025-06-10] MEDS: ANCEF 5 IV ×2 (01:37→10:36)
[2025-06-10] MEDS: FLUSH (NSS) 1 FLUSH IV (01:38)
[2025-06-10 06:00] VITALS: BMI 28.0
[2025-06-10] MEDS: KCL 40 MEQ PO (08:27)
[2025-06-10] MEDS: OSCAL 500 + D 500 MG PO (08:27)
[2025-06-10] MEDS: DIAMOX 125 MG PO (08:27)
[2025-06-10] MEDS: VITAMIN C 1000 MG PO (08:27)
[2025-06-10] MEDS: ELIQUIS 5 MG PO (08:27)
[2025-06-10] MEDS: FLORASTOR 250 MG PO (08:27)
[2025-06-10] MEDS: MYRBETRIQ EXTENDED RELEASE 25 MG PO (08:27)
[2025-06-10] MEDS: REFRESH CELLUVISC GEL 1 DROPS BOTH EYES ×2 (08:27→15:47)
[2025-06-10] MEDS: ALDACTONE 25 MG PO (08:27)
[2025-06-10] MEDS: HYDROCORTONE/CORTEF 20 MG PO (08:27)
[2025-06-10] MEDS: PROTONIX 40 MG PO (08:27)
[2025-06-10 08:29] VITALS: BP 99/55
[2025-06-10 08:30] VITALS: BP 120/50
[2025-06-10] MEDS: FLORINEF 0.05 MG PO (08:32)
[2025-06-10] MEDS: NEURONTIN 400 MG PO ×2 (08:32→13:41)
[2025-06-10] MEDS: DEMADEX 40 MG PO ×2 (08:32→15:47)
[2025-06-10] MEDS: ULTRAM 100 MG PO (08:35)
[2025-06-10] MEDS: MIRALAX PO (08:44)
[2025-06-10 08:51] LABS: Hematocrit 32.2 % (37.0-47.0); Hemoglobin 11.1 g/dL (12.0-16.0); Mean Corp Hgb Conc. 34.5 g/dL (33.0-37.0); Mean Corpuscular Volume 102.5 fL (81.0-99.0); Platelet Count 265 10^3/uL (130-400); Red Cell Dist. Width 14.1 % (11.5-14.5)
[2025-06-10 09:24] LABS: Blood Urea Nitrogen 23 mg/dl (7-17); Calcium 9.7 mg/dl (8.4-10.2); Carbon Dioxide 29 mmol/L (22-30); Chloride 98 mmol/L (98-107); Estimated Creatinine Clearance 57 ml/min; Glucose 81 mg/dl (70-99); Magnesium 2.3 mg/dl (1.6-2.3); Potassium 3.9 mmol/L (3.5-5.1); Sodium 133 mmol/L (135-145); eGFR > 60.00
[2025-06-10] MEDS: CORTEF 5 MG PO (12:17)
--- NOTE | 2025-06-10 12:24 | W.PN.NEPH.PH ---
Today's Communication / Plan
-
follow BMP
Assessment/Plan
-
Assessment:
Worsening of chronic lymphedema
Bilateral venous insufficiency
Hyponatremia acute on chronic
Acute kidney injury-mild
Paroxysmal atrial fibrillation/atrial tachycardia/SVT
Chronic HFpEF
Essential hypertension
History of adrenal insufficiency- fludrocortisone, hydrocortisone
History of rheumatic fever
Nephrolithiasis
Degenerative disc disease
GERD/hiatal hernia
Chronic constipation
Anxiety/depression/insomnia
Plan:
on diamox course
no diamox on dc needed
dc planning
follow BMP
d/w daughter FR needs
-
-
Date of Service: June 10, 2025
CC / HPI / ROS
-
Chief Complaint:
hypokalemia
History of Present Illness:
Cr stable 0.7
Na stable low 133
K normal
BP stable
Review of Systems:
no reported CP/SOB
non oliguric
edema improving
Labs
-
Labs:
WBC 8.6 10^3/uL (4.8-10.8) 06/10/25 07:16
RBC 3.14 10^6/uL (4.20-5.40) L 06/10/25 07:16
Hgb 11.1 g/dL (12.0-16.0) L 06/10/25 07:16
Hct 32.2 % (37.0-47.0) L 06/10/25 07:16
Plt Count 265 10^3/uL (130-400) 06/10/25 07:16
Sodium 133 mmol/L (135-145) L 06/10/25 07:16
Potassium 3.9 mmol/L (3.5-5.1) 06/10/25 07:16
Chloride 98 mmol/L (98-107) 06/10/25 07:16
Carbon Dioxide 29 mmol/L (22-30) 06/10/25 07:16
BUN 23 mg/dl (7-17) H 06/10/25 07:16
Creatinine 0.7 mg/dL (0.6-1.0) 06/10/25 07:16
eGFR > 60.00 06/10/25 07:16
Glucose 81 mg/dl (70-99) 06/10/25 07:16
Calcium 9.7 mg/dl (8.4-10.2) 06/10/25 07:16
Yup-Y-Ycnxfswmsbn Pept 475 pg/ml 06/07/25 15:19
Albumin 3.8 g/dl (3.5-5.0) 06/09/25 06:44
Physical Exam
-
Vital Signs:
Vital Signs
Temp Pulse Resp BP Pulse Ox
97.8 F 58 18 120/50 100
06/10/25 08:29 06/10/25 08:29 06/10/25 08:29 06/10/25 08:30 06/10/25 08:29
Cardiovascular:: Regular rate and rhythm
Respiratory:: Bilateral: Coarse
Lung Excursion:: Normal
Abdomen:: Nontender and Soft
Bowel Sounds:: Normal
Extremity Edema:: +2: Bilateral:
--- NOTE | 2025-06-10 14:13 | W.PN.HOSP.TC ---
Today's Communication/Plan
-
d/c
Assessment / Plan
Assessment / Plan
pt is an 85 year old female
Worsening of chronic lymphedema due to Bilateral venous insufficiency--with ? superimposed cellulitis (red, warm bilateral LE)-- IV diuresis now on hold with developing metabolic alkalosis--apprec renal--US neg for DVT, add compression--stop ancef
at d/c--holding torsemide and IV lasix-Also took metolazone past few days- Needs to continue following up with lymphedema clinic
Slight worsening of chronic hyponatremia secondary to noncompliance with fluid restriction/SIADH/spironolactone--also has adrenal insufficiency--would cont hydrocortisone but consider increasing florinef to DAILY and hydrocortisone to 10 mg in
PM--fluid restrict
hypokalemia--replete
Acute kidney injury secondary to high doses of diuretics--follow and consult renal- Creatinine of 1.2 from 0.7--today 1.0- Continue spironolactone
Paroxysmal atrial fibrillation/atrial tachycardia/SVT- Continue amiodarone- Continue Eliquis
Chronic HFpEF--without exacerbation--diuretics as above
Essential hypertension- Continue spironolactone
History of adrenal insufficiency- Continue fludrocortisone- Continue hydrocortisone
History of rheumatic fever
Nephrolithiasis
Degenerative disc disease- Continue tramadol
GERD/hiatal hernia- Continue omeprazole
Chronic constipation- Continue MiraLAX
Anxiety/depression/insomnia- Continue sertraline (not helping chronic hyponatremia)- continue as eszopiclone
code status--Full code
DVT prophylaxis�Eliquis
ok for d/c
Anticipated Discharge: Today
Subjective/Interval History
-
Date of Service: June 10, 2025
pt without c/o
Objective Data
-
Labs:
Laboratory Results
06/10/25
07:16
WBC 8.6
Hgb 11.1 L
Hct 32.2 L
Plt Count 265
Sodium 133 L
Potassium 3.9
Chloride 98
Carbon Dioxide 29
BUN 23 H
Creatinine 0.7
Glucose 81
Calcium 9.7
Vital Signs:
max temp for 24 hours
06/10/25
08:29
Temp 97.8 F
Vital Signs
Temp Pulse Resp BP Pulse Ox
97.8 F 58 18 120/50 100
06/10/25 08:29 06/10/25 08:29 06/10/25 08:29 06/10/25 08:30 06/10/25 08:29
I&O
06/09/25 06/10/25 06/11/25
06:59 06:59 06:59
Intake Total 860 / 860 960 / 960 240 / 240
Output Total 2049 / 2049 207 / 2074 900 / 900
Balance -1190 / -1190 -1115 / -1115 -660 / -660
Review of Systems
-
All other systems: Reviewed and negative
Physical Exam
-
General: Well Developed, Well Nourished and No Apparent Distress
HEENT: Normocephalic and Atraumatic
Respiratory: Clear to Auscultation; Negative Wheezes or Rhonchi
Cardiac: Regular Rhythm and S1/S2; Negative Murmur
GI: Soft, Nontender, Nondistended and Normal Bowel Sounds
Musculoskeletal: No Clubbing, No Cyanosis and No Edema
Skin: Other (no change in purple area above ankle right leg)
Neuro: Awake
--- NOTE | 2025-06-10 14:36 | CM ---
Patient seen at bedside with both daughters and physician on . Patient plan is for discharge home with [facility] to follow with daughter support. IMM completed and signed form on chart. CM will continue to follow for discharge planning needs.
Plan; home with family support and [facility]
[2025-06-10 15:51] VITALS: BP 132/60
[2025-06-10] MEDS: LIPITOR 10 MG PO (17:22)
[2025-06-10] MEDS: ANCEF IV (18:00)
--- NOTE | 2025-06-11 11:55 | W.DCSUMMARY ---
Discharge Summary
Discharge Data
Date of Admission: 06/07/25
Date of Discharge: 06/10/25
-
Pending Results: No
Hospital Course
Primary care physician : Angelo Snyder
Principal Discharge diagnosis : Worsening chronic lymphedema due to bilateral venous insufficiency, slight worsening of chronic hyponatremia secondary to noncompliance/SIADH, acute kidney injury secondary to high doses of diuretics
Chronic Discharge diagnosis : Paroxysmal atrial fibrillation/atrial tachycardia/SVT, chronic heart failure with preserved ejection fraction without exacerbation, essential hypertension, history of adrenal insufficiency, history of rheumatic fever,
nephrolithiasis, degenerative disc disease, gastroesophageal reflux disease/hiatal hernia, chronic constipation, anxiety/depression/insomnia
Hospital Course : Patient was an 85-year-old female with medical history listed above who presented with swelling of the legs which has worsened since the day prior to admission. The swelling extended above the knee predominantly and she denied any
fevers or chills. She was taking torsemide and metolazone which usually helps with the swelling but it has not helped at this juncture. Patient denied any shortness of breath. She has been using her compression socks. She has been following a
fluid restriction to 60 ounces per day although recommendations were for 40 ounces per day. Patient was admitted.
Problem #1: Worsening chronic lymphedema due to bilateral venous insufficiency. Patient was seen in consultation by nephrology and as mentioned this was likely due to noncompliance with fluid restriction as well as side effect from Florinef which
was just started recently. Patient is seen in consultation by endocrine and she should follow-up with them as an outpatient. There will be no changes to her outpatient dosing at this time. She did respond to IV diuretics and actually developed a
metabolic alkalosis at which point diuretics were held. Ultrasound was negative for DVT. Compression was added. She was also started on IV Ancef for possibility of superimposed cellulitis which was stopped at discharge. She should follow-up with
her lymphedema clinic.
Problem #2: Slight worsening of chronic hyponatremia secondary to noncompliance/SIADH/adrenal insufficiency. Sodium was 127 on admission which shaina to 133 on the day of discharge. IV diuretics did help. Again, we did not change any of her
physiologic repletion of hydrocortisone or Florinef dosing.
Problem #3: Acute kidney injury secondary to high doses of diuretics. Patient's creatinine was 1.2 from baseline of 0.7. This was likely due to diuretics. She was given IV diuretics here in the hospital which were held and labs eventually
returned to normal. She was seen in consultation by nephrology.
Problem #4: All other medical issues. These include Paroxysmal atrial fibrillation/atrial tachycardia/SVT, chronic heart failure with preserved ejection fraction without exacerbation, essential hypertension, history of adrenal insufficiency,
history of rheumatic fever, nephrolithiasis, degenerative disc disease, gastroesophageal reflux disease/hiatal hernia, chronic constipation, anxiety/depression/insomnia. These medical issues were stable during her hospitalization. Medications were
continued as able.
Patient is stable for discharge home at this time. If there are any questions regarding this dictation or her hospital stay, please do not hesitate to call. Our office number is [phone].
Time for discharge 31 minutes.
Discharge Plan
-
Patient Disposition: Home with Home Care
Discharge Diagnosis/Procedures: Exacerbation of chronic lymphedema due to bilateral venous insufficiency, chronic hyponatremia/SIADH/noncompliance with fluid restriction, acute kidney injury due to diuretics�resolved, paroxysmal atrial
fibrillation/atrial tachycardia/supraventricular tachycardia, chronic heart failure with preserved ejection fraction without exacerbation, essential hypertension, adrenal insufficiency, rheumatic fever, degenerative disc disease, gastroesophageal
reflux disease/hiatal hernia, chronic constipation, anxiety/depression/insomnia
Condition: Good
Diet: Low Sodium and Restrict fluids to 64 oz
Activity: As tolerated
Driving Restrictions: As prior to admission
Bathing Restrictions: None
Other Services: VN, PT and OT
Referrals:
Marcin Rincon MD [Consulting Staff, Endocrinology]
Referral Note: as directed
Angelo Snyder MD [Family Provider, Family Practice] - in less than 1 week
Rey Gregory MD [Active, Nephrology]
Referral Note: as directed
Prescriptions:
Continued
omeprazole 40 MG capsule,delayed release(DR/EC)
40 mg PO BID
torsemide 20 mg Tablet
40 mg PO BID
polyethylene glycol 3350 [Miralax] 17 gram Powder In Packet
17 g PO DAILY
multivitamin Tablet
1 tab PO HS
sertraline 50 mg Tablet
25 mg PO HS
atorvastatin 10 mg Tablet
10 mg PO QPM
calcium carbonate-vitamin D3 [Calcium 600 + D(3)] 600 mg-10 mcg (400 unit) Tablet
1 tab PO BID
melatonin 10 mg Tablet
10 mg PO HS Qty: 0 0RF
Saccharomyces boulardii [Florastor] 250 mg Capsule
250 mg PO BID
hydrocortisone 10 mg tablet
20 mg PO DAILY
hydrocortisone 10 mg tablet
5 mg PO NOON
tramadol 50 mg Tablet
100 mg PO DAILYPRN PRN (Reason: back pain)
eszopiclone 2 mg Tablet
2 mg PO HS
Eliquis 5 mg Tablet
5 mg PO BID
ascorbic acid (vitamin C) [Vitamin C] 1,000 mg Tablet
1,000 mg PO DAILY
cetirizine [Zyrtec] 10 mg Tablet
10 mg PO HS
amiodarone 200 mg Tablet
200 mg PO HS
spironolactone 25 mg Tablet
25 mg PO DAILY
acetaminophen 650 mg Tablet Extended Release
1,300 mg PO Q6HPRN PRN (Reason: mild pain/fever)
carboxymethylcellulose sodium 1 % Drops, Liquid Gel
1 drp BOTH EYES TID
Ocutabs Tablet
1 tab PO HS
gabapentin 400 mg Tablet
400 mg PO TID@0800,1400,2200
biotin 5 mg tablet
5 mg PO QPM
Slow Fe 137 mg (45 mg iron) Tablet Extended Release
137 mg PO HS Qty: 0
potassium chloride 20 mEq tablet extended release
40 meq PO BID 30 Days Qty: 60 0RF
calcium polycarbophil [FiberCon] 625 mg Tablet
625 mg PO QPM
zinc sulfate 50 mg zinc (220 mg) Capsule
50 mg PO HS
mirabegron [Myrbetriq] 25 mg Tablet Extended Release 24 Hr
25 mg PO DAILY
docusate sodium [Colace] 100 mg Capsule
100 mg PO HS Qty: 0 0RF
fludrocortisone 0.1 mg Tablet
0.05 mg PO MOWEFR Qty: 0 0RF
Discontinued
turmeric 400 mg Capsule
2,400 mg PO BID Qty: 0
Discharge Orders:
Discharge Patient (As Directed); Ordered 06/10/25
Ordered By: Snow Terrell
Discharge Date and Time
Discharge Date/Time: 06/10/25 18:40
Print Language: KAZAKH
== END 2025-06-10 18:40 | disposition home health service (06) | DRG 644 ==
LOC: 4 EAST ACU 20:55
PROVIDERS: ADMITTING PHYSICIAN Hospitalist; ATTENDING PHYSICIAN Internal Medicine; CONSULT PHYSICIAN Internal Medicine; EMERGENCY PHYSICIAN Student in an Organized Health Care Education/Training Program; FAMILY PHYSICIAN Family Medicine
DX: E22.2 Syndrome of inappropriate secretion of antidiuretic hormone (principal); E27.40 Unspecified adrenocortical insufficiency; L03.116 Cellulitis of left lower limb; I47.19 Other supraventricular tachycardia; N17.9 Acute kidney failure, unspecified; E87.3 Alkalosis; I50.32 Chronic diastolic (congestive) heart failure; L03.115 Cellulitis of right lower limb; I11.0 Hypertensive heart disease with heart failure; E78.00 Pure hypercholesterolemia, unspecified; K21.9 Gastro-esophageal reflux disease without esophagitis; K44.9 Diaphragmatic hernia without obstruction or gangrene; I48.0 Paroxysmal atrial fibrillation; K58.1 Irritable bowel syndrome with constipation; I89.0 Lymphedema, not elsewhere classified; I87.8 Other specified disorders of veins; E87.6 Hypokalemia; I87.2 Venous insufficiency (chronic) (peripheral); F41.9 Anxiety disorder, unspecified; F32.A Depression, unspecified; G47.00 Insomnia, unspecified; G89.29 Other chronic pain; T50.2X5A Adverse effect of carbonic-anhydrase inhibitors, benzothiadiazides and other diuretics, initial encounter; Y92.9 Unspecified place or not applicable; Z96.611 Presence of right artificial shoulder joint; Z91.81 History of falling; Z87.442 Personal history of urinary calculi; Z79.01 Long term (current) use of anticoagulants; Z91.119 Patient's noncompliance with dietary regimen due to unspecified reason
CPT/HCPCS: 80048; 80053; 83735; 83880; 85025; 85027; 93970; 96374; 97116; 97162; 99284

== ENCOUNTER 2025-06-25 21:51 | Observation (INO) | payer OTHER, SELFPAY ==
[2025-06-25 17:24] VITALS: BP 123/54
[2025-06-25 17:49] LABS: Hematocrit 31.8 % (37.0-47.0); Hemoglobin 11.1 g/dL (12.0-16.0); Mean Corp Hgb Conc. 34.9 g/dL (33.0-37.0); Mean Corpuscular Volume 99.1 fL (81.0-99.0); Nucleated Red Blood Cells % 0 %; Platelet Count 413 10^3/uL (130-400); Red Cell Dist. Width 13.3 % (11.5-14.5)
[2025-06-25 18:10] LABS: ALT (SGPT) 32 U/L (0-35); AST (SGOT) 34 U/L (14-36); Albumin 4.0 g/dl (3.5-5.0); Alkaline Phosphatase 73 U/L (38-126); Blood Urea Nitrogen 30 mg/dl (7-17); Calcium 9.5 mg/dl (8.4-10.2); Carbon Dioxide 30 mmol/L (22-30); Chloride 89 mmol/L (98-107); Glucose 112 mg/dl (70-99); Potassium 3.3 mmol/L (3.5-5.1); Sodium 127 mmol/L (135-145); Total Protein 6.3 g/dl (6.3-8.2); eGFR > 60.00
[2025-06-25 18:21] LABS: Troponin I < 0.012 ng/ml
--- NOTE | 2025-06-25 19:00 | ED.GENMED ---
History of Present Illness
General
Chief Complaint: Abdominal Symptoms
Source: patient and family
Time Seen by Provider: 06/25/25 18:29
History of Present Illness
History of Present Illness:
This patient is an 85-year-old female with an extensively complex prior medical history including chronic lymphedema, A-fib, A. tach, SVT, chronic heart failure with preserved ejection fraction, hypertension, adrenal insufficiency, etc. etc. who
presents to the emergency department with nausea since Friday evening. This is often a manifestation of hyponatremia for the patient. She also noted a short-lived episode of lightheadedness today. She denies abdominal pain, back pain, urinary
symptoms, fever, chills, chest pain, dyspnea, numbness, focal weakness, or other complaints. Patient has been having her electrolytes followed very closely. On Friday she saw the water reclamation systems operator and was changed from 40 mg of torsemide twice daily
to Bumex. On she saw the automatic clipper and stripper and had her fludrocortisone increased to every day, prior was Friday and Friday. Then, on Friday she saw the orthodontic technician and was changed back from Bumex to torsemide, now at a dose of 60
mg daily. Patient is at her goal weight. Her lymphedema is at baseline and not worsened. She denies any other complaints at this time.
Past History
Past History
ED Past Medical History: Arrthythmia (Atrial fib), GERD (Hiatal hernia), HTN, Hypercholesterolemia, Valvular disease and Other (Kidney stones, Back pain, Hiatal hernia. IBS, Ulcers Adrenocortical insufficiency, )
ED Past Surgical History: Gynecological (Tubal ligation), Orthopedic (Spinal implant, right shoulder surgery X 3 last with replacement), Tonsilectomy, Urological (Kidney stone removal) and Other (Hiatal hernia repair)
Social History
Tobacco: Non-smoker
Alcohol: None
Drug: None
Personal:
Living: with family
Employment: Retired
Family History
Family History: Other (Noncontributory)
Phy Exam
Physical Exam
Physical Exam:
GENERAL: Alert , in no apparent distress
EYE: pupils equal and reactive
NECK: Supple, no significant adenopathy.
ENT: o/p clr, mmm.
CARDIAC: Regular rate and rhythm .
LUNGS: Clear breath sounds bilaterally, no acute respiratory distress, no wheezes/rales/rhonchi
ABDOMEN: Soft, without focal tenderness, no r/g, no cvat
NEUROLOGICAL: Alert and oriented, no focal neuro deficits
SKIN: Warm and dry, skin intact except for area of crusting/dried drainage at ant asp R umaña noted at nonspec area of STS in a oval shap without assoc rendess/warmth/fluctuance..
MUSCULOSKELETAL: 2+ bilat edema, well perfused.
PSYCH: Normal and appropriate interaction.
Course
Orders/Labs/Results
Orders:
Orders
06/25/25 17:27
EKG [Electrocardiogram (*1)] Urgent
Reason for Study: Atrial Fibrillation
06/25/25 17:28
EKG- Treatment ONCE
06/25/25 17:39
Complete Blood Count/With Diff Urgent
Comprehensive Metabolic Panel Urgent
NT-proBNP Urgent
Troponin I Urgent
06/25/25 19:19
Osmolality, Random Urine Urgent
Date Specimen was Collected: 06/25/25
Time Specimen was Collected: 19:08
Urinalysis Reflex To Culture Urgent
Date Specimen was Collected: 06/25/25
Time Specimen was Collected: 19:08
Urine Microscopic Reflex Cult Urgent
Urine Sodium Urgent
Date Specimen was Collected: 06/25/25
Time Specimen was Collected: 19:08
Urine Culture Urgent
GUNJAN Source: U
Specimen Description:
Date Specimen was Collected: 06/25/25
Time Specimen was Collected: 19:08
06/25/25 19:37
Ondansetron Injectable [Zofran] 4 mg .ROUTE .[facility]
06/25/25 19:38
Ondansetron Injectable [Zofran] 4 mg IV NOW STA
06/25/25 20:54
Ondansetron Injectable [Zofran] 4 mg IV NOW STA
Pantoprazole [Protonix IV] 40 mg IV NOW STA
CR Chest - 2 Views Urgent
Comment:
Reason For Exam: nausea
Abnormal Lab Results
06/25/25 06/25/25
17:39 19:19
RBC 3.21 L 10^6/uL
(4.20-5.40)
Hgb 11.1 L g/dL
(12.0-16.0)
Hct 31.8 L %
(37.0-47.0)
MCV 99.1 H fL
(81.0-99.0)
MCH 34.6 H pg
(27.0-31.0)
Plt Count 413 H 10^3/uL
(130-400)
Abs Immat Gran (auto) 0.1 H 10^3/uL
(0-0.05)
Absolute Neuts (auto) 7.9 H 10^3/uL
(1.4-6.5)
Absolute Lymphs (auto) 1.1 L 10^3/uL
(1.2-3.4)
Absolute Monos (auto) 0.9 H 10^3/uL
(0.1-0.6)
Immature Gran % 0.9 H %
(0-0.5)
Neutrophils % 78.4 H %
(42.2-75.2)
Lymphocytes % 10.5 L %
(20.5-51.1)
Sodium 127 L mmol/L
(135-145)
Potassium 3.3 L mmol/L
(3.5-5.1)
Chloride 89 L mmol/L
(98-107)
BUN 30 H mg/dl
(7-17)
Glucose 112 H mg/dl
(70-99)
Leukocyte Esterase Rfl 2+ A
(Negative)
Urine Bacteria (Reflex) Moderate A
(Negative)
Urine Osmolality 292 L mOsm/kg
(300-900)
06/25/25 17:39
06/25/25 17:39
Vital Signs
Initial and Last Documented VS:
Initial Vital Signs
Temp Pulse Resp BP Pulse Ox
97.8 F 74 18 123/54 95
06/25/25 17:24 06/25/25 17:24 06/25/25 17:24 06/25/25 17:24 06/25/25 17:24
Last Documented Vital Signs
Temp Pulse Resp BP Pulse Ox
97.8 F 73 24 116/39 91
06/25/25 17:24 06/25/25 19:20 06/25/25 19:20 06/25/25 19:20 06/25/25 19:20
*Pulse Oximetry
SaO2: 95
Oxygen Mode of Delivery: Room air
Update Note
Update Note:
Patient presents to the Emergency Department with nausea
Number and Complexity of Problems Addressed at the Encounter
� Chronic conditions affecting care:
� Acute Exacerbation and/or Progression of Chronic Illness:
� Differential Diagnosis includes: But not limited to electrolyte disorder, ACS, gastritis, reflux, etc. etc. etc.
Amount and/or Complexity of Data to be Reviewed and Analyzed
� I performed an independent evaluation of and my interpretation is:
EKG: Read by me, normal sinus rhythm, LAD, LVH, no's specific ischemia changes noted
CT:
Xrays:
Laboratory Studies: Sodium has decreased now to 127, most recent recorded sodium was 131 yesterday, potassium slightly decreased at 3.3, chloride abnormal at 89, creatinine normal, calcium normal. Troponin and BNP unremarkable.
Other:
� Review of other/old records reveals: Discharge summary from May 2025 reviewed patient was discharged on June 10, admitted at that time with worsening of her lymphedema complicated by worsening of her chronic
hyponatremia. At that time, admission sodium was 127 and was up to 133 upon discharge.
� Clinical information was obtained by an independent historian: Daughter and at bedside who offer most of the history and much information including extensive medication list
� Prescriptions/Medications Considered but not given:
� Further testing considered but not performed:
Risk of Complications and/or Morbidity or Mortality of Patient Management
� Social determinants of health affecting care:
� Discussion with other providers (PCP, Hospitalists, Consultants, etc):
� Escalation of care including admission/observation vs risk of discharge considered: Case discussed with Dr. Michelle Johnson, history, labs, etc. reviewed with him. Recommends fluid restriction overnight, no other medications or
interventions recommended. Discussed with family, they are are understandably frustrated regarding patient's persistent nausea for the last few days and waxing and waning hyponatremia. It is unclear if hyponatremia is directly correlated to
patient's nausea as her sodium was 131 yesterday, close to her baseline, and she was still nauseous. Patient does not have ECG/cardiac findings to suggest an ischemic cardiac cause of her nausea. She denies abdominal pain and does not have
tenderness on palpation. No active vomiting here. Patient does have a history of a hiatal hernia, IV PPI ordered, may need further GI workup as an inpatient. Case discussed with hospitalist.
ED Attending Note
-
Portions of this chart may have been created with voice recognition software.� Occasional wrong word or��sound alike� substitutions may have occurred due to the inherent limitations of voice recognition software.
Discharge Plan
Departure
Patient Disposition: Admit
Date of Disposition: 06/25/25
Time of Disposition: 20:55
Admit to: Telemetry
Presentation/result/management discussed w/ accepting MD/DO: Hospitalist
Condition: Fair
Discharge Problem:
Hyponatremia
Prescriptions:
No Action
omeprazole 40 MG capsule,delayed release(DR/EC)
40 mg PO BID
torsemide 20 mg Tablet
40 mg PO BID
polyethylene glycol 3350 [Miralax] 17 gram Powder In Packet
17 g PO DAILY
multivitamin Tablet
1 tab PO HS
sertraline 50 mg Tablet
25 mg PO HS
atorvastatin 10 mg Tablet
10 mg PO QPM
calcium carbonate-vitamin D3 [Calcium 600 + D(3)] 600 mg-10 mcg (400 unit) Tablet
1 tab PO BID
melatonin 10 mg Tablet
10 mg PO HS Qty: 0 0RF
Saccharomyces boulardii [Florastor] 250 mg Capsule
250 mg PO BID
hydrocortisone 10 mg tablet
20 mg PO DAILY
hydrocortisone 10 mg tablet
5 mg PO NOON
tramadol 50 mg Tablet
100 mg PO DAILYPRN PRN (Reason: back pain)
eszopiclone 2 mg Tablet
2 mg PO HS
Eliquis 5 mg Tablet
5 mg PO BID
ascorbic acid (vitamin C) [Vitamin C] 1,000 mg Tablet
1,000 mg PO DAILY
cetirizine [Zyrtec] 10 mg Tablet
10 mg PO HS
amiodarone 200 mg Tablet
200 mg PO HS
spironolactone 25 mg Tablet
25 mg PO DAILY
acetaminophen 650 mg Tablet Extended Release
1,300 mg PO Q6HPRN PRN (Reason: mild pain/fever)
carboxymethylcellulose sodium 1 % Drops, Liquid Gel
1 drp BOTH EYES TID
Ocutabs Tablet
1 tab PO HS
gabapentin 400 mg Tablet
400 mg PO TID@0800,1400,2200
biotin 5 mg tablet
5 mg PO QPM
Slow Fe 137 mg (45 mg iron) Tablet Extended Release
137 mg PO HS Qty: 0
potassium chloride 20 mEq tablet extended release
40 meq PO BID 30 Days Qty: 60 0RF
calcium polycarbophil [FiberCon] 625 mg Tablet
625 mg PO QPM
zinc sulfate 50 mg zinc (220 mg) Capsule
50 mg PO HS
mirabegron [Myrbetriq] 25 mg Tablet Extended Release 24 Hr
25 mg PO DAILY
docusate sodium [Colace] 100 mg Capsule
100 mg PO HS Qty: 0 0RF
fludrocortisone 0.1 mg Tablet
0.05 mg PO MOWEFR Qty: 0 0RF
Referrals:
UNKNOWN - PT DOES,NOT KNOW [Family Provider]
Interventions
Interventions:
*Risk Screen - Suicide Last Done: 06/25/25 17:24
*General Assessment Last Done: 06/25/25 17:24
*ED COVID-19 Vaccine History Last Done: 06/25/25 17:24
BQ-Dffjps-Nwzwsurfea Assessment Last Done: 06/25/25 19:23
Discharge Date and Time
Print Language: MEXICAN
[2025-06-25 19:11] VITALS: BMI 27.7
[2025-06-25 19:20] VITALS: BP 116/39
[2025-06-25 19:27] LABS: Urine Character Clear (Clear)
[2025-06-25] MEDS: ZOFRAN 4 MG IV ×2 (19:39→22:19)
[2025-06-25 19:54] LABS: Urine Squamous Cell 21-25 /LPF (Few)
[2025-06-25 19:55] LABS: Urine Red Blood Cell 0-2 /HPF (0-2)
[2025-06-25 20:00] VITALS: BP 97/38
[2025-06-25 21:00] VITALS: BP 114/33
--- NOTE | 2025-06-25 21:02 | HPS.HSE ---
Family Physician
-
Family Physician: NOT KNOW UNKNOWN - PT DOES
Chief Complaint
-
Nausea
History of Present Illness
This is a 85-year-old female with past medical history significant for CHF with preserved EF, adrenal insufficiency, atrial fibrillation not on anticoagulation, chronic lymphedema, hypertension presenting to the emergency department with
approximately 3 days of nausea starting Friday.
Notable recent medication changes include diuretic changes from 40 mg of torsemide twice daily to Bumex. On she saw the central office trouble shooter and had her fludrocortisone increased to every day, prior was Friday and Friday. Then, on
Friday she saw the harness puller and was changed back from Bumex to torsemide, now at a dose of 60 mg daily.
Weight is at baseline. Her lymphedema is at baseline. She denies any acute chest pain shortness of breath or dyspnea on exertion. She denies feeling dizzy or lightheaded. She has last bowel movement about 2 days ago without any diarrhea. She
denies prior constipation. She denies any dysuria frequency or urgency or worsening incontinence.
Given antiemetics in the emergency department but patient still continues to feel uncomfortable due to nausea. She still has not had any vomiting.
In the emergency department the patient was afebrile, blood pressure was 116/40 with a pulse of 73 and she was satting 91% on room air. ECG shows sinus rhythm with PVCs at a rate of [address] or T wave changes. Initial troponin was negative.
BNP was 600. CBC was unremarkable. Electrolytes was notable for a sodium of 127 potassium was 3.3 bicarb of 30 with otherwise normal BUN and creatinine. UA with squamous cells he is not diagnostic. Her urine sodium was 54 with osmolality of
around 300.
Medical History
Past Medical History
Past Medical History: Reports Other (paroxysmal atrial fibrillation/atrial tachycardia/SVT on Eliquis, chronic HFpEF, hypertension, adrenal insufficiency, rheumatic fever, nephrolithiasis, degenerative disease, GERD/hiatal hernia, chronic
lymphedema, chronic constipation, anxiety/depression/insomnia,)
Past Surgical History: Reports Other (Gynecological (Tubal ligation), Orthopedic (Spinal implant, right shoulder surgery X 3 last with replacement), Tonsilectomy, Urological (Kidney stone removal) and Other (Hiatal hernia repair))
Social History
Tobacco: Non-smoker
Alcohol: None
Drug: None
Family History
Family History: Not pertinent
Allergies / Home Medications
Allergies reflects when Allergies were last updated in [facility].
Home Medications with original date entered in [facility]
Allergy/Medication List:
Allergies
Allergy/AdvReac Type Severity Reaction Status Date / Time
No Known Allergies Allergy Verified 05/07/25 04:12
Home Medications
omeprazole 40 mg capsule,delayed release 40 mg PO BID Gastrointestinal Issue 01/27/21
multivitamin 1 tab PO HS Supplement 12/28/23
polyethylene glycol 3350 17 gram oral powder packet (Miralax) 17 g PO DAILY Constipation 12/28/23
torsemide 20 mg tablet 40 mg PO BID Fluid Retention/Swelling 12/28/23
sertraline 50 mg tablet 25 mg PO HS Mental Health 12/29/23
atorvastatin 10 mg tablet 10 mg PO QPM High Cholesterol 01/09/24
calcium 600 mg (as carbonate)-vitamin D3 10 mcg (400 unit) tablet (Calcium 600 + D(3)) 1 tab PO BID Supplement 01/09/24
melatonin 10 mg tablet 10 mg PO HS Sleep #0 tabs 01/21/24
Saccharomyces boulardii 250 mg capsule (Florastor) 250 mg PO BID Supplement 08/15/24
hydrocortisone 10 mg tablet 5 mg PO NOON adrenal insuff 08/15/24
hydrocortisone 10 mg tablet 20 mg PO DAILY adrenal insuff 08/15/24
apixaban 5 mg tablet (Eliquis) 5 mg PO BID Blood Clot Prevention/Tx 10/17/24
eszopiclone 2 mg tablet 2 mg PO HS Sleep 10/17/24
tramadol 50 mg tablet 100 mg PO DAILYPRN PRN back pain 10/17/24
acetaminophen 650 mg tablet,extended release 1,300 mg PO Q6HPRN PRN mild pain/fever 05/07/25
amiodarone 200 mg tablet 200 mg PO HS Heart Disease/Condition 05/07/25
ascorbic acid (vitamin C) 1,000 mg tablet (Vitamin C) 1,000 mg PO DAILY Supplement 05/07/25
biotin 5 mg tablet 5 mg PO QPM Supplement 05/07/25
carboxymethylcellulose sodium 1 % eye liquid gel drops 1 drp BOTH EYES TID Eye Condition 05/07/25
cetirizine 10 mg tablet (Zyrtec) 10 mg PO HS Allergies 05/07/25
ferrous sulfate 137 mg (45 mg iron) tablet,extended release (Slow Fe) 137 mg PO HS Supplement ##0 05/07/25
gabapentin 400 mg tablet 400 mg PO TID@0800,1400,2200 mild Pain 05/07/25
spironolactone 25 mg tablet 25 mg PO DAILY Blood Pressure 05/07/25
turmeric 400 mg capsule 2,400 mg PO BID Supplement ##0 05/07/25
vitamin A-vitamin C-vit E-min tablet (Ocutabs tablet) 1 tab PO HS Supplement 05/07/25
potassium chloride 20 mEq tablet,extended release 40 meq (2 x 20 mEq) PO BID Supplement 1 month #60 tabs 05/11/25
calcium polycarbophil 625 mg tablet (FiberCon) 625 mg PO QPM 06/07/25
docusate sodium 100 mg capsule (Colace) 100 mg PO HS 06/07/25
fludrocortisone 0.1 mg tablet 0.05 mg PO MOWEFR 06/07/25
mirabegron 25 mg tablet,extended release 24 hr (Myrbetriq) 25 mg PO DAILY 06/07/25
zinc sulfate 50 mg zinc (220 mg) capsule 50 mg PO HS 06/07/25
Review of Systems
-
History Source: Patient
A 12 point ROS was completed and negative except as noted: Yes
Constitutional: Reports No Symptoms
EENT: Reports No Symptoms
Respiratory: Reports No Symptoms
Cardiac: Reports No Symptoms
Abdomen/GI: Reports Nausea
: Reports No Symptoms
Musculoskeletal: Reports No Symptoms
Skin: Reports No Symptoms
Neurological: Reports No Symptoms
Endocrine: Reports No Symptoms
Hematologic/Lymphatic: Reports No Symptoms
Psych: Reports No Symptoms
Physical Exam
Vital Signs
Vital Signs
Temp Pulse Resp BP Pulse Ox
97.8 F 73 24 116/39 91
06/25/25 17:24 06/25/25 19:20 06/25/25 19:20 06/25/25 19:20 06/25/25 19:20
Physical Exam
General: Well Developed, Well Nourished and No Apparent Distress
HEENT: NormoCephalic, Moist mucous membranes and Atraumatic
Respiratory: Clear
Cardiac: S1/S2, Regular Rhythm and Peripheral Edema; No Murmur or Rub
GI: Soft, Non Tender, Non Distended and Normal Bowel Sounds; No Organomegaly
Rectal: Deferred by Provider
Musculoskeletal: No Clubbing, No Cyanosis and No Edema
Skin: No Rash
Neuro: Nonfocal/grossly intact
Laboratory Results
-
06/25/25 17:39
06/25/25 17:39
Laboratory Results
Total Bilirubin 0.6 mg/dl (0.2-1.3) 06/25/25 17:39
AST 34 U/L (14-36) 06/25/25 17:39
ALT 32 U/L (0-35) 06/25/25 17:39
Alkaline Phosphatase 73 U/L (38-126) 06/25/25 17:39
Troponin I < 0.012 ng/ml 06/25/25 17:39
Data Reviewed
-
Medical Tests (Nuc Med, Echo, EKG etc): Image Personally Visualized and interpreted
Lab Data: Labs Reviewed by me
Old Records: Reviewed
Impression/Plan
-
IMPRESSION:
85-year-old female with multiple comorbidities most notably paroxysmal atrial fibrillation, CHF with preserved EF, chronic hyponatremia, adrenal insufficiency who presents with approximately 3 days of intractable nausea without vomiting diarrhea
constipation chest pain palpitations lightheadedness or dizziness. She denies having any headache blurry vision or headache or focal neurological deficits. Workup in the emergency department shows that sodium is essentially close to her baseline
at 127 despite recent medication adjustments and unlikely etiology of her nausea. She is euvolemic at this time and hemodynamically stable. No signs of cardiac ischemia.
PLAN:
Intractable nausea -no ischemia, no obvious infection, no obvious intra-abdominal process with normal LFTs. At this time we will rule out bowel obstruction, worsening hiatal hernia and status symptomatic treatment.
-Admit to [facility]
-X-ray of the chest abdomen
-Check lipase
-Trial of PPI twice daily for now
-Alternative antiemetics such as prochlorperazine for now
-Continue diet as she tolerates although she has no appetite at this time.
Hyponatremia -slightly worsening. Recent baseline is around 129 according to family members. She has some recent changes in medication such as increased fludrocortisone to 0.5 daily, changing to torsemide 60 mg and she has been giving 60 mg twice
in the last 24 hours. She looks euvolemic on examination although she has had decreased p.o. intake. Urine sodium is 54 although she is on diuretics. ARMIDA's and was elevated.
- Euvolemia, will continue fluid restriction of 40 ounces at this time
- Oral salt tablets as tolerated
- Continue diuretics specifically the 60 mg of torsemide, no metolazone, continue spironolactone
- Continue fludrocortisone at 0.5 daily unless she is hypertensive
- Continue hydrocortisone 20 a.m. and 5 PM unless she is hypotensive then she can be changed to stress dose
-Monitor daily weights and ins and out
Atrial fibrillation
-Continue oral amiodarone
-Continue Eliquis
CHF - Euvolemic as above
- continue torsemide, spironolactone
- daily weights and i/os
U/A - contaminated, no clear signs of uti
- repeat u/a for now
DVT prophylaxis�on Eliquis
CODE STATUS�full code
[2025-06-25 22:03] LABS: Lipase 69 U/L (23-300)
[2025-06-25 22:08] VITALS: BP 136/61
[2025-06-25] MEDS: PROTONIX IV 40 MG IV (22:19)
[2025-06-25] MEDS: COMPAZINE 10 MG IV (22:19)
[2025-06-25] MEDS: KCL 40 MEQ PO (22:19)
[2025-06-25 22:35] LABS: COVID-19 Antigen Negative (Negative)
[2025-06-25 22:50] VITALS: BP 131/67; BP 136/61; BMI 27.4
[2025-06-25 23:15] VITALS: BMI 27.4
[2025-06-25] MEDS: AMBIEN 2 MG PO (23:21)
[2025-06-25] MEDS: ZYRTEC 10 MG PO (23:21)
[2025-06-25] MEDS: COLACE 100 MG PO (23:21)
[2025-06-25] MEDS: PACERONE 200 MG PO (23:21)
[2025-06-25] MEDS: THERAGRAN 1 TABLET PO (23:21)
[2025-06-25] MEDS: REFRESH CELLUVISC GEL 1 DROPS BOTH EYES (23:22)
[2025-06-25] MEDS: ZOLOFT 25 MG PO (23:22)
[2025-06-25] MEDS: MELATONIN 10 MG PO (23:22)
[2025-06-26] MEDS: KCL 160 MEQ IV (01:55)
[2025-06-26 05:51] VITALS: BMI 27.0
[2025-06-26 06:08] LABS: Hematocrit 29.2 % (37.0-47.0); Hemoglobin 10.1 g/dL (12.0-16.0); Mean Corp Hgb Conc. 34.6 g/dL (33.0-37.0); Mean Corpuscular Volume 100.0 fL (81.0-99.0); Platelet Count 370 10^3/uL (130-400); Red Cell Dist. Width 13.3 % (11.5-14.5)
[2025-06-26 06:41] LABS: Blood Urea Nitrogen 27 mg/dl (7-17); Calcium 8.9 mg/dl (8.4-10.2); Carbon Dioxide 32 mmol/L (22-30); Chloride 94 mmol/L (98-107); Estimated Creatinine Clearance 43 ml/min; Glucose 69 mg/dl (70-99); Magnesium 1.5 mg/dl (1.6-2.3); Potassium 3.6 mmol/L (3.5-5.1); Sodium 130 mmol/L (135-145); eGFR > 60.00
[2025-06-26 07:45] VITALS: BP 124/52
[2025-06-26 08:38] VITALS: BP 110/63; BP 124/52; PULSE 62; PULSE 75
[2025-06-26] MEDS: FLORASTOR 250 MG PO (08:47)
[2025-06-26] MEDS: REFRESH CELLUVISC GEL 1 DROPS BOTH EYES (08:47)
[2025-06-26] MEDS: KCL 40 MEQ PO (08:47)
[2025-06-26] MEDS: ELIQUIS 5 MG PO (08:47)
[2025-06-26] MEDS: FLORINEF 0.05 MG PO (08:48)
[2025-06-26] MEDS: MYRBETRIQ EXTENDED RELEASE 25 MG PO (08:48)
[2025-06-26] MEDS: DEMADEX 60 MG PO (08:48)
[2025-06-26] MEDS: ALDACTONE 25 MG PO (08:48)
[2025-06-26] MEDS: NSS (PRESERVATIVE FREE) 10 ML IV (08:49)
[2025-06-26] MEDS: CORTEF 20 MG PO (08:49)
[2025-06-26] MEDS: PROTONIX IV 40 MG IV (08:49)
[2025-06-26] MEDS: FLUSH (NSS) 1 FLUSH IV (08:50)
--- NOTE | 2025-06-26 09:20 | W.PN.HOSP.TC ---
Addendum entered and electronically signed by Duy Rodriguez MD 06/26/25 10:07:
hypomagnesemia - repleted
Original Note:
Today's Communication/Plan
-
repeat UA with SC
nephrology evaluation
PT
monitor diet tolerance
reviews OBS appropriate status with family/CM
Assessment / Plan
Assessment / Plan
Assessment:
Nausea
- suspect related to Hyponatremia vs med changes (diuretics recently changed)
- no evidence of acute GI pathology; normal exam, tolerating diet, labs normal
- continue PPI
- continue regular diet
Acute on chronic hyponatremia
- baseline 129+
- 127 on admission
- continue fluid restriction
- continue salt tabs
- continue HC/Fludrocortisone
- continue Bumex
- Nephrology consulted
abnormal UA
- repeat via SC for clean catch
Parox Atrial fibrillation
- continue oral amiodarone
- continue Eliquis
chronic HFpEF
- continue Aldactone/Bumex
DVT ppx: Eliquis
Code: Full
Anticipated Discharge: Within 24 hours
Subjective/Interval History
-
Date of Service: June 26, 2025
reports nausea is improving, did tolerate a diet today
no abd pain
no other complaints acutely
reports chronic LE edema
Objective Data
-
Labs:
Laboratory Results
06/26/25
05:22
WBC 11.0 H
Hgb 10.1 L
Hct 29.2 L
Plt Count 370
Sodium 130 L
Potassium 3.6
Chloride 94 L
Carbon Dioxide 32 H
BUN 27 H
Creatinine 0.9
Glucose 69 L
Calcium 8.9
Vital Signs:
Vital Signs
Temp Pulse Resp BP Pulse Ox
98.5 F 62 18 124/52 98
06/26/25 07:45 06/26/25 08:48 06/26/25 07:45 06/26/25 08:48 06/26/25 08:37
I&O
06/25/25 06/26/25 06/27/25
06:59 06:59 06:59
Intake Total 480 / 480
Balance 480 / 480
Physical Exam
-
General: No Apparent Distress
HEENT: Normocephalic and Atraumatic
Respiratory: Negative Wheezes
Cardiac: Regular Rhythm and S1/S2
GI: Soft
Musculoskeletal: No Edema
Neuro: AO x 3
Psych: Calm
Data Reviewed
-
Total Time Spent with Patient (in minutes): 42
Labs: Labs Reviewed by me
[2025-06-26] MEDS: MAGNESIUM OXIDE 400 MG PO (09:31)
--- NOTE | 2025-06-26 09:45 | CM ---
Reviewed the chart notes and spoke with the patient at the bedside. The patient is admitted under observational status. The NULL letter was provided and explained. The patient had no questions with regards to the letter.
The patient resides with her significant other in a one story home with six steps to enter. The patient has a rolling walker, wheelchair, shower chair, shower rails, raised toilet, an adjustable stool with arms for use a the bathroom sink. The
patient is current with [facility]. The patient confirmed her pharmacy of choice is [facility]. CM continues to be available to patient/family and is monitoring medical plan for needs at discharge.
Plan: Discharge to home when medically stable. No needs anticipated at this time.
[2025-06-26 10:07] VITALS: BMI 27.0
--- NOTE | 2025-06-26 10:30 | PTCARENOTE ---
Pt straight-cathed for 400 ml clear yellow urine; UA reflex cx sample sent. Pt ivonne procedure well.
[2025-06-26 10:38] LABS: Urine Character Clear (Clear)
--- NOTE | 2025-06-26 10:50 | W.CON.NEPH ---
Consultation
-
Date/Time Consultation Requested: 06/26/2025 10:00 AM
Date/Time Consultation Performed: 06/26/2025 1050 AM
Requesting Provider: Dr. Rodriguez
Performing Provider: Dr. Segovia
Reason for Consultation: Hyponatremia
Medical History
-
Chief Complaint: Hyponatremia/hypokalemia
History of Present Illness:
The patient is an 85-year-old female with a past medical history of hyponatremia. She is maintained on fluid restriction and loop diuretic and was recently seen by Dr. Barnett of our nephrology practice. She has a history of adrenal
insufficiency and is maintained on fludrocortisone and hydrocortisone. She was seen by endocrinology last week who had escalated her fludrocortisone today. She has a history of atrial fibrillation and is maintained on amiodarone therapy. She also
has a history of congestive heart failure with chronic lymphedema and is maintained on torsemide which was recently adjusted from Bumex. She presented to the hospital with nausea and a sodium of 127 and nephrology was consulted for hyponatremia.
Past Medical History
Paroxysmal A-Fib / Atrial Tachycardia / SVT
Hypertension
Adrenal Insufficiency
Rheumatic Fever
Nephrolithiasis
DDD / Chronic Back Pain
GERD / Hiatal Hernia
Chronic HFpEF
Chronic Lymphedema
Chronic Constipation
Anxiety / Depression / Insomnia
Right Reverse Shoulder Arthroplasty (05/18/24)
Hiatal Hernia Repair
Lithotripsy
Appendectomy
Tubal Ligation
Spinal Cord Stimulator (Replaced / Removed)
hyponatremia
Past Surgical History: Other (Gynecological (Tubal ligation), Orthopedic (Spinal implant, right shoulder surgery X 3 last with replacement), Tonsilectomy, Kidney stone removal) and Hiatal hernia repair)
Social History
Tobacco: Non-Smoker
Alcohol: None
Personal:
Living: With Family
Family History
Family History: Not Pertinent
Allergies / Home Medications
Allergy/AdvReac Type Severity Reaction Status Date / Time
No Known Allergies Allergy Verified 06/25/25 17:28
�Medication �Instructions �Recorded �Confirmed �Type
omeprazole 40 mg capsule,delayed 40 mg PO BID Gastrointestinal Issue 01/27/21 06/07/25 History
release
multivitamin 1 tab PO HS Supplement 12/28/23 06/07/25 History
polyethylene glycol 3350 17 gram 17 g PO DAILY Constipation 12/28/23 06/07/25 History
oral powder packet (Miralax)
torsemide 20 mg tablet 40 mg PO BID Fluid 12/28/23 06/07/25 History
Retention/Swelling
sertraline 50 mg tablet 25 mg PO HS Mental Health 12/29/23 06/07/25 History
atorvastatin 10 mg tablet 10 mg PO QPM High Cholesterol 01/09/24 06/07/25 History
calcium 600 mg (as 1 tab PO BID Supplement 01/09/24 06/07/25 History
carbonate)-vitamin D3 10 mcg (400
unit) tablet (Calcium 600 + D(3))
melatonin 10 mg tablet 10 mg PO HS Sleep #0 tabs 01/21/24 06/07/25 Rx
Saccharomyces boulardii 250 mg 250 mg PO BID Supplement 08/15/24 06/07/25 History
capsule (Florastor)
hydrocortisone 10 mg tablet 5 mg PO NOON adrenal insuff 08/15/24 06/07/25 History
hydrocortisone 10 mg tablet 20 mg PO DAILY adrenal insuff 08/15/24 06/07/25 History
apixaban 5 mg tablet (Eliquis) 5 mg PO BID Blood Clot 10/17/24 06/07/25 History
Prevention/Tx
eszopiclone 2 mg tablet 2 mg PO HS Sleep 10/17/24 06/07/25 History
tramadol 50 mg tablet 100 mg PO DAILYPRN PRN back pain 10/17/24 06/07/25 History
acetaminophen 650 mg 1,300 mg PO Q6HPRN PRN mild 05/07/25 06/07/25 History
tablet,extended release pain/fever
amiodarone 200 mg tablet 200 mg PO HS Heart 05/07/25 06/07/25 History
Disease/Condition
ascorbic acid (vitamin C) 1,000 mg 1,000 mg PO DAILY Supplement 05/07/25 06/07/25 History
tablet (Vitamin C)
biotin 5 mg tablet 5 mg PO QPM Supplement 05/07/25 06/07/25 History
carboxymethylcellulose sodium 1 % 1 drp BOTH EYES TID Eye Condition 05/07/25 06/07/25 History
eye liquid gel drops
cetirizine 10 mg tablet (Zyrtec) 10 mg PO HS Allergies 05/07/25 06/07/25 History
ferrous sulfate 137 mg (45 mg 137 mg PO HS Supplement ##0 05/07/25 06/07/25 History
iron) tablet,extended release
(Slow Fe)
gabapentin 400 mg tablet 400 mg PO TID@0800,1400,2200 mild 05/07/25 06/07/25 History
Pain
spironolactone 25 mg tablet 25 mg PO DAILY Blood Pressure 05/07/25 06/07/25 History
vitamin A-vitamin C-vit E-min 1 tab PO HS Supplement 05/07/25 06/07/25 History
tablet (Ocutabs tablet)
potassium chloride 20 mEq 40 meq (2 x 20 mEq) PO BID 05/11/25 06/07/25 Rx
tablet,extended release Supplement 1 month #60 tabs
calcium polycarbophil 625 mg 625 mg PO QPM 06/07/25 06/07/25 History
tablet (FiberCon)
mirabegron 25 mg tablet,extended 25 mg PO DAILY 06/07/25 06/07/25 History
release 24 hr (Myrbetriq)
zinc sulfate 50 mg zinc (220 mg) 50 mg PO HS 06/07/25 06/07/25 History
capsule
docusate sodium 100 mg capsule 100 mg PO HS Constipation #0 caps 06/10/25 06/07/25 Rx
(Colace)
fludrocortisone 0.1 mg tablet 0.05 mg (1/2 x 0.1 mg) PO MOWEFR 06/10/25 06/07/25 Rx
adrenal insufficiency #0 tabs
Review of Systems
-
History Source: Patient
All other systems: Negative unless noted
Abdomen/GI: Nausea and Anorexia
Musculoskeletal: Edema
Physical Exam
Vital Signs
Vital Signs
Temp Pulse Resp BP Pulse Ox
98.5 F 62 18 124/52 98
06/26/25 07:45 06/26/25 08:48 06/26/25 07:45 06/26/25 08:48 06/26/25 08:37
Lab Results
WBC 11.0 10^3/uL (4.8-10.8) H 06/26/25 05:22
RBC 2.92 10^6/uL (4.20-5.40) L 06/26/25 05:22
Hgb 10.1 g/dL (12.0-16.0) L 06/26/25 05:22
Hct 29.2 % (37.0-47.0) L 06/26/25 05:22
Plt Count 370 10^3/uL (130-400) 06/26/25 05:22
Sodium 130 mmol/L (135-145) L 06/26/25 05:22
Potassium 3.6 mmol/L (3.5-5.1) 06/26/25 05:22
Chloride 94 mmol/L (98-107) L 06/26/25 05:22
Carbon Dioxide 32 mmol/L (22-30) H 06/26/25 05:22
BUN 27 mg/dl (7-17) H 06/26/25 05:22
Creatinine 0.9 mg/dL (0.6-1.0) 06/26/25 05:22
eGFR > 60.00 06/26/25 05:22
Glucose 69 mg/dl (70-99) L 06/26/25 05:22
Calcium 8.9 mg/dl (8.4-10.2) 06/26/25 05:22
Gfx-G-Zivjengbhzm Pept 606 pg/ml 06/25/25 17:39
Albumin 4.0 g/dl (3.5-5.0) 06/25/25 17:39
Physical Exam
General: AOx3, Nontoxic , NAD
HEENT: PERRL, EOMI, Anicteric, Conjunctivae Clear, Ear/Nose Intact, Hearing Normal, Oropharynx Clear/Moist, Dentition Intact, Facial Symmetry, Neck Supple, Neck: Trachea Midline, No JVD and No Thyromegaly, no Bruits
Respiratory: Clear to auscultation bilaterally with normal lung excursion
Cardiac: S1/S2 and Regular Rate/Rhythm
Breast: Deferred by me
Abdomen: Soft, Nontender, Nondistended, Normal Bowel Sounds and No Hepatosplenomegaly
Rectal: Deferred by Provider
Genito-urinary: No Costovertebral Tenderness
Extremities: No Clubbing, No Cyanosis and Noted lymphedema
Skin: No Rash or open lesions
Neuro: Nonfocal/Grossly Intact, CN II-XII (Intact) and Strength (Musculoskeletal exam 5 out of 5 both upper and lower extremities)
Hematologic/Lymphatic: No Cervical Lymphadenopathy, No Submandibular Lymphadenopathy and No Supraclavicular Lymphadenopathy
Psych: Mood/afflect pleasant, Insight/judgement good and Appropriate
Vascular: plus 1 pedal and radial pulses
Data Reviewed
-
Radiology: Image Personally Visualized and interpreted (Chest x-ray personally reviewed by myself no evidence of congestive heart failure or pneumonic process)
Labs: Labs Reviewed by me (BMP CBC)
Old Records: Reviewed (All lab work reviewed from 06/10/2028 sodium 133)
Assessment/Plan
-
Assessment:
Presentation with nausea
Hyponatremia (acute on chronic)
Hypokalemia
Chronic lymphedema
Bilateral venous insufficiency
Acute kidney injury-mild
Paroxysmal atrial fibrillation/atrial tachycardia/SVT
Chronic HFpEF
Essential hypertension
History of adrenal insufficiency- fludrocortisone, hydrocortisone
History of rheumatic fever
Nephrolithiasis
Degenerative disc disease
GERD/hiatal hernia
Chronic constipation
Anxiety/depression/insomnia
Plan:
Hyponatremia:
Serum sodium is at baseline
I do not think her nausea is mediated from her hyponatremia, she is feeling better
Maintain fluid restriction
would strongly consider discontinuing SSRI she is slowly being tapered as an outpatient
Maintain loop diuretic (torsemide not bumex)
Stable for discharge with follow-up BMP to be sent to Dr. Barnett on Friday
Hypokalemia:
- Was likely exacerbated by recent escalation of fludrocortisone
- Maintain Aldactone and current potassium supplements
- Follow-up BMP on Friday
[2025-06-26 10:55] VITALS: BP 125/50; PULSE 65; O2SAT 98
--- NOTE | 2025-06-26 11:27 | W.DS.TRANS ---
Addendum entered and electronically signed by Duy Rodriguez MD 06/26/25 11:32:
ERROR - cancel this and use new version of this note
Original Note:
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
-
Discharge Instructions:
Sleep Apnea Risk Low
Instructions:
Stand-Alone Forms:
Changes to Home Medications: No
Discharge Medications:
DC Medications w/original date entered in [facility]
omeprazole 40 mg capsule,delayed release 40 mg PO BID Gastrointestinal Issue 01/27/21
multivitamin 1 tab PO HS Supplement 12/28/23
polyethylene glycol 3350 17 gram oral powder packet (Miralax) 17 g PO DAILY Constipation 12/28/23
torsemide 20 mg tablet 60 mg PO DAILY Fluid Retention/Swelling 12/28/23
sertraline 50 mg tablet 25 mg PO HS Mental Health 12/29/23
atorvastatin 10 mg tablet 10 mg PO QPM High Cholesterol 01/09/24
calcium 600 mg (as carbonate)-vitamin D3 10 mcg (400 unit) tablet (Calcium 600 + D(3)) 1 tab PO BID Supplement 01/09/24
melatonin 10 mg tablet 10 mg PO HS Sleep #0 tabs 01/21/24
Saccharomyces boulardii 250 mg capsule (Florastor) 250 mg PO BID Supplement 08/15/24
hydrocortisone 10 mg tablet 5 mg PO NOON adrenal insuff 08/15/24
hydrocortisone 10 mg tablet 20 mg PO DAILY adrenal insuff 08/15/24
apixaban 5 mg tablet (Eliquis) 5 mg PO BID Blood Clot Prevention/Tx 10/17/24
eszopiclone 2 mg tablet 2 mg PO HS Sleep 10/17/24
tramadol 50 mg tablet 100 mg PO DAILYPRN PRN back pain 10/17/24
acetaminophen 650 mg tablet,extended release 1,300 mg PO Q6HPRN PRN mild pain/fever 05/07/25
amiodarone 200 mg tablet 200 mg PO HS Heart Disease/Condition 05/07/25
ascorbic acid (vitamin C) 1,000 mg tablet (Vitamin C) 1,000 mg PO DAILY Supplement 05/07/25
biotin 5 mg tablet 5 mg PO QPM Supplement 05/07/25
cetirizine 10 mg tablet (Zyrtec) 10 mg PO HS Allergies 05/07/25
ferrous sulfate 137 mg (45 mg iron) tablet,extended release (Slow Fe) 137 mg PO HS Supplement ##0 05/07/25
gabapentin 400 mg tablet 400 mg PO TID@0800,1400,2200 mild Pain 05/07/25
spironolactone 25 mg tablet 25 mg PO DAILY Blood Pressure 05/07/25
vitamin A-vitamin C-vit E-min tablet (Ocutabs tablet) 1 tab PO HS Supplement 05/07/25
potassium chloride 20 mEq tablet,extended release 40 meq (2 x 20 mEq) PO BID Supplement 1 month #60 tabs 05/11/25
calcium polycarbophil 625 mg tablet (FiberCon) 625 mg PO QPM 06/07/25
mirabegron 25 mg tablet,extended release 24 hr (Myrbetriq) 20 mg PO DAILY 06/07/25
zinc sulfate 50 mg zinc (220 mg) capsule 50 mg PO HS 06/07/25
docusate sodium 100 mg capsule (Colace) 100 mg PO HS Constipation #0 caps 06/10/25
Home Medication Changes
Pending Results: No
Total time spent discharging patient (in min): 42
--- NOTE | 2025-06-26 11:31 | W.DS.TRANS ---
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
-
Discharge Instructions:
Sleep Apnea Risk Low
Discharge Diagnosis/Procedures hyponatremia, nausea
Diet Regular,Restrict fluids to 48 oz
Activity As tolerated
Blood Work repeat BMP in 2 days
Other Services VN
Instructions:
Stand-Alone Forms:
Changes to Home Medications: No
Discharge Medications:
DC Medications w/original date entered in [facility]
omeprazole 40 mg capsule,delayed release 40 mg PO BID Gastrointestinal Issue 01/27/21
multivitamin 1 tab PO HS Supplement 12/28/23
polyethylene glycol 3350 17 gram oral powder packet (Miralax) 17 g PO DAILY Constipation 12/28/23
torsemide 20 mg tablet 60 mg PO DAILY Fluid Retention/Swelling 12/28/23
sertraline 50 mg tablet 25 mg PO HS Mental Health 12/29/23
atorvastatin 10 mg tablet 10 mg PO QPM High Cholesterol 01/09/24
calcium 600 mg (as carbonate)-vitamin D3 10 mcg (400 unit) tablet (Calcium 600 + D(3)) 1 tab PO BID Supplement 01/09/24
melatonin 10 mg tablet 10 mg PO HS Sleep #0 tabs 01/21/24
Saccharomyces boulardii 250 mg capsule (Florastor) 250 mg PO BID Supplement 08/15/24
hydrocortisone 10 mg tablet 5 mg PO NOON adrenal insuff 08/15/24
hydrocortisone 10 mg tablet 20 mg PO DAILY adrenal insuff 08/15/24
apixaban 5 mg tablet (Eliquis) 5 mg PO BID Blood Clot Prevention/Tx 10/17/24
Held on 06/26/25. Instructions: hold until procedure rescheduling known
eszopiclone 2 mg tablet 2 mg PO HS Sleep 10/17/24
tramadol 50 mg tablet 100 mg PO DAILYPRN PRN back pain 10/17/24
acetaminophen 650 mg tablet,extended release 1,300 mg PO Q6HPRN PRN mild pain/fever 05/07/25
amiodarone 200 mg tablet 200 mg PO HS Heart Disease/Condition 05/07/25
ascorbic acid (vitamin C) 1,000 mg tablet (Vitamin C) 1,000 mg PO DAILY Supplement 05/07/25
biotin 5 mg tablet 5 mg PO QPM Supplement 05/07/25
cetirizine 10 mg tablet (Zyrtec) 10 mg PO HS Allergies 05/07/25
ferrous sulfate 137 mg (45 mg iron) tablet,extended release (Slow Fe) 137 mg PO HS Supplement ##0 05/07/25
gabapentin 400 mg tablet 400 mg PO TID@0800,1400,2200 mild Pain 05/07/25
spironolactone 25 mg tablet 25 mg PO DAILY Blood Pressure 05/07/25
vitamin A-vitamin C-vit E-min tablet (Ocutabs tablet) 1 tab PO HS Supplement 05/07/25
potassium chloride 20 mEq tablet,extended release 40 meq (2 x 20 mEq) PO BID Supplement 1 month #60 tabs 05/11/25
calcium polycarbophil 625 mg tablet (FiberCon) 625 mg PO QPM 06/07/25
mirabegron 25 mg tablet,extended release 24 hr (Myrbetriq) 20 mg PO DAILY 06/07/25
zinc sulfate 50 mg zinc (220 mg) capsule 50 mg PO HS 06/07/25
docusate sodium 100 mg capsule (Colace) 100 mg PO HS Constipation #0 caps 06/10/25
carboxymethylcellulose sodium 1 % eye liquid gel drops 1 drp DAILY 06/26/25
fludrocortisone 0.1 mg tablet 0.05 mg PO DAILY 06/26/25
metolazone 5 mg tablet 5 mg PO DAILY PRN 5lb weight gain 06/26/25
Home Medication Changes
Pending Results: No
Total time spent discharging patient (in min): 42
[2025-06-26] MEDS: CORTEF 5 MG PO (11:57)
[2025-06-26 12:12] VITALS: BP 130/56
== END 2025-06-26 14:44 | disposition home health service (06) ==
LOC: 4 EAST ACU 21:51
PROVIDERS: Emergency Medicine; ADMITTING PHYSICIAN Internal Medicine; ATTENDING PHYSICIAN Internal Medicine; EMERGENCY PHYSICIAN Emergency Medicine; OTHER PHYSICIAN Specialist
DX: R11.0 Nausea (principal); E87.1 Hypo-osmolality and hyponatremia; R82.90 Unspecified abnormal findings in urine; R10.9 Unspecified abdominal pain; I11.0 Hypertensive heart disease with heart failure; I50.32 Chronic diastolic (congestive) heart failure; I89.0 Lymphedema, not elsewhere classified; I48.0 Paroxysmal atrial fibrillation; E27.40 Unspecified adrenocortical insufficiency; I47.19 Other supraventricular tachycardia; G47.00 Insomnia, unspecified; K59.09 Other constipation; G89.29 Other chronic pain; M54.9 Dorsalgia, unspecified; K21.9 Gastro-esophageal reflux disease without esophagitis; E87.6 Hypokalemia; I87.2 Venous insufficiency (chronic) (peripheral); N17.9 Acute kidney failure, unspecified; I49.3 Ventricular premature depolarization; F41.9 Anxiety disorder, unspecified; F32.A Depression, unspecified; E78.00 Pure hypercholesterolemia, unspecified; I49.1 Atrial premature depolarization; E83.42 Hypomagnesemia; K44.9 Diaphragmatic hernia without obstruction or gangrene; R42 Dizziness and giddiness; Z79.899 Other long term (current) drug therapy; Z98.51 Tubal ligation status; Z96.611 Presence of right artificial shoulder joint; Z87.442 Personal history of urinary calculi; Z90.49 Acquired absence of other specified parts of digestive tract; Z79.01 Long term (current) use of anticoagulants; Z11.52 Encounter for screening for COVID-19
CPT/HCPCS: 71046; 74018; 80048; 80053; 81003; 81015; 83690; 83735; 83880; 83935; 84300; 84484; 85025; 85027; 87086; 87811; 93005; 96374; 96375; 96376; 97162; 99285; G0378

== ENCOUNTER 2025-08-05 06:27 | Emergency (ER) | payer OTHER, SELFPAY ==
[2025-08-05 06:36] VITALS: BP 134/60
--- NOTE | 2025-08-05 07:03 | ED.GENMED ---
History of Present Illness
General
Chief Complaint: Musculo-Skeletal Complaint
Time Seen by Provider: 08/05/25 06:55
History of Present Illness
History of Present Illness:
85-year-old female presents to the emergency department for evaluation of a possible right shoulder dislocation. 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 States that yesterday she went to reach for something
and felt a pop in the shoulder and since that time has had exquisite pain. Reports a cold sensation to the right hand but no numbness.
Past History
Past History
ED Past Medical History: Arrthythmia (Atrial fib), GERD (Hiatal hernia), HTN, Hypercholesterolemia, Valvular disease and Other (Kidney stones, Back pain, Hiatal hernia. IBS, Ulcers Adrenocortical insufficiency, )
ED Past Surgical History: Gynecological (Tubal ligation), Orthopedic (Spinal implant, right shoulder surgery X 3 last with replacement), Tonsilectomy, Urological (Kidney stone removal) and Other (Hiatal hernia repair)
Social History
Tobacco: Non-smoker
Alcohol: None
Drug: None
Personal:
Living: with family
Employment: Retired
Family History
Family History: Other (Noncontributory)
Review of Systems
Review of Systems
Allergies reviewed?: Yes
All Other Systems: ROS reviewed and negative except as documented in HPI and ROS
Phy Exam
Physical Exam
Physical Exam:
GEN: Well appearing, NAD, WDWN
HEENT: Oral mucosa moist, no scleral icterus
Cardiac: Regular rate
Lung: No respiratory distress, no tachypnea
MSK: Prominence of the right glenohumeral joint, no overt swelling or ecchymosis, right radial pulse 2+, sensation of the right hand intact in all ann
Skin: Good color, no pallor or jaundice, no rashes
Neuro: AO x3, moves all extremities freely
Psych: Calm, cooperative
Course
Orders/Labs/Results
Orders:
Orders
08/05/25 06:57
CR Shoulder - Right Min 2 View Urgent
Comment:
Reason For Exam: injury
08/05/25 07:14
Fentanyl Citrate/Pf [Sublimaze] 75 mcg IV NOW STA
08/05/25 07:38
CR Shoulder - Right Min 2 View Urgent
Comment:
Reason For Exam: post reduction
Vital Signs
Initial and Last Documented VS:
Initial Vital Signs
Pulse Resp BP Pulse Ox
53 18 134/60 100
08/05/25 06:36 08/05/25 06:36 08/05/25 06:36 08/05/25 06:36
Last Documented Vital Signs
Pulse Resp BP Pulse Ox
53 18 134/60 100
08/05/25 06:36 08/05/25 06:36 08/05/25 06:36 08/05/25 07:08
Procedures
Joint/Fracture Reduction
R shoulder (reverse total arthroplasty):
Indication for procedure:: Dislocated prosthesis
Procedure completed by: Rey Holt PA-C
Joint reduced: without anesthesia
Injury was: closed
Further treatement: needs re-check only
Post reduction exam: stable
Capillary Refill: normal
Normal distal neurovascular exam?: Yes
MDM/Problems Addressed
MDM/Problems Addressed:
Right shoulder was reduced successfully at the bedside, will place sling and recommend Ortho follow-up, she has previously scheduled this for Friday
*Pulse Oximetry
SaO2: 100
Oxygen Mode of Delivery: Room air
Patient hypoxic: no
*Critical Care Note
Total Time (30-74mins, 75-104mins- exclusive of procedures): Not Applicable
ED Attending Note
-
Portions of this chart may have been created with voice recognition software.� Occasional wrong word or��sound alike� substitutions may have occurred due to the inherent limitations of voice recognition software.
Discharge Plan
Departure
Patient Disposition: Home (Routine Discharge)
Date of Disposition: 08/05/25
Time of Disposition: 07:57
Patient with high blood pressure during this ER visit?: No
Discharge Problem:
Dislocation of prosthesis of right glenohumeral joint
Prescriptions:
No Action
omeprazole 40 MG capsule,delayed release(DR/EC)
40 mg PO BID
torsemide 20 mg Tablet
60 mg PO DAILY
polyethylene glycol 3350 [Miralax] 17 gram Powder In Packet
17 g PO DAILY
multivitamin Tablet
1 tab PO HS
sertraline 50 mg Tablet
25 mg PO HS
atorvastatin 10 mg Tablet
10 mg PO QPM
calcium carbonate-vitamin D3 [Calcium 600 + D(3)] 600 mg-10 mcg (400 unit) Tablet
1 tab PO BID
melatonin 10 mg Tablet
10 mg PO HS Qty: 0 0RF
Saccharomyces boulardii [Florastor] 250 mg Capsule
250 mg PO BID
hydrocortisone 10 mg tablet
20 mg PO DAILY
hydrocortisone 10 mg tablet
5 mg PO NOON
tramadol 50 mg Tablet
100 mg PO DAILYPRN PRN (Reason: back pain)
eszopiclone 2 mg Tablet
2 mg PO HS
Eliquis 5 mg Tablet
5 mg PO BID
ascorbic acid (vitamin C) [Vitamin C] 1,000 mg Tablet
1,000 mg PO DAILY
cetirizine [Zyrtec] 10 mg Tablet
10 mg PO HS
amiodarone 200 mg Tablet
200 mg PO HS
spironolactone 25 mg Tablet
25 mg PO DAILY
acetaminophen 650 mg Tablet Extended Release
1,300 mg PO Q6HPRN PRN (Reason: mild pain/fever)
Ocutabs Tablet
1 tab PO HS
gabapentin 400 mg Tablet
400 mg PO TID@0800,1400,2200
biotin 5 mg tablet
5 mg PO QPM
Slow Fe 137 mg (45 mg iron) Tablet Extended Release
137 mg PO HS Qty: 0
potassium chloride 20 mEq tablet extended release
40 meq PO BID 30 Days Qty: 60 0RF
calcium polycarbophil [FiberCon] 625 mg Tablet
625 mg PO QPM
zinc sulfate 50 mg zinc (220 mg) Capsule
50 mg PO HS
mirabegron [Myrbetriq] 25 mg Tablet Extended Release 24 Hr
20 mg PO DAILY
docusate sodium [Colace] 100 mg Capsule
100 mg PO HS Qty: 0 0RF
fludrocortisone 0.1 mg Tablet
0.05 mg PO DAILY
metolazone 5 mg Tablet
5 mg PO DAILY PRN (Reason: 5lb weight gain)
Rx Instructions:
take when weight is up 5lbs until weight is back down
carboxymethylcellulose sodium 1 % Drops, Liquid Gel
1 drp DAILY
Referrals:
Angelo Snyder MD [Family Provider, Family Practice]
Activity Restrictions/Additional Instructions:
Use the sling for the duration of the weekend until your orthopedic follow-up
Remove the sling for 1 hour/day to allow the arm to hang gently by the side and perform pendulum swings of the arm to reduce stiffness
Interventions
Interventions:
*Risk Screen - Suicide Last Done: 08/05/25 06:36
*General Assessment Last Done: 08/05/25 06:36
*Neglect/Abuse Screening Last Done: 08/05/25 06:36
*ED- Fall Risk Assessment Last Done: 08/05/25 06:36
*ED COVID-19 Vaccine History Last Done: 08/05/25 06:36
*ED Influenza Vaccine History Last Done: 08/05/25 06:36
*Nursing Disposition Last Done: 08/05/25 08:22
ED-Musculoskeletal Assessment Last Done: 08/05/25 08:21
Discharge Date and Time
Discharge Date/Time: 08/05/25 08:22
Print Language: CZECH
[2025-08-05] MEDS: SUBLIMAZE 75 MCG IV (07:29)
== END 2025-08-05 08:22 | disposition home or self-care (01) ==
LOC: EMR 06:27
PROVIDERS: EMERGENCY PHYSICIAN Student in an Organized Health Care Education/Training Program; FAMILY PHYSICIAN Family Medicine
DX: T84.028A Dislocation of other internal joint prosthesis, initial encounter (principal); Y79.2 Prosthetic and other implants, materials and accessory orthopedic devices associated with adverse incidents; I48.91 Unspecified atrial fibrillation; I10 Essential (primary) hypertension; E78.00 Pure hypercholesterolemia, unspecified; E27.40 Unspecified adrenocortical insufficiency; K21.9 Gastro-esophageal reflux disease without esophagitis; K58.9 Irritable bowel syndrome, unspecified; Z96.611 Presence of right artificial shoulder joint
CPT/HCPCS: 99284; 96374; 23650; 73030

== ENCOUNTER 2025-08-07 10:50 | Inpatient (IN) | payer OTHER, SELFPAY ==
[2025-08-07] VITALS (16 sets, daily range): BP systolic 82–166; BP diastolic 45–80; BMI 28.5
[2025-08-07 04:27] LABS: Hematocrit 32.6 % (37.0-47.0); Hemoglobin 10.7 g/dL (12.0-16.0); Mean Corp Hgb Conc. 32.8 g/dL (33.0-37.0); Mean Corpuscular Volume 98.2 fL (81.0-99.0); Nucleated Red Blood Cells % 0 %; Platelet Count 374 10^3/uL (130-400); Red Cell Dist. Width 12.2 % (11.5-14.5)
[2025-08-07 04:49] LABS: ALT (SGPT) 29 U/L (0-35); AST (SGOT) 28 U/L (14-36); Albumin 3.6 g/dl (3.5-5.0); Alkaline Phosphatase 68 U/L (38-126); Blood Urea Nitrogen 26 mg/dl (7-17); Calcium 9.6 mg/dl (8.4-10.2); Carbon Dioxide 27 mmol/L (22-30); Chloride 97 mmol/L (98-107); Estimated Creatinine Clearance 36 ml/min; Glucose 72 mg/dl (70-99); Potassium 4.6 mmol/L (3.5-5.1); Sodium 131 mmol/L (135-145); Total Protein 5.8 g/dl (6.3-8.2); eGFR 49.86
--- NOTE | 2025-08-07 04:56 | ED.GENMED ---
History of Present Illness
<Ayanna Schmidt MD, Resident - Last Filed: 08/08/25 06:04>
General
Chief Complaint: Skin Problem
Source: patient and family
Time Seen by Provider: 08/07/25 04:28
History of Present Illness
History of Present Illness:
85-year-old female with past medical history of paroxysmal atrial fibrillation on Eliquis, HFpEF, adrenal insufficiency presents to the ER for acute onset left shoulder pain. She was recently here for right shoulder dislocation on 08/05/2025 with
subsequent reduction. She is now presenting with sudden onset left shoulder pain that started around 11:30 AM. She denies any trauma, abnormal arm movements, fevers, chills, significant erythema or swelling. The pain is so severe she feels unable
to move it. She denies any pain earlier in the day near the left shoulder. The pain is localized at a bulge just distal to the left glenohumeral joint. Her tried to place a lidocaine patch on it which did not help. After removing it he
noticed a rash that was not there before.
Of note, due to the severe right shoulder pain after reduction, her orthopedic Dr. Jones was okay with her taking the Dilaudid she had left over from her prior R shoulder arthroplasty. She has been taking either 1mg every 3 hours or 2mg every 6 hours
for the right shoulder pain since yesterday. She took an additional 1mg at 1:30am for her left shoulder without any improvement.
Past History
<Ayanna Schmidt MD, Resident - Last Filed: 08/08/25 06:04>
Past History
ED Past Medical History: Arrthythmia (Atrial fib), GERD (Hiatal hernia), HTN, Hypercholesterolemia, Valvular disease and Other (Kidney stones, Back pain, Hiatal hernia. IBS, Ulcers, Adrenocortical insufficiency, )
ED Past Surgical History: Gynecological (Tubal ligation), Orthopedic (Spinal implant, right shoulder surgery X 3 last with replacement), Tonsilectomy, Urological (Kidney stone removal) and Other (Hiatal hernia repair)
Social History
Tobacco: Non-smoker
Alcohol: None
Drug: None
Personal:
Living: with family
Employment: Retired
Family History
Family History: Other (Noncontributory)
Review of Systems
<Ayanna Schmidt MD, Resident - Last Filed: 08/08/25 06:04>
Review of Systems
Allergies reviewed?: Yes
Constitutional: Reports no symptoms
EENT: Reports no symptoms
Respiratory: Reports no symptoms
Cardiac: Reports no symptoms
ABD/GI: Reports no symptoms
: Reports no symptoms
Musculoskeletal: Reports other (Left upper arm pain, swelling)
Skin: Reports other (Rash, hematoma on left proximal arm )
Neurological: Reports no symptoms
Endocrine: Reports no symptoms
Hematologic/Lymphatic: Reports no symptoms
Psychiatric: Reports no symptoms
Phy Exam
<Ayanna Schmidt MD, Resident - Last Filed: 08/08/25 06:04>
Physical Exam
Physical Exam:
General: Appears in pain
Head: Atraumatic
Cardiac: Regular S1, S2, no murmurs
Respiratory: Clear breath sounds bilaterally
Abdomen: Soft, nontender, nondistended, normal bowel sounds
Neurological: Nonfocal
Extremities: Left arm noted to have a firm, tender bulge just distal to the glenohumeral head. Hematoma noted just proximal to the left elbow at prior IV insertion site on 08/05/25. Square-shaped erythematous rash noted on left upper extremity.
No tenderness with palpation of biceps tendon groove, AC joint, left shoulder. Passive range of motion intact without pain in shoulder. Pain localized to the left arm bulge. Bilateral lower extremity edema noted with left slightly larger than
right. No calf tenderness with palpation.
Psych: Calm
Course
<Ayanna Schmidt MD, Resident - Last Filed: 08/08/25 06:04>
Orders/Labs/Results
Orders:
Orders
08/07/25 04:14
CMP [Comprehensive Metabolic Panel] Urgent
Complete Blood Count/With Diff Urgent
Ferritin Urgent
Comment: ADD ON
Iron Urgent
Comment: ADD ON
Total Iron Binding Urgent
Comment: ADD ON
Vitamin B12 Urgent
Comment: ADD ON
08/07/25 04:53
HYDROmorphone [Dilaudid] 1 mg IV NOW STA
08/07/25 05:14
Humerus, Left 2 Views [CR Humerus - Left Min 2 Views*] Urgent
Comment:
Reason For Exam: pain swelling upper arm
08/07/25 05:15
US Non Vasc UPPER Ext LT Urgent
Reason For Exam: LUE pain swelling
Venous Doppler Upr Ext Left [US Periph Venous UPPER Ext LT] Urgent
Comment:
Reason For Exam: swelling pain LUE
08/07/25 05:18
Ice Pack-Treatment DIRECTED
Location: left upper arm
08/07/25 08:05
Acetaminophen [Tylenol] 1,000 mg PO NOW STA
HYDROmorphone [Dilaudid] 0.25 mg IV NOW STA
08/07/25 08:14
Case Management Consult ONCE
Case Management Consult: Residential Placement
Physical Therapy Consult [Pt Eval And Treat] Urgent
Activity Level: As Tolerated
08/07/25 08:15
Occupational Therapy Consult [Ot Eval And Treat] Urgent
08/07/25 Lunch
Cholesterol Lowering
At Your Request: Full Participation
08/07/25 10:15
Admit/Transfer Patient As Directed
Co-Sign Provider:
Level of Care: Inpatient admission
Assign to:: Telemetry
Physician / Group: Hospitalist
Diagnosis: Hematoma of left upper extremity
Reason for Telemetry: Arrhythmia
Date to Stop Telemetry: 08/10/25
Time to Stop Telemetry: 11:00
Reason for Hospitalization: Hematoma of left upper extremity
Expected length of stay greater than two midnights?: Yes
ELOS- Estimated Length of Stay in days: 2
I certify the patient meets the requirements for IP care: Yes
PRN Pain Medication Management As Directed
May give lesser potent ordered pain med per pt: Yes
preference::
Protocol:: Medication orders for pain may be administered in a
manner that supports deferring to patient preference
when the pt is:
- Requesting an ordered lesser potent pain medication.
Least to most potent pain medications are defined
as: acetaminophen < NSAID < tramadol < opioids
(morphine, oxycodone, hydromorphone).
- Requesting a lesser dose of the same medication IF
ORDERED.
- Requesting a less intrusive route of administration
if both routes are prescribed by the provider (PO <
IV).
08/07/25 10:22
Code Status As Directed
Resuscitation Status: Limited DNR
Limited DNR: -No intubation
08/07/25 10:33
Compression Therapy As Directed
Location/extremity:: Left upper extremity
Left LE knee high
Right LE knee high
Type of compression therapy:: Shawn Wrap
08/07/25 13:39
Acetaminophen [Tylenol] 650 mg PO Q4HPRN PRN
Bisacodyl [Dulcolax] 10 mg RECTAL [id number] PRN
Metolazone [Zaroxolyn] 5 mg PO DAILY PRN 5lb weight gain
Tramadol HCl [Ultram] 50 mg PO Q6HPRN PRN
acetaminophen 1,300 mg PO Q6HPRN PRN
mirabegron [Myrbetriq] See Dose Instructions PO DAILY
08/07/25 13:39
ORTHOPEDIC CONSULT Routine
Consulting Provider: Leighton Ferguson
Was physician already notified: Yes
Activity As Directed
Activity Level: As Tolerated
Pneumatic Compression Sleeves As Directed
Type: Knee high
Vital Signs As Directed
Frequency: Per unit guidelines
DX Deep Vein Thrombosis Video Routine
08/07/25 15:00
Hydrocortisone [Cortef] 5 mg PO NOON
Hydrocortisone [Hydrocortone/Cortef] 20 mg PO DAILY
Spironolactone [Aldactone] 25 mg PO DAILY
Torsemide [Demadex] 60 mg PO DAILY
08/07/25 16:00
Fludrocortisone Acetate [Florinef] 0.05 mg PO DAILY
Gabapentin [Neurontin] 400 mg PO TID@0800,1400,2200
08/07/25 18:00
Atorvastatin [Lipitor] 10 mg PO QPM
biotin 5 mg PO QPM
calcium polycarbophil [FiberCon] See Dose Instructions PO QPM
08/07/25 20:00
Calcium Carbonate/Vitamin D3 [Oscal 500 + D] 1 mg PO BID
Pantoprazole [Protonix] 40 mg PO BID
Potassium Chloride [KCl] 40 meq PO BID
Saccharomyces Boulardii [Florastor] 250 mg PO BID
08/07/25 22:00
Amiodarone [Pacerone] 200 mg PO HS
Cetirizine HCl [Zyrtec] 10 mg PO HS
Melatonin 10 mg PO HS
Multivitamin [Theragran] 1 tablet PO HS
Sertraline HCl [Zoloft] 25 mg PO HS
Vit C/Vit E/Lutein/Min/Ambler-3 [Ocuvite Softgel] 1 cap PO HS
Zinc 50mg (Zinc Sulfate 220mg) [Zinc] 50 mg PO HS
Zolpidem Tartrate [Ambien] 5 mg PO HS
08/08/25 06:00
Complete Blood Count/With Diff IN AM
Comprehensive Metabolic Panel IN AM
Magnesium IN AM
08/08/25 08:00
Artificial Tears (Pf) [Refresh Eye Drops (Pf)] 1 drops OPHTH TID
Ascorbic Acid [Vitamin C] 1,000 mg PO DAILY
Ferrous Sulfate [Feosol] 162.5 mg PO DAILY
08/10/25 11:00
DC Protocol for Telemetry ONCE
Abnormal Lab Results
08/07/25
04:14
WBC 11.4 H 10^3/uL
(4.8-10.8)
RBC 3.32 L 10^6/uL
(4.20-5.40)
Hgb 10.7 L g/dL
(12.0-16.0)
Hct 32.6 L %
(37.0-47.0)
MCH 32.2 H pg
(27.0-31.0)
MCHC 32.8 L g/dL
(33.0-37.0)
Abs Immat Gran (auto) 0.1 H 10^3/uL
(0-0.05)
Absolute Neuts (auto) 8.0 H 10^3/uL
(1.4-6.5)
Absolute Monos (auto) 1.0 H 10^3/uL
(0.1-0.6)
Lymphocytes % 18.4 L %
(20.5-51.1)
Sodium 131 L mmol/L
(135-145)
Chloride 97 L mmol/L
(98-107)
BUN 26 H mg/dl
(7-17)
Creatinine 1.1 H mg/dL
(0.6-1.0)
Total Protein 5.8 L g/dl
(6.3-8.2)
08/07/25 04:14
08/07/25 04:14
Vital Signs
Initial and Last Documented VS:
Initial Vital Signs
Temp Resp Pulse Ox
97.7 F 16 96
08/07/25 03:55 08/07/25 03:55 08/07/25 03:55
Last Documented Vital Signs
Temp Pulse Resp BP Pulse Ox
97.8 F 64 16 163/78 94
08/08/25 03:13 08/08/25 03:13 08/08/25 03:13 08/08/25 03:13 08/08/25 03:13
<Erika Verdin, DO - Last Filed: 08/07/25 07:31>
Orders/Labs/Results
Orders:
Orders
08/07/25 04:14
CMP [Comprehensive Metabolic Panel] Urgent
Complete Blood Count/With Diff Urgent
Ferritin Urgent
Comment: ADD ON
Iron Urgent
Comment: ADD ON
Total Iron Binding Urgent
Comment: ADD ON
Vitamin B12 Urgent
Comment: ADD ON
08/07/25 04:53
HYDROmorphone [Dilaudid] 1 mg IV NOW STA
08/07/25 05:14
Humerus, Left 2 Views [CR Humerus - Left Min 2 Views*] Urgent
Comment:
Reason For Exam: pain swelling upper arm
08/07/25 05:15
US Non Vasc UPPER Ext LT Urgent
Reason For Exam: LUE pain swelling
Venous Doppler Upr Ext Left [US Periph Venous UPPER Ext LT] Urgent
Comment:
Reason For Exam: swelling pain LUE
08/07/25 05:18
Ice Pack-Treatment DIRECTED
Location: left upper arm
08/07/25 08:05
Acetaminophen [Tylenol] 1,000 mg PO NOW STA
HYDROmorphone [Dilaudid] 0.25 mg IV NOW STA
08/07/25 08:14
Case Management Consult ONCE
Case Management Consult: Residential Placement
Physical Therapy Consult [Pt Eval And Treat] Urgent
Activity Level: As Tolerated
08/07/25 08:15
Occupational Therapy Consult [Ot Eval And Treat] Urgent
08/07/25 Lunch
Cholesterol Lowering
At Your Request: Full Participation
08/07/25 10:15
Admit/Transfer Patient As Directed
Co-Sign Provider:
Level of Care: Inpatient admission
Assign to:: Telemetry
Physician / Group: Hospitalist
Diagnosis: Hematoma of left upper extremity
Reason for Telemetry: Arrhythmia
Date to Stop Telemetry: 08/10/25
Time to Stop Telemetry: 11:00
Reason for Hospitalization: Hematoma of left upper extremity
Expected length of stay greater than two midnights?: Yes
ELOS- Estimated Length of Stay in days: 2
I certify the patient meets the requirements for IP care: Yes
PRN Pain Medication Management As Directed
May give lesser potent ordered pain med per pt: Yes
preference::
Protocol:: Medication orders for pain may be administered in a
manner that supports deferring to patient preference
when the pt is:
- Requesting an ordered lesser potent pain medication.
Least to most potent pain medications are defined
as: acetaminophen < NSAID < tramadol < opioids
(morphine, oxycodone, hydromorphone).
- Requesting a lesser dose of the same medication IF
ORDERED.
- Requesting a less intrusive route of administration
if both routes are prescribed by the provider (PO <
IV).
08/07/25 10:22
Code Status As Directed
Resuscitation Status: Limited DNR
Limited DNR: -No intubation
08/07/25 10:33
Compression Therapy As Directed
Location/extremity:: Left upper extremity
Left LE knee high
Right LE knee high
Type of compression therapy:: Shawn Wrap
08/07/25 13:39
Acetaminophen [Tylenol] 650 mg PO Q4HPRN PRN
Bisacodyl [Dulcolax] 10 mg RECTAL [id number] PRN
Metolazone [Zaroxolyn] 5 mg PO DAILY PRN 5lb weight gain
Tramadol HCl [Ultram] 50 mg PO Q6HPRN PRN
acetaminophen 1,300 mg PO Q6HPRN PRN
mirabegron [Myrbetriq] See Dose Instructions PO DAILY
08/07/25 13:39
ORTHOPEDIC CONSULT Routine
Consulting Provider: Leighton Ferguson
Was physician already notified: Yes
Activity As Directed
Activity Level: As Tolerated
Pneumatic Compression Sleeves As Directed
Type: Knee high
Vital Signs As Directed
Frequency: Per unit guidelines
DX Deep Vein Thrombosis Video Routine
08/07/25 15:00
Hydrocortisone [Cortef] 5 mg PO NOON
Hydrocortisone [Hydrocortone/Cortef] 20 mg PO DAILY
Spironolactone [Aldactone] 25 mg PO DAILY
Torsemide [Demadex] 60 mg PO DAILY
08/07/25 16:00
Fludrocortisone Acetate [Florinef] 0.05 mg PO DAILY
Gabapentin [Neurontin] 400 mg PO TID@0800,1400,2200
08/07/25 18:00
Atorvastatin [Lipitor] 10 mg PO QPM
biotin 5 mg PO QPM
calcium polycarbophil [FiberCon] See Dose Instructions PO QPM
08/07/25 20:00
Calcium Carbonate/Vitamin D3 [Oscal 500 + D] 1 mg PO BID
Pantoprazole [Protonix] 40 mg PO BID
Potassium Chloride [KCl] 40 meq PO BID
Saccharomyces Boulardii [Florastor] 250 mg PO BID
08/07/25 22:00
Amiodarone [Pacerone] 200 mg PO HS
Cetirizine HCl [Zyrtec] 10 mg PO HS
Melatonin 10 mg PO HS
Multivitamin [Theragran] 1 tablet PO HS
Sertraline HCl [Zoloft] 25 mg PO HS
Vit C/Vit E/Lutein/Min/Ambler-3 [Ocuvite Softgel] 1 cap PO HS
Zinc 50mg (Zinc Sulfate 220mg) [Zinc] 50 mg PO HS
Zolpidem Tartrate [Ambien] 5 mg PO HS
08/08/25 06:00
Complete Blood Count/With Diff IN AM
Comprehensive Metabolic Panel IN AM
Magnesium IN AM
08/08/25 08:00
Artificial Tears (Pf) [Refresh Eye Drops (Pf)] 1 drops OPHTH TID
Ascorbic Acid [Vitamin C] 1,000 mg PO DAILY
Ferrous Sulfate [Feosol] 162.5 mg PO DAILY
08/10/25 11:00
DC Protocol for Telemetry ONCE
Abnormal Lab Results
08/07/25
04:14
WBC 11.4 H 10^3/uL
(4.8-10.8)
RBC 3.32 L 10^6/uL
(4.20-5.40)
Hgb 10.7 L g/dL
(12.0-16.0)
Hct 32.6 L %
(37.0-47.0)
MCH 32.2 H pg
(27.0-31.0)
MCHC 32.8 L g/dL
(33.0-37.0)
Abs Immat Gran (auto) 0.1 H 10^3/uL
(0-0.05)
Absolute Neuts (auto) 8.0 H 10^3/uL
(1.4-6.5)
Absolute Monos (auto) 1.0 H 10^3/uL
(0.1-0.6)
Lymphocytes % 18.4 L %
(20.5-51.1)
Sodium 131 L mmol/L
(135-145)
Chloride 97 L mmol/L
(98-107)
BUN 26 H mg/dl
(7-17)
Creatinine 1.1 H mg/dL
(0.6-1.0)
Total Protein 5.8 L g/dl
(6.3-8.2)
08/07/25 04:14
08/07/25 04:14
Vital Signs
Initial and Last Documented VS:
Initial Vital Signs
Temp Resp Pulse Ox
97.7 F 16 96
08/07/25 03:55 08/07/25 03:55 08/07/25 03:55
Last Documented Vital Signs
Temp Pulse Resp BP Pulse Ox
97.8 F 64 16 163/78 94
08/08/25 03:13 08/08/25 03:13 08/08/25 03:13 08/08/25 03:13 08/08/25 03:13
<Ayanna Schmidt MD, Resident - Last Filed: 08/08/25 06:04>
MDM/Problems Addressed
Differential Diagnosis Includes:
Hematoma, phlebitis, Biceps tendon rupture, fracture, septic joint, DVT, cellulitits
MDM/Problems Addressed:
Will provide pain management and get left upper extremity ultrasound to evaluate for hematoma and DVT. We may need to get a CT for further imaging. Will also get a left humeral x-ray to rule out fracture.
Noted to have slightly elevated WBC 11.4. Cr mildly elevated at 1.1 baseline 0.9.
06:30
US revealed no evidence of DVT however cephalic vein is not visualized due to large overlying complex hematoma and therefore cephalic vein thrombus/DVT cannot be excluded. Based on physical exam findings, highly suspect hematoma. Will provide ice
and pain relief. Humerus x-ray pending.
07:30
Humerus x-ray revealed no acute fracture. As exam and imaging consistent with hematoma, will provide instructions to ice area and continue to take pain medications as prescribed. She plans to follow up with Dr. Robert regardless. However, given
immobility of bilateral shoulders and ambulatory dysfunction at baseline, there is concern regarding fall risk. Will do a trial with the walker to see if she is able to ambulate safely on her own. If not, will place CM consult and PT eval for
possible SNF placement.
08:11
Pain in left and right shoulders is significant and debilitating. She has not had any pain medication since 05:01 so will give another 0.25 of dilaudid as home dose was 1mg every 3 hours and tylenol 1000mg. Will consult case management for possible
SNF placement as pain is so significant it makes her feel weak. Her is unsure if he will be able to take care of her on his own at home.
<Ayanna Schmidt MD, Resident - Last Filed: 08/08/25 06:04>
*Pulse Oximetry
SaO2: 98
Oxygen Mode of Delivery: Room air
Patient hypoxic: no
*Critical Care Note
Total Time (30-74mins, 75-104mins- exclusive of procedures): Not Applicable
Data Reviewed
Review of Other/Old Records Reveals: Labs (hg 10.1 on 06/26/25) and Radiology Studies (echo 01/19/24 60-65% EF )
Source: patient, records and family
<Erika Verdin DO - Last Filed: 08/07/25 07:31>
*Radiology
Radiology exam reviewed: radiology read reviewed
ED Attending Note
<Ayanna Schmidt MD, Resident - Last Filed: 08/08/25 06:04>
-
Portions of this chart may have been created with voice recognition software.� Occasional wrong word or��sound alike� substitutions may have occurred due to the inherent limitations of voice recognition software.
<Erika Verdin DO - Last Filed: 08/07/25 07:31>
ED Attending Note
Patient seen and examined by attending physician: Yes
I performed a history and physical exam of patient and discussed management with resident, I reviewed resident's note and agree with documented findings and plan of care.: Yes
ED Attending Note:
85-year-old woman with history of A-fib, CHF, hypertension, hyperlipidemia, adrenal insufficiency, osteoarthritis, chronic back pain.
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
hearing an acute pop while reaching with her right arm. Was found to have dislocated prosthesis that was reduced at bedside by ED provider under moderate sedation. She has been placed in an arm sling and continues with moderate right shoulder
pain, taking an old prescription of Dilaudid tablets, wearing lidocaine patch and applying ice.
She has also had some ongoing chronic left shoulder pain and underwent a steroid injection to her left shoulder perhaps a month ago.
She has a follow-up appointment with her orthopedist, Dr. oJnes scheduled for tomorrow.
This morning however she awoke with moderate severe left upper arm pain and swelling. She denies injury nor fall. Her placed a lidocaine patch to her left upper arm as well as gave her Dilaudid. Thus far no improvement in pain.
She has not had a fever. She denies weakness or numbness. No cough or shortness of breath.
85-year-old woman, somewhat frail in appearance, awake and alert, mild distress related to pain. Cooperative. is accompanying.
Left upper extremity: There is no tenderness nor soft tissue swelling of the left shoulder. Moderately restricted range of motion left shoulder that appears chronic and unchanged.
There is a firm moderately tender area of soft tissue swelling left anterior mid to distal upper arm along with local rubor and ecchymosis anterior upper arm as well as antecubital fossa. Evidence of a minute venipuncture site left antecubital
fossa. There is a well-circumscribed rectangular erythematous patch lateral aspect of the upper arm that appears to coincide with recent lidocaine patch.
There is no tenderness to the elbow nor forearm nor hand. There is no distal edema. Radial pulses are full and equal. Hand grasps are full and equal.
I have significant concern for focal hematoma that may be related to recent venipuncture. Other consideration is DVT, phlebitis, less likely cellulitis. Less likely fractured humerus.
Labs reveal mildly elevated white blood cell count, similar to previous in May.
Chemistries are unremarkable.
Will plan for venous Doppler left upper extremity assess for potential DVT as well as soft tissue ultrasound assess for potential hematoma.
Will check humerus x-ray.
Pain is currently markedly improved after an IV dose of Dilaudid.
Will apply local ice as well.
06:30
Venous Doppler negative for DVT. Ultrasound does however show a large hematoma in the left upper arm and I suspect related to recent venipuncture.
X-ray is pending. I suspect this will be unremarkable.
Plan is for discharge to home with recommendations to apply ice to the left upper arm. Continue Dilaudid tablets and plan for follow-up with orthopedics tomorrow as already scheduled.
Discharge Plan
Departure
Patient Disposition: Admit
Date of Disposition: 08/07/25
Time of Disposition: 08:59
Presentation/result/management discussed w/ accepting MD/DO: Hospitalist
Patient with high blood pressure during this ER visit?: No
Condition: Good
Discharge Problem:
Hematoma of left upper extremity
Interventions
Interventions:
*Risk Screen - Suicide Last Done: 08/07/25 03:59
*General Assessment Last Done: 08/07/25 03:59
*Neglect/Abuse Screening Last Done: 08/07/25 03:59
*ED- Fall Risk Assessment Last Done: 08/07/25 03:59
*ED COVID-19 Vaccine History Last Done: 08/07/25 03:59
*ED Influenza Vaccine History Last Done: 08/07/25 03:59
*Nursing Disposition Last Done: 08/07/25 13:11
ED-Skin Assessment Last Done: 08/07/25 04:05
Discharge Date and Time
Discharge Date/Time: 08/07/25 13:32
[2025-08-07] MEDS: DILAUDID 1 MG IV (05:01)
[2025-08-07] MEDS: TYLENOL 1000 MG PO (08:14)
[2025-08-07] MEDS: DILAUDID 0.25 MG IV (08:15)
--- NOTE | 2025-08-07 09:08 | HPS.HSE ---
Addendum entered and electronically signed by Magdy Lewis MD 08/07/25 11:59:
Seen and examined the patient with the resident. Agree with plan of care formulated together
85-year-old female woke up 2 days ago in the morning with right shoulder pain. She was seen in the ER she had a shoulder dislocation without any trauma. This was reduced and patient was discharged for follow-up with orthopedics. She is scheduled
to see Dr. Jones on 08/08/2025. She also noted lower extremity edema, left upper extremity severe pain and swelling. Patient not able to use the walker therefore brought to the ER.
On examination patient is in pain
Awake alert, oriented
Cardiovascular system S1-S2 appreciated
Chest clear to auscultation decreased at bases
Abdomen soft and nontender
Bilateral pedal edema left more than right
Left upper arm with large hematoma with ecchymosis, tenderness
Right shoulder movement limited secondary to pain
# Left upper extremity hematoma
No trauma spontaneous bleed exacerbated by Eliquis
Hold Eliquis
Follow hemoglobin
Pressure bandage applied with Hsawn bandages
Good pulses in the radial area
# Right shoulder dislocation status post closed reduction in the ER on 08/05/2025
Patient is supposed to follow-up with Dr. Jones on 08/08/2025 -consult orthopedics secondary to pain
Pain control-tramadol, oxycodone
Repeat x-rays
# Anemia-patient has chronic anemia. Rule out acute blood loss anemia. Follow hemoglobin.
# Paroxysmal atrial fibrillation/AT/SVT-continue amiodarone. Hold Eliquis
# Chronic kidney disease-1.1 creatinine is her baseline per daughter-watch with diuretics. Follows up with Dr. Barnett
# Chronic HFpEF-follows up with at [facility]
# Adrenal insufficiency-continue hydrocortisone and fludrocortisone. No need for stress dose steroids today
# Hyperlipidemia-continue atorvastatin
# Insomnia-on eszopiclone
# GERD/hiatal hernia-With history of repair-continue PPI
# Depression-continue sertraline
# History of rheumatic fever
# DDD/chronic back pain
# Chronic lymphedema lower extremity-Shawn bandages
# DVT prophylaxis-SCDs
# Limited DNR
Discussed with patient's daughter at bedside
Discussed with case management at bedside
Part of this note was created using voice recognition system. Occasional wrong word or��sound alike� substitutions may have inadvertently occurred due to the inherent limitations of voice recognition software. If noted kindly bring it to my
attention for correction.
Original Note:
Family Physician
-
Family Physician: Angelo Snyder
Chief Complaint
-
Pain, swelling of left arm
History of Present Illness
85-year-old female with past medical history of paroxysmal atrial fibrillation on Eliquis, HFpEF, adrenal insufficiency , Chronic lymphedema presents to the ER for acute onset left arm pain. She was recently here for right shoulder dislocation on
08/05/2025 with subsequent reduction. She is now presenting with sudden onset left arm pain, swelling that started yesterday afternoon. She denies any trauma/falls, fevers/chills. Her tried to place a lidocaine patch on it which did not
help. A few hours later, family reports that they have noticed progressive swelling, erythema along with the pain. She has taken Tylenol and Dilaudid without much help. She has also had some ongoing chronic left shoulder pain and underwent a
steroid injection to her left shoulder a month ago.
She has a follow-up appointment with her orthopedist, Dr. Jones scheduled for tomorrow. Patient took her last dose of Eliquis yesterday evening after dinner. Patient denies hematemesis, hematuria, hematochezia, melena.
ED course�patient afebrile, vital stable. Hb�11.4, hemoglobin 10.7, sodium 131, BUN/creatinine�26/1.1, (baseline 1.1)
X-ray left humerus�no evidence of fracture/ dislocation
Ultrasound with evidence of complex hematoma.
She received Tylenol, Dilaudid in the ER. Underwent PT OT screening.
Medical History
Past Medical History
Past Medical History: Reports Other (paroxysmal atrial fibrillation/atrial tachycardia/SVT on Eliquis, chronic HFpEF, hypertension, adrenal insufficiency, rheumatic fever, nephrolithiasis, degenerative disease, GERD/hiatal hernia, chronic
lymphedema, chronic constipation, anxiety/depression/insomnia,)
Past Surgical History: Reports Other (Gynecological (Tubal ligation), Orthopedic (Spinal implant, right shoulder surgery X 3 last with replacement), Tonsilectomy, Urological (Kidney stone removal) and Other (Hiatal hernia repair)
Social History
Tobacco: Non-smoker
Alcohol: None
Drug: None
Personal:
Living: With Family
Employment: Retired
Family History
Family History: Not pertinent
Allergies / Home Medications
Allergies reflects when Allergies were last updated in [facility].
Home Medications with original date entered in [facility]
Allergy/Medication List:
Allergies
Allergy/AdvReac Type Severity Reaction Status Date / Time
No Known Allergies Allergy Verified 08/07/25 06:51
Home Medications
omeprazole 40 mg capsule,delayed release 40 mg PO BID Gastrointestinal Issue 01/27/21
multivitamin 1 tab PO HS Supplement 12/28/23
polyethylene glycol 3350 17 gram oral powder packet (Miralax) 17 g PO DAILY Constipation 12/28/23
torsemide 20 mg tablet 60 mg PO DAILY Fluid Retention/Swelling 12/28/23
sertraline 50 mg tablet 25 mg PO HS Mental Health 12/29/23
atorvastatin 10 mg tablet 10 mg PO QPM High Cholesterol 01/09/24
calcium 600 mg (as carbonate)-vitamin D3 10 mcg (400 unit) tablet (Calcium 600 + D(3)) 1 tab PO BID Supplement 01/09/24
melatonin 10 mg tablet 10 mg PO HS Sleep #0 tabs 01/21/24
Saccharomyces boulardii 250 mg capsule (Florastor) 250 mg PO BID Supplement 08/15/24
hydrocortisone 10 mg tablet 5 mg PO NOON adrenal insuff 08/15/24
hydrocortisone 10 mg tablet 20 mg PO DAILY adrenal insuff 08/15/24
apixaban 5 mg tablet (Eliquis) 5 mg PO BID Blood Clot Prevention/Tx 10/17/24
Held on 06/26/25. Instructions: hold until procedure rescheduling known
eszopiclone 2 mg tablet 2 mg PO HS Sleep 10/17/24
tramadol 50 mg tablet 100 mg PO DAILYPRN PRN back pain 10/17/24
acetaminophen 650 mg tablet,extended release 1,300 mg PO Q6HPRN PRN mild pain/fever 05/07/25
amiodarone 200 mg tablet 200 mg PO HS Heart Disease/Condition 05/07/25
ascorbic acid (vitamin C) 1,000 mg tablet (Vitamin C) 1,000 mg PO DAILY Supplement 05/07/25
biotin 5 mg tablet 5 mg PO QPM Supplement 05/07/25
cetirizine 10 mg tablet (Zyrtec) 10 mg PO HS Allergies 05/07/25
ferrous sulfate 137 mg (45 mg iron) tablet,extended release (Slow Fe) 137 mg PO HS Supplement ##0 05/07/25
gabapentin 400 mg tablet 400 mg PO TID@0800,1400,2200 mild Pain 05/07/25
spironolactone 25 mg tablet 25 mg PO DAILY Blood Pressure 05/07/25
vitamin A-vitamin C-vit E-min tablet (Ocutabs tablet) 1 tab PO HS Supplement 05/07/25
potassium chloride 20 mEq tablet,extended release 40 meq (2 x 20 mEq) PO BID Supplement 1 month #60 tabs 05/11/25
calcium polycarbophil 625 mg tablet (FiberCon) 625 mg PO QPM 06/07/25
mirabegron 25 mg tablet,extended release 24 hr (Myrbetriq) 20 mg PO DAILY 06/07/25
zinc sulfate 50 mg zinc (220 mg) capsule 50 mg PO HS 06/07/25
docusate sodium 100 mg capsule (Colace) 100 mg PO HS Constipation #0 caps 06/10/25
carboxymethylcellulose sodium 1 % eye liquid gel drops 1 drp DAILY 06/26/25
fludrocortisone 0.1 mg tablet 0.05 mg PO DAILY 06/26/25
metolazone 5 mg tablet 5 mg PO DAILY PRN 5lb weight gain 06/26/25
Review of Systems
-
A 12 point ROS was completed and negative except as noted: Yes
Physical Exam
Vital Signs
Vital Signs
Temp Pulse Resp BP Pulse Ox
97.7 F 64 16 126/67 99
08/07/25 03:55 08/07/25 08:26 08/07/25 08:26 08/07/25 08:26 08/07/25 08:26
Physical Exam
General: Pain and Appears Chronically Ill
HEENT: NormoCephalic and Atraumatic
Respiratory: Clear
Cardiac: S1/S2 and Regular Rhythm
GI: Soft, Non Tender, Non Distended and Normal Bowel Sounds
Musculoskeletal: Edema, Left Lower Extremity, Edema, Right Lower Extremity and Other (Right shoulder joint-mild TTP, with restricted ROM due to pain. Left shoulder joint-no TTP. Left arm with large area of erythema on the anterior and lateral
aspect , increased warmth, TTP, distal neurovasculature intact, capillary refill normal, radial pulses normal.)
Skin: Warm and Dry
Neuro: Awake, Alert, Oriented and AO x 3
Psych: Calm
Laboratory Results
-
08/07/25 04:14
08/07/25 04:14
Laboratory Results
Total Bilirubin 0.4 mg/dl (0.2-1.3) 08/07/25 04:14
AST 28 U/L (14-36) 08/07/25 04:14
ALT 29 U/L (0-35) 08/07/25 04:14
Alkaline Phosphatase 68 U/L (38-126) 08/07/25 04:14
Impression/Plan
-
IMPRESSION:
85-year-old female with past medical history of paroxysmal atrial fibrillation on Eliquis, HFpEF, adrenal insufficiency , Chronic lymphedema, anxiety disorder presents to the ER for acute onset left arm pain.
PLAN:
#Hematoma of left upper extremity.
Patient on Eliquis for A-fib, last dose yesterday evening
Will hold Eliquis
Will do Shawn wrap compression, to prevent progression of hematoma
Ice packs as needed
Adequate pain control with Tylenol, Dilaudid as needed
Mildly elevated white count 11.4, patient is afebrile
Less likely cellulitis, but marked the area of ecchymosis/erythema to monitor for spread
Will hold off on antibiotics for now
Monitor white count, fever curve
#Right shoulder dislocation s/p closed reduction (ER on 08/05/2025)
Patient had follow-up visit with Dr. Jones scheduled for tomorrow
Consulted Ortho
Appreciate recommendation
Adequate pain control with Tylenol, Dilaudid
#Elevated creatinine
Creatinine today 1.1, it is her baseline
No evidence of LEILA
Monitor BMP
Will continue torsemide, spironolactone
#Ambulatory dysfunction
Patient uses cane/walker for ambulation at home
Patient had right shoulder dislocation with pain, now unable to use her left upper extremity as well.
PT/OT consult
Case management consult
#Adrenal insufficiency
Patient is hemodynamically stable today
Sodium 131, potassium 4.6
Continue home dose hydrocortisone, fludrocortisone
Monitor hemodynamic status, electrolytes
#Chronic hyponatremia
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
Baseline sodium at 129
Will monitor BMP
#Heart failure with preserved ejection fraction
Patient appears euvolemic, not symptomatic, no worsening of lower extremity edema
Echo 4 2425-65% ejection fraction, normal diastolic function
Continue home regimen with spironolactone, torsemide, and as needed metolazone
#Paroxysmal A-fib
Continue amiodarone
Hold Eliquis
Monitor telemetry
#GERD
Continue omeprazole
#Anxiety
Continue sertraline
#Hypercholesterolemia
Continue atorvastatin
DVT prophylaxis�SCDs
Diet�low-cholesterol
DNI
[2025-08-07 11:52] LABS: Iron 63 ug/dl (37-170)
[2025-08-07 12:01] LABS: Total Iron Binding Capacity 275 ug/dl (265-497)
--- NOTE | 2025-08-07 12:53 | CON.ORTHO ---
Consultation
-
Date/Time Consultation Requested: 08/07/2025
Date/Time Consultation Performed: 08/07/2025
Requesting Provider: Dr Moreno
Performing Provider: Allison Lopez PA-C, for Dr. Leighton Ferguson
Reason for Consultation: Right shoulder dislocation of reverse TSA; left upper arm hematoma
Consultation - Orthopedics
History
HPI: Mrs. He is an 85-year-old female who presented to [facility] complaining of progressively worsening left arm pain, swelling, bruising, and difficulty moving her left shoulder. Prior to this, she was seen in the emergency
department on 08/05/2025 after experiencing a dislocation of her right reverse total shoulder prosthesis. This was successfully reduced in the emergency department under sedation. She was placed in a sling and advised to follow-up with our
outpatient office at the first availability. She was able to get an appointment for 08/08/2025. However, over the past several days, she has been experiencing progressively worsening right shoulder pain and inability to receive any relief with
oral Dilaudid and Tylenol. She was concerned that maybe the prosthesis had again dislocated. Unfortunately, she does have an extensive history of lumbar spine issues, including spinal stenosis and significant arthritis that leads to weakness of
her lower extremities. She is scheduled to have a spinal stimulator placed on 08/29/2025. She requires both of her upper extremities to lift her from a seated position. She believes that this is what led to her right shoulder dislocation as she
went to push herself up to get out of bed and felt the pop and pain. For a week leading up to the dislocation, she had been complaining of intermittent right shoulder pain. During her emergency department visit on 08/05, an IV was placed, and it is
believed that she sustained a hematoma from this, which is what led to her left upper extremity swelling and discomfort. Our orthopedic team was consulted and she discussed management of her right shoulder prosthesis dislocation and left upper arm
hematoma.
Past medical history: Significant for SIADH, GERD, hyperlipidemia, hypertension, chronic anemia, paroxysmal A-fib on Eliquis, CKD, depression, chronic back pain, chronic lymphedema of lower extremities.
Past surgical history: Tubal ligation, right reverse total shoulder arthroplasty, tonsillectomy, kidney stone removal, hiatal hernia repair.
Social history: Lives at home with . Denies tobacco or alcohol use.
Family history: Noncontributory.
Review of systems: All systems reviewed and negative except for those mentioned in HPI.
Allergies / Home Medications
Allergy/AdvReac Type Severity Reaction Status Date / Time
No Known Allergies Allergy Verified 08/07/25 06:51
�Medication �Instructions �Recorded
torsemide 20 mg tablet 60 mg PO DAILY Fluid 12/28/23
Retention/Swelling
atorvastatin 10 mg tablet 10 mg PO QPM High Cholesterol 01/09/24
calcium 600 mg (as 1 tab PO BID Supplement 01/09/24
carbonate)-vitamin D3 10 mcg (400
unit) tablet (Calcium 600 + D(3))
melatonin 10 mg tablet 10 mg PO HS Sleep #0 tabs 01/21/24
Saccharomyces boulardii 250 mg 250 mg PO BID Supplement 08/15/24
capsule (Florastor)
hydrocortisone 10 mg tablet 5 mg PO NOON adrenal insuff 08/15/24
hydrocortisone 10 mg tablet 20 mg PO DAILY adrenal insuff 08/15/24
eszopiclone 2 mg tablet 2 mg PO HS Sleep 10/17/24
acetaminophen 650 mg 1,300 mg PO Q6HPRN PRN mild 05/07/25
tablet,extended release pain/fever
amiodarone 200 mg tablet 200 mg PO HS Heart 05/07/25
Disease/Condition
ascorbic acid (vitamin C) 1,000 mg 1,000 mg PO DAILY Supplement 05/07/25
tablet (Vitamin C)
gabapentin 400 mg tablet 400 mg PO TID@0800,1400,2200 mild 05/07/25
Pain
spironolactone 25 mg tablet 25 mg PO DAILY Blood Pressure 05/07/25
mirabegron 25 mg tablet,extended 25 mg PO DAILY Urinary Issue 06/07/25
release 24 hr (Myrbetriq)
carboxymethylcellulose sodium 1 % 1 drp BOTH EYES TID Eye Condition 06/26/25
eye liquid gel drops
fludrocortisone 0.1 mg tablet 0.05 mg PO DAILY 06/26/25
metolazone 5 mg tablet 5 mg PO DAILYPRN PRN 5lb weight 06/26/25
gain
apixaban 5 mg tablet (Eliquis) 5 mg PO BID Blood Clot 08/07/25
Prevention/Tx
docusate sodium 100 mg capsule 100 mg PO HSPRN PRN constipation 08/07/25
(Colace)
famotidine 20 mg tablet (Pepcid) 20 mg PO HS Gastrointestinal Issue 08/07/25
metoclopramide HCl 5 mg tablet 5 mg PO BID NAUSEA 08/07/25
omeprazole 20 mg tablet,delayed 20 mg PO BID Gastrointestinal Issue 08/07/25
release
potassium chloride 20 mEq 40 meq PO BID Electrolyte Repletion 08/07/25
tablet,extended release
psyllium 1 packet PO DAILY Constipation 08/07/25
sennosides 8.6 mg tablet (senna) 8.6 mg PO DAILYPRN PRN CONSTIPATION 08/07/25
sucralfate 1 gram tablet 1 g PO AC Gastrointestinal Issue 08/07/25
Vital Signs / Lab Results
Temp Pulse Resp BP Pulse Ox
97.7 F 75 16 123/50 98
08/07/25 03:55 08/07/25 12:33 08/07/25 12:39 08/07/25 12:32 08/07/25 12:39
08/07/25 04:14
08/07/25 04:14
Physical examination:
General: Well-developed, well-nourished female in no acute distress at rest. AO x 4.
HEENT: Atraumatic, normocephalic, neck supple.
Lungs: Nonlabored breathing on room air. No audible wheezing.
Left shoulder: Diffuse swelling and ecchymosis about the left upper extremity. Diffuse tenderness to palpation. Limited shoulder range of motion all planes secondary to pain and swelling. Good range of motion of elbow, wrist, and hand without
pain.
Right shoulder: Passive forward elevation to 90 degrees with significant discomfort. Passive external rotation to 10 degrees with discomfort. Full range of motion of elbow, wrist, and hand without pain. Neurovascular intact distally. Sling in
place.
Radiographic studies:
X-rays of the right shoulder from 08/05/2025 showed an initial dislocation anteriorly of the right shoulder prosthesis. Postreduction x-ray showed better anatomic alignment of the prosthesis.
X-rays of the left humerus without acute osseous abnormality. Ultrasound of the left upper extremity with no evidence of DVT. Large hematoma present.
Assessment / Plan
Assessment: Dislocation of right reverse shoulder prosthesis; left upper extremity hematoma.
Plan: Unfortunately, Mrs. He sustained a dislocation of her right reverse total shoulder prosthesis last Friday. Postreduction x-rays do show better alignment, however, she continues to have intractable pain in her right shoulder. She was
taking hydromorphone and Tylenol, but denies any significant relief of her symptoms. Due to this, we will order a CT scan with metallic subtraction of her right shoulder to further evaluate the implants and bony structures following her recent
dislocation. She should remain immobilized in the sling and nonweightbearing on her right upper extremity until further notice. Continue with pain management as needed. In regards to her left upper extremity hematoma, we recommend continued
supportive measures at this time. She may continue with motion and weightbearing to tolerance. We will follow along with the results of the CT scan to provide further recommendations based on what is seen. Patient and family were in agreement
with treatment recommendations at this time.
--- NOTE | 2025-08-07 13:07 | CM ---
Patient seen bedside in ED; with daughter in ED. Patient states that she lives with her in a one story home with 6 steps. Patient uses walker, and has wheelchair, shower chair and raised toilet seat with rails. Patient has had [facility] and been
to [facility] in the past. Patient would like to return there if appropriate. Patient PCP is Dr. Snyder and she uses the [facility] in [place]. Patient plan is placement at this time. CM will continue to follow for discharge planning needs.
Plan: SNF; [facility] if possible pending bed availability
[2025-08-07] MEDS: ROXICODONE 10 MG PO (14:17)
[2025-08-07] MEDS: LIDOCAINE 4% PATCH TOPICAL (15:23)
[2025-08-07] MEDS: ALDACTONE 25 MG PO (15:32)
[2025-08-07] MEDS: DEMADEX 60 MG PO (15:33)
[2025-08-07] MEDS: CORTEF 5 MG PO (15:42)
[2025-08-07] MEDS: MIRALAX 17 GRAMS PO (15:43)
[2025-08-07] MEDS: HYDROCORTONE/CORTEF 20 MG PO (15:51)
[2025-08-07 15:56] LABS: Ferritin 64.8 ng/ml (11.1-264.0)
[2025-08-07] MEDS: NEURONTIN 400 MG PO ×2 (16:03→21:33)
[2025-08-07] MEDS: FLORINEF 0.05 MG PO (16:03)
--- NOTE | 2025-08-07 16:46 | PTCARENOTE ---
1345 Pt arrived from ED. Pt assistx3 seat covers trimmer from stretcher. VSS. AAOX3. Pain 06/08. (medicated per nov). Oriented to room and call marcano. admission question and assessment complete. bed locked and in lowest position.
[2025-08-07] MEDS: LIPITOR 10 MG PO (17:25)
[2025-08-07 17:34] LABS: Vitamin B12 908 pg/ml (239-931)
[2025-08-07] MEDS: COLACE 100 MG PO (19:25)
[2025-08-07] MEDS: KCL 40 MEQ PO (19:25)
[2025-08-07] MEDS: TYLENOL 650 MG PO (19:25)
[2025-08-07] MEDS: FLORASTOR 250 MG PO (19:25)
[2025-08-07] MEDS: PROTONIX 40 MG PO (19:26)
[2025-08-07] MEDS: REMOVE LIDOCAINE PATCH 1 PATCH REMOVE (19:27)
[2025-08-07] MEDS: SENOKOT 17.2 MG PO (19:27)
[2025-08-07] MEDS: ZYRTEC 10 MG PO (21:33)
[2025-08-07] MEDS: THERAGRAN 1 TABLET PO (21:33)
[2025-08-07] MEDS: PACERONE 200 MG PO (21:33)
[2025-08-07] MEDS: ROXICODONE 5 MG PO (21:34)
[2025-08-07] MEDS: OCUVITE SOFTGEL 1 CAP PO (21:36)
[2025-08-07] MEDS: ZINC 50 MG PO (21:37)
[2025-08-08] MEDS: MELATONIN 10 MG PO (00:45)
[2025-08-08 03:13] VITALS: BP 163/78
--- NOTE | 2025-08-08 05:24 | W.PN.UPDATE ---
Update Note
Progress Note Update
CT RUE shows persistent dislocation of right shoulder prosthesis. Will plan for a RIGHT shoulder revision RTSA on Friday via Dr. Jones. Surgical and consent has been obtained and placed to her chart. Operative site has been marked as the RIGHT
shoulder. Case posted with the OR. Remain in sling to RUE for now. Ice to shoulder. Pain control. Orders placed for Friday, including NPO. T&S placed for . Atraumatic ecchymotic changes of the left arm. No signs of infection clinically.
elbow, wrist, hand ROM OK. DNVI LUE. Unsure of onset, but induced by Eliquis I am sure, which is on hold. Supportive measures for this. Will follow.
ADDENDUM to rounds note:
I saw her as an outpatient in the office after rounding. Apparently having her in the hospital until Friday will be a significant financial constraint. I reached out to attending hospitalist, Dr. Miller, as well as CM. If she is medically
optimized she may be discharged home today and remain in sling. we can arrange an outpatient appointment for her in the next 1 to 2 days to set up surgery for Friday. Eliquis currently on hold. patient's will be reaching out to their
[facility] and [facility] (outside ) to see if it is acceptable to remain off Eliquis from this point until Friday surgery.
[2025-08-08 07:18] LABS: ALT (SGPT) 24 U/L (0-35); AST (SGOT) 24 U/L (14-36); Albumin 3.1 g/dl (3.5-5.0); Alkaline Phosphatase 64 U/L (38-126); Blood Urea Nitrogen 22 mg/dl (7-17); Calcium 8.8 mg/dl (8.4-10.2); Carbon Dioxide 28 mmol/L (22-30); Chloride 95 mmol/L (98-107); Estimated Creatinine Clearance 44 ml/min; Glucose 86 mg/dl (70-99); Hematocrit 29.2 % (37.0-47.0); Hemoglobin 9.4 g/dL (12.0-16.0); Magnesium 1.9 mg/dl (1.6-2.3); Mean Corp Hgb Conc. 32.2 g/dL (33.0-37.0); Mean Corpuscular Volume 105.0 fL (81.0-99.0); Nucleated Red Blood Cells % 0 %; Platelet Count 282 10^3/uL (130-400); Potassium 3.8 mmol/L (3.5-5.1); Red Cell Dist. Width 12.0 % (11.5-14.5); Sodium 129 mmol/L (135-145); Total Protein 5.3 g/dl (6.3-8.2); eGFR > 60.00
[2025-08-08 08:11] VITALS: BP 125/71
[2025-08-08] MEDS: COLACE 100 MG PO (08:29)
[2025-08-08] MEDS: MIRALAX 17 GRAMS PO (08:29)
[2025-08-08] MEDS: KCL 40 MEQ PO (08:30)
[2025-08-08] MEDS: ROXICODONE 5 MG PO ×2 (08:33→12:35)
[2025-08-08] MEDS: FLORINEF 0.05 MG PO (08:34)
[2025-08-08] MEDS: FLORASTOR 250 MG PO (08:34)
[2025-08-08] MEDS: VITAMIN C 1000 MG PO (08:34)
[2025-08-08] MEDS: HYDROCORTONE/CORTEF 20 MG PO (08:34)
[2025-08-08] MEDS: PROTONIX 40 MG PO (08:34)
[2025-08-08] MEDS: REFRESH EYE DROPS (PF) 1 DROPS OPHTH (08:34)
[2025-08-08] MEDS: DEMADEX 60 MG PO (08:35)
[2025-08-08] MEDS: SENOKOT 17.2 MG PO (08:35)
[2025-08-08] MEDS: ALDACTONE 25 MG PO (08:35)
[2025-08-08] MEDS: LIDOCAINE 4% PATCH 1 PATCH TOPICAL (08:36)
[2025-08-08] MEDS: OSCAL 500 + D 500 MG PO (08:37)
[2025-08-08] MEDS: NEURONTIN 400 MG PO (08:37)
[2025-08-08 08:54] VITALS: BMI 27.0
--- NOTE | 2025-08-08 10:23 | W.PN.HOSP.TC ---
Today's Communication/Plan
-
Discharge
Assessment / Plan
Assessment / Plan
Gen-AAOx3, NAD
HEENT-NC, AT, anicteric, clear oral mm
Neck-supple
CV-reg, no M, +S1/S2
Lungs-clear B/L
Abd-soft, NT, ND
Ext-no edema
Musculoskeletal-no cyanosis, clubbing
Skin-warm and dry, large bruise over left upper arm with swelling, soft to touch
Neuro-grossly non-focal
Psych-calm, cooperative
Spontaneous left upper extremity hematoma -hematoma in the setting of chronic anticoagulation with Eliquis. Holding Eliquis. Hemodynamically stable. Keep arm elevated, use ice.
Acute on chronic anemia -suspect mild acute blood loss anemia due to hematoma. Admission hemoglobin 10.7, 9.4 today. Can check CBC as an outpatient, especially prior to upcoming orthopedic surgery. Recommend checking CBC the day prior to surgery.
Discussed with orthopedics.
Right shoulder dislocation -reduced in the emergency room. Orthopedics recommends outpatient surgery on this Friday. Okay for discharge per orthopedics.
Continue oxycodone as needed for pain.
Chronic hyponatremia -sodium 129. Appears to be near baseline.
Paroxysmal atrial fibrillation -hold Eliquis as above.
CKD 3a -stable.
Chronic heart failure preserved EF -stable.
Chronic adrenal insufficiency -continue hydrocortisone, spironolactone. Stress dose steroids on the morning of surgery.
Hyperlipidemia -atorvastatin.
Limited DNR
Dispo -plan for discharge today with [facility] as per patient and family wishes. Outpatient orthopedics follow-up for surgery on her right shoulder dislocation. Recommend CBC today prior to surgery.
Discussed with case management and nursing. Discussed with orthopedics.
35 minutes spent in discharge process.
Anticipated Discharge: Today
Subjective/Interval History
-
Date of Service: August 08, 2025
Patient seen and examined. Complaining of left arm pain.
Objective Data
-
Labs:
Laboratory Results
08/08/25
05:44
WBC 12.3 H
Hgb 9.4 L
Hct 29.2 L
Plt Count 282 D
Sodium 129 L
Potassium 3.8
Chloride 95 L
Carbon Dioxide 28
BUN 22 H
Creatinine 0.9
Glucose 86
Calcium 8.8
Total Bilirubin 0.4
AST 24
ALT 24
Alkaline Phosphatase 64
Vital Signs:
Vital Signs
Temp Pulse Resp BP Pulse Ox
98.5 F 76 18 125/71 98
08/08/25 08:11 08/08/25 08:11 08/08/25 08:11 08/08/25 08:11 08/08/25 08:11
Review of Systems
-
History Source: Patient
All other systems: Reviewed and negative
--- NOTE | 2025-08-08 10:33 | CM ---
Met with patient and spouse; IMM completed; Home health agency options identified; preference is [facility]; referral sent
Plan: Discharge to home with home health today; will transport home
--- NOTE | 2025-08-08 10:37 | W.DS.TRANS ---
DC Summary - [facility]
-
Discharge Instructions:
Sleep Apnea Risk Low
Discharge Diagnosis/Procedures Right shoulder dislocation, spontaneous left arm
hematoma, acute on chronic anemia
Diet Low Cholesterol,Low Fat
Activity With assistance,As tolerated
Driving Restrictions No driving
Bathing Restrictions None
Blood Work Please check CBC the day prior to your upcoming
orthopedic surgery
Instructions:
Stand-Alone Forms:
Changes to Home Medications: Yes
Discharge Medications:
DC Medications w/original date entered in [employer]
torsemide 20 mg tablet 60 mg PO DAILY Fluid Retention/Swelling 12/28/23
atorvastatin 10 mg tablet 10 mg PO QPM High Cholesterol 01/09/24
calcium 600 mg (as carbonate)-vitamin D3 10 mcg (400 unit) tablet (Calcium 600 + D(3)) 1 tab PO BID Supplement 01/09/24
melatonin 10 mg tablet 10 mg PO HS Sleep #0 tabs 01/21/24
Saccharomyces boulardii 250 mg capsule (Florastor) 250 mg PO BID Supplement 08/15/24
hydrocortisone 10 mg tablet 5 mg PO NOON adrenal insuff 08/15/24
hydrocortisone 10 mg tablet 20 mg PO DAILY adrenal insuff 08/15/24
eszopiclone 2 mg tablet 2 mg PO HS Sleep 10/17/24
acetaminophen 650 mg tablet,extended release 1,300 mg PO Q6HPRN PRN mild pain/fever 05/07/25
amiodarone 200 mg tablet 200 mg PO HS Heart Disease/Condition 05/07/25
ascorbic acid (vitamin C) 1,000 mg tablet (Vitamin C) 1,000 mg PO DAILY Supplement 05/07/25
spironolactone 25 mg tablet 25 mg PO DAILY Blood Pressure 05/07/25
mirabegron 25 mg tablet,extended release 24 hr (Myrbetriq) 25 mg PO DAILY Urinary Issue 06/07/25
carboxymethylcellulose sodium 1 % eye liquid gel drops 1 drp BOTH EYES TID Eye Condition 06/26/25
fludrocortisone 0.1 mg tablet 0.05 mg PO DAILY INFLAMMATION 06/26/25
metolazone 5 mg tablet 5 mg PO DAILYPRN PRN 5lb weight gain 06/26/25
apixaban 5 mg tablet (Eliquis) 5 mg PO BID Blood Clot Prevention/Tx 08/07/25
Held on 08/08/25. Instructions: Resume on 08/15/25. Please speak with your orthopedic doctor as well as staff physical therapy assistant regarding timing of resumption.
docusate sodium 100 mg capsule (Colace) 100 mg PO HSPRN PRN constipation 08/07/25
famotidine 20 mg tablet (Pepcid) 20 mg PO HS Gastrointestinal Issue 08/07/25
metoclopramide HCl 5 mg tablet 5 mg PO BID NAUSEA 08/07/25
omeprazole 20 mg tablet,delayed release 20 mg PO BID Gastrointestinal Issue 08/07/25
potassium chloride 20 mEq tablet,extended release 40 meq PO BID Electrolyte Repletion 08/07/25
psyllium 1 packet PO DAILY Constipation 08/07/25
sennosides 8.6 mg tablet (senna) 8.6 mg PO DAILYPRN PRN CONSTIPATION 08/07/25
sucralfate 1 gram tablet 1 g PO AC Gastrointestinal Issue 08/07/25
cetirizine 10 mg tablet 10 mg PO HS #0 tabs 08/08/25
ferrous sulfate 325 mg (65 mg iron) tablet (FeroSul) 162.5 mg (1/2 x 325 mg (65 mg iron)) PO DAILY #0 tabs 08/08/25
gabapentin 300 mg capsule 300 mg PO TID@0800,1400,2200 #90 caps 08/08/25
lidocaine 4 % topical patch 1 patch topical DAILY #7 ea 08/08/25
multivitamin with folic acid 400 mcg tablet (Tab-A-Carey) 1 tab PO HS #0 tabs 08/08/25
oxycodone 5 mg tablet 5 mg PO Q4HPRN PRN severe pain #20 tabs 08/08/25
polyethylene glycol 3350 17 gram oral powder packet 17 g PO DAILY #0 ea 08/08/25
zinc sulfate 50 mg zinc (220 mg) capsule 50 mg PO HS #0 caps 08/08/25
Home Medication Changes
Gabapentin dose reduced
Hold Eliquis until you speak with your staff physical therapy assistant, orthopedic doctor
Pending Results: No
--- NOTE | 2025-08-08 10:51 | VNURNOTE ---
Home Health Liaison met with patient and spouse at bedside to discuss [facility] nurse/therapy, visits, schedule and homebound status. Patient and spouse are agreeable and understand that visits at home will be 2-3 x per week to assess and teach
medical management. They are familiar with our services. Both are aware that [facility] will contact them for start of care within a week after discharge from . Provided contact number for [facility].
[facility] referral completed in [facility].
--- NOTE | 2025-08-08 11:34 | PTCARENOTE ---
Removed patient IV, #20 Right FA, before patients discharged. While removing IV, the tape caused a large skin tear. Non-adherent dressing applied. Wound care notified. Will come to see patient before they leave.
--- NOTE | 2025-08-08 12:20 | WOUNDNOTE ---
[facility] RN note: Was asked to see patient for a R forearm skin tear she developed during IV site removal. R arm dermal skin tear pink with skin flap. Moistened wrinkled skin flap and smoothed flap over wound and secured with 2 short thin steri strips,
wound covered with Vaseline and Vaseline gauze, secured with Michelle and stockinet. Supplies given to and instructed local wound care for R arm skin tear. Instructed hand hygiene with wound care. Air chair cushion given to
patient. Skin on heels and sacrum intact. L arm bruised, not new. Bilateral knees with resolving bruises and RLE with old hematoma (nonfluctuant, no drainage) suspect from a fall about a month ago as per patient. Updated RN Allison. Ambrosio texted
Yair Guajardo updated via [employer] text. Updated discharge instructions with local RUE wound care.
[2025-08-08] MEDS: CORTEF 5 MG PO (12:35)
[2025-08-08 12:50] VITALS: BP 132/59
== END 2025-08-08 13:29 | disposition home health service (06) | DRG 605 ==
LOC: 2 SOUTH 10:50
PROVIDERS: Student in an Organized Health Care Education/Training Program; ADMITTING PHYSICIAN Hospitalist; ATTENDING PHYSICIAN Hospitalist; CONSULT PHYSICIAN Orthopaedic Surgery Hand Surgery; EMERGENCY PHYSICIAN Emergency Medicine; FAMILY PHYSICIAN Family Medicine
DX: S40.022A Contusion of left upper arm, initial encounter (principal); T84.028A Dislocation of other internal joint prosthesis, initial encounter; D62 Acute posthemorrhagic anemia; I50.32 Chronic diastolic (congestive) heart failure; I13.0 Hypertensive heart and chronic kidney disease with heart failure and stage 1 through stage 4 chronic kidney disease, or unspecified chronic kidney disease; E27.40 Unspecified adrenocortical insufficiency; D68.32 Hemorrhagic disorder due to extrinsic circulating anticoagulants; E87.1 Hypo-osmolality and hyponatremia; I48.0 Paroxysmal atrial fibrillation; E78.00 Pure hypercholesterolemia, unspecified; K21.9 Gastro-esophageal reflux disease without esophagitis; K44.9 Diaphragmatic hernia without obstruction or gangrene; X58.XXXA Exposure to other specified factors, initial encounter; R26.2 Difficulty in walking, not elsewhere classified; G47.00 Insomnia, unspecified; M48.061 Spinal stenosis, lumbar region without neurogenic claudication; F32.A Depression, unspecified; G89.29 Other chronic pain; I89.0 Lymphedema, not elsewhere classified; F41.9 Anxiety disorder, unspecified; K58.1 Irritable bowel syndrome with constipation; N18.31 Chronic kidney disease, stage 3a; M24.411 Recurrent dislocation, right shoulder; Y83.1 Surgical operation with implant of artificial internal device as the cause of abnormal reaction of the patient, or of later complication, without mention of misadventure at the time of the procedure; Y92.009 Unspecified place in unspecified non-institutional (private) residence as the place of occurrence of the external cause; Y79.2 Prosthetic and other implants, materials and accessory orthopedic devices associated with adverse incidents; Z66 Do not resuscitate; Z96.611 Presence of right artificial shoulder joint; Z79.01 Long term (current) use of anticoagulants; Z87.442 Personal history of urinary calculi; Z98.51 Tubal ligation status
CPT/HCPCS: 73060; 73200; 76882; 80053; 82607; 82728; 83540; 83550; 83735; 85025; 93971

== ENCOUNTER 2025-08-12 10:08 | Inpatient (IN) | payer OTHER, SELFPAY ==
[2025-08-11 11:33] LABS: Hematocrit 27.1 % (37.0-47.0); Hemoglobin 8.8 g/dL (12.0-16.0); Mean Corp Hgb Conc. 32.5 g/dL (33.0-37.0); Mean Corpuscular Volume 102.3 fL (81.0-99.0); Platelet Count 425 10^3/uL (130-400); Red Cell Dist. Width 12.2 % (11.5-14.5)
[2025-08-11 12:02] LABS: ALT (SGPT) 27 U/L (0-35); AST (SGOT) 34 U/L (14-36); Albumin 3.5 g/dl (3.5-5.0); Alkaline Phosphatase 65 U/L (38-126); Blood Urea Nitrogen 32 mg/dl (7-17); Calcium 9.6 mg/dl (8.4-10.2); Carbon Dioxide 31 mmol/L (22-30); Chloride 94 mmol/L (98-107); Glucose 84 mg/dl (70-99); Potassium 5.8 mmol/L (3.5-5.1); Sodium 128 mmol/L (135-145); Total Protein 5.9 g/dl (6.3-8.2); eGFR 49.86
[2025-08-11 12:12] LABS: C-Reactive Protein 29.30 mg/L (0.0-10.00)
--- NOTE | 2025-08-11 16:06 | SUR.OPER ---
Ginny Lopez at Dr. Jones's office made aware.
--- NOTE | 2025-08-11 16:58 | PTCARENOTE ---
[facility], Dr Cano made aware, no additional interventions requested
[2025-08-12] VITALS (13 sets, daily range): BP systolic 136–179; BP diastolic 52–90; BMI 26.7
[2025-08-12 09:20] LABS: Glycohemoglobin (HgbA1c) 5.6 % (4.0-5.9)
[2025-08-12 14:57] LABS: B.E. - POC 1.9 mmol/L; Glucose - POC 143 mg/dl (70-99); HCO3 - POC 27 mmol/L (21-28); Hematocrit - POC 30 % PCV (37-47); Hemodilution- POC Yes; Hemoglobin Calculated - POC 10.1; Ionized Calcium - POC 1.21 mmol/L (1.15-1.33); Lactate - POC 0.61 mmol/L (0.36-0.75); O2 Saturation %Calculated-POC 94.0 % (94-98); PCO2 - POC 44 mmHg (35-48); PO2 - POC 71 mmHg (83-108); Potassium - POC 4.2 mmol/L (3.5-5.1); Sodium - POC 132 mmol/L (136-145); Specimen Type - POC Venous; pH - POC 7.40 (7.35-7.45)
--- NOTE | 2025-08-12 15:47 | CON.HOSP ---
Family Physician
-
Family Physician: Angelo Snyder
Chief Complaint
-
Medical management for post op right should revision surgery
History of Present Illness
85 years old female who underwent right shoulder revision for recurrent dislocation/instability. I was asked to see the patient in PACU postop. Patient is complaining of mild shortness of breath. Currently on 4 L oxygen. Sinus rhythm on
telemetry. No chest pain. She is alert and able to follow commands. Discussed with Dr. Jones. Uneventful surgery, plan to consult interventional radiology for triple-lumen as patient has difficult access. Patient has history of developing left
upper extremity hematoma. Last blood work was done in the outpatient setting. Will recheck CBC and BMP.
Medical History
Past Medical History
Past Medical History: Reports Other (paroxysmal atrial fibrillation/atrial tachycardia/SVT on Eliquis, chronic HFpEF, hypertension, adrenal insufficiency, rheumatic fever, nephrolithiasis, degenerative disease, GERD/hiatal hernia, chronic
lymphedema, chronic constipation, anxiety/depression/insomnia)
Past Surgical History: Reports Other (08/12/25 right should revision surgery )
Social History
Unable to obtain full social history at this time due to: Other (unable to obt)
Tobacco: Non-smoker
Alcohol: None
Drug: None
Personal:
Living: With Family
Employment: Retired
Family History
Family History: Reviewed & Not Pertinent
Allergies / Home Medications
Allergies reflects when Allergies were last updated in [employer].
Home Medications with original date entered in [employer]
Allergy/Medication List:
Allergies
Allergy/AdvReac Type Severity Reaction Status Date / Time
No Known Allergies Allergy Verified 08/12/25 10:28
Home Medications
torsemide 20 mg tablet 60 mg PO DAILY Fluid Retention/Swelling 12/28/23
atorvastatin 10 mg tablet 10 mg PO QPM High Cholesterol 01/09/24
calcium 600 mg (as carbonate)-vitamin D3 10 mcg (400 unit) tablet (Calcium 600 + D(3)) 1 tab PO BID Supplement 01/09/24
melatonin 10 mg tablet 10 mg PO HS Sleep #0 tabs 01/21/24
Saccharomyces boulardii 250 mg capsule (Florastor) 250 mg PO BID Supplement 08/15/24
hydrocortisone 10 mg tablet 5 mg PO NOON adrenal insuff 08/15/24
hydrocortisone 10 mg tablet 20 mg PO DAILY adrenal insuff 08/15/24
acetaminophen 650 mg tablet,extended release 1,300 mg PO Q6HPRN PRN mild pain/fever 05/07/25
amiodarone 200 mg tablet 200 mg PO HS Heart Disease/Condition 05/07/25
ascorbic acid (vitamin C) 1,000 mg tablet (Vitamin C) 1,000 mg PO DAILY Supplement 05/07/25
spironolactone 25 mg tablet 25 mg PO DAILY Blood Pressure 05/07/25
mirabegron 25 mg tablet,extended release 24 hr (Myrbetriq) 25 mg PO DAILY Urinary Issue 06/07/25
carboxymethylcellulose sodium 1 % eye liquid gel drops 1 drp BOTH EYES TID Eye Condition 06/26/25
fludrocortisone 0.1 mg tablet 0.05 mg PO DAILY INFLAMMATION 06/26/25
docusate sodium 100 mg capsule (Colace) 100 mg PO HSPRN PRN constipation 08/07/25
famotidine 20 mg tablet (Pepcid) 20 mg PO HS Gastrointestinal Issue 08/07/25
metoclopramide HCl 5 mg tablet 5 mg PO BID NAUSEA 08/07/25
omeprazole 20 mg tablet,delayed release 20 mg PO BID Gastrointestinal Issue 08/07/25
potassium chloride 20 mEq tablet,extended release 40 meq PO BID Electrolyte Repletion 08/07/25
sennosides 8.6 mg tablet (senna) 8.6 mg PO DAILYPRN PRN CONSTIPATION 08/07/25
sucralfate 1 gram tablet 1 g PO AC Gastrointestinal Issue 08/07/25
cetirizine 10 mg tablet 10 mg PO HS #0 tabs 08/08/25
gabapentin 300 mg capsule 300 mg PO TID@0800,1400,2200 #90 caps 08/08/25
lidocaine 4 % topical patch 1 patch topical DAILY #7 ea 08/08/25
multivitamin with folic acid 400 mcg tablet (Tab-A-Carey) 1 tab PO HS #0 tabs 08/08/25
polyethylene glycol 3350 17 gram oral powder packet 17 g PO DAILY #0 ea 08/08/25
zinc sulfate 50 mg zinc (220 mg) capsule 50 mg PO HS #0 caps 08/08/25
hydrocodone 5 mg-acetaminophen 325 mg tablet 1 tab PO Q4H PRN pain 08/11/25
psyllium husk 1 cap PO DAILY 08/11/25
Review of Systems
-
History Source: Patient
Constitutional: Denies Fever
EENT: Denies Sore Throat
Respiratory: Denies Cough
Cardiac: Denies Chest Pain
Abdomen/GI: Denies Abdominal Pain
: Denies Difficulty Voiding
Musculoskeletal: Reports Edema (both lower legs )
Skin: Denies Rash
Neurological: Denies Numbness
Psych: Denies Panic Disorder
Physical Exam
Vital Signs
Vital Signs
Temp Pulse Resp BP Pulse Ox
97.4 F 66 20 160/62 100
08/12/25 13:45 08/12/25 15:15 08/12/25 15:15 08/12/25 15:15 08/12/25 15:15
Physical Exam
General: No Apparent Distress and Other (In PACU post op,)
HEENT: Moist Mucous Membranes and Atraumatic
Respiratory: Clear
Cardiac: S1/S2 and Regular Rhythm
GI: Soft and Non Tender
Genito-urinary: Negative Steinberg Catheter
Musculoskeletal: No Edema (Chronic lower extremity edema )
Skin: Other (Bruising left upper extremity, right shoulde aimee sling )
Neuro: Awake, Alert and Other (followed commands )
Psych: Calm
Laboratory Results
-
Laboratory Results
08/11/25 10:01
08/11/25 10:01
Total Bilirubin 0.5 mg/dl (0.2-1.3) 08/11/25 10:01
AST 34 U/L (14-36) 08/11/25 10:01
ALT 27 U/L (0-35) 08/11/25 10:01
Alkaline Phosphatase 65 U/L (38-126) 08/11/25 10:01
Impression / Plan
-
85 female post op for right shoulder revision
# Right shoulder revision surgery for recurrent dislocation/chronic instability
# History of spontaneous left upper extremity hematoma -hematoma in the setting of chronic anticoagulation with Eliquis. She has been off Eliquis. Hemodynamically stable. Keep arm elevated, use ice. Recheck H&H. Blood consent is signed by
.
# Acute on chronic anemia - acute blood loss anemia due to hematoma.
# Difficult IV Access
d/w ortho, plan for IR consult
# Chronic hyponatremia -sodium 129. Appears to be near baseline.
# Hyperkalemia
Note don blood work on 08/11 in OP
Will do BMP
# Chronic Lymphedema
# Paroxysmal atrial fibrillation -currently in SR.
# CKD 3a -
f/w blood work
Monitor for retention post op.
#Chronic heart failure preserved EF
# Chronic back pain
#Chronic adrenal insufficiency -
She is post OP now, will do stress dose for steroid
continue hydrocortisone, spironolactone.
sees Dr. Rincon
#Hyperlipidemia -atorvastatin.
#History of rheumatic fever
#Nephrolithiasis
#Degenerative disc disease-
#GERD/hiatal hernia- Continue omeprazole
#Chronic constipation- Continue MiraLAX
#Anxiety/depression/insomnia- Continue sertraline (not helping chronic hyponatremia)- continue as eszopiclone
Thank you for the consultation we will follow patient along with you.
Total time spent to see the patient, examined the patient, I reviewed data and lab result, discussed treatment plan with patient, orthopedic doctor, patient's , nursing staff around 75 minutes
[2025-08-12] MEDS: TYLENOL PO (17:22)
[2025-08-12] MEDS: SOLU-CORTEF 100 MG IV ×2 (17:34→23:28)
[2025-08-12] MEDS: NORMOSOL-R/PLASMALYTE-A 1000 IV (17:57)
[2025-08-12 18:32] LABS: Hematocrit 28.2 % (37.0-47.0); Hemoglobin 9.0 g/dL (12.0-16.0); Mean Corp Hgb Conc. 31.9 g/dL (33.0-37.0); Mean Corpuscular Volume 101.8 fL (81.0-99.0); Platelet Count 404 10^3/uL (130-400); Red Cell Dist. Width 12.2 % (11.5-14.5)
--- NOTE | 2025-08-12 18:41 | PTCARENOTE ---
Pt arrived to [facility] s/p Right reverse TSA. 100% on 2L diminished at the bases. SR on the monitor. Right shoulder dressing with moderate sanguineous drainage with sling. Right FA skin tear with angélica c/d/i. B/l legs with lymphedema. LUE ecchymosis.
NWB RUE. B/l arms elevated with pillows. Left IJ with IVF. 1500 FR. Admission questions answered. Bed locked and in lowest position. Care ongoing.
[2025-08-12 18:44] LABS: Blood Urea Nitrogen 26 mg/dl (7-17); Calcium 8.9 mg/dl (8.4-10.2); Carbon Dioxide 29 mmol/L (22-30); Chloride 97 mmol/L (98-107); Estimated Creatinine Clearance 39 ml/min; Glucose 140 mg/dl (70-99); Potassium 4.8 mmol/L (3.5-5.1); Sodium 130 mmol/L (135-145); eGFR 55.90
[2025-08-12] MEDS: BACTROBAN 2% OINTMENT 1 APPLIC NASAL (20:04)
[2025-08-12] MEDS: ANCEF 5 IV (20:04)
[2025-08-12] MEDS: ELIQUIS 2.5 MG PO (20:04)
[2025-08-12] MEDS: TYLENOL 650 MG PO (20:05)
[2025-08-12] MEDS: MELATONIN 10 MG PO (22:14)
[2025-08-12] MEDS: PACERONE 200 MG PO (22:14)
[2025-08-12] MEDS: PROTONIX 40 MG PO (22:14)
[2025-08-13] MEDS: TYLENOL 650 MG PO ×5 (00:08→23:31)
--- NOTE | 2025-08-13 00:22 | PTCARENOTE ---
Pt complaints of feeling short of breath. RR 22 BP 176/71 HR 75. O2 increased 3 L 99%. Pt was up to commode and voided large amount. LANDSCAPE PAINTER notified.
[2025-08-13] MEDS: LASIX 40 MG IV (00:39)
--- NOTE | 2025-08-13 01:15 | W.PN.UPDATE ---
Update Note
Progress Note Update
0000 Asked to eval pt for increased SOB
At bedside pt visibly tachypneic.and dyspneic. ox sat on 3 l 98%
Pt has hs of CHF and is receiving ivf. Some crackle heard at bases. Will dc ivf. Give lasix x1, check cxr and get bnp in am
[2025-08-13 03:21] VITALS: BP 149/68
[2025-08-13] MEDS: NORCO 5/325 2 TABLET PO (03:31)
[2025-08-13] MEDS: ANCEF 5 IV (03:41)
[2025-08-13] MEDS: DILAUDID 0.5 MG IV (04:36)
[2025-08-13] MEDS: TYLENOL PO ×3 (04:58→16:11)
[2025-08-13 06:00] VITALS: BMI 28.0
[2025-08-13 07:02] LABS: Hematocrit 27.8 % (37.0-47.0); Hemoglobin 8.8 g/dL (12.0-16.0); Mean Corp Hgb Conc. 31.7 g/dL (33.0-37.0); Mean Corpuscular Volume 100.4 fL (81.0-99.0); Nucleated Red Blood Cells % 0 %; Platelet Count 473 10^3/uL (130-400); Red Cell Dist. Width 12.2 % (11.5-14.5)
[2025-08-13 07:31] LABS: ALT (SGPT) 21 U/L (0-35); AST (SGOT) 38 U/L (14-36); Albumin 3.8 g/dl (3.5-5.0); Alkaline Phosphatase 72 U/L (38-126); Blood Urea Nitrogen 24 mg/dl (7-17); Calcium 9.4 mg/dl (8.4-10.2); Carbon Dioxide 25 mmol/L (22-30); Chloride 96 mmol/L (98-107); Estimated Creatinine Clearance 50 ml/min; Glucose 119 mg/dl (70-99); Sodium 130 mmol/L (135-145); Total Protein 6.2 g/dl (6.3-8.2); eGFR > 60.00
[2025-08-13 09:07] VITALS: BP 159/63
--- NOTE | 2025-08-13 09:44 | W.PN.HOSP.TC ---
Addendum entered and electronically signed by Louie Ramírez MD 08/14/25 17:16:
Physical Exam
General: No Apparent Distress
HEENT: Moist Mucous Membranes and Atraumatic
Respiratory: Clear
Cardiac: S1/S2 and Regular Rhythm
GI: Soft and Non Tender
Genito-urinary: Negative Steinberg Catheter
Musculoskeletal: No Edema (Chronic lower extremity edema )
Skin: Other (Bruising left upper extremity, right shoulder sling )
Neuro: Awake, Alert, oriented to surroundings, followed commands.
Psych: Calm
Original Note:
Today's Communication/Plan
-
See note
Assessment / Plan
Assessment / Plan
85 female post op for right shoulder revision
#Acute right shoulder pain/ Chronic back pain
d/w family,
They report adverse side effects to Dilaudid, will place it as allergy to avoid giving it without primarily discussing it with family
c/w Tylenol. They agreed to give Vicodin as PRN but one pill only for now
#TME she is confused
I think it is combination of opioid induced with recent surgery/ hospitalization
Will restrict opioid intake knowing that pt might have to take some pain. Will continue to monitor. d/w family and agreed to current regimen. Would be helpful to use NSAIDS but we cant due to Eliquis/ recent hematoma.
#GERD/hiatal hernia- Significant issue per family, nausea at times, will do PPI as BID, Famotidine HS and Carafate Before breakfast & dinner.
#Chronic adrenal insufficiency -
She went through surgery and under anesthesia
Doing stress dose now with IV hydrocortisone, will do another 24 hours and re-assess tomorrow
c/w Florinef & spironolactone.
sees Dr. Rincon
# Right shoulder revision surgery for recurrent dislocation/chronic instability
d/w ortho. Starte don Eliquis 2.5 mg BID.
# History of spontaneous left upper extremity hematoma -hematoma in the setting of chronic anticoagulation with Eliquis. She has been off Eliquis, resumed per ortho but lower dose. . Hemodynamically stable. Monitor H&H, will do IV Iron fore 1-3
doses while in hospital. Blood consent is signed by .
# Acute on chronic anemia - acute blood loss anemia due to hematoma.
Relatively stable hemoglobin. wants repeat US of left upper extremity, will hold for today, to re-check after some doses of Eliquis.
# Difficult IV Access
d/w ortho, IR placed IV. s/p Ultrasound and fluoroscopically guided placement of left internal jugular central venous catheter.
# Chronic hyponatremia -sodium 129. Appears to be near baseline.
# Hyperkalemia
Resolved, resume Aldactone
# Chronic Lymphedema
# Paroxysmal atrial fibrillation -currently in SR.
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
Monitor for retention post op.
#Acute on Chronic heart failure preserved EF
Will resume Torsemide 08/14. s/p IV Lasix. Monitor weight.
#Hyperlipidemia -atorvastatin.
#History of rheumatic fever
#Nephrolithiasis
#Degenerative disc disease-
#Chronic constipation- Continue MiraLAX
#Anxiety/depression/insomnia-not on medications, uses Melatonin at 10 mg q HS.
Total time spent to see the patient, examined the patient, I reviewed data and lab result, discussed treatment plan with patient, orthopedic service, patient's and her daughter, nursing staff around 70 minutes
Anticipated Discharge: > 48 hours
Subjective/Interval History
-
Date of Service: August 13, 2025
Seen twice today
Patient is uncomfortable and confused
at bed side
Objective Data
-
Labs:
Laboratory Results
08/13/25 08/13/25
06:36 06:37
WBC 17.3 H
Hgb 8.8 L
Hct 27.8 L
Plt Count 473 H
Sodium 130 L
Potassium Pending
Chloride 96 L
Carbon Dioxide 25
BUN 24 H
Creatinine 0.8
Glucose 119 H
Calcium 9.4
Total Bilirubin 0.8
AST 38 H
ALT 21
Alkaline Phosphatase 72
Vital Signs:
Vital Signs
Temp Pulse Resp BP Pulse Ox
98.1 F 78 18 159/63 99
08/13/25 09:07 08/13/25 09:07 08/13/25 09:07 08/13/25 09:07 08/13/25 09:07
I&O
08/12/25 08/13/25 08/14/25
06:59 06:59 06:59
Intake Total 1160 / 1160
Output Total 1150 / 1150
Balance
--- NOTE | 2025-08-13 10:20 | W.PN.ORTHO ---
Today's Communication / Plan
-
Patient unfortunately got confused over night and Dilaudid discontinued. Now is having pain. Per discussion with she does well with Vicodin so we will use that only along with ice and Tylenol (Dilaudid d/c'd)
Eliquis modified dose for DVT prophylaxis
PT/OT
Sling with nonweightbearing right upper extremity
Patient with complicated medical issues so greatly appreciate medical team help
would like to get her to rehab somewhere if possible so we will work with social work to find placement.
Assessment
.
Distal Motor Intact: Yes
Dressing:
Dressing removed. Incision is clean, dry and intact without active bleeding. Incision was cleaned with alcohol and a new Aquacel dressing placed.
Plan
.
Surgery / Date: Revision RTS 08/12 Robert
DVT Prophylaxis: Other (Eliquis modified dose)
Activity:
Out of bed.
PT/OT
Discharge Plan: Rehab
Subjective
.
.:
This morning patient at bedside because overnight she got Dilaudid and got confused. She is having a lot of pain this morning.
Vital Signs and Labs
.
Vital Signs and Labs:
Lab Results
08/13/25 06:36
08/13/25 06:37
Temp Pulse Resp BP Pulse Ox
98.1 F 78 18 159/63 99
08/13/25 09:07 08/13/25 09:07 08/13/25 09:07 08/13/25 09:07 08/13/25 09:07
Preliminary on multiple cultures are negative from the right shoulder
Non-invasive Hgb result: 10.9
[2025-08-13] MEDS: CARAFATE 1 GRAM PO (10:29)
[2025-08-13] MEDS: ELIQUIS 2.5 MG PO ×2 (10:29→19:48)
[2025-08-13] MEDS: SOLU-CORTEF 100 MG IV (10:29)
[2025-08-13] MEDS: BACTROBAN 2% OINTMENT 1 APPLIC NASAL ×2 (10:29→19:49)
[2025-08-13 10:39] LABS: Potassium 4.2 mmol/L (3.5-5.1)
[2025-08-13 11:21] VITALS: BP 114/69
[2025-08-13] MEDS: FLORINEF 0.05 MG PO (11:36)
[2025-08-13] MEDS: ALDACTONE 25 MG PO (11:36)
[2025-08-13] MEDS: SOLU-CORTEF 50 MG IV (13:36)
[2025-08-13 15:30] VITALS: BP 144/60
[2025-08-13] MEDS: NORCO 5/325 1 TABLET PO ×2 (15:58→22:08)
[2025-08-13] MEDS: SOLU-CORTEF IV ×2 (15:59→16:10)
--- NOTE | 2025-08-13 16:01 | CM ---
CM met with pt and spouse/Citlalli bedside
Pt did not participate in meeting
They reside in a [place] with [address] [place]
Pt is typically indep with use of a WW
She utilizes either a rollator to W/C while in the community
Pt is current with VN
PCP- Angelo Snyder
Rx- [facility]
Pt is POD#1 R. TSA
Post-op PT/OT evals pending
Spouse is requesting SNF to be arranged on dc, [facility] is 1st choice
PAC provided and CM encouraged add'l choices- he will review with family
Of note, pt and spouse planning to move to [facility] next month
Discharge Disposition- SNF
[2025-08-13] MEDS: CARAFATE PO (18:05)
[2025-08-13] MEDS: PROTONIX 40 MG PO (19:49)
[2025-08-13 20:27] LABS: Urine Character Clear (Clear)
[2025-08-13 20:36] LABS: Urine Red Blood Cell None Seen /HPF (0-2); Urine White Cell >100 /HPF (0-5)
[2025-08-13] MEDS: MELATONIN 5 MG PO (22:07)
[2025-08-13] MEDS: PACERONE 200 MG PO (22:07)
[2025-08-13] MEDS: PEPCID 40 MG PO (22:08)
[2025-08-13] MEDS: SENOKOT 17.2 MG PO (22:08)
[2025-08-13] MEDS: STERILE WATER FOR INJECTION 10 ML IV (23:31)
[2025-08-13] MEDS: ROCEPHIN 1000 MG IV (23:31)
[2025-08-14] VITALS (9 sets, daily range): BP systolic 140–168; BP diastolic 47–64; BMI 27.8
--- NOTE | 2025-08-14 02:33 | PTCARENOTE ---
Pt repositioned multiple times this evening d/t discomfort. Pt currently OOB to recliner. Continued reminder for pt to not bear weight to RUE. Care ongoing.
--- NOTE | 2025-08-14 02:48 | W.PN.UPDATE ---
Update Note
Progress Note Update
UA ordered earlier in day resulted with +3 leukocytes, WBC>100. Culture pending. Will start rocephin until cultures come back since pt still with confusion.Pt did tell nurse she had burning. Per daughter pt does have chronic UTI. Has pessary.
[2025-08-14] MEDS: ATIVAN 0.5 MG PO (03:16)
[2025-08-14] MEDS: TYLENOL 650 MG PO (03:16)
--- NOTE | 2025-08-14 03:21 | PTCARENOTE ---
TT BACK ROLL LATHE OPERATOR Scammahorn regarding something PRN for pt's agitation. pt has slept for roughly 45 mins throughtout this shift waking up with agitation and exit seeking. Daughter Sabrina at bedside approved low dose ativan to be given to pt. Pt medicated at
this time. will continue to monitor.
[2025-08-14 04:24] LABS: Hematocrit 22.9 % (37.0-47.0); Hemoglobin 7.3 g/dL (12.0-16.0); Mean Corp Hgb Conc. 31.9 g/dL (33.0-37.0); Mean Corpuscular Volume 102.7 fL (81.0-99.0); Platelet Count 381 10^3/uL (130-400); Red Cell Dist. Width 12.6 % (11.5-14.5)
[2025-08-14 04:47] LABS: Blood Urea Nitrogen 21 mg/dl (7-17); Calcium 9.3 mg/dl (8.4-10.2); Carbon Dioxide 29 mmol/L (22-30); Chloride 98 mmol/L (98-107); Estimated Creatinine Clearance 57 ml/min; Glucose 79 mg/dl (70-99); Potassium 3.1 mmol/L (3.5-5.1); Sodium 128 mmol/L (135-145); eGFR > 60.00
[2025-08-14 05:14] LABS: Cortisol, Random 24.2 ug/dl
[2025-08-14] MEDS: KCL 270 MEQ IV (05:22)
[2025-08-14] MEDS: NEURONTIN 300 MG PO (05:22)
[2025-08-14 05:33] LABS: Vitamin B12 880 pg/ml (239-931)
[2025-08-14 05:54] LABS: Magnesium 2.2 mg/dl (1.6-2.3)
[2025-08-14] MEDS: CARAFATE 1 GRAM PO ×2 (06:05→16:39)
--- NOTE | 2025-08-14 08:22 | W.PN.ORTHO ---
Today's Communication / Plan
-
blood and placement
Assessment
.
Distal Motor Intact: Yes
Dressing:
Clean, dry and intact.
Assessment:
S/p revision right RSA. Reasonably comfortable. Low hgb, will transfuse today. Social Work looking for SNF placement.
Plan
.
Surgery / Date: Revision RTS 08/12 Robert
Activity:
Out of bed.
PT/OT
Subjective
.
.:
Patient resting comfortably. Mild right shoulder pain.
Vital Signs and Labs
.
Vital Signs and Labs:
Lab Results
08/14/25 04:10
08/14/25 04:10
Temp Pulse Resp BP Pulse Ox
98.4 F 80 18 155/64 98
08/14/25 08:15 08/14/25 08:15 08/14/25 08:15 08/14/25 08:15 08/14/25 08:15
Non-invasive Hgb result: 9.3
Physical Exam
-
Shoulder clinically reduced.
[2025-08-14] MEDS: ELIQUIS 2.5 MG PO (09:02)
[2025-08-14] MEDS: DEMADEX 60 MG PO (09:03)
[2025-08-14] MEDS: PROTONIX 40 MG PO ×2 (09:03→21:00)
[2025-08-14] MEDS: ALDACTONE 25 MG PO (09:04)
[2025-08-14] MEDS: HYDROCORTONE/CORTEF 20 MG PO (09:04)
[2025-08-14] MEDS: FLORINEF 0.05 MG PO (09:05)
[2025-08-14] MEDS: TYLENOL PO (09:11)
--- NOTE | 2025-08-14 09:40 | W.PN.HOSP.TC ---
Addendum entered and electronically signed by Louie Ramríez MD 08/14/25 13:58:
Addendum
Discussed with Dr. Jones. Will do subcu heparin for DVT prophylaxis and avoid Eliquis due to drop in hemoglobin and left upper arm extremity, avoiding aspirin due to history of severe GERD. Discussed with radiologist, no enlarging size per
ultrasound.
Family was updated
End
Original Note:
Today's Communication/Plan
-
.
Assessment / Plan
Assessment / Plan
Physical Exam
General: No Apparent Distress
HEENT: Moist Mucous Membranes and Atraumatic
Respiratory: Clear
Cardiac: S1/S2 and Regular Rhythm
GI: Soft and Non Tender
Genito-urinary: Negative Steinberg Catheter
Musculoskeletal: No Edema (Chronic lower extremity edema )
Skin: Other (Bruising left upper extremity, right shoulder sling )
Neuro: Awake, Alert, oriented to surroundings, followed commands.
Psych: Calm
85 female post op for right shoulder revision
#Acute right shoulder pain/ Chronic back pain
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
Shoulder pain seems less, orthopedic following closely
Nonsteroidal anti-inflammatory due to use of Eliquis. Limit the use of opioid because of history of opioid induced encephalopathy/confusion.
#TME
Patient becomes confused at time, combination of opioid induced with recent surgery/ hospitalization. Nonfocal on exam
Continue to limit opioid intake knowing that pt might have to take some pain. Urine was positive for possible UTI. Empiric Rocephin started.
Normal TSH and Vitamin B12.
#GERD/hiatal hernia- Significant issue per family, nausea at times, c/w PPI as BID, Famotidine HS and Carafate Before breakfast & dinner. This regimen was reviewed with family.
#Chronic adrenal insufficiency -
She went through surgery and under anesthesia
s/p stress dose of Steroid for 48 hours. Can go back to home regimen with hydrocortisone, Florinef, torsemide & spironolactone.
She sees Dr. Rincon
# Hypokalemia, replaced recheck in a.m..
# History of spontaneous left upper extremity hematoma -hematoma in the setting of chronic anticoagulation with Eliquis. She was off Eliquis, resumed per ortho but lower dose post op.
Acute blood loss anemia. IV iron and 1 unit of blood. Blood consent is signed by . Discharged on oral iron
Repeat venous ultrasound showed no DVT of the left upper extremity with persistent intramuscular hematoma.
# Acute on chronic anemia - acute blood loss anemia due to hematoma exacerbated by use of Eliquis.
HGB dropped to 7.3 from 8-9 post op, Will d/w ortho, US is showing persistent evolving intramuscular hematoma, hold Eliquis, do SQ heparin for DVT prophylaxis. Transfuse one unit of RBCs 08/14
# Difficult IV Access
s/p Ultrasound and fluoroscopically guided placement of left internal jugular central venous catheter.
# Chronic hyponatremia -sodium 129. Appears to be near baseline.
c/w fluid restriction
# Hyperkalemia
Resolved, resumed Aldactone
# Chronic Lymphedema
# Paroxysmal atrial fibrillation -currently in SR.
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
Monitor for retention post op.
#Acute on Chronic heart failure preserved EF , mild / post op.
Resumed Aldactone & Torsemide.
No SOB/ No chest pain
#Hyperlipidemia -atorvastatin.
#History of rheumatic fever
#Nephrolithiasis
#Degenerative disc disease-
#Chronic constipation- Continue MiraLAX
#Anxiety/depression/insomnia-not on medications,
reported chronic insomnia
Continue with melatonin at night .
Total time spent to see the patient, examined the patient, I reviewed data and lab result, discussed treatment plan with patient, orthopedic service, patient's and her daughter, nursing staff around 65 minutes
Anticipated Discharge: > 48 hours
Subjective/Interval History
-
Date of Service: August 14, 2025
Less pain in shoulder
Did not sleep well ( chronic insomnia)
No chest pain
No fevers
Objective Data
-
Labs:
Laboratory Results
08/14/25
04:10
WBC 15.0 H
Hgb 7.3 L
Hct 22.9 L
Plt Count 381
Sodium 128 L
Potassium 3.1 L D
Chloride 98
Carbon Dioxide 29
BUN 21 H
Creatinine 0.7
Glucose 79
Calcium 9.3
Vital Signs:
Vital Signs
Temp Pulse Resp BP Pulse Ox
98.4 F 80 18 155/64 98
08/14/25 08:15 08/14/25 08:15 08/14/25 08:15 08/14/25 09:03 08/14/25 08:15
I&O
08/13/25 08/14/25 08/15/25
06:59 06:59 06:59
Intake Total 1160 / 1160 240 / 240
Output Total 1150 / 1150 1200 / 1200
Balance -960 / -960
[2025-08-14] MEDS: CORTEF 5 MG PO (12:50)
[2025-08-14] MEDS: FERRLECIT 110 MG IV (13:11)
[2025-08-14] MEDS: TYLENOL 1000 MG PO ×2 (16:32→21:01)
[2025-08-14] MEDS: HEPARIN 5000 UNITS SC (20:59)
[2025-08-14] MEDS: PEPCID 40 MG PO (21:01)
[2025-08-14] MEDS: SENOKOT 17.2 MG PO (21:01)
[2025-08-14] MEDS: PACERONE 200 MG PO (21:03)
[2025-08-14] MEDS: MELATONIN 5 MG PO (21:03)
[2025-08-15] MEDS: STERILE WATER FOR INJECTION 10 ML IV (00:31)
[2025-08-15] MEDS: ROCEPHIN 1000 MG IV (00:31)
[2025-08-15 03:10] VITALS: BP 150/86
[2025-08-15] MEDS: NORCO 5/325 1 TABLET PO ×2 (04:22→20:18)
[2025-08-15] MEDS: CARAFATE 1 GRAM PO ×2 (06:11→16:34)
[2025-08-15 06:15] LABS: Hematocrit 25.0 % (37.0-47.0); Hemoglobin 8.6 g/dL (12.0-16.0); Mean Corp Hgb Conc. 34.4 g/dL (33.0-37.0); Mean Corpuscular Volume 97.7 fL (81.0-99.0); Platelet Count 359 10^3/uL (130-400); Red Cell Dist. Width 13.9 % (11.5-14.5)
[2025-08-15 06:30] LABS: Blood Urea Nitrogen 22 mg/dl (7-17); Calcium 8.6 mg/dl (8.4-10.2); Carbon Dioxide 32 mmol/L (22-30); Chloride 98 mmol/L (98-107); Estimated Creatinine Clearance 49 ml/min; Glucose 81 mg/dl (70-99); Potassium 2.8 mmol/L (3.5-5.1); Sodium 130 mmol/L (135-145); eGFR > 60.00
[2025-08-15 07:00] VITALS: BP 168/52
[2025-08-15] MEDS: HYDROCORTONE/CORTEF 20 MG PO (07:47)
[2025-08-15] MEDS: FLORINEF 0.05 MG PO (07:47)
[2025-08-15] MEDS: TYLENOL 1000 MG PO ×2 (07:47→15:37)
[2025-08-15] MEDS: HEPARIN 5000 UNITS SC ×2 (07:48→20:07)
[2025-08-15] MEDS: ALDACTONE 25 MG PO (07:49)
[2025-08-15] MEDS: PROTONIX 40 MG PO ×2 (07:49→20:07)
[2025-08-15] MEDS: DEMADEX 60 MG PO (07:50)
--- NOTE | 2025-08-15 08:30 | VNURNOTE ---
Chart reviewed. Patient is current with [facility]. Will continue to follow hospital course and DC plans- appears that plan is DC to SNF.
[2025-08-15] MEDS: KCL ELIXIR 40 MEQ PO ×2 (08:51→11:37)
--- NOTE | 2025-08-15 08:57 | CM ---
CM met with patient and family in room. Patient and daughter stated they would like to add [facility] and [facility] to their SNF choices. CM is awaiting PT/OT.
PLAN: SNF
[2025-08-15 09:32] VITALS: BMI 27.3
[2025-08-15 11:00] VITALS: BP 168/66
[2025-08-15] MEDS: CORTEF 5 MG PO (11:37)
--- NOTE | 2025-08-15 12:49 | W.PN.HOSP.TC ---
Today's Communication/Plan
-
monitor hgb for today
HSQ, hold Eliquis for now
Abx
F/u cultures
Assessment / Plan
Assessment / Plan
Physical Exam
General: No Apparent Distress
HEENT: Moist Mucous Membranes and Atraumatic
Respiratory: Clear
Cardiac: S1/S2 and Regular Rhythm
GI: Soft and Non Tender
Genito-urinary: Negative Steinberg Catheter
Musculoskeletal: No Edema (Chronic lower extremity edema )
Skin: Other (Bruising left upper extremity, right shoulder sling )
Neuro: Awake, Alert, oriented to surroundings, followed commands.
Psych: Calm
85 female post op for right shoulder revision
#Acute right shoulder pain/ Chronic back pain
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
Shoulder pain seems less, orthopedic following closely
Limit the use of opioid because of history of opioid induced encephalopathy/confusion.
# Acute metabolic encephalopathy, resolved
Patient becomes confused at time, combination of opioid induced with recent surgery/ hospitalization and UTI
Continue to limit opioid intake knowing that pt might have to take some pain. Urine was positive for possible UTI. Empiric Rocephin started.
Normal TSH and Vitamin B12.
#GERD/hiatal hernia- Significant issue per family, nausea at times, c/w PPI as BID, Famotidine HS and Carafate Before breakfast & dinner. This regimen was reviewed with family.
#Chronic adrenal insufficiency -
She went through surgery and under anesthesia
s/p stress dose of Steroid for 48 hours. Can go back to home regimen with hydrocortisone, Florinef, torsemide & spironolactone.
She sees Dr. Rincon
# Hypokalemia, replaced recheck in a.m..
# History of spontaneous left upper extremity hematoma
-hematoma in the setting of chronic anticoagulation with Eliquis.
-Holding Eliquis
#Acute blood loss anemia.
# Acute on chronic anemia - acute blood loss anemia due to hematoma exacerbated by use of Eliquis.
IV iron and 2 unit of blood total; Last pRBC 08/14
Discharge on oral iron
Cont HSQ for now
-see plan above
-Monitor hgB
-Once Hgb stable, trial Eliquis reintroduction
# Difficult IV Access
s/p Ultrasound and fluoroscopically guided placement of left internal jugular central venous catheter.
# Chronic hyponatremia
- Appears to be near baseline.
c/w fluid restriction
# Hyperkalemia
#Acute Hypokalemia
Resolved hyperkalemia, resumed Aldactone
-monitor and replete
# Chronic Lymphedema
# Paroxysmal atrial fibrillation -currently in SR.
-hold anticoag
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
Monitor for retention post op.
#Acute on Chronic heart failure preserved EF , mild / post op.
Resume Aldactone & Torsemide.
No SOB/ No chest pain
#Hyperlipidemia -atorvastatin.
#History of rheumatic fever
#Nephrolithiasis
#Degenerative disc disease-
#Chronic constipation- Continue MiraLAX
#Anxiety/depression/insomnia-not on medications,
reported chronic insomnia
Continue with melatonin at night .
Anticipated Discharge: 24 - 48 hours
Subjective/Interval History
-
Date of Service: August 15, 2025
No acute events overnight
Objective Data
-
Labs:
Laboratory Results
08/15/25
05:52
WBC 10.6
Hgb 8.6 L
Hct 25.0 L
Plt Count 359
Sodium 130 L
Potassium 2.8 L
Chloride 98
Carbon Dioxide 32 H
BUN 22 H
Creatinine 0.8
Glucose 81
Calcium 8.6
Vital Signs:
Vital Signs
Temp Pulse Resp BP Pulse Ox
98.4 F 64 16 168/66 95
08/15/25 11:00 08/15/25 11:00 08/15/25 11:00 08/15/25 11:00 08/15/25 11:00
I&O
08/14/25 08/15/25 08/16/25
06:59 06:59 06:59
Intake Total 240 / 240 1295 / 1295
Output Total 1200 / 1200 3400 / 3400
Balance -960 / -960 -2105 / -2105
Review of Systems
-
History Source: Patient
All other systems: Not reviewed unless documented
Physical Exam
-
General: No Apparent Distress
HEENT: Normocephalic and Atraumatic
Respiratory: Negative Wheezes
Cardiac: Regular Rhythm and S1/S2
GI: Soft
Musculoskeletal: No Edema
Neuro: AO x 3
Psych: Calm
Data Reviewed
-
Total Time Spent with Patient (in minutes): 42
Diagnostic Radiology: Report Reviewed by me
Ultrasound: Report Reviewed by me
Labs: Labs Reviewed by me
--- NOTE | 2025-08-15 13:02 | CM ---
CM updated [facility] referral with PT/OT notes.
[2025-08-15] MEDS: FERRLECIT 110 MG IV (14:00)
[2025-08-15 15:00] VITALS: BP 154/59
--- NOTE | 2025-08-15 15:46 | W.PN.ORTHO ---
Today's Communication / Plan
-
Appreciate the Hospitalist's input here, continue Tx
Dispo per CM, appreciate their effots
Trend Hgb- 8.6 this AM
Continue sling to RUE. Ice to left arm hematoma
Heparin at this time for DVT ppx, per primary (Eventually back on Eliquis)
Continue Rocephin per primary
Dressings to remain
PT/OT- gentle elbow wrist hand ROM OK. No WB, lifting
Pain control
Outpatient Ortho follow-up 2 weeks
Will follow along while admitted, as she remains on our service until D/c (if possible to switch to hospitalist service for D/c given medical issues, would be appreciated, but we will continue to follow)
Assessment
.
Distal Motor Intact: Yes
Dressing:
Clean, dry and intact. Mild strikethrough
Assessment:
POD#3 Right RTSA revision
Feeling better
DNVI RUE
Plan
.
Surgery / Date: Revision RTS 08/12 Robert
DVT Prophylaxis: Other (Heparin)
Activity:
Out of bed. RUE to remain in sling
PT/OT
Discharge Plan: SNF and Other (Appreciate CM)
Subjective
.
.:
Patient resting comfortably with bedside. Feeling a little better now after transfusion, but still with B/L shoulder pain
Vital Signs and Labs
.
Vital Signs and Labs:
Lab Results
08/15/25 05:52
08/15/25 05:52
Temp Pulse Resp BP Pulse Ox
98.4 F 65 16 154/59 96
08/15/25 15:00 08/15/25 15:00 08/15/25 15:00 08/15/25 15:00 08/15/25 15:00
Non-invasive Hgb result: 9.3
[2025-08-15] MEDS: MELATONIN 5 MG PO (21:40)
[2025-08-15] MEDS: PEPCID 40 MG PO (21:40)
[2025-08-15] MEDS: TYLENOL PO (21:41)
[2025-08-15] MEDS: PACERONE 200 MG PO (21:42)
[2025-08-15] MEDS: SENOKOT 17.2 MG PO (21:55)
[2025-08-15 23:37] VITALS: BP 157/67
[2025-08-16] MEDS: STERILE WATER FOR INJECTION 10 ML IV (00:39)
[2025-08-16] MEDS: ROCEPHIN 1000 MG IV (00:39)
[2025-08-16 03:16] VITALS: BMI 27.1
[2025-08-16] MEDS: TYLENOL 1000 MG PO ×4 (03:27→21:01)
[2025-08-16 05:38] LABS: Hematocrit 26.3 % (37.0-47.0); Hemoglobin 8.7 g/dL (12.0-16.0); Mean Corp Hgb Conc. 33.1 g/dL (33.0-37.0); Mean Corpuscular Volume 96.7 fL (81.0-99.0); Platelet Count 375 10^3/uL (130-400); Red Cell Dist. Width 13.9 % (11.5-14.5)
--- NOTE | 2025-08-16 05:42 | W.PN.ORTHO ---
Today's Communication / Plan
-
85-year-old female for right revision total shoulder arthroplasty for instability with DOS 12 August 2025
- Primary team transferred to primary yesterday; appreciate assistance with management of this patient
- Continue trending hemoglobin, stable. Pain controlled at this timeframe on current regimen.
- DVT PPx per primary with heparin and transition to Eliquis on discharge
-Cultures no growth to date
- Continue with sling. PT/OT consultation. Elbow wrist and hand range of motion okay. Nonweightbearing to operative extremity
- Orthopedic surgery will continue to follow
Assessment
.
Distal Motor Intact: Yes
Dressing:
Clean, dry and intact.
Plan
.
Surgery / Date: Revision RTS 08/12 Robert
Activity:
Out of bed.
PT/OT
Subjective
.
.:
Patient resting comfortably.
Vital Signs and Labs
.
Vital Signs and Labs:
Lab Results
08/16/25 04:55
Temp Pulse Resp BP Pulse Ox
98.0 F 71 18 157/67 95
08/15/25 23:37 08/15/25 23:37 08/15/25 23:37 08/15/25 23:37 08/15/25 23:37
Non-invasive Hgb result: 9.3
[2025-08-16 05:48] LABS: Blood Urea Nitrogen 23 mg/dl (7-17); Calcium 8.4 mg/dl (8.4-10.2); Carbon Dioxide 32 mmol/L (22-30); Chloride 98 mmol/L (98-107); Estimated Creatinine Clearance 49 ml/min; Glucose 68 mg/dl (70-99); Potassium 3.4 mmol/L (3.5-5.1); Sodium 131 mmol/L (135-145); eGFR > 60.00
[2025-08-16] MEDS: CARAFATE 1 GRAM PO ×2 (06:03→16:01)
[2025-08-16 07:00] VITALS: BP 158/60
[2025-08-16] MEDS: ALDACTONE 25 MG PO (08:11)
[2025-08-16] MEDS: HEPARIN 5000 UNITS SC (08:12)
[2025-08-16] MEDS: DEMADEX 60 MG PO (08:12)
[2025-08-16] MEDS: FLORINEF 0.05 MG PO (08:13)
[2025-08-16] MEDS: PROTONIX 40 MG PO ×2 (08:13→19:44)
[2025-08-16] MEDS: HYDROCORTONE/CORTEF 20 MG PO (08:14)
[2025-08-16] MEDS: KCL ELIXIR 40 MEQ PO (09:24)
[2025-08-16] MEDS: CORTEF 5 MG PO (11:30)
--- NOTE | 2025-08-16 11:44 | CM ---
Addendum entered by Susanne Muro 08/16/25 13:24:
Updated clinicals faxed to [facility] as requested.
Original Note:
security systems manager reviewed patient's chart and plan is for skilled placement options were reviewed and patient has selected [facility] and [facility] as a back up, Patient has been accepted [facility] and per physician patient is for possible
discharge on , updated clinicals faxed to [facility] for Radha in admissions to review.
Plan; Skilled placement at [facility] possible on , 08/18/25
--- NOTE | 2025-08-16 13:08 | W.PN.HOSP.TC ---
Today's Communication/Plan
-
Trial initiation of Eliquis tonight
Monitor hemoglobin and site of hematoma closely
Discontinue antibiotics
Assessment / Plan
Assessment / Plan
Physical Exam
General: No Apparent Distress
HEENT: Moist Mucous Membranes and Atraumatic
Respiratory: Clear
Cardiac: S1/S2 and Regular Rhythm
GI: Soft and Non Tender
Genito-urinary: Negative Steinberg Catheter
Musculoskeletal: No Edema (Chronic lower extremity edema )
Skin: Other (Bruising left upper extremity, right shoulder sling )
Neuro: Awake, Alert, oriented to surroundings, followed commands.
Psych: Calm
85 female post op for right shoulder revision
#Acute right shoulder pain/ Chronic back pain
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
Shoulder pain seems less, orthopedic following closely
Limit the use of opioid because of history of opioid induced encephalopathy/confusion.
# Acute metabolic encephalopathy, resolved
Patient becomes confused at time, combination of opioid induced with recent surgery/ hospitalization
Continue to limit opioid intake knowing that pt might have to take some pain.
Normal TSH and Vitamin B12.
#GERD/hiatal hernia- Significant issue per family, nausea at times, c/w PPI as BID, Famotidine HS and Carafate Before breakfast & dinner. This regimen was reviewed with family.
#Chronic adrenal insufficiency -
She went through surgery and under anesthesia
s/p stress dose of Steroid for 48 hours. back to home regimen with hydrocortisone, Florinef, torsemide & spironolactone.
She sees Dr. Rincon
# History of spontaneous left upper extremity hematoma
-hematoma in the setting of chronic anticoagulation with Eliquis.
- Trial resumption of Eliquis
#Acute blood loss anemia.
# Acute on chronic anemia - acute blood loss anemia due to hematoma exacerbated by use of Eliquis.
IV iron and 2 unit of blood total; Last pRBC 08/14
Discharge on oral iron
Hemoglobin remained stable�trialing Eliquis this evening 8 PM
-Monitor hgB
# Difficult IV Access
s/p Ultrasound and fluoroscopically guided placement of left internal jugular central venous catheter.
# Chronic hyponatremia
- Appears to be near baseline.
c/w fluid restriction
# Hyperkalemia
#Acute Hypokalemia
Resolved hyperkalemia, resumed Aldactone
-monitor and replete
# Chronic Lymphedema
# Paroxysmal atrial fibrillation -currently in SR.
- Resume Eliquis tonight
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
Monitor for retention post op.
#Acute on Chronic heart failure preserved EF , mild / post op.
Resume Aldactone & Torsemide.
No SOB/ No chest pain
#Hyperlipidemia -atorvastatin.
#History of rheumatic fever
#Nephrolithiasis
#Degenerative disc disease-
#Chronic constipation- Continue MiraLAX
#Anxiety/depression/insomnia-not on medications,
reported chronic insomnia
Continue with melatonin at night .
#UTI ruled out
Anticipated Discharge: 24 - 48 hours
Subjective/Interval History
-
Date of Service: August 16, 2025
No acute events overnight
Objective Data
-
Labs:
Laboratory Results
08/16/25
04:55
WBC 10.9 H
Hgb 8.7 L
Hct 26.3 L
Plt Count 375
Sodium 131 L
Potassium 3.4 L
Chloride 98
Carbon Dioxide 32 H
BUN 23 H
Creatinine 0.8
Glucose 68 L
Calcium 8.4
Vital Signs:
Vital Signs
Temp Pulse Resp BP Pulse Ox
98.3 F 63 16 158/60 95
08/16/25 07:00 08/16/25 08:12 08/16/25 07:00 08/16/25 08:12 08/16/25 07:00
I&O
08/15/25 08/16/25 08/17/25
06:59 06:59 06:59
Intake Total 1295 / 1295 480 / 480
Output Total 3400 / 3400
Balance -2105 / -2105 480 / 480
Review of Systems
-
History Source: Patient
All other systems: Not reviewed unless documented
Data Reviewed
-
Total Time Spent with Patient (in minutes): 42
Diagnostic Radiology: Report Reviewed by me
Ultrasound: Report Reviewed by me
Labs: Labs Reviewed by me
[2025-08-16 15:00] VITALS: BP 149/69
[2025-08-16 15:13] VITALS: BP 149/69; PULSE 71; O2SAT 96
[2025-08-16 15:51] VITALS: BP 149/69; PULSE 71
[2025-08-16] MEDS: ELIQUIS 5 MG PO (19:44)
[2025-08-16] MEDS: SENOKOT 17.2 MG PO (21:01)
[2025-08-16] MEDS: PEPCID 40 MG PO (21:01)
[2025-08-16] MEDS: MELATONIN 5 MG PO (21:01)
[2025-08-16] MEDS: NEURONTIN 300 MG PO (21:01)
[2025-08-16] MEDS: PACERONE 200 MG PO (21:06)
[2025-08-16 23:29] VITALS: BP 161/73
--- NOTE | 2025-08-17 03:30 | DOWNTIME ---
There was a [employer] Director Downtime on 08/17/2025 from 0100 to 08/17/2025 at 0255. Downtime documentation of patient's care, including medication administrations, has been reconciled in the electronic record per guidelines. Refer to the
patient's paper chart under the miscellaneous tab to see printed paper medication records and downtime forms.
[2025-08-17 04:16] LABS: Hematocrit 27.8 % (37.0-47.0); Hemoglobin 9.1 g/dL (12.0-16.0); Mean Corp Hgb Conc. 32.7 g/dL (33.0-37.0); Mean Corpuscular Volume 101.5 fL (81.0-99.0); Platelet Count 359 10^3/uL (130-400); Red Cell Dist. Width 13.5 % (11.5-14.5)
[2025-08-17 04:42] LABS: Blood Urea Nitrogen 19 mg/dl (7-17); Calcium 8.6 mg/dl (8.4-10.2); Carbon Dioxide 31 mmol/L (22-30); Chloride 96 mmol/L (98-107); Estimated Creatinine Clearance 49 ml/min; Glucose 78 mg/dl (70-99); Potassium 3.1 mmol/L (3.5-5.1); Sodium 127 mmol/L (135-145); eGFR > 60.00
[2025-08-17 05:01] VITALS: BMI 26.7
[2025-08-17] MEDS: CARAFATE 1 GRAM PO ×2 (06:00→19:26)
[2025-08-17 07:00] VITALS: BP 155/57
--- NOTE | 2025-08-17 09:07 | CM ---
Addendum entered by Susanne Muro 08/17/25 13:58:
[facility]
Report [phone]
1st floor or [phone] 2nd floor
Addendum entered by Susanne Muro 08/17/25 13:26:
chef manager received a call from Radha in admissions at [facility], and they have a bed for patient tomorrow, patient case coordinator reached out to patient's insurance and patient has been approved for 5 days skilled Auth [id number], 08/18/25 to 08/22/25,
follow up with [facility] at [phone], Auth has been provided to Radha in admissions at [facility].
Original Note:
Chart reviewed and plan is for possible discharge tomorrow, plan is skilled placement, patient and spouse selected [facility] skilled, referral sent and updated clinicals also faxed, message left for Radha in admissions, patient case coordinator plans on
obtaining Auth today, requested NPI numbers from [facility].
Plan; Skilled placement at [facility] waiting on update from admissions at [facility].
--- NOTE | 2025-08-17 09:20 | W.PN.UPDATE ---
Update Note
Progress Note Update
Ms. He is POD5 following her right recision total shoulder arthroplasty for instability performed by Dr. Jones on 08/12/2025. She is resting comfortably in bed this morning. She denies any significant pain in the shoulder at present. She has no
questions or concerns at this time.
Directed exam of the right upper extremity reveals surgical dressing clean, dry and intact. No significant tenderness about the shoulder. Full ROM of wrist and hand. NVID.
85-year-old female for right revision total shoulder arthroplasty for instability with DOS 12 August 2025
- Appreciate assistance of medical team in care of this patient.
- Hgb stable at 9.1 this morning, improved from yesterday.
- DVT PPx per primary with heparin and transition to Eliquis on discharge.
-Cultures no growth to date.
- Continue with sling. PT/OT consultation. Elbow wrist and hand range of motion okay. Nonweightbearing to operative extremity.
- Orthopedic surgery will continue to follow
[2025-08-17] MEDS: TYLENOL 1000 MG PO ×2 (09:50→21:40)
[2025-08-17] MEDS: HYDROCORTONE/CORTEF 20 MG PO (09:50)
[2025-08-17] MEDS: PROTONIX 40 MG PO ×2 (09:50→19:23)
[2025-08-17] MEDS: ALDACTONE 25 MG PO (09:51)
[2025-08-17] MEDS: ELIQUIS 5 MG PO ×2 (09:51→19:23)
[2025-08-17] MEDS: DEMADEX 60 MG PO (09:51)
[2025-08-17] MEDS: FLORINEF 0.05 MG PO (09:52)
[2025-08-17] MEDS: KCL ELIXIR 40 MEQ PO ×2 (10:01→12:34)
--- NOTE | 2025-08-17 12:20 | W.PN.HOSP.TC ---
Today's Communication/Plan
-
monitor hgb
K repletion
Assessment / Plan
Assessment / Plan
Physical Exam
General: No Apparent Distress
HEENT: Moist Mucous Membranes and Atraumatic
Respiratory: Clear
Cardiac: S1/S2 and Regular Rhythm
GI: Soft and Non Tender
Genito-urinary: Negative Steinberg Catheter
Musculoskeletal: No Edema (Chronic lower extremity edema )
Skin: Other (Bruising left upper extremity, right shoulder sling )
Neuro: Awake, Alert, oriented to surroundings, followed commands.
Psych: Calm
85 female post op for right shoulder revision
#Acute right shoulder pain/ Chronic back pain
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
Shoulder pain seems less, orthopedic following closely
Limit the use of opioid because of history of opioid induced encephalopathy/confusion.
# Acute metabolic encephalopathy, resolved
Patient becomes confused at time, combination of opioid induced with recent surgery/ hospitalization
Continue to limit opioid intake knowing that pt might have to take some pain.
Normal TSH and Vitamin B12.
#GERD/hiatal hernia- Significant issue per family, nausea at times, c/w PPI as BID, Famotidine HS and Carafate Before breakfast & dinner. This regimen was reviewed with family.
#Chronic adrenal insufficiency -
She went through surgery and under anesthesia
s/p stress dose of Steroid for 48 hours. back to home regimen with hydrocortisone, Florinef, torsemide & spironolactone.
She sees Dr. Rincon
# History of spontaneous left upper extremity hematoma
-hematoma in the setting of chronic anticoagulation with Eliquis.
- Trial resumption of Eliquis, 08/16 pm
#Acute blood loss anemia.
# Acute on chronic anemia - acute blood loss anemia due to hematoma exacerbated by use of Eliquis.
IV iron and 2 unit of blood total; Last pRBC 08/14
Discharge on oral iron
Hemoglobin remained stable�trialing Eliquis 08/16 pm
-Monitor hgB
# Difficult IV Access
s/p Ultrasound and fluoroscopically guided placement of left internal jugular central venous catheter.
# Chronic hyponatremia
- Appears to be near baseline.
c/w fluid restriction
# Hyperkalemia
#Acute Hypokalemia
Resolved hyperkalemia, resumed Aldactone
-monitor and replete
# Chronic Lymphedema
# Paroxysmal atrial fibrillation -currently in SR.
- Resume Eliquis tonight
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
Monitor for retention post op.
#Acute on Chronic heart failure preserved EF , mild / post op.
Resume Aldactone & Torsemide.
No SOB/ No chest pain
#Hyperlipidemia -atorvastatin.
#History of rheumatic fever
#Nephrolithiasis
#Degenerative disc disease-
#Chronic constipation- Continue MiraLAX
#Anxiety/depression/insomnia-not on medications,
reported chronic insomnia
Continue with melatonin at night .
#UTI ruled out
Anticipated Discharge: Within 24 hours
Subjective/Interval History
-
Date of Service: August 17, 2025
hgb stable, no acute events overnight
Objective Data
-
Labs:
Laboratory Results
08/17/25
03:59
WBC 10.3
Hgb 9.1 L
Hct 27.8 L
Plt Count 359
Sodium 127 L
Potassium 3.1 L
Chloride 96 L
Carbon Dioxide 31 H
BUN 19 H
Creatinine 0.8
Glucose 78
Calcium 8.6
Vital Signs:
Vital Signs
Temp Pulse Resp BP Pulse Ox
98.1 F 65 16 155/57 97
08/17/25 07:00 08/17/25 07:00 08/17/25 07:00 08/17/25 07:00 08/17/25 07:00
I&O
08/16/25 08/17/25 08/18/25
06:59 06:59 06:59
Intake Total 480 / 480 1280 / 1280
Balance 480 / 480 1280 / 1280
Review of Systems
-
History Source: Patient
All other systems: Not reviewed unless documented
Data Reviewed
-
Total Time Spent with Patient (in minutes): 42
Diagnostic Radiology: Report Reviewed by me
Ultrasound: Report Reviewed by me
Labs: Labs Reviewed by me
[2025-08-17] MEDS: CORTEF 5 MG PO (12:34)
[2025-08-17 16:00] VITALS: BP 146/57
[2025-08-17] MEDS: LIPITOR 10 MG PO (19:23)
[2025-08-17] MEDS: NEURONTIN PO (19:23)
[2025-08-17] MEDS: REFRESH EYE DROPS (PF) BOTH EYES (19:24)
[2025-08-17] MEDS: TYLENOL PO (19:24)
[2025-08-17] MEDS: PACERONE 200 MG PO (21:39)
[2025-08-17] MEDS: NEURONTIN 300 MG PO (21:39)
[2025-08-17] MEDS: ZINC 50 MG PO (21:39)
[2025-08-17] MEDS: MELATONIN 5 MG PO (21:39)
[2025-08-17] MEDS: REFRESH EYE DROPS (PF) 1 DROPS BOTH EYES (21:40)
[2025-08-17] MEDS: SENOKOT PO (21:40)
[2025-08-17] MEDS: PEPCID 20 MG PO (21:40)
[2025-08-17 23:56] VITALS: BP 156/60
[2025-08-18 04:59] VITALS: BMI 26.3
[2025-08-18 06:36] LABS: Hematocrit 28.2 % (37.0-47.0); Hemoglobin 9.3 g/dL (12.0-16.0); Mean Corp Hgb Conc. 33.0 g/dL (33.0-37.0); Mean Corpuscular Volume 97.2 fL (81.0-99.0); Platelet Count 346 10^3/uL (130-400); Red Cell Dist. Width 13.9 % (11.5-14.5)
[2025-08-18 06:56] LABS: Blood Urea Nitrogen 19 mg/dl (7-17); Calcium 8.7 mg/dl (8.4-10.2); Carbon Dioxide 32 mmol/L (22-30); Chloride 97 mmol/L (98-107); Estimated Creatinine Clearance 43 ml/min; Glucose 83 mg/dl (70-99); Potassium 3.4 mmol/L (3.5-5.1); Sodium 131 mmol/L (135-145); eGFR > 60.00
[2025-08-18 07:00] VITALS: BP 143/62
--- NOTE | 2025-08-18 07:27 | W.PN.ORTHO ---
Today's Communication / Plan
-
PT/OT
Sling right upper extremity
Nonweightbearing right upper extremity
Aspirin/mechanical devices for DVT prophylaxis
Follow cultures
[facility]
Follow-up orthopedics 2 weeks postop for skin clip removal
Assessment
.
Distal Motor Intact: Yes
Dressing:
Dressing removed, incision cleaned with alcohol and Betadine. New Aquacel placed.
Plan
.
Surgery / Date: Revision RTS 08/12 Robert
DVT Prophylaxis: Aspirin
Activity:
Out of bed.
PT/OT
Discharge Plan: SNF
Subjective
.
.:
Patient resting comfortably. She looks great this morning.
Vital Signs and Labs
.
Vital Signs and Labs:
Lab Results
08/18/25 06:17
08/18/25 06:17
Temp Pulse Resp BP Pulse Ox
98.7 F 64 18 156/60 96
08/17/25 23:56 08/17/25 23:56 08/17/25 23:56 08/17/25 23:56 08/17/25 23:56
Multiple tissue cultures no growth thus far
Non-invasive Hgb result: 10.2
[2025-08-18] MEDS: ALDACTONE 25 MG PO (08:37)
[2025-08-18] MEDS: ELIQUIS 5 MG PO (08:37)
[2025-08-18] MEDS: TYLENOL 1000 MG PO (08:37)
[2025-08-18] MEDS: DEMADEX 60 MG PO (08:37)
[2025-08-18] MEDS: NEURONTIN 300 MG PO (08:37)
[2025-08-18] MEDS: HYDROCORTONE/CORTEF 20 MG PO (08:37)
[2025-08-18] MEDS: PROTONIX 40 MG PO (08:37)
[2025-08-18] MEDS: CARAFATE 1 GRAM PO (08:38)
[2025-08-18] MEDS: KCL 40 MEQ PO (08:38)
[2025-08-18] MEDS: FLORINEF 0.05 MG PO (08:38)
[2025-08-18] MEDS: REFRESH EYE DROPS (PF) 1 DROPS BOTH EYES (08:39)
--- NOTE | 2025-08-18 10:22 | CM ---
CM reviewed medical records. Plan for discharge to [facility]. CM updated Radha and will update when discharge is in. Patient's and daughter will drive patient to rehab.
PLAN: [facility]
--- NOTE | 2025-08-18 10:56 | W.PN.HOSP.TC ---
Addendum entered and electronically signed by Frankie Hicks MD 08/18/25 15:03:
no ASA for DVT ppx - would be Eliquis *
[id number]
Original Note:
Today's Communication/Plan
-
Monitor CBC and BMP in 3-5 days
Sling right upper extremity
Nonweightbearing right upper extremity
Aspirin/mechanical devices for DVT prophylaxis
Follow-up orthopedics 2 weeks postop for skin clip removal
Assessment / Plan
Assessment / Plan
Physical Exam
General: No Apparent Distress
HEENT: Moist Mucous Membranes and Atraumatic
Respiratory: Clear
Cardiac: S1/S2 and Regular Rhythm
GI: Soft and Non Tender
Genito-urinary: Negative Steinberg Catheter
Musculoskeletal: No Edema (Chronic lower extremity edema )
Skin: Other (Bruising left upper extremity, right shoulder sling )
Neuro: Awake, Alert, oriented to surroundings, followed commands.
Psych: Calm
85 female post op for right shoulder revision
#Acute right shoulder pain/ Chronic back pain
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
Shoulder pain seems less, orthopedic following closely
Limit the use of opioid because of history of opioid induced encephalopathy/confusion.
# Acute metabolic encephalopathy, resolved
Patient becomes confused at time, combination of opioid induced with recent surgery/ hospitalization
Continue to limit opioid intake knowing that pt might have to take some pain.
Normal TSH and Vitamin B12.
#GERD/hiatal hernia- Significant issue per family, nausea at times, c/w PPI as BID, Famotidine HS and Carafate Before breakfast & dinner. This regimen was reviewed with family.
#Chronic adrenal insufficiency -
She went through surgery and under anesthesia
s/p stress dose of Steroid for 48 hours. back to home regimen with hydrocortisone, Florinef, torsemide & spironolactone.
She sees Dr. Brandeis
# History of spontaneous left upper extremity hematoma
-hematoma in the setting of chronic anticoagulation with Eliquis.
- Trial resumption of Eliquis, 08/16 pm
#Acute blood loss anemia. Stable
# Acute on chronic anemia - acute blood loss anemia due to hematoma exacerbated by use of Eliquis.
IV iron and 2 unit of blood total; Last pRBC 08/14
Discharge on oral iron
Hemoglobin remained stable�passed trial of Eliquis 08/16 pm
-Monitor hgB
� Follow-up CBC in 3 to 5 days
# Difficult IV Access
s/p Ultrasound and fluoroscopically guided placement of left internal jugular central venous catheter.
# Chronic hyponatremia
- Appears to be near baseline.
c/w fluid restriction
# Hyperkalemia
#Acute Hypokalemia, chronic
Resolved hyperkalemia, resumed Aldactone
-monitor and replete
�Follow-up BMP in 3 to 5 days
# Chronic Lymphedema
# Paroxysmal atrial fibrillation -currently in SR.
- Resume Eliquis
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
Monitor for retention post op.
#Acute on Chronic heart failure preserved EF , mild / post op.
Resume Aldactone & Torsemide.
No SOB/ No chest pain
#Hyperlipidemia -atorvastatin.
#History of rheumatic fever
#Nephrolithiasis
#Degenerative disc disease-
#Chronic constipation- Continue MiraLAX
#Anxiety/depression/insomnia-not on medications,
reported chronic insomnia
Continue with melatonin at night .
#UTI ruled out
More than 30 minutes spent in discharge including
Final examination of the patient
Summarizing hospital stay
Instructions for continuing care to all relevant caregivers
Preparation of discharge records, prescriptions, and referral forms
Total time spent (in minutes): 36
Anticipated Discharge: Today
Subjective/Interval History
-
Date of Service: August 18, 2025
No acute events overnight, hemoglobin stable
Objective Data
-
Labs:
Laboratory Results
08/18/25
06:17
WBC 10.2
Hgb 9.3 L
Hct 28.2 L
Plt Count 346
Sodium 131 L
Potassium 3.4 L
Chloride 97 L
Carbon Dioxide 32 H
BUN 19 H
Creatinine 0.8
Glucose 83
Calcium 8.7
Vital Signs:
Vital Signs
Temp Pulse Resp BP Pulse Ox
97.8 F 67 16 143/62 99
08/18/25 07:00 08/18/25 07:00 08/18/25 07:00 08/18/25 07:00 08/18/25 07:00
I&O
08/17/25 08/18/25 08/19/25
06:59 06:59 06:59
Intake Total 1280 / 1280 360 / 360 240 / 240
Balance 1280 / 1280 360 / 360 240 / 240
Review of Systems
-
History Source: Patient
All other systems: Not reviewed unless documented
Physical Exam
-
General: No Apparent Distress
HEENT: Normocephalic and Atraumatic
Respiratory: Negative Wheezes
Cardiac: Regular Rhythm and S1/S2
GI: Soft
Musculoskeletal: No Edema
Neuro: AO x 3
Psych: Calm
Data Reviewed
-
Total Time Spent with Patient (in minutes): 42
Diagnostic Radiology: Report Reviewed by me
Ultrasound: Report Reviewed by me
Labs: Labs Reviewed by me
--- NOTE | 2025-08-18 11:04 | W.DS.TRANS ---
DC Summary - Sample Weaver
-
Discharge Instructions:
Sleep Apnea Risk Low
Discharge Diagnosis/Procedures #Acute right shoulder pain/ Chronic back pain -
s/p Right shoulder revision surgery for
recurrent dislocation/chronic instability by Dr
Robert 08/12.
#Acute blood loss anemia.
# Acute on chronic anemia - acute blood loss
anemia due to hematoma exacerbated by use of
Eliquis.
# Acute metabolic encephalopathy, resolved
#Chronic adrenal insufficiency
Diet Restrict fluids to 48 oz
Activity Other activity
Additional Activity Sling to operative extremity. NO ROM of
operative shoulder. OK for elbow, wrist and hand
ROM. No weight bearing operative arm
Driving Restrictions No driving
Bathing Restrictions OK to Shower
Blood Work cbc and bmp in 3-5 days with pcp
Wound Care maintain dressing 10-14 days- octaviano/sutures
out 14 days from DOS either in office or at SNF/
ARF
Instructions: Shoulder replacement (DC)
Stand-Alone Forms:
Changes to Home Medications: No
Discharge Medications:
DC Medications w/original date entered in [facility]
torsemide 20 mg tablet 60 mg PO DAILY Fluid Retention/Swelling 12/28/23
atorvastatin 10 mg tablet 10 mg PO QPM High Cholesterol 01/09/24
calcium 600 mg (as carbonate)-vitamin D3 10 mcg (400 unit) tablet (Calcium 600 + D(3)) 1 tab PO BID Supplement 01/09/24
melatonin 10 mg tablet 10 mg PO HS Sleep #0 tabs 01/21/24
Saccharomyces boulardii 250 mg capsule (Florastor) 250 mg PO BID Supplement 08/15/24
hydrocortisone 10 mg tablet 5 mg PO NOON adrenal insuff 08/15/24
hydrocortisone 10 mg tablet 20 mg PO DAILY adrenal insuff 08/15/24
acetaminophen 650 mg tablet,extended release 1,300 mg PO Q6HPRN PRN mild pain/fever 05/07/25
amiodarone 200 mg tablet 200 mg PO HS Heart Disease/Condition 05/07/25
ascorbic acid (vitamin C) 1,000 mg tablet (Vitamin C) 1,000 mg PO DAILY Supplement 05/07/25
spironolactone 25 mg tablet 25 mg PO DAILY Blood Pressure 05/07/25
mirabegron 25 mg tablet,extended release 24 hr (Myrbetriq) 25 mg PO DAILY Urinary Issue 06/07/25
carboxymethylcellulose sodium 1 % eye liquid gel drops 1 drp BOTH EYES TID Eye Condition 06/26/25
fludrocortisone 0.1 mg tablet 0.05 mg PO DAILY INFLAMMATION 06/26/25
apixaban 5 mg tablet (Eliquis) 5 mg PO BID Blood Clot Prevention/Tx 08/07/25
famotidine 20 mg tablet (Pepcid) 20 mg PO HS Gastrointestinal Issue 08/07/25
metoclopramide HCl 5 mg tablet 5 mg PO BID NAUSEA 08/07/25
omeprazole 20 mg tablet,delayed release 20 mg PO BID Gastrointestinal Issue 08/07/25
potassium chloride 20 mEq tablet,extended release 40 meq PO BID Electrolyte Repletion 08/07/25
sennosides 8.6 mg tablet (senna) 8.6 mg PO DAILYPRN PRN CONSTIPATION 08/07/25
sucralfate 1 gram tablet 1 g PO AC Gastrointestinal Issue 08/07/25
cetirizine 10 mg tablet 10 mg PO HS #0 tabs 08/08/25
gabapentin 300 mg capsule 300 mg PO TID@0800,1400,2200 #90 caps 08/08/25
hydrocodone 5 mg-acetaminophen 325 mg tablet 1 tab PO Q4H PRN pain 08/11/25
psyllium husk 1 cap PO DAILY Constipation 08/11/25
lidocaine 4 % topical patch 1 patch topical DAILY Pain 08/13/25
multivitamin with folic acid 400 mcg tablet (Tab-A-Carey) 1 tab PO HS Supplement 08/13/25
polyethylene glycol 3350 17 gram oral powder packet 17 g PO DAILY Constipation 08/13/25
zinc sulfate 50 mg zinc (220 mg) capsule 50 mg PO HS Supplement 08/13/25
tamsulosin 0.4 mg capsule 0.4 mg PO DAILYPRN PRN bladder scan volume > 400 mL #30 caps 08/18/25
Home Medication Changes
NA
Pending Results: No
--- NOTE | 2025-08-18 11:16 | CM ---
Patient is medically ready for discharge. Patient's and daughter will provide transportation to [facility].
PLAN:
[facility]
Report [phone]

1st floor
[phone] 2nd floor
[2025-08-18] MEDS: CORTEF 5 MG PO (12:14)
[2025-08-18 12:51] VITALS: BP 158/55
== END 2025-08-18 13:40 | DRG 483 ==
LOC: 2 SOUTH 10:08
PROVIDERS: Family Medicine; Nurse Practitioner Family; Physician Assistant Medical; Radiology Vascular & Interventional Radiology; ADMITTING PHYSICIAN Specialist; ATTENDING PHYSICIAN Internal Medicine; FAMILY PHYSICIAN Family Medicine; OTHER PHYSICIAN Internal Medicine
PROC: 02HV33Z Insertion of Infusion Device into Superior Vena Cava, Percutaneous Approach (ICD-10-PCS; 2025-08-12)
PROC: 0RRJ0J6 Replacement of Right Shoulder Joint with Synthetic Substitute, Humeral Surface, Open Approach (ICD-10-PCS; 2025-08-12)
PROC: B5181ZA Fluoroscopy of Superior Vena Cava using Low Osmolar Contrast, Guidance (ICD-10-PCS; 2025-08-12)
PROC: 0RPJ0J6 Removal of Synthetic Substitute from Right Shoulder Joint, Humeral Surface, Open Approach (ICD-10-PCS; 2025-08-12)
PROC: 30243N1 Transfusion of Nonautologous Red Blood Cells into Central Vein, Percutaneous Approach (ICD-10-PCS; 2025-08-14)
DX: T84.028A Dislocation of other internal joint prosthesis, initial encounter (principal); G92.8 Other toxic encephalopathy; E27.40 Unspecified adrenocortical insufficiency; D62 Acute posthemorrhagic anemia; D68.32 Hemorrhagic disorder due to extrinsic circulating anticoagulants; E87.1 Hypo-osmolality and hyponatremia; I50.32 Chronic diastolic (congestive) heart failure; I13.0 Hypertensive heart and chronic kidney disease with heart failure and stage 1 through stage 4 chronic kidney disease, or unspecified chronic kidney disease; Y79.2 Prosthetic and other implants, materials and accessory orthopedic devices associated with adverse incidents; G89.29 Other chronic pain; T40.605A Adverse effect of unspecified narcotics, initial encounter; K21.9 Gastro-esophageal reflux disease without esophagitis; K44.9 Diaphragmatic hernia without obstruction or gangrene; E87.5 Hyperkalemia; I48.0 Paroxysmal atrial fibrillation; I89.0 Lymphedema, not elsewhere classified; N20.0 Calculus of kidney; E78.5 Hyperlipidemia, unspecified; K59.09 Other constipation; F32.A Depression, unspecified; F41.9 Anxiety disorder, unspecified; G47.00 Insomnia, unspecified; Z96.611 Presence of right artificial shoulder joint; N18.31 Chronic kidney disease, stage 3a
CPT/HCPCS: 36415; 36556; 71045; 73020; 76937; 77001; 80048; 80053; 81003; 81015; 82533; 82607; 83036; 83735; 83880; 84443; 85025; 85027; 85652; 86140; 86850; 86900; 86901; 86920; 87070; 87075; 87086; 87176; 87205; 93005; 93971; 97116; 97163; 97167; 97530; 97535; J2916; P9016